=== PATIENT | male | born 1930 | race Caucasian/White ===

== ENCOUNTER 2016-10-29 08:33 | Outpatient (CLI) | payer MEDICARE, OTHER | END 2016-10-29 08:34 | disposition home or self-care (01) | DX: E11.22 Type 2 diabetes mellitus with diabetic chronic kidney disease (principal); N18.9 Chronic kidney disease, unspecified; E78.5 Hyperlipidemia, unspecified; I13.0 Hypertensive heart and chronic kidney disease with heart failure and stage 1 through stage 4 chronic kidney disease, or unspecified chronic kidney disease; I50.9 Heart failure, unspecified ==

== ENCOUNTER 2016-11-10 10:19 | Outpatient (CLI) | payer MEDICARE, OTHER | END 2016-11-10 10:20 | disposition home or self-care (01) | DX: M81.0 Age-related osteoporosis without current pathological fracture (principal); M50.30 Other cervical disc degeneration, unspecified cervical region ==

== ENCOUNTER 2017-01-09 07:58 | Outpatient (CLI) | payer MEDICARE, OTHER | END 2017-01-09 07:59 | disposition critical access hospital (66) | DX: R06.02 Shortness of breath (principal) | CPT/HCPCS: A0425; A0429 ==

== ENCOUNTER 2017-01-09 08:12 | Inpatient (IN) | payer MEDICARE, OTHER ==
[2017-01-09] MEDS ORDERED: NITROGLYCERIN 2% PASTE TOP STA (10:37)
[2017-01-09] MEDS ORDERED: FUROSEMIDE 40 MG/4 ML VIAL IVP STA (10:37)
[2017-01-09] MEDS ORDERED: ASPIRIN CHEW 81 MG TABLET PO STA (10:37)
[2017-01-09] MEDS ORDERED: FUROSEMIDE 40 MG/4 ML VIAL ONE (10:45)
[2017-01-09] MEDS ORDERED: NITROGLYCERIN 2% PASTE TOP ONE (10:45)
[2017-01-09] MEDS ORDERED: ASPIRIN CHEW 81 MG TABLET ONE (10:45)
[2017-01-09] MEDS ORDERED: ALPRAZolam 0.25 MG TABLET PO PRN (11:51)
[2017-01-09] MEDS ORDERED: ACETAMINOPHEN 325 MG TABLET PO PRN (11:54)
[2017-01-09] MEDS ORDERED: SODIUM CHLORIDE FLUSH 0.9% 10 ML SYRINGE IVP PRN (11:54)
[2017-01-09] MEDS: TAMSULOSIN 0.4 MG CAPSULE PO SCH (13:39)
[2017-01-09] MEDS: LOSARTAN 50 MG TABLET PO SCH (13:40)
[2017-01-09] MEDS: CARVEDILOL 3.125 MG TABLET PO SCH ×2 (13:40→21:51)
[2017-01-09] MEDS: POTASSIUM CHLORIDE 20 MEQ TABLET PO SCH (13:40)
[2017-01-09] MEDS: hydrALAZINE 25 MG TABLET PO SCH ×2 (13:40→21:51)
[2017-01-09] MEDS: INSULIN ASPART 300 UNIT/3 ML PEN SUBQ SCH ×3 (13:43→21:51)
[2017-01-09] MEDS: SODIUM CHLORIDE FLUSH 0.9% 10 ML SYRINGE IVP SCH ×2 (14:52→21:53)
[2017-01-09] MEDS: CLOPIDOGREL 75 MG TABLET PO SCH (14:52)
[2017-01-09] MEDS: FUROSEMIDE 40 MG/4 ML VIAL IVP SCH (16:06)
[2017-01-09] MEDS: ATORVASTATIN 10 MG TABLET PO SCH (21:51)
[2017-01-10] MEDS: FUROSEMIDE 40 MG/4 ML VIAL IVP SCH ×2 (06:03→14:08)
[2017-01-10] MEDS: SODIUM CHLORIDE FLUSH 0.9% 10 ML SYRINGE IVP SCH ×3 (06:03→20:52)
[2017-01-10] MEDS: INSULIN ASPART 300 UNIT/3 ML PEN SUBQ SCH ×4 (08:20→20:44)
[2017-01-10] MEDS: hydrALAZINE 25 MG TABLET PO SCH ×2 (08:21→20:46)
[2017-01-10] MEDS: LOSARTAN 50 MG TABLET PO SCH (08:21)
[2017-01-10] MEDS: CARVEDILOL 3.125 MG TABLET PO SCH ×2 (08:21→20:46)
[2017-01-10] MEDS: TAMSULOSIN 0.4 MG CAPSULE PO SCH (08:23)
[2017-01-10] MEDS: ALLOPURINOL 100 MG TABLET PO SCH (08:23)
[2017-01-10] MEDS: POTASSIUM CHLORIDE 20 MEQ TABLET PO SCH (08:24)
[2017-01-10] MEDS: POLYETHYLENE GLYCOL 3350 17 GM PACKET PO SCH (08:24)
[2017-01-10] MEDS: ATORVASTATIN 10 MG TABLET PO SCH (20:47)
[2017-01-11] MEDS: SODIUM CHLORIDE FLUSH 0.9% 10 ML SYRINGE IVP SCH ×3 (05:57→20:07)
[2017-01-11] MEDS: FUROSEMIDE 40 MG/4 ML VIAL IVP SCH ×2 (05:57→13:31)
[2017-01-11] MEDS: LOSARTAN 50 MG TABLET PO SCH (08:01)
[2017-01-11] MEDS: TAMSULOSIN 0.4 MG CAPSULE PO SCH (08:02)
[2017-01-11] MEDS: POTASSIUM CHLORIDE 20 MEQ TABLET PO SCH (08:03)
[2017-01-11] MEDS: hydrALAZINE 25 MG TABLET PO SCH ×2 (08:03→20:06)
[2017-01-11] MEDS: ALLOPURINOL 100 MG TABLET PO SCH (08:03)
[2017-01-11] MEDS: CARVEDILOL 3.125 MG TABLET PO SCH ×2 (08:08→20:05)
[2017-01-11] MEDS: POLYETHYLENE GLYCOL 3350 17 GM PACKET PO SCH (08:09)
[2017-01-11] MEDS: INSULIN ASPART 300 UNIT/3 ML PEN SUBQ SCH ×4 (08:09→21:13)
[2017-01-11] MEDS: ALBUTEROL NEB 2.5 MG/3 ML INH PRN ×4 (09:03→21:06)
[2017-01-11] MEDS: ATORVASTATIN 10 MG TABLET PO SCH (20:05)
[2017-01-12] MEDS: FUROSEMIDE 40 MG/4 ML VIAL IVP SCH (06:09)
[2017-01-12] MEDS: SODIUM CHLORIDE FLUSH 0.9% 10 ML SYRINGE IVP SCH (06:09)
[2017-01-12] MEDS: INSULIN ASPART 300 UNIT/3 ML PEN SUBQ SCH (07:32)
[2017-01-12] MEDS: POLYETHYLENE GLYCOL 3350 17 GM PACKET PO SCH (07:42)
[2017-01-12] MEDS: POTASSIUM CHLORIDE 20 MEQ TABLET PO SCH (08:04)
[2017-01-12] MEDS: LOSARTAN 50 MG TABLET PO SCH (08:05)
[2017-01-12] MEDS: CLOPIDOGREL 75 MG TABLET PO SCH (08:05)
[2017-01-12] MEDS: TAMSULOSIN 0.4 MG CAPSULE PO SCH (08:05)
[2017-01-12] MEDS: CARVEDILOL 3.125 MG TABLET PO SCH (08:06)
[2017-01-12] MEDS: hydrALAZINE 25 MG TABLET PO SCH (08:06)
[2017-01-12] MEDS: ALLOPURINOL 100 MG TABLET PO SCH (08:06)
== END 2017-01-12 11:47 | disposition home or self-care (01) | DRG 291 ==
DX: I13.0 Hypertensive heart and chronic kidney disease with heart failure and stage 1 through stage 4 chronic kidney disease, or unspecified chronic kidney disease (principal); I48.0 Paroxysmal atrial fibrillation; I50.9 Heart failure, unspecified; I10 Essential (primary) hypertension; E11.9 Type 2 diabetes mellitus without complications; I50.33 Acute on chronic diastolic (congestive) heart failure; J44.1 Chronic obstructive pulmonary disease with (acute) exacerbation; C91.10 Chronic lymphocytic leukemia of B-cell type not having achieved remission; N18.3 Chronic kidney disease, stage 3 (moderate); E11.22 Type 2 diabetes mellitus with diabetic chronic kidney disease; I48.2 Chronic atrial fibrillation; D69.6 Thrombocytopenia, unspecified; I27.2 Other secondary pulmonary hypertension; E78.5 Hyperlipidemia, unspecified; K21.9 Gastro-esophageal reflux disease without esophagitis; Z79.4 Long term (current) use of insulin; Z79.899 Other long term (current) drug therapy; Z87.01 Personal history of pneumonia (recurrent); Z87.891 Personal history of nicotine dependence; Z86.73 Personal history of transient ischemic attack (TIA), and cerebral infarction without residual deficits; Z79.02 Long term (current) use of antithrombotics/antiplatelets

== ENCOUNTER 2017-01-26 09:50 | Outpatient (CLI) | payer MEDICARE, OTHER | END 2017-01-26 09:51 | disposition home or self-care (01) | DX: E11.29 Type 2 diabetes mellitus with other diabetic kidney complication (principal); I10 Essential (primary) hypertension; I50.9 Heart failure, unspecified; T14.8 Other injury of unspecified body region; R04.0 Epistaxis ==

== ENCOUNTER 2017-01-31 01:26 | Outpatient (CLI) | payer MEDICARE, OTHER | END 2017-01-31 01:27 | disposition critical access hospital (66) | DX: M25.552 Pain in left hip (principal); W06.XXXA Fall from bed, initial encounter; Y92.003 Bedroom of unspecified non-institutional (private) residence as the place of occurrence of the external cause | CPT/HCPCS: A0425; A0427 ==

== ENCOUNTER 2017-01-31 01:38 | Inpatient (IN) | payer MEDICARE, OTHER ==
[2017-01-31] MEDS ORDERED: HYDROmorphone 1 MG/ML SYRINGE IVP STA (02:16)
[2017-01-31] MEDS ORDERED: HYDROmorphone 1 MG/ML SYRINGE ONE (02:18)
[2017-01-31] MEDS ORDERED: IPRATROPIUM/ALBUTEROL 3 ML NEB INH PRN (05:05)
[2017-01-31] MEDS ORDERED: PROCHLORPERAZINE 10 MG/2 ML VIAL IVP PRN (05:06)
[2017-01-31] MEDS ORDERED: ACETAMINOPHEN 325 MG TABLET PO PRN (05:06)
[2017-01-31] MEDS ORDERED: ONDANSETRON 4 MG/2 ML VIAL IVP PRN (05:06)
[2017-01-31] MEDS ORDERED: SODIUM CHLORIDE FLUSH 0.9% 10 ML SYRINGE IVP PRN (05:06)
[2017-01-31] MEDS ORDERED: ALPRAZolam 0.25 MG TABLET PO PRN (05:11)
[2017-01-31] MEDS: oxyCODONE 5 MG TABLET PO PRN ×3 (06:32→20:30)
[2017-01-31] MEDS: PANTOPRAZOLE 40 MG TABLET PO SCH (06:32)
[2017-01-31] MEDS: ALLOPURINOL 100 MG TABLET PO SCH (08:26)
[2017-01-31] MEDS: SODIUM CHLORIDE FLUSH 0.9% 10 ML SYRINGE IVP SCH ×4 (08:26→23:49)
[2017-01-31] MEDS: CARVEDILOL 3.125 MG TABLET PO SCH ×2 (08:27→20:30)
[2017-01-31] MEDS: FUROSEMIDE 40 MG/4 ML VIAL IVP SCH (08:27)
[2017-01-31] MEDS: hydrALAZINE 25 MG TABLET PO SCH ×2 (08:27→20:30)
[2017-01-31] MEDS: LOSARTAN 50 MG TABLET PO SCH (08:27)
[2017-01-31] MEDS: MORPHINE 2 MG/ML SYRINGE IVP PRN ×3 (08:28→23:47)
[2017-01-31] MEDS: POLYETHYLENE GLYCOL 3350 17 GM PACKET PO SCH (08:28)
[2017-01-31] MEDS: TAMSULOSIN 0.4 MG CAPSULE PO SCH (08:28)
[2017-01-31] MEDS ORDERED: NON FORMULARY MED (Telmisartan [Micardis] 80 MG) PO SCH (09:00)
[2017-01-31] MEDS ORDERED: SODIUM POLYSTYRENE SULFONATE 15 GM/60 ML BOTTLE PO ONE ×2 (13:17→15:00)
[2017-01-31] MEDS: ATORVASTATIN 40 MG TABLET PO SCH (20:30)
[2017-01-31] MEDS ORDERED: ENOXAPARIN 40 MG/0.4 ML SYRINGE SUBQ SCH (21:00)
[2017-01-31] MEDS: ZOLPIDEM 5 MG TABLET PO PRN (23:49)
[2017-02-01] MEDS: PANTOPRAZOLE 40 MG TABLET PO SCH (06:12)
[2017-02-01] MEDS: ALLOPURINOL 100 MG TABLET PO SCH (08:24)
[2017-02-01] MEDS: CARVEDILOL 3.125 MG TABLET PO SCH ×2 (08:24→21:44)
[2017-02-01] MEDS: FUROSEMIDE 40 MG/4 ML VIAL IVP SCH (08:24)
[2017-02-01] MEDS: TAMSULOSIN 0.4 MG CAPSULE PO SCH (08:25)
[2017-02-01] MEDS: POLYETHYLENE GLYCOL 3350 17 GM PACKET PO SCH (08:25)
[2017-02-01] MEDS: LOSARTAN 50 MG TABLET PO SCH (08:25)
[2017-02-01] MEDS: hydrALAZINE 25 MG TABLET PO SCH ×2 (08:25→21:44)
[2017-02-01] MEDS: oxyCODONE 5 MG TABLET PO PRN ×4 (08:39→21:44)
[2017-02-01] MEDS ORDERED: SENNA 8.6 MG TABLET PO SCH (09:00)
[2017-02-01] MEDS ORDERED: DOCUSATE SODIUM 250 MG CAPSULE PO SCH (09:00)
[2017-02-01] MEDS: SODIUM CHLORIDE FLUSH 0.9% 10 ML SYRINGE IVP SCH ×2 (13:36→21:49)
[2017-02-01] MEDS ORDERED: DOCUSATE SODIUM 250 MG CAPSULE PO PRN (15:27)
[2017-02-01] MEDS ORDERED: SENNA 8.6 MG TABLET PO PRN (15:28)
[2017-02-01] MEDS: ATORVASTATIN 40 MG TABLET PO SCH (21:44)
[2017-02-02] MEDS: PANTOPRAZOLE 40 MG TABLET PO SCH (06:13)
[2017-02-02] MEDS: SODIUM CHLORIDE FLUSH 0.9% 10 ML SYRINGE IVP SCH ×3 (06:14→20:52)
[2017-02-02] MEDS ORDERED: ZINC OXIDE 20% OINT 28.35 GM TUBE TOP PRN (08:53)
[2017-02-02] MEDS: TAMSULOSIN 0.4 MG CAPSULE PO SCH (09:13)
[2017-02-02] MEDS: hydrALAZINE 25 MG TABLET PO SCH ×2 (09:13→20:51)
[2017-02-02] MEDS: FUROSEMIDE 40 MG/4 ML VIAL IVP SCH (09:13)
[2017-02-02] MEDS: POLYETHYLENE GLYCOL 3350 17 GM PACKET PO SCH (09:14)
[2017-02-02] MEDS: ALLOPURINOL 100 MG TABLET PO SCH (09:14)
[2017-02-02] MEDS: CARVEDILOL 3.125 MG TABLET PO SCH ×2 (09:14→20:52)
[2017-02-02] MEDS: LOSARTAN 50 MG TABLET PO SCH (10:43)
[2017-02-02] MEDS: oxyCODONE 5 MG TABLET PO PRN (20:51)
[2017-02-02] MEDS: ATORVASTATIN 40 MG TABLET PO SCH (20:51)
[2017-02-02] MEDS: LACTATED RINGERS 1,000 ML IV SCH (23:04)
[2017-02-03] MEDS: SODIUM CHLORIDE FLUSH 0.9% 10 ML SYRINGE IVP SCH ×3 (06:36→21:14)
[2017-02-03] MEDS: PANTOPRAZOLE 40 MG TABLET PO SCH (06:36)
[2017-02-03] MEDS: FUROSEMIDE 40 MG/4 ML VIAL IVP SCH (10:27)
[2017-02-03] MEDS: POLYETHYLENE GLYCOL 3350 17 GM PACKET PO SCH (10:27)
[2017-02-03] MEDS: TAMSULOSIN 0.4 MG CAPSULE PO SCH (10:27)
[2017-02-03] MEDS: CARVEDILOL 3.125 MG TABLET PO SCH ×2 (10:27→20:20)
[2017-02-03] MEDS: hydrALAZINE 25 MG TABLET PO SCH ×2 (10:28→20:21)
[2017-02-03] MEDS: ALLOPURINOL 100 MG TABLET PO SCH (10:28)
[2017-02-03] MEDS: LACTATED RINGERS 1,000 ML IV SCH ×2 (10:29→18:19)
[2017-02-03] MEDS: ATORVASTATIN 40 MG TABLET PO SCH (20:20)
[2017-02-03] MEDS: oxyCODONE 5 MG TABLET PO PRN (21:12)
[2017-02-03] MEDS: ZOLPIDEM 5 MG TABLET PO PRN (23:58)
[2017-02-04] MEDS: SODIUM CHLORIDE FLUSH 0.9% 10 ML SYRINGE IVP SCH ×3 (06:46→20:26)
[2017-02-04] MEDS: PANTOPRAZOLE 40 MG TABLET PO SCH (06:46)
[2017-02-04] MEDS: ALLOPURINOL 100 MG TABLET PO SCH (10:40)
[2017-02-04] MEDS: hydrALAZINE 25 MG TABLET PO SCH ×2 (10:41→19:18)
[2017-02-04] MEDS: TAMSULOSIN 0.4 MG CAPSULE PO SCH (10:41)
[2017-02-04] MEDS: CARVEDILOL 3.125 MG TABLET PO SCH ×2 (10:42→19:18)
[2017-02-04] MEDS: FUROSEMIDE 40 MG TABLET PO SCH (10:42)
[2017-02-04] MEDS: POLYETHYLENE GLYCOL 3350 17 GM PACKET PO SCH (10:45)
[2017-02-04] MEDS ORDERED: ceFAZolin 1 GM VIAL IV ONE (12:30)
[2017-02-04] MEDS ORDERED: MIDAZOLAM 2 MG/2 ML VIAL IVP ONE (12:30)
[2017-02-04] MEDS ORDERED: ePHEDrine 50 MG/ML VIAL IVP ONE (12:30)
[2017-02-04] MEDS ORDERED: fentaNYL 100 MCG/2 ML VIAL IVP ONE (12:30)
[2017-02-04] MEDS ORDERED: TRANEXAMIC ACID 1,000 MG/10 ML VIAL IV ONE (12:30)
[2017-02-04] MEDS ORDERED: ONDANSETRON 4 MG/2 ML VIAL IVP ONE (12:30)
[2017-02-04] MEDS ORDERED: PHENYLEPHRINE 50 MG/5 ML VIAL IV ONE (12:30)
[2017-02-04] MEDS ORDERED: LIDOCAINE-MPF 2% 5 ML VIAL IM ONE (12:30)
[2017-02-04] MEDS ORDERED: PROPOFOL 200 MG/20 ML VIAL IVP ONE (12:30)
[2017-02-04] MEDS ORDERED: DEXAMETHASONE 4 MG/ML VIAL IVP ONE (12:30)
[2017-02-04] MEDS ORDERED: BUPIVACAINE 0.5%-EPI 1:200000 PF 30 ML VIAL SUBQ ONE (12:31)
[2017-02-04] MEDS ORDERED: LACTATED RINGERS 1,000 ML IV ONE ×2 (12:32)
[2017-02-04] MEDS ORDERED: HYDROcod/ACETAM 5/325 MG TABLET PO PRN (13:07)
[2017-02-04] MEDS ORDERED: MORPHINE 2 MG/ML SYRINGE IVP PRN (13:07)
[2017-02-04] MEDS: fentaNYL 100 MCG/2 ML VIAL ONE ×2 (13:50→14:03)
[2017-02-04] MEDS ORDERED: LACTATED RINGERS 1,000 ML IV SCH (14:00)
[2017-02-04] MEDS ORDERED: SODIUM CHLORIDE 0.9% 250 ML IV ONE (17:23)
[2017-02-04] MEDS: LACTATED RINGERS 1,000 ML IV SCH ×2 (17:36→22:17)
[2017-02-04] MEDS ORDERED: SODIUM CHLORIDE 0.9% 250 ML IV SCH (19:09)
[2017-02-04] MEDS: ceFAZolin 2 GM/50 ML 50 ML IV SCH (20:25)
[2017-02-04] MEDS: ATORVASTATIN 40 MG TABLET PO SCH (20:26)
[2017-02-04] MEDS ORDERED: diphenhydrAMINE 25 MG CAPSULE PO PRN (22:21)
[2017-02-05] MEDS: ceFAZolin 2 GM/50 ML 50 ML IV SCH (04:19)
[2017-02-05] MEDS: LACTATED RINGERS 1,000 ML IV SCH ×3 (06:13→16:48)
[2017-02-05] MEDS: PANTOPRAZOLE 40 MG TABLET PO SCH (06:15)
[2017-02-05] MEDS: SODIUM CHLORIDE FLUSH 0.9% 10 ML SYRINGE IVP SCH ×3 (06:21→20:08)
[2017-02-05] MEDS: ALLOPURINOL 100 MG TABLET PO SCH (10:17)
[2017-02-05] MEDS: ACETAMINOPHEN 325 MG TABLET PO PRN ×2 (10:17→20:03)
[2017-02-05] MEDS: FUROSEMIDE 40 MG TABLET PO SCH (10:18)
[2017-02-05] MEDS: hydrALAZINE 25 MG TABLET PO SCH ×2 (10:18→20:06)
[2017-02-05] MEDS: POLYETHYLENE GLYCOL 3350 17 GM PACKET PO SCH (10:19)
[2017-02-05] MEDS: TAMSULOSIN 0.4 MG CAPSULE PO SCH (10:19)
[2017-02-05] MEDS: CARVEDILOL 3.125 MG TABLET PO SCH ×2 (10:20→20:06)
[2017-02-05] MEDS: ATORVASTATIN 40 MG TABLET PO SCH (20:04)
[2017-02-06] MEDS: LACTATED RINGERS 1,000 ML IV SCH (00:29)
[2017-02-06] MEDS: PANTOPRAZOLE 40 MG TABLET PO SCH (05:44)
[2017-02-06] MEDS: SODIUM CHLORIDE FLUSH 0.9% 10 ML SYRINGE IVP SCH ×2 (07:02→09:09)
[2017-02-06] MEDS: TAMSULOSIN 0.4 MG CAPSULE PO SCH (09:07)
[2017-02-06] MEDS: POLYETHYLENE GLYCOL 3350 17 GM PACKET PO SCH ×2 (09:07→09:12)
[2017-02-06] MEDS: ALLOPURINOL 100 MG TABLET PO SCH (09:07)
[2017-02-06] MEDS: hydrALAZINE 25 MG TABLET PO SCH (09:09)
[2017-02-06] MEDS: CARVEDILOL 3.125 MG TABLET PO SCH (09:09)
== END 2017-02-06 15:00 | DRG 481 ==
PROC: 30233R1 Transfusion of Nonautologous Platelets into Peripheral Vein, Percutaneous Approach (ICD-10-PCS; 2017-02-04)
PROC: 0QH734Z Insertion of Internal Fixation Device into Left Upper Femur, Percutaneous Approach (ICD-10-PCS; principal; 2017-02-04 11:30)
DX: S72.012A Unspecified intracapsular fracture of left femur, initial encounter for closed fracture (principal); D69.3 Immune thrombocytopenic purpura; C91.10 Chronic lymphocytic leukemia of B-cell type not having achieved remission; E11.9 Type 2 diabetes mellitus without complications; I95.81 Postprocedural hypotension; I13.10 Hypertensive heart and chronic kidney disease without heart failure, with stage 1 through stage 4 chronic kidney disease, or unspecified chronic kidney disease; W18.09XA Striking against other object with subsequent fall, initial encounter; E11.22 Type 2 diabetes mellitus with diabetic chronic kidney disease; N18.3 Chronic kidney disease, stage 3 (moderate); E87.5 Hyperkalemia; I48.91 Unspecified atrial fibrillation; J44.9 Chronic obstructive pulmonary disease, unspecified; E78.5 Hyperlipidemia, unspecified; I27.2 Other secondary pulmonary hypertension; D64.9 Anemia, unspecified; M10.9 Gout, unspecified; K21.9 Gastro-esophageal reflux disease without esophagitis; N40.0 Benign prostatic hyperplasia without lower urinary tract symptoms; M48.06 Spinal stenosis, lumbar region; G89.29 Other chronic pain; M16.12 Unilateral primary osteoarthritis, left hip; Y92.008 Other place in unspecified non-institutional (private) residence as the place of occurrence of the external cause; Y93.9 Activity, unspecified; Y99.9 Unspecified external cause status; S40.022A Contusion of left upper arm, initial encounter; S40.021A Contusion of right upper arm, initial encounter; S40.012A Contusion of left shoulder, initial encounter; Z79.02 Long term (current) use of antithrombotics/antiplatelets; Z79.51 Long term (current) use of inhaled steroids; Z79.899 Other long term (current) drug therapy; Z86.73 Personal history of transient ischemic attack (TIA), and cerebral infarction without residual deficits; Z99.81 Dependence on supplemental oxygen; Z87.828 Personal history of other (healed) physical injury and trauma; Z87.891 Personal history of nicotine dependence

== ENCOUNTER 2017-02-13 17:00 | Outpatient (CLI) | payer MEDICARE, OTHER ==
[2017-02-13 14:43] LABS: BASOPHILS % (AUTO) 0.2 %; EOSINOPHILS % (AUTO) 0.3 %; HCT - HEMATOCRIT 25.1 % (42.0-52.0); HGB - HEMOGLOBIN 8.2 g/dL (14.0-18.0); LYMPHOCYTES % (AUTO) 83.5 %; MEAN CORPUSCULAR HEMOGLOBIN 33.6 pg (27.0-31.0); MEAN CORPUSCULAR HGB CONC 32.5 g/dL (32.0-36.0); MEAN CORPUSCULAR VOLUME 103.3 fL (80.0-94.0); MEAN PLATELET VOLUME 11.1 fL (7.4-11.4); MONOCYTES % (AUTO) 4.6 %; NEUTROPHILS % (AUTO) 11.4 %; RED BLOOD COUNT 2.43 10^6/uL (4.70-6.10); RED CELL DISTRIBUTION WIDTH 17.8 % (12.0-15.0); UNCORRECTED WHITE BLOOD COUNT 16.7 x10^3/uL; WHITE BLOOD COUNT 16.7 x10^3/uL (4.8-10.8)
[2017-02-13 14:59] LABS: BAND NEUTROPHILS % (MANUAL) 0 %
[2017-02-13 15:01] LABS: LYMPHOCYTES % (MANUAL) 84 %; NEUTROPHILS % (MANUAL) 9 %; NP AUTO DIFFERENTIAL? YES; NP MAN DIFFERENTIAL? NO; TOTAL CELLS COUNTED 100
== END 2017-02-13 17:01 | disposition home or self-care (01) ==
LOC: LAB.R 17:00
DX: D64.9 Anemia, unspecified (principal)
CPT/HCPCS: 85025

== ENCOUNTER 2017-05-29 12:01 | Outpatient (CLI) | payer MEDICARE, OTHER ==
[2017-05-29 12:29] LABS: CREATININE 1.6 mg/dL (0.6-1.2)
--- NOTE | 2017-05-29 16:36 | MRI Report ---
EXAM: MRI BRAIN AND IACS WITHOUT CONTRAST EXAM DATE: 05/29/2017 01:47 PM. CLINICAL HISTORY: 87-year-old man with left-sided hearing loss and tinnitus. COMPARISON: None. TECHNIQUE: Multiplanar, multisequence T1-weighted and fluid-sensitive MR sequences of the brain were performed. Sequences optimized for routine evaluation. Other: High-resolution axial images were acqui red through the internal auditory canals. IV Contrast: None. FINDINGS: Parenchyma: No evidence of acute infarct on diffusion weighted sequence. The parenchyma demonstrates small regions of encephalomalacia in the right frontal operculum and left saranya-trigonal white matter, consistent with remote infarcts. Otherwise, there is mild, nonspecific FLAIR hyperintensity in the p eriventricular and deep cerebral white matter, a common finding in this age group. No evidence of manav or hemorrhage on susceptibility weighted sequence. Pituitary: Unremarkable. Ventricles and Extra-axial Spaces: Ventricles are symmetric but enlarged, most consistent with centra l cerebral volume loss at the upper limits of normal for age. Extra-axial spaces are unremarkable. Internal auditory canals: Patent without mass lesion. Cochleas and vestibular apparatuses demonstrate normal fluid signal intensity. No evidence of semicircular canal dehiscence. Orbits: Unremarkable except for bilateral lens replacement surgery. Sinuses: The paranasal sinuses are clear. There is a small left mastoid effusion. Major Vascular Flow Voids: Intact. IMPRESSION: 1. Normal MRI of the internal auditory canals. No evidence of mass lesion. 2. Small left mastoid effusion. 3. Small regions of encephalomalacia in the right frontal operculum and left peritrigonal white matte r, consistent with remote infarcts. [facility] Referring Provider Line: [phone] SITE ID: [id number]
== END 2017-05-29 12:02 | disposition home or self-care (01) ==
LOC: LAB 12:01
PROVIDERS: ATTEND Otolaryngology
DX: H74.8X3 Other specified disorders of middle ear and mastoid, bilateral (principal); G93.89 Other specified disorders of brain
CPT/HCPCS: 36415; 70540; 82565; 84520

== ENCOUNTER 2017-06-25 11:07 | Outpatient (CLI) | payer MEDICARE, OTHER ==
[2017-06-25 14:05] LABS: HEMOGLOBIN A1C 0.27 g/dL
[2017-06-25 14:37] LABS: ALBUMIN/GLOBULIN RATIO 1.5 (1.0-2.2); BILIRUBIN,TOTAL 1.7 mg/dL (0.2-1.0); BUN - BLOOD UREA NITROGEN 41 mg/dL (6-20); CALCIUM 8.6 mg/dL (8.5-10.3); CARBON DIOXIDE - CO2 23 mmol/L (21-32); CHLORIDE 110 mmol/L (101-111); CREATININE 1.5 mg/dL (0.6-1.2); GFR - MDRD 44 (>89); GLUCOSE 110 mg/dL (70-100); POTASSIUM 4.4 mmol/L (3.5-5.0); SODIUM 140 mmol/L (135-145); TOTAL PROTEIN 6.3 g/dL (6.7-8.2)
== END 2017-06-25 11:08 | disposition home or self-care (01) ==
LOC: LAB.WCP 11:07
PROVIDERS: ATTEND Family Medicine
DX: E11.29 Type 2 diabetes mellitus with other diabetic kidney complication (principal); N19 Unspecified kidney failure; I50.9 Heart failure, unspecified; I10 Essential (primary) hypertension
CPT/HCPCS: 36415; 80053; 83036

== ENCOUNTER 2017-07-09 12:20 | Outpatient (CLI) | payer MEDICARE, OTHER ==
[2017-07-09 19:40] LABS: CALCIUM 8.2 mg/dL (8.5-10.3); POTASSIUM 4.4 mmol/L (3.5-5.0)
== END 2017-07-09 12:21 | disposition home or self-care (01) ==
LOC: LAB.WCP 12:20
PROVIDERS: ATTEND Family Medicine
DX: E11.29 Type 2 diabetes mellitus with other diabetic kidney complication (principal); N19 Unspecified kidney failure; I50.9 Heart failure, unspecified
CPT/HCPCS: 36415; 80048

== ENCOUNTER 2017-07-24 11:29 | Outpatient (CLI) | payer MEDICARE, OTHER ==
[2017-07-24 20:08] LABS: CALCIUM 8.2 mg/dL (8.5-10.3); CREATININE 2.4 mg/dL (0.6-1.2); POTASSIUM 4.7 mmol/L (3.5-5.0)
== END 2017-07-24 11:30 | disposition home or self-care (01) ==
LOC: LAB.WCP 11:29
PROVIDERS: ATTEND Family Medicine
DX: E11.29 Type 2 diabetes mellitus with other diabetic kidney complication (principal); N19 Unspecified kidney failure; I50.9 Heart failure, unspecified
CPT/HCPCS: 36415; 80048

== ENCOUNTER 2017-10-30 10:32 | Outpatient (CLI) | payer MEDICARE, OTHER ==
[2017-10-30 12:38] LABS: BASOPHILS % (AUTO) 0.3 %; EOSINOPHILS % (AUTO) 0.3 %; HGB - HEMOGLOBIN 9.6 g/dL (14.0-18.0); LYMPHOCYTES % (AUTO) 87.8 %; MEAN CORPUSCULAR HEMOGLOBIN 34.2 pg (27.0-31.0); MEAN CORPUSCULAR HGB CONC 33.3 g/dL (32.0-36.0); MEAN CORPUSCULAR VOLUME 102.6 fL (80.0-94.0); MEAN PLATELET VOLUME 10.3 fL (7.4-11.4); MONOCYTES % (AUTO) 3.7 %; NEUTROPHILS % (AUTO) 7.9 %; PLT - PLATELET COUNT 57 10^3/uL (130-450); RED BLOOD COUNT 2.79 10^6/uL (4.70-6.10); RED CELL DISTRIBUTION WIDTH 16.5 % (12.0-15.0); WHITE BLOOD COUNT 15.2 x10^3/uL (4.8-10.8)
[2017-10-30 12:41] LABS: HB2 TOTAL 10.3 g/dL; HEMOGLOBIN A1C 0.35 g/dL; HEMOGLOBIN A1C % 5.3 % (4.6-6.2)
[2017-10-30 12:51] LABS: ABNORMAL LYMPHS % (MANUAL) 0 %; BAND NEUTROPHILS % (MANUAL) 0 %
[2017-10-30 13:04] LABS: EOSINOPHILS # (MANUAL) 0.2 10^3/uL (0-0.7); LYMPHOCYTES # (MANUAL) 13.4 10^3/uL (1.5-3.5); LYMPHOCYTES % (MANUAL) 16 %; MONOCYTES # (MANUAL) 0.8 10^3/uL (0.0-1.0); NEUTROPHILS # (MANUAL) 0.9 10^3/uL (1.5-6.6); NEUTROPHILS % (MANUAL) 6 %
[2017-10-30 13:05] LABS: DIFFERENTIAL COMMENT MANUAL DIFFERENTIAL; RBC MORPHOLOGY (MULTIPLE) 2+ ANISOCYTOSIS (NORMAL)
[2017-10-30 21:10] LABS: ALBUMIN 3.7 g/dL (3.2-5.5); ALBUMIN/GLOBULIN RATIO 1.6 (1.0-2.2); BILIRUBIN,TOTAL 2.5 mg/dL (0.2-1.0); CALCIUM 8.3 mg/dL (8.5-10.3); CREATININE 1.9 mg/dL (0.6-1.2)
== END 2017-10-30 10:33 | disposition home or self-care (01) ==
LOC: LAB.WCP 10:32
PROVIDERS: ATTEND Family Medicine
DX: I10 Essential (primary) hypertension (principal); E11.29 Type 2 diabetes mellitus with other diabetic kidney complication; N19 Unspecified kidney failure; I50.9 Heart failure, unspecified
CPT/HCPCS: 36415; 80053; 83036; 85025

== ENCOUNTER 2017-12-28 09:00 | Outpatient (CLI) | payer MEDICARE, OTHER ==
[2017-12-28 12:22] LABS: CALCIUM 8.3 mg/dL (8.5-10.3); CREATININE 1.9 mg/dL (0.6-1.2)
[2017-12-28 12:32] LABS: BASOPHILS % (AUTO) 0.1 %; EOSINOPHILS % (AUTO) 1.1 %; HGB - HEMOGLOBIN 9.1 g/dL (14.0-18.0); LYMPHOCYTES % (AUTO) 86.3 %; MEAN CORPUSCULAR HEMOGLOBIN 33.9 pg (27.0-31.0); MEAN CORPUSCULAR VOLUME 105.8 fL (80.0-94.0); NEUTROPHILS % (AUTO) 8.5 %; PLT - PLATELET COUNT 78 10^3/uL (130-450); RED BLOOD COUNT 2.68 10^6/uL (4.70-6.10); RED CELL DISTRIBUTION WIDTH 16.7 % (12.0-15.0); WHITE BLOOD COUNT 19.6 x10^3/uL (4.8-10.8)
[2017-12-28 13:26] LABS: ABNORMAL LYMPHS % (MANUAL) 0 %; BAND NEUTROPHILS % (MANUAL) 0 %
[2017-12-28 13:28] LABS: EOSINOPHILS # (MANUAL) 0.2 10^3/uL (0-0.7); LYMPHOCYTES # (MANUAL) 17.2 10^3/uL (1.5-3.5); LYMPHOCYTES % (MANUAL) 80 %; MONOCYTES # (MANUAL) 0.4 10^3/uL (0.0-1.0); NEUTROPHILS # (MANUAL) 1.8 10^3/uL (1.5-6.6); NEUTROPHILS % (MANUAL) 9 %; RBC MORPHOLOGY (MULTIPLE) 3+ ANISOCYTOSIS (NORMAL)
[2017-12-28 13:29] LABS: DIFFERENTIAL COMMENT MANUAL DIFFERENTIAL
== END 2017-12-28 09:01 | disposition home or self-care (01) ==
LOC: LAB.WCP 09:00
PROVIDERS: ATTEND Family Medicine
DX: I10 Essential (primary) hypertension (principal); I50.9 Heart failure, unspecified; N19 Unspecified kidney failure; E11.29 Type 2 diabetes mellitus with other diabetic kidney complication; D63.1 Anemia in chronic kidney disease
CPT/HCPCS: 36415; 80048; 83880; 85025

== ENCOUNTER 2018-02-15 08:00 | Outpatient (CLI) | payer MEDICARE, OTHER ==
[2018-02-15 12:49] LABS: BASOPHILS # (AUTO) 0.1 10^3/uL (0.0-0.1); BASOPHILS % (AUTO) 0.4 %; EOSINOPHILS % (AUTO) 0.2 %; HGB - HEMOGLOBIN 9.2 g/dL (14.0-18.0); MEAN CORPUSCULAR HEMOGLOBIN 32.8 pg (27.0-31.0); MEAN CORPUSCULAR HGB CONC 32.4 g/dL (32.0-36.0); MEAN CORPUSCULAR VOLUME 101.4 fL (80.0-94.0); MONOCYTES # (AUTO) 0.6 10^3/uL (0.0-1.0); MONOCYTES % (AUTO) 4.5 %; NEUTROPHILS # (AUTO) 2.2 10^3/uL (1.5-6.6); NEUTROPHILS % (AUTO) 15.9 %; PLT - PLATELET COUNT 76 10^3/uL (130-450); RED BLOOD COUNT 2.79 10^6/uL (4.70-6.10); RED CELL DISTRIBUTION WIDTH 16.9 % (12.0-15.0); WHITE BLOOD COUNT 13.9 x10^3/uL (4.8-10.8)
[2018-02-15 12:59] LABS: HB2 TOTAL 9.7 g/dL; HEMOGLOBIN A1C 0.35 g/dL; HEMOGLOBIN A1C % 5.5 % (4.6-6.2)
[2018-02-15 13:24] LABS: PLATELET ESTIMATE, MANUAL DECREASED (<130,000) (NORMAL); PLATELET MORPHOLOGY NORMAL APPEARANCE (NORMAL)
[2018-02-15 13:39] LABS: CALCIUM 8.5 mg/dL (8.5-10.3)
== END 2018-02-15 08:01 | disposition home or self-care (01) ==
LOC: LAB.WCP 08:00
PROVIDERS: ATTEND Family Medicine
DX: I10 Essential (primary) hypertension (principal); E11.29 Type 2 diabetes mellitus with other diabetic kidney complication; I50.9 Heart failure, unspecified; N19 Unspecified kidney failure; R60.0 Localized edema
CPT/HCPCS: 36415; 80048; 83036; 83880; 85025

== ENCOUNTER 2018-02-25 14:00 | Outpatient (CLI) | payer MEDICARE, OTHER ==
[2018-02-25 19:03] LABS: CALCIUM 8.5 mg/dL (8.5-10.3); CREATININE 1.9 mg/dL (0.6-1.2)
== END 2018-02-25 14:01 ==
LOC: LAB.WCP 14:00
PROVIDERS: ATTEND Physician Assistant
DX: N19 Unspecified kidney failure (principal); R23.8 Other skin changes
CPT/HCPCS: 36415; 80048; 87070; 87077; 87181; 87205

== ENCOUNTER 2018-03-02 11:21 | Outpatient (CLI) | payer MEDICARE, OTHER ==
[2018-03-02 19:37] LABS: CALCIUM 8.6 mg/dL (8.5-10.3); CREATININE 2.1 mg/dL (0.6-1.2)
== END 2018-03-02 11:22 ==
LOC: LAB.WCP 11:21
PROVIDERS: ATTEND Family Medicine
DX: E87.6 Hypokalemia (principal)
CPT/HCPCS: 36415; 80048

== ENCOUNTER 2018-04-19 08:00 | Outpatient (CLI) | payer MEDICARE, OTHER ==
[2018-04-19 19:06] LABS: CALCIUM 8.6 mg/dL (8.5-10.3); CREATININE 2.1 mg/dL (0.6-1.2)
[2018-04-19 20:00] LABS: HB2 TOTAL 9.7 g/dL; HEMOGLOBIN A1C 0.31 g/dL; HEMOGLOBIN A1C % 5.1 % (4.6-6.2)
== END 2018-04-19 08:01 | disposition home or self-care (01) ==
LOC: LAB.WCP 08:00
PROVIDERS: ATTEND Family Medicine
DX: E11.29 Type 2 diabetes mellitus with other diabetic kidney complication (principal); N19 Unspecified kidney failure; I10 Essential (primary) hypertension; I50.9 Heart failure, unspecified
CPT/HCPCS: 36415; 80048; 83036

== ENCOUNTER 2018-06-11 17:25 | Emergency (ER) | payer MEDICARE, OTHER ==
[2018-06-11 17:37] VITALS: BP 111/47
[2018-06-11] MEDS ORDERED: TRANEXAMIC ACID 1,000 MG/10 ML VIAL NAS STA (18:00)
--- NOTE | 2018-06-11 18:01 | ED Physician Documentation ---
History of Present Illness - Stated complaint Stated Complaint: NOSEBLEED - Chief complaint Chief Complaint: Ext Problem - History obtained from History obtained from: Patient, Family - History of Present Illness Timing: Today Pain level max: 0 Pain level now: 0 Improved by: pressure Worsened by: nothing - Additonal information Additional information: Patient is an 88-year-old male who takes Plavix at home. He has developed a bloody nose on the right side. This is been ongoing throughout the day. Is now a slow drip. Resolved with pressure earlier. Does not feel lightheaded, dizzy or short of breath. Does not recall any trauma. States that he has had a mild runny nose recently Review of Systems Constitutional: denies: Fever, Chills GI: denies: Nausea, Vomiting, Diarrhea Skin: denies: Rash Musculoskeletal: denies: Neck pain, Back pain Neurologic: denies: Headache PD PAST MEDICAL HISTORY - Past Medical History Cardiovascular: Hypertension, High cholesterol, Atrial fibrillation Respiratory: None Endocrine/Autoimmune: Type 2 diabetes GI: None : None HEENT: None Psych: None Musculoskeletal: Gout, Other Derm: None - Past Surgical History Past Surgical History: Yes General: Cholecystectomy, Appendectomy Ortho: Hip replacement HEENT: Cataracts Derm: Skin cancer surgery - Present Medications Home Medications: Ambulatory Orders Medication Instructions Recorded Confirmed Allopurinol 300 mg PO DAILY 10/01/13 01/31/17 Clopidogrel [Plavix] 75 mg PO MOWEFR 10/01/13 01/31/17 Hydralazine HCl 50 mg PO BID 10/01/13 01/31/17 Tamsulosin [Flomax] 0.4 mg PO DAILY #5 capsule 10/01/13 01/31/17 Telmisartan [Micardis] 80 mg PO DAILY 10/01/13 01/31/17 Furosemide [Lasix] 40 - 80 mg PO DAILY PRN 09/21/15 01/31/17 ALPRAZolam [Alprazolam] 0.5 - 1 mg PO QPM PRN 09/24/15 01/31/17 Zolpidem Tartrate [Ambien] 10 mg PO QPM PRN 01/09/17 01/31/17 Albuterol Sulfate [Proair Hfa 2 puffs INH Q4H PRN #1 inhaler 01/12/17 01/31/17 Inhaler] Carvedilol [Coreg] 6.25 mg PO BID #60 tablet 01/12/17 01/31/17 Potassium Chloride [K-Dur] 20 meq PO DAILYWM #30 tablet 01/12/17 01/31/17 - Allergies Allergies/Adverse Reactions: Allergies Allergy/AdvReac Type Severity Reaction Status Date / Time No Known Drug Allergies Allergy Verified 01/09/17 08:31 - Social History Does the pt smoke?: No Smoking Status: Never smoker Does the pt drink ETOH?: No Does the pt have substance abuse?: No - Immunizations Immunizations are current?: Yes - POLST Patient has POLST: No PD ED PE NORMAL - Vitals Vital signs reviewed: Yes - General General: Alert and oriented X 3, No acute distress - HEENT HEENT: Moist mucous membranes, Other (R nare - slight amount of dried blood. no active bleeding. ) - Neuro Neuro: Alert and oriented X 3 - Psych Psych: Normal mood, Normal affect Results - Vitals Vitals: Vital Signs - 24 hr 06/11/18 17:34 Temperature 37.1 C Heart Rate 66 Respiratory 18 Rate Blood Pressure 111/47 L O2 Saturation 95 Oxygen O2 Source [With Activity] Nasal cannula O2 Source Room air PD MEDICAL DECISION MAKING - ED course Complexity details: considered differential, d/w patient, d/w family ED course: Patient is an 88-year-old male with right-sided epistaxis earlier today. Appears to have resolved now. Tranexamic acid was atomized in the nose. Tolerated well. A clamp was applied and there was no further bleeding noted in the emergency department. We will have him follow-up with his doctor for further care. Patient and family counseled regarding signs and symptoms for which I believe and urgent re-evaluation would be necessary. Patient with good understanding of and agreement to plan and is comfortable going home at this time This document was made in part using voice recognition software. While efforts are made to proofread this document, sound alike and grammatical errors may occur. - Sepsis Event Vital Signs: Vital Signs - 24 hr 06/11/18 17:34 Temperature 37.1 C Heart Rate 66 Respiratory 18 Rate Blood Pressure 111/47 L O2 Saturation 95 Oxygen O2 Source [With Activity] Nasal cannula O2 Source Room air Departure - Departure Disposition: 01 Home, Self Care Clinical Impression: Epistaxis Condition: Good Instructions: ED Nosebleed Follow-Up: Andrea Aguirre MD [Primary Care Provider] - As Needed Comments: Return if you worsen. If your nose starts to rebleed, hold pressure for 10 minutes. If it is still bleeding, return for evaluation. Discharge Date/Time: 06/11/18 18:56
== END 2018-06-11 18:56 | disposition home or self-care (01) ==
LOC: ED 17:25
DX: R04.0 Epistaxis (principal); I10 Essential (primary) hypertension; E78.00 Pure hypercholesterolemia, unspecified; E11.9 Type 2 diabetes mellitus without complications; I48.91 Unspecified atrial fibrillation; Z79.01 Long term (current) use of anticoagulants
CPT/HCPCS: 99282

== ENCOUNTER 2018-06-11 21:53 | Emergency (ER) | payer MEDICARE, OTHER ==
[2018-06-11 22:04] VITALS: BP 125/56
[2018-06-11] MEDS ORDERED: OXYMETAZOLINE NASAL SPRAY NAS STA (22:04)
--- NOTE | 2018-06-11 22:30 | ED Physician Documentation ---
History of Present Illness - Stated complaint Stated Complaint: NOSE BLEED - Chief complaint Chief Complaint: General - History obtained from History obtained from: Patient, Family - History of Present Illness Timing: Today Pain level max: 0 Pain level now: 0 Improved by: nothing Worsened by: nothing - Additonal information Additional information: seen here earlier for nosebleed, states noted a continued trickle tonight. No dyspnea, no chest pain. no lightheadedness or dizziness. Review of Systems Constitutional: denies: Fever, Chills GI: denies: Vomiting Skin: denies: Rash Musculoskeletal: denies: Neck pain, Back pain PD PAST MEDICAL HISTORY - Past Medical History Past Medical History: Yes Cardiovascular: Hypertension, High cholesterol, Atrial fibrillation Respiratory: None Endocrine/Autoimmune: Type 2 diabetes GI: None : None HEENT: None Psych: None Musculoskeletal: Gout, Other Derm: None - Past Surgical History Past Surgical History: Yes General: Cholecystectomy, Appendectomy Ortho: Hip replacement HEENT: Cataracts Derm: Skin cancer surgery - Present Medications Home Medications: Ambulatory Orders Medication Instructions Recorded Confirmed Allopurinol 300 mg PO DAILY 10/01/13 01/31/17 Clopidogrel [Plavix] 75 mg PO MOWEFR 10/01/13 01/31/17 Hydralazine HCl 50 mg PO BID 10/01/13 01/31/17 Tamsulosin [Flomax] 0.4 mg PO DAILY #5 capsule 10/01/13 01/31/17 Telmisartan [Micardis] 80 mg PO DAILY 10/01/13 01/31/17 Furosemide [Lasix] 40 - 80 mg PO DAILY PRN 09/21/15 01/31/17 ALPRAZolam [Alprazolam] 0.5 - 1 mg PO QPM PRN 09/24/15 01/31/17 Zolpidem Tartrate [Ambien] 10 mg PO QPM PRN 01/09/17 01/31/17 Albuterol Sulfate [Proair Hfa 2 puffs INH Q4H PRN #1 inhaler 01/12/17 01/31/17 Inhaler] Carvedilol [Coreg] 6.25 mg PO BID #60 tablet 01/12/17 01/31/17 Potassium Chloride [K-Dur] 20 meq PO DAILYWM #30 tablet 01/12/17 01/31/17 - Allergies Allergies/Adverse Reactions: Allergies Allergy/AdvReac Type Severity Reaction Status Date / Time No Known Drug Allergies Allergy Verified 06/11/18 22:04 - Social History Does the pt smoke?: No Smoking Status: Never smoker Does the pt drink ETOH?: No Does the pt have substance abuse?: No - Immunizations Immunizations are current?: Yes - POLST Patient has POLST: No PD ED PE NORMAL - Vitals Vital signs reviewed: Yes - General General: Alert and oriented X 3, No acute distress - HEENT HEENT: Moist mucous membranes, Other (nose - Dried blood in the right nare along with clots. No active bleeding) - Neck Neck: Supple, no meningeal sign - Derm Derm: Warm and dry - Neuro Neuro: Alert and oriented X 3 - Psych Psych: Normal mood, Normal affect Results - Vitals Vitals: Vital Signs - 24 hr 06/11/18 06/11/18 06/11/18 22:02 22:49 23:00 Temperature 36.1 C L Heart Rate 80 77 Respiratory 17 16 17 Rate Blood Pressure 125/56 L O2 Saturation 99 99 Oxygen O2 Source [With Activity] Nasal cannula O2 Source Room air PD MEDICAL DECISION MAKING - ED course Complexity details: considered differential, d/w patient, d/w family ED course: Clots were removed from the nose. Tolerated well. Afrin was then used without recurrence of bleeding in the emergency department. A monitored for approximately 45 minutes and then patient request to go home. Patient and family counseled regarding signs and symptoms for which I believe and urgent re- evaluation would be necessary. Patient with good understanding of and agreement to plan and is comfortable going home at this time This document was made in part using voice recognition software. While efforts are made to proofread this document, sound alike and grammatical errors may occur. - Sepsis Event Vital Signs: Vital Signs - 24 hr 06/11/18 06/11/18 06/11/18 22:02 22:49 23:00 Temperature 36.1 C L Heart Rate 80 77 Respiratory 17 16 17 Rate Blood Pressure 125/56 L O2 Saturation 99 99 Oxygen O2 Source [With Activity] Nasal cannula O2 Source Room air Departure - Departure Disposition: 01 Home, Self Care Clinical Impression: Epistaxis Condition: Good Instructions: ED Nosebleed Follow-Up: Andrea Aguirre MD [Primary Care Provider] - Within 1 week Comments: Use the afrin twice a day for 2 days. Do not rub or blow your nose. Return if you worsen. Discharge Date/Time: 06/11/18 23:05
== END 2018-06-11 23:05 | disposition home or self-care (01) ==
LOC: ED 21:53
DX: R04.0 Epistaxis (principal); I10 Essential (primary) hypertension; E78.00 Pure hypercholesterolemia, unspecified; E11.9 Type 2 diabetes mellitus without complications; I48.91 Unspecified atrial fibrillation; Z79.01 Long term (current) use of anticoagulants; Z96.649 Presence of unspecified artificial hip joint
CPT/HCPCS: 99282; 99283; A9270

== ENCOUNTER 2018-06-12 11:27 | Emergency (ER) | payer MEDICARE, OTHER ==
[2018-06-12] MEDS ORDERED: LIDOCAINE 2%-EPI 1:100000 20 ML MDV TOP STA (12:59)
--- NOTE | 2018-06-12 13:37 | ED Physician Documentation ---
History of Present Illness - Stated complaint Stated Complaint: NOSE BLEED - Chief complaint Chief Complaint: Heent - History obtained from History obtained from: Patient, Family - History of Present Illness Timing: Yesterday Pain level max: 0 Pain level now: 0 - Additonal information Additional information: Patient is an 88-year-old male who presents with epistaxis from the right nare. Seen here yesterday 2. There was no further bleeding last night, however when he woke up this morning there was blood on the sheets in the bed. He is not currently bleeding. It is better with pressure and worse with palpation and dislodging the clot. Review of Systems Constitutional: denies: Fever : denies: Dysuria Skin: denies: Rash PD PAST MEDICAL HISTORY - Past Medical History Cardiovascular: Hypertension, High cholesterol, Atrial fibrillation Respiratory: None Endocrine/Autoimmune: Type 2 diabetes GI: None : None HEENT: None Psych: None Musculoskeletal: Gout, Other Derm: None - Past Surgical History Past Surgical History: Yes General: Cholecystectomy, Appendectomy Ortho: Hip replacement HEENT: Cataracts Derm: Skin cancer surgery - Present Medications Home Medications: Ambulatory Orders Medication Instructions Recorded Confirmed Allopurinol 300 mg PO DAILY 10/01/13 01/31/17 Clopidogrel [Plavix] 75 mg PO MOWEFR 10/01/13 01/31/17 Hydralazine HCl 50 mg PO BID 10/01/13 01/31/17 Tamsulosin [Flomax] 0.4 mg PO DAILY #5 capsule 10/01/13 01/31/17 Telmisartan [Micardis] 80 mg PO DAILY 10/01/13 01/31/17 Furosemide [Lasix] 40 - 80 mg PO DAILY PRN 09/21/15 01/31/17 ALPRAZolam [Alprazolam] 0.5 - 1 mg PO QPM PRN 09/24/15 01/31/17 Zolpidem Tartrate [Ambien] 10 mg PO QPM PRN 01/09/17 01/31/17 Albuterol Sulfate [Proair Hfa 2 puffs INH Q4H PRN #1 inhaler 01/12/17 01/31/17 Inhaler] Carvedilol [Coreg] 6.25 mg PO BID #60 tablet 01/12/17 01/31/17 Potassium Chloride [K-Dur] 20 meq PO DAILYWM #30 tablet 01/12/17 01/31/17 Cephalexin [Keflex] 500 mg PO Q6H #12 capsule 06/12/18 - Allergies Allergies/Adverse Reactions: Allergies Allergy/AdvReac Type Severity Reaction Status Date / Time No Known Drug Allergies Allergy Verified 06/11/18 22:04 - Social History Does the pt smoke?: No Smoking Status: Never smoker Does the pt drink ETOH?: No Does the pt have substance abuse?: No - Immunizations Immunizations are current?: Yes - POLST Patient has POLST: No PD ED PE NORMAL - Vitals Vital signs reviewed: Yes - General General: Alert and oriented X 3, No acute distress - HEENT HEENT: Moist mucous membranes, Other (Dried blood in the right nare. No visible bleeding.) - Neck Neck: Supple, no meningeal sign - Derm Derm: Warm and dry - Neuro Neuro: Alert and oriented X 3 Results - Vitals Vitals: Vital Signs - 24 hr 06/12/18 06/12/18 11:42 13:45 Temperature 36.9 C 36.6 C Heart Rate 71 68 Respiratory 15 18 Rate Blood Pressure 101/54 L 107/55 L O2 Saturation 99 98 Oxygen O2 Source [With Activity] Nasal cannula O2 Source Room air Procedures - Epistaxis Site: Right, Cannot determine Preparation: Clots removed, Lidocaine (With epinephrine) Treatment: Anterior rhinorocket Other: Observed - no bleeding, Pt tolerated well, O2 sat WNL, Antibiotics prescribed PD MEDICAL DECISION MAKING - ED course Complexity details: considered differential, d/w patient, d/w family ED course: Patient is an 88-year-old male with a recurrent epistaxis, likely dislodged the clot last night while he was asleep. No bleeding today, however after discussion of options including observation and continued Afrin at home, he and his have elected to receive intranasal packing. We will leave this in place for 2 days given his status on Plavix and have it removed with his doctor on Thursday. Will place him on Keflex as well. No further bleeding in the emergency department. Patient and family counseled regarding signs and symptoms for which I believe and urgent re-evaluation would be necessary. Patient with good understanding of and agreement to plan and is comfortable going home at this time This document was made in part using voice recognition software. While efforts are made to proofread this document, sound alike and grammatical errors may occur. - Sepsis Event Vital Signs: Vital Signs - 24 hr 06/12/18 06/12/18 11:42 13:45 Temperature 36.9 C 36.6 C Heart Rate 71 68 Respiratory 15 18 Rate Blood Pressure 101/54 L 107/55 L O2 Saturation 99 98 Oxygen O2 Source [With Activity] Nasal cannula O2 Source Room air Departure - Departure Disposition: 01 Home, Self Care Clinical Impression: Epistaxis Condition: Good Instructions: ED Nosebleed Follow-Up: Andrea Aguirre MD [Primary Care Provider] - 06/14/18 Prescriptions: Cephalexin [Keflex] 500 mg PO Q6H #12 capsule Comments: the packing should be removed on Thursday here or with your doctor. Take the antibiotics until the packing is removed. Return if you worsen. Discharge Date/Time: 06/12/18 13:45
[2018-06-12 13:45] VITALS: BP 107/55
== END 2018-06-12 13:45 | disposition home or self-care (01) ==
LOC: ED 11:27
DX: R04.0 Epistaxis (principal); I10 Essential (primary) hypertension; E78.00 Pure hypercholesterolemia, unspecified; E11.9 Type 2 diabetes mellitus without complications; Z96.649 Presence of unspecified artificial hip joint
CPT/HCPCS: 30901; 99283

== ENCOUNTER 2018-06-14 13:40 | Outpatient (CLI) | payer MEDICARE, OTHER ==
[2018-06-14 19:13] LABS: BASOPHILS % (AUTO) 0.2 %; EOSINOPHILS % (AUTO) 0.1 %; HGB - HEMOGLOBIN 9.8 g/dL (14.0-18.0); LYMPHOCYTES % (AUTO) 70.3 %; MEAN CORPUSCULAR HEMOGLOBIN 32.7 pg (27.0-31.0); MEAN CORPUSCULAR HGB CONC 32.5 g/dL (32.0-36.0); MEAN CORPUSCULAR VOLUME 100.7 fL (80.0-94.0); MEAN PLATELET VOLUME 10.1 fL (7.4-11.4); MONOCYTES % (AUTO) 6.3 %; NEUTROPHILS % (AUTO) 23.1 %; PLT - PLATELET COUNT 77 10^3/uL (130-450); RED CELL DISTRIBUTION WIDTH 16.8 % (12.0-15.0); WHITE BLOOD COUNT 12.4 x10^3/uL (4.8-10.8)
[2018-06-14 19:14] LABS: ABNORMAL LYMPHS % (MANUAL) 0 %; BAND NEUTROPHILS % (MANUAL) 0 %
[2018-06-14 20:06] LABS: EOSINOPHILS # (MANUAL) 0.1 10^3/uL (0-0.7); LYMPHOCYTES # (MANUAL) 9.1 10^3/uL (1.5-3.5); LYMPHOCYTES % (MANUAL) 73 %; MONOCYTES # (MANUAL) 0.4 10^3/uL (0.0-1.0); NEUTROPHILS # (MANUAL) 2.9 10^3/uL (1.5-6.6); NEUTROPHILS % (MANUAL) 23 %
[2018-06-14 20:08] LABS: PLATELET ESTIMATE, MANUAL DECREASED (<130,000) (NORMAL); PLATELET MORPHOLOGY NORMAL APPEARANCE (NORMAL)
== END 2018-06-14 13:41 | disposition home or self-care (01) ==
LOC: LAB.WCP 13:40
PROVIDERS: ATTEND Family Medicine
DX: R04.0 Epistaxis (principal); C91.10 Chronic lymphocytic leukemia of B-cell type not having achieved remission
CPT/HCPCS: 36415; 85025

== ENCOUNTER 2018-06-22 07:29 | Outpatient (CLI) | payer MEDICARE, OTHER | END 2018-06-22 07:30 | disposition critical access hospital (66) | LOC: EMS 07:29 | PROVIDERS: ATTEND Surgery | DX: R04.0 Epistaxis (principal) | CPT/HCPCS: A0425; A0429 ==

== ENCOUNTER 2018-06-22 07:46 | Emergency (ER) | payer MEDICARE, OTHER ==
[2018-06-22] MEDS ORDERED: OXYMETAZOLINE NASAL SPRAY NAS STA (07:48)
--- NOTE | 2018-06-22 08:07 | ED Physician Documentation ---
History of Present Illness - Stated complaint Stated Complaint: EPISTAXIS - Chief complaint Chief Complaint: Heent - Additonal information Additional information: hx from pt 88 m R epistaxis no trauma hx a fib but no blood thinners - stopped plavix a week ago due to recurrent nosebleeds has paced a cotton ball in nares bleeding now stooped seen several times for same Review of Systems Nose: reports: Epistaxis PD PAST MEDICAL HISTORY - Past Medical History Cardiovascular: Hypertension, High cholesterol, Atrial fibrillation Respiratory: None Endocrine/Autoimmune: Type 2 diabetes GI: None : None HEENT: None Psych: None Musculoskeletal: Gout, Other Derm: None - Past Surgical History Past Surgical History: Yes General: Cholecystectomy, Appendectomy Ortho: Hip replacement HEENT: Cataracts Derm: Skin cancer surgery - Present Medications Home Medications: Ambulatory Orders Medication Instructions Recorded Confirmed Allopurinol 300 mg PO DAILY 10/01/13 01/31/17 Clopidogrel [Plavix] 75 mg PO MOWEFR 10/01/13 01/31/17 Hydralazine HCl 50 mg PO BID 10/01/13 01/31/17 Tamsulosin [Flomax] 0.4 mg PO DAILY #5 capsule 10/01/13 01/31/17 Furosemide [Lasix] 40 - 80 mg PO DAILY PRN 09/21/15 01/31/17 Albuterol Sulfate [Proair Hfa 2 puffs INH Q4H PRN #1 inhaler 01/12/17 01/31/17 Inhaler] Carvedilol [Coreg] 6.25 mg PO BID #60 tablet 01/12/17 01/31/17 Potassium Chloride [K-Dur] 20 meq PO DAILYWM #30 tablet 01/12/17 01/31/17 Simvastatin 1 tab PO DAILY 06/22/18 06/22/18 - Allergies Allergies/Adverse Reactions: Allergies Allergy/AdvReac Type Severity Reaction Status Date / Time No Known Drug Allergies Allergy Verified 06/22/18 08:03 - Social History Does the pt smoke?: No Smoking Status: Never smoker Does the pt drink ETOH?: No Does the pt have substance abuse?: No - Immunizations Immunizations are current?: Yes - POLST Patient has POLST: No PD ED PE NORMAL - Vitals Vital signs reviewed: Yes - HEENT HEENT: Other (fresh blood to R nares, no active bleeding, possible small white FB near turbinate) - Cardiac Cardiac: RRR - Respiratory Respiratory: No respiratory distress, Clear bilaterally Results - Vitals Vitals: Vital Signs - 24 hr 06/22/18 06/22/18 07:51 08:26 Temperature 36.4 C L Heart Rate 66 66 Respiratory 22 22 Rate Blood Pressure 121/81 H 119/60 O2 Saturation 92 95 Oxygen O2 Source [With Activity] Nasal cannula O2 Source Room air PD MEDICAL DECISION MAKING - ED course ED course: afrin administered CTA probe = no FB - seems to be mucous and perhaps tissue previously cauterized silver nitrate to site of blood no further bleeding observed - Sepsis Event Vital Signs: Vital Signs - 24 hr 06/22/18 06/22/18 07:51 08:26 Temperature 36.4 C L Heart Rate 66 66 Respiratory 22 22 Rate Blood Pressure 121/81 H 119/60 O2 Saturation 92 95 Oxygen O2 Source [With Activity] Nasal cannula O2 Source Room air Departure - Departure Disposition: 01 Home, Self Care Clinical Impression: Epistaxis Condition: Good Instructions: ED Nosebleed Follow-Up: [facility] [Provider Group] Comments: If the bleeding re-occurs do the following 1) gently blow your nose to remove any clots 2) give yourself 2 squirts of the afrn in the bleeding nostril sniffing deeply yo get the medication deep into the nostril 3) apply the clamp we gave you and leave it on for 30 full minutes - if you keep taking it of to check on the bleeding it won't work if that does not stop the bleeding come back to the [facility] I also referred you to the ENT specialist again since you have had so many episodes of bloody noses- call to schedule
[2018-06-22 09:23] VITALS: BP 109/54
== END 2018-06-22 09:23 | disposition home or self-care (01) ==
LOC: EDUNIT# → ED 07:46
DX: R04.0 Epistaxis (principal); I10 Essential (primary) hypertension; E11.9 Type 2 diabetes mellitus without complications; E78.00 Pure hypercholesterolemia, unspecified; Z96.649 Presence of unspecified artificial hip joint
CPT/HCPCS: 99283; A9270

== ENCOUNTER 2018-07-15 11:10 | Outpatient (CLI) | payer MEDICARE, OTHER | END 2018-07-15 11:11 | disposition critical access hospital (66) | LOC: EMS 11:10 | PROVIDERS: ATTEND Surgery | DX: R53.1 Weakness (principal) | CPT/HCPCS: A0425; A0429 ==

== ENCOUNTER 2018-07-15 11:26 | Inpatient (IN) | payer MEDICARE, OTHER ==
--- NOTE | 2018-07-15 12:44 | ED Physician Documentation ---
PD HPI ALTERED MENTAL STATUS - Stated complaint Stated Complaint: WEAKNESS - Chief complaint Chief Complaint: General - History obtained from History obtained from: Patient, Family () - History of Present Illness Timing - onset: How many days ago (few) Timing - duration: Days (few days of weakness. He fell to ground yesterday and had pain right hip. Helped up by neighbor and has had pain with walking right hip and some of right chest. Having general weakness and feeling of dyspnea.) Timing - details: Gradual onset Quality / character: Confused, Other (general weakness He usually uses a walker and is able to get around by himself. Yesterday he fell out of bed and needed assistance getting up. He was sore in his right hip after that. Today he was unable to get out of bed due to general weakness. He had had a cough about a week or 2 ago that had continued to some. He does feel dyspnea with exertion but has had that chronically. He states he had felt chilled the last day or 2. He did not notice fever per se. He has chronically's edematous legs which are slightly increased from baseline.) Associated symptoms: Fever, Dyspnea, Cough. No: NVD, Urinary sx Contributing factors: No: Anticoagulated, Recent med change (He had been taken off the Plavix 3 weeks ago due to nosebleed.) Basline status: Alert and oriented X 3, Walker Similar symptoms before: Has not had sx before Recently seen: Not recently seen Review of Systems Constitutional: reports: Chills, Myalgias, Fatigue. denies: Fever Nose: reports: Congestion. denies: Rhinorrhea / runny nose Throat: denies: Sore throat Cardiac: reports: Pedal edema (chronic). denies: Chest pain / pressure, Palpitations, Calf pain Respiratory: reports: Dyspnea, Cough. denies: Wheezing GI: reports: Nausea. denies: Abdominal Pain, Vomiting, Constipation, Diarrhea, Bloody / black stool : denies: Dysuria, Frequency Neurologic: reports: Generalized weakness. denies: Focal weakness, Numbness, Near syncope PD PAST MEDICAL HISTORY - Past Medical History Cardiovascular: Hypertension, High cholesterol, Atrial fibrillation Respiratory: None Endocrine/Autoimmune: Type 2 diabetes GI: None : None HEENT: None Psych: None Musculoskeletal: Gout, Other Derm: None - Past Surgical History Past Surgical History: Yes General: Cholecystectomy, Appendectomy Ortho: Hip replacement HEENT: Cataracts Derm: Skin cancer surgery - Present Medications Home Medications: Ambulatory Orders Medication Instructions Recorded Confirmed Hydralazine HCl 50 mg PO BID 10/01/13 07/15/18 Furosemide [Lasix] 40 mg PO DAILY 09/21/15 07/15/18 Albuterol Sulfate [Proair Hfa 2 puffs INH Q4H PRN #1 inhaler 01/12/17 07/15/18 Inhaler] Simvastatin 20 mg PO QPM 06/22/18 07/15/18 ALPRAZolam [Alprazolam] 0.5 - 1 mg PO QPM PRN 07/15/18 07/15/18 Allopurinol 100 mg PO DAILY 07/15/18 07/15/18 Carvedilol 6.25 mg PO BID 07/15/18 07/15/18 Tamsulosin [Flomax] 0.4 mg PO QPM 07/15/18 07/15/18 - Allergies Allergies/Adverse Reactions: Allergies Allergy/AdvReac Type Severity Reaction Status Date / Time No Known Drug Allergies Allergy Verified 07/15/18 11:33 - Social History Does the pt smoke?: No Smoking Status: Never smoker Does the pt drink ETOH?: No Does the pt have substance abuse?: No - Immunizations Immunizations are current?: Yes - POLST Patient has POLST: No PD ED PE NORMAL - Vitals Vital signs reviewed: Yes - General General: No acute distress, Well developed/nourished. No: Alert and oriented X 3 (slight confusion about time and sluggist in answers. ) - HEENT HEENT: Atraumatic, PERRL, Ears normal, Pharynx benign. No: Moist mucous membranes - Neck Neck: Supple, no meningeal sign, No adenopathy - Cardiac Cardiac: RRR, No murmur - Respiratory Respiratory: No: Clear bilaterally (congested sounds left base mostly. No wheezing. ) - Abdomen Abdomen: Soft, Non tender - Male Male : Deferred - Rectal Rectal: Deferred - Back Back: No CVA TTP, No spinal TTP - Derm Derm: Normal color, Warm and dry - Extremities Extremities: No calf tenderness / cord, Other (1+ edema in both legs. ) - Neuro Neuro: spring coverer 2-12 intact, No motor deficit, Normal speech. No: Alert and oriented X 3 (sluggish answers, slightly somnolent. ) Eye Opening: Spontaneous Motor: Obeys Commands Verbal: Oriented GCS Score: 15 Results - Vitals Vitals: Vital Signs - 24 hr 07/15/18 07/15/18 11:28 11:43 Temperature 39.2 C H Heart Rate 65 Respiratory 12 Rate Blood Pressure 111/66 O2 Saturation 95 Oxygen O2 Source [With Activity] Nasal cannula O2 Source Room air - Rads (name of study) chest xray Radiology: Prelim report reviewed (Small bilateral effusions. There is bibasilar infiltrate.) right hippelvis Radiology: Prelim report reviewed (prior pinning; no acute fractures. ) PD MEDICAL DECISION MAKING - ED course Complexity details: reviewed results (His chest x-ray is consistent with some congestive failure. However there is some bibasilar infiltrate which in conjunction with his general weakness, slight confusion, fever would be consistent with acute pneumonia.), considered differential (Presents with general weakness and some cough. He did have a fall related to weakness and inability to keep himself up walking. There are no fractures noted on his hip area. He is noted to be febrile upon arrival in the ER. His chest x-ray does show some infiltrate in the lower base.), d/w patient Departure - Departure Disposition: ED Place in Observation Clinical Impression: General weakness Contusion of right hip Qualifiers: Encounter type: initial encounter Qualified Code(s): S70.01XA - Contusion of right hip, initial encounter Pneumonia Qualifiers: Pneumonia type: due to unspecified organism Laterality: bilateral Lung location: lower lobe of lung Qualified Code(s): J18.1 - Lobar pneumonia, unspecified organism CHF (congestive heart failure) Qualifiers: Heart failure type: unspecified Heart failure chronicity: acute on chronic Qualified Code(s): I50.9 - Heart failure, unspecified Condition: Stable Record reviewed to determine appropriate education?: Yes Discharge Date/Time: 07/15/18 17:41
[2018-07-15] MEDS ORDERED: SODIUM CHLORIDE 0.9% 500 ML IV ONE (13:05)
[2018-07-15 13:17] LABS: BASOPHILS % (AUTO) 0.4 %; EOSINOPHILS % (AUTO) 0.3 %; HGB - HEMOGLOBIN 9.9 g/dL (14.0-18.0); LYMPHOCYTES % (AUTO) 77.4 %; MEAN CORPUSCULAR HGB CONC 32.9 g/dL (32.0-36.0); MEAN CORPUSCULAR VOLUME 100.2 fL (80.0-94.0); MEAN PLATELET VOLUME 9.7 fL (7.4-11.4); MONOCYTES % (AUTO) 4.9 %; PLT - PLATELET COUNT 75 10^3/uL (130-450); RED BLOOD COUNT 3.01 10^6/uL (4.70-6.10); RED CELL DISTRIBUTION WIDTH 17.5 % (12.0-15.0); WHITE BLOOD COUNT 9.6 x10^3/uL (4.8-10.8)
[2018-07-15 13:23] LABS: ALBUMIN 3.4 g/dL (3.2-5.5); ALBUMIN/GLOBULIN RATIO 1.2 (1.0-2.2); BILIRUBIN,TOTAL 2.3 mg/dL (0.2-1.0); CALCIUM 8.4 mg/dL (8.5-10.3); CREATININE 1.7 mg/dL (0.6-1.2); MAGNESIUM 2.5 mg/dL (1.7-2.8); TOTAL PROTEIN 6.3 g/dL (6.7-8.2)
[2018-07-15 13:33] LABS: ABNORMAL LYMPHS % (MANUAL) 0 %
--- NOTE | 2018-07-15 13:36 | XRAY Report ---
Reason: chest pain left sided Procedure Date: 07/15/2018 Accession Number: [id number] / [id number] Procedure: XR - Chest 2 View X-Ray CPT Code: 55210 FULL RESULT: EXAM: CHEST RADIOGRAPHY EXAM DATE: 07/15/2018 01:25 PM. CLINICAL HISTORY: Chest pain left sided. COMPARISON: 04/02/2008. TECHNIQUE: 2 views. FINDINGS: Lungs/Pleura: Small to moderate bilateral pleural effusions, right more than left, increased since previous study, with underlying atelectasis versus infiltrate in the lung bases. No consolidation or pneumothorax. Mediastinum: Mild cardiomegaly, probably unchanged. Mild fullness of upper lobe vessels. Other: Degenerative changes. IMPRESSION: Cardiovascular fullness with increased bilateral pleural effusions and underlying atelectasis versus infiltrate. RADIA
[2018-07-15 13:41] LABS: BAND NEUTROPHILS % (MANUAL) 1 %; DIFFERENTIAL COMMENT MANUAL DIFFERENTIAL; LYMPHOCYTES % (MANUAL) 57 %; MONOCYTES # (MANUAL) 0.6 10^3/uL (0.0-1.0); NEUTROPHILS # (MANUAL) 1.1 10^3/uL (1.5-6.6); NEUTROPHILS % (MANUAL) 10 %; RBC MORPHOLOGY (MULTIPLE) 3+ ANISOCYTOSIS (NORMAL)
--- NOTE | 2018-07-15 13:57 | XRAY Report ---
Reason: fell yesterday; hip pain with standing Procedure Date: 07/15/2018 Accession Number: [id number] / [id number] Procedure: XR - Hip w/Pelvis 2-3V RT CPT Code: FULL RESULT: EXAM: RIGHT HIP AND PELVIS RADIOGRAPHY EXAM DATE: 07/15/2018 01:44 PM. HISTORY: Fell yesterday; hip pain with standing. COMPARISONS: HIP 2 VIEW RT 04/20/2018 10:41 AM. TECHNIQUE: 1 view of the pelvis and 1 view of the hip. FINDINGS: Bones: Again seen are 3 surgical screws traversing across the right and left femoral neck. The surgical hardware appears unchanged in location. The femoral necks appear unchanged with short bilateral femoral neck versus old impacted fracture. No acute fracture. Joints: Joint spaces preserved. Soft Tissues: No dilated bowel. IMPRESSION: No interval change. Previous bilateral femoral neck pinning. RADIA
[2018-07-15 14:21] LABS: BILIRUBIN,URINE NEGATIVE (NEGATIVE); GLUCOSE, URINE (UA) NEGATIVE (NEGATIVE); KETONES,URINE (UA) NEGATIVE (NEGATIVE); LEUKOCYTE ESTERASE, URINE NEGATIVE (NEGATIVE); NITRITE,URINE NEGATIVE (NEGATIVE); OCCULT BLOOD,URINE NEGATIVE (NEGATIVE); PROTEIN,URINE TRACE mg/dL (NEGATIVE); UROBILINOGEN,URINE 1 (NORMAL) E.U./dL (NORMAL)
[2018-07-15 14:23] LABS: CLARITY,URINE CLEAR (CLEAR)
[2018-07-15] MEDS ORDERED: AZITHROMYCIN 250 MG TABLET PO STA (15:04)
[2018-07-15] MEDS ORDERED: cefTRIAXone 1 GM in SODIUM CHLORIDE 0.9% MINIBAG 100 ML IV STA (15:04)
[2018-07-15] MEDS ORDERED: SODIUM CHLORIDE FLUSH 0.9% 10 ML SYRINGE IVP PRN ×2 (16:40→17:52)
[2018-07-15] MEDS ORDERED: MORPHINE 2 MG/ML CARPUJECT IVP PRN ×2 (16:40→17:52)
[2018-07-15] MEDS ORDERED: NON FORMULARY MED (Alprazolam [Alprazolam] 0.5 MG) PO PRN (16:44)
[2018-07-15] MEDS ORDERED: NON FORMULARY MED (Albuterol Sulfate [Proair Hfa Inhaler] 2 PUFFS) INH PRN (16:44)
[2018-07-15] MEDS ORDERED: SODIUM CHLORIDE FLUSH 0.9% 10 ML SYRINGE IVP SCH (17:00)
[2018-07-15] MEDS ORDERED: ZINC OXIDE 20% OINT 28.35 GM TUBE TOP PRN (18:20)
--- NOTE | 2018-07-15 19:40 | HISTORY & PHYSICAL EXAMINATION ---
DATE OF SERVICE: 07/15/2018 Physician: Teri Pedro MD HISTORY OF PRESENT ILLNESS: This is an 80-year-old, white male with a history chronic atrial fibrillation, CKD, thrombocytopenia, gout, cor pulmonale with pulmonary hypertension by echo done in 2017, history of hypertension, type-2 diabetes, skin cancer surgery of his left ear, hip replacement after a fall several years ago, cholecystectomy, appendectomy, and cataract surgery. The patient presents with a 2-week history of cough with no sputum production, then a fever and malaise for several days and severe weakness. Yesterday, just sitting up, as he was getting out of bed, he rolled out of bed onto the floor on his hip. He was very weak but had no syncope, and rested the entire day. He has had hip pain where he fell. He was more confused today, according to his , and even more weak, and therefore he presented to the emergency room. He was found to have a fever of 39.2 C in the ER and abnormal chest x-ray and is being admitted for probable community-acquired pneumonia and weakness. PAST MEDICAL HISTORY: Hypertension, hyperlipidemia, chronic atrial fibrillation, thrombocytopenia, diabetes, gout, skin cancer with surgery of the left ear, and cor pulmonale with pulmonary hypertension. The chart also states he has or had CLL, but he does not report this. SOCIAL HISTORY: The patient is a nonsmoker, who quit smoking in the 1980s. He drinks 1 martini every night. He does not use illicit drugs. The patient lives with his . 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 ALLERGIES: NONE. MEDICATIONS 1. Allopurinol 100 mg daily. 2. Hydralazine 50 mg b.i.d. 3. Flomax 0.4 mg daily. 4. Lasix 40 or 80 mg b.i.d. 5. ProAir HFA inhaler p.r.n. 6. Coreg 6.25 b.i.d. 7. Potassium chloride 20 mEq daily. 8. Simvastatin unknown dose daily. 9. Alprazolam p.r.n. sleep. FAMILY HISTORY: No inherited diseases. REVIEW OF SYSTEMS: A comprehensive review of systems was performed, and the pertinent positives are in the HPI. PHYSICAL EXAMINATION GENERAL: Elderly, white male. He appears fatigued. He has sujatha cheeks, consistent with his fever. VITAL SIGNS: Blood pressure 101/56. Pulse of 60, in atrial fibrillation. Temperature is 39.2. Room air saturation 95%. Respiratory rate 12. HEENT: Reveals dry oral mucosa. He has marked scaling and dryness of his skin of his face. His left upper ear has been removed (from the skin cancer operation). He is anicteric. NECK: Without JVD in a vertical position. CHEST: Diminished breath sounds at both bases. No rales or wheezes are heard. HEART: Sounds are distant and irregular. ABDOMEN: Soft with positive bowel sounds. Nontender. EXTREMITIES: Show 3+ edema to the knees. No clubbing or cyanosis. NEUROLOGIC: Intact. LABORATORIES: Normal electrolytes. BUN is 69. Creatinine 1.7. This is approximately his baseline creatinine. Glucose 104. Lactic acid level 1.4. Magnesium 2.5. Normal liver tests. Normal alkaline phosphatase. Bilirubin 2.3. BNP 1644. Troponin not detectable. Lipase level normal. White blood count 9.6 with a normal differential. Hemoglobin 9.9 with an MCV of 100. Platelet count 75. Serologies showed negative Influenza A and B. Urinalysis unremarkable. STUDIES: Chest x-ray: Bilateral atelectasis versus infiltrates and bilateral small effusions. DIAGNOSES 1. Community-acquired pneumonia, given fever and cough with infiltrates and pleural effusions. 2. Congestive heart failure (CHF), with pleural effusions. 3. Cor pulmonale with chronic leg edema. 4. Pulmonary hypertension, by history. 5. Chronic atrial fibrillation. He was previously on Plavix 3 times a week; this was just recently stopped because of nosebleeds. 6. Chronic kidney disease (CKD), stage III. 7. Thrombocytopenia. 8. Recent fall, but no syncope. 9. History of gout. PLAN 1. Place the patient in Observation status, on telemetry. 2. Obtain sputum and blood cultures. 3. Start empiric antibiotics for community-acquired pneumonia: IV Zithromax and IV ceftriaxone. 4. Continue with his inhaler as needed. 5. Begin IV diuresis. 6. Follow his I's and O's and daily weights. 7. Obtain an Echo to re-evaluate LV and RV function and PA pressure. 8. Follow his BMP daily. 9. Recheck his chest x-ray. 10. Continue all of his other medications for blood pressure, gout, and inhalers 11. Check B12 and folate levels, given the macrocytic anemia. 12. Watch for alcohol withdrawal, start a CIWA protocol and alprazolam if needed. 13. If there is improvement in his weakness, as well as respiratory status and stable edema and creatinine, he could potentially be discharged tomorrow with transition to oral antibiotics and back to his oral diuretics. If he worsens clinically, then transfer to inpatient status. DVT PROPHYLAXIS: SCDs. CODE STATUS: FULL CODE. ATTESTATION: The patient is expected to be discharged and transferred to another facility within 96 hours: Yes. cc: Andrea Aguirre MD TD: 07/15/2018 19:00 MTDD
[2018-07-15] MEDS: hydrALAZINE 25 MG TABLET PO SCH (20:05)
[2018-07-15] MEDS: CARVEDILOL 3.125 MG TABLET PO SCH (20:05)
[2018-07-15] MEDS: FAMOTIDINE 20 MG TABLET PO SCH (20:05)
[2018-07-15] MEDS: SODIUM CHLORIDE FLUSH 0.9% 10 ML SYRINGE IVP SCH (20:05)
[2018-07-15] MEDS: FUROSEMIDE 40 MG/4 ML VIAL IVP SCH (20:05)
[2018-07-15] MEDS: TAMSULOSIN 0.4 MG CAPSULE PO SCH (20:05)
[2018-07-15] MEDS ORDERED: FAMOTIDINE 20 MG TABLET PO SCH (21:00)
[2018-07-15] MEDS ORDERED: CARVEDILOL 3.125 MG TABLET PO SCH (21:00)
[2018-07-15] MEDS ORDERED: hydrALAZINE 25 MG TABLET PO SCH (21:00)
[2018-07-15] MEDS ORDERED: TAMSULOSIN 0.4 MG CAPSULE PO SCH (21:00)
[2018-07-15] MEDS: INSULIN ASPART 300 UNIT/3 ML PEN SUBQ SCH (21:42)
[2018-07-15] MEDS: ALBUTEROL NEB 2.5 MG/3 ML INH PRN (21:44)
[2018-07-16] MEDS: SODIUM CHLORIDE FLUSH 0.9% 10 ML SYRINGE IVP SCH ×3 (01:27→16:48)
[2018-07-16 05:35] LABS: BASOPHILS % (AUTO) 0.3 %; CALCIUM 8.3 mg/dL (8.5-10.3); CREATININE 1.8 mg/dL (0.6-1.2); EOSINOPHILS % (AUTO) 0.3 %; HGB - HEMOGLOBIN 9.3 g/dL (14.0-18.0); LYMPHOCYTES % (AUTO) 65.7 %; MEAN CORPUSCULAR HEMOGLOBIN 32.6 pg (27.0-31.0); MEAN CORPUSCULAR HGB CONC 32.4 g/dL (32.0-36.0); MEAN CORPUSCULAR VOLUME 100.5 fL (80.0-94.0); MEAN PLATELET VOLUME 8.9 fL (7.4-11.4); MONOCYTES % (AUTO) 5.7 %; PLT - PLATELET COUNT 72 10^3/uL (130-450); RED BLOOD COUNT 2.84 10^6/uL (4.70-6.10); RED CELL DISTRIBUTION WIDTH 17.4 % (12.0-15.0); WHITE BLOOD COUNT 10.6 x10^3/uL (4.8-10.8)
[2018-07-16 05:40] LABS: ABNORMAL LYMPHS % (MANUAL) 0 %; BAND NEUTROPHILS % (MANUAL) 0 %
[2018-07-16 06:16] LABS: EOSINOPHILS # (MANUAL) 0.1 10^3/uL (0-0.7); LYMPHOCYTES # (MANUAL) 6.7 10^3/uL (1.5-3.5); LYMPHOCYTES % (MANUAL) 58 %; MONOCYTES # (MANUAL) 0.3 10^3/uL (0.0-1.0); NEUTROPHILS # (MANUAL) 3.5 10^3/uL (1.5-6.6); NEUTROPHILS % (MANUAL) 33 %; PLATELET ESTIMATE, MANUAL DECREASED (<130,000) (NORMAL); RBC MORPHOLOGY (MULTIPLE) NORMAL APPEARANCE (NORMAL)
[2018-07-16 06:17] LABS: DIFFERENTIAL COMMENT MANUAL DIFFERENTIAL
[2018-07-16 06:52] LABS: HB2 TOTAL 9.5 g/dL; HEMOGLOBIN A1C 0.34 g/dL; HEMOGLOBIN A1C % 5.4 % (4.6-6.2)
[2018-07-16] MEDS: FUROSEMIDE 40 MG/4 ML VIAL IVP SCH ×2 (06:55→14:15)
[2018-07-16] MEDS ORDERED: INSULIN ASPART 300 UNIT/3 ML PEN SUBQ SCH (08:00)
[2018-07-16] MEDS: INSULIN ASPART 300 UNIT/3 ML PEN SUBQ SCH ×4 (08:45→20:48)
[2018-07-16] MEDS: hydrALAZINE 25 MG TABLET PO SCH (08:58)
[2018-07-16] MEDS: FAMOTIDINE 20 MG TABLET PO SCH ×2 (08:58→20:47)
[2018-07-16] MEDS: ALLOPURINOL 100 MG TABLET PO SCH (08:58)
[2018-07-16] MEDS: CARVEDILOL 3.125 MG TABLET PO SCH ×2 (08:58→20:47)
[2018-07-16] MEDS: cefTRIAXone 1 GM in SODIUM CHLORIDE 0.9% MINIBAG 100 ML IV SCH (08:59)
[2018-07-16] MEDS ORDERED: ALLOPURINOL 100 MG TABLET PO SCH (09:00)
[2018-07-16] MEDS ORDERED: POLYETHYLENE GLYCOL 3350 17 GM PACKET PO SCH (09:00)
[2018-07-16] MEDS: POLYETHYLENE GLYCOL 3350 17 GM PACKET PO SCH (09:01)
[2018-07-16 09:07] LABS: ALBUMIN 3.1 g/dL (3.2-5.5); BILIRUBIN,DIRECT 0.5 mg/dL (0.1-0.5); BILIRUBIN,TOTAL 1.4 mg/dL (0.2-1.0); TOTAL PROTEIN 5.8 g/dL (6.7-8.2)
--- NOTE | 2018-07-16 09:26 | XRAY Report ---
Reason: FU Pneumonia and pleural effusion Procedure Date: 07/16/2018 Accession Number: [id number] / [id number] Procedure: XR - Chest 1 View X-Ray CPT Code: 76043 FULL RESULT: EXAM: CHEST RADIOGRAPHY EXAM DATE: 07/16/2018 08:50 AM. CLINICAL HISTORY: Follow up pneumonia and pleural effusion. COMPARISON: CHEST 2 VIEW 07/15/2018 1:09 PM. TECHNIQUE: 1 view. FINDINGS: Lungs/Pleura: There are small to moderate bilateral pleural effusions, similar to prior. There is increased density of bilateral basilar pulmonary opacities. The proximal pulmonary vasculature is prominent and indistinct, increased compared to prior. No pneumothorax. Mediastinum: There is stable mild enlargement of the cardiac silhouette. Other: No acute osseous abnormality. IMPRESSION: 1. Small to moderate bilateral pleural effusions, similar to prior. 2. Increasing density of bilateral basilar atelectasis or infiltrate. 3. Mild pulmonary vascular congestion appears increased compared to prior. 4. Stable mild cardiomegaly. RADIA
[2018-07-16 09:30] LABS: FOLATE 12.41 ng/mL (5.90 - >24.8)
[2018-07-16] MEDS ORDERED: AZITHROMYCIN INJ 500 MG in SODIUM CHLORIDE 0.9% 250 ML IV SCH (10:00)
--- NOTE | 2018-07-16 15:04 | PROVIDER PROGRESS NOTE ---
Assessment/Plan - Problem List (1) Hypotension Assessment/Plan: Pt had a setback with a drop in BP several hours after iv Lasix dose this am. He appears very tired and tells me he is very weak still. He was able to walk with PT, using a quad walker, but felt weak in legs. Will stop iv diuretic and change back to po diuretic. Will stop Hydralazine dose till BP improved. Will add MARIELLA stockings to increase venous return. Will obtain blood cultures, since it appears they were not obtained in ER. Will check a lactic acid level for possible septic shock. No DCh today, since he is at risk of falls with this low BP. I will make him an inpatient, therefore. (2) CAP (community acquired pneumonia) Assessment/Plan: Zithromax caused an allergic reaction. Will stop Zithromax. Continue Ceftriaxone, add iv Doxycycline No sputum was produced for a culture. (3) Pleural effusion Assessment/Plan: Echo showed a preserved LVEF and troponins were stable, no ischemia. Will continue diuresis and antibiotics. (4) Elevated bilirubin Assessment/Plan: This is likely from his R sided heart failure, along with leg edema. Echo done today confirmed Cor pulmonale and pulmonary HTN. (5) CKD (chronic kidney disease) stage 3, GFR 30-59 ml/min Assessment/Plan: Small increase in creat, after diuresed. Will stop iv diuresis, change back to po diuretic. Monitor BMP daily. (6) Macrocytic anemia Assessment/Plan: No evidence of B12 or Folate deficiency. Monitor CBC daily. (7) Thrombocytopenia Assessment/Plan: Abnormal but stable plts. 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 Pt remains off anticoagulant, Lovenox, Heparin and ASA, due to low plt count <100. Follow CBC daily. - Current Meds Current Meds: Current Medications Generic Name Dose Route Start Last Admin Trade Name Freq PRN Reason Stop Dose Admin Albuterol 2.5 mg 07/15/18 17:57 07/15/18 21:44 INH 2.5 mg RTQ4H PRN Administration Wheezing/Shortness of air Allopurinol 100 mg 07/16/18 09:00 07/16/18 08:58 Zyloprim PO 100 mg DAILY DOMINIC Administration Carvedilol 6.25 mg 07/15/18 21:00 07/16/18 08:58 Coreg PO 6.25 mg BID DOMINIC Administration Famotidine 20 mg 07/15/18 21:00 07/16/18 08:58 Pepcid PO 20 mg BID DOMINIC Administration Ceftriaxone Sodium 1 gm/ 100 mls @ 200 mls/hr 07/16/18 09:00 07/16/18 09:37 Sodium Chloride IV Infused DAILY DOMINIC Infusion Insulin Aspart 1 - 5 unit 07/15/18 21:36 07/16/18 13:00 Novolog SUBQ 1 unit 0800,1200,1700,2100 DOMINIC Administration Protocol Multi-Ingredient Ointment 1 applic 07/15/18 18:20 07/15/18 21:59 Zinc Oxide TOP 1 applic PRN PRN Administration Skin Care Polyethylene Glycol 17 gm 07/16/18 09:00 07/16/18 09:01 Miralax PO Not Given DAILY DOMINIC Sodium Chloride 10 ml 07/15/18 17:52 07/16/18 06:55 Normal Saline Flush 0.9% IVP 10 ml PRN PRN Administration NEEDED PER PROVIDER ORDERS Sodium Chloride 10 ml 07/15/18 18:00 07/16/18 09:01 Normal Saline Flush 0.9% IVP 10 ml 0100,0900,1700 DOMINIC Administration Tamsulosin HCl 0.4 mg 07/15/18 21:00 07/15/18 20:05 Flomax PO 0.4 mg QPM DOMINIC Administration - Lab Result Fish Bone Diagrams: 07/16/18 05:09 07/16/18 05:09 - Additional Planning My Orders: My Active Orders 07/15/18 16:40 Activity Orders [RC] Q8H IO [RC] IOSHIFT Initiate Bowel Care Protocol [RC] .protocol Initiate Line Care Protocol [RC] .protocol Initiate Personal Care Protoco [RC] .protocol Oxygen Therapy [RC] Routine Telemetry (24 Hour) [RC] Q4HR Vital Signs [RC] Q4HR Code Status [OTHERS] Routine Condition of Patient [OTHERS] Routine DVT Prophylaxis [OTHERS] Routine 07/15/18 16:42 Daily Weight [RC] 0600 07/15/18 17:52 Sodium Chloride Flush 0.9% [Normal Saline Flush 0.9%] 10 ml IVP PRN PRN 07/15/18 17:57 Albuterol 2.5 mg INH RTQ4H PRN 07/15/18 18:00 Sodium Chloride Flush 0.9% [Normal Saline Flush 0.9%] 10 ml IVP 0100,0900,1700 07/15/18 18:20 Zinc Oxide 20% Oint [Zinc Oxide] 1 applic TOP PRN PRN 07/15/18 18:26 Nutrition Consult [CONS] Routine 07/15/18 18:30 Echo Transthoracic Complete [ECHO] Routine 07/15/18 18:50 SCDs [RC] QSHIFT 07/15/18 21:00 ALPRAZolam [Xanax] 0.5 mg PO QPM PRN Carvedilol [Coreg] 6.25 mg PO BID Famotidine [Pepcid] 20 mg PO BID Tamsulosin [Flomax] 0.4 mg PO QPM 07/15/18 21:45 Nebulizer [Nebulizer/MDI Tx.] [RC] .q4prn 07/15/18 Dinner DIET [Low Sodium Diet] [DIET] 07/16/18 Evaluate and Treat OT [OT] Routine Evaluate and Treat PT [PT] Routine 07/16/18 09:00 Postural [Vital Signs - Orthostatic] [RC] DAILY Allopurinol [Zyloprim] 100 mg PO DAILY Polyethylene Glycol 3350 [Miralax] 17 gm PO DAILY cefTRIAXone [Rocephin] 1 gm Sodium Chloride 0.9% Minibag [Normal Saline 0.9% Minibag] 100 ml IV DAILY 07/16/18 14:50 Transfer [Admit \ Transfer \ Status] [RC] .ONCE 07/17/18 05:00 BMP - BASIC METABOLIC PANEL [CHEM] DAILYLAB BNP - B-NATRIURETIC PEPTIDE [IAI] DAILYLAB CBC - COMP BLD CT W/AUTO DIFF [HEME] DAILYLAB 07/17/18 09:00 Chest 1 View X-Ray [XR] DAILY 07/18/18 05:00 BMP - BASIC METABOLIC PANEL [CHEM] DAILYLAB BNP - B-NATRIURETIC PEPTIDE [IAI] DAILYLAB CBC - COMP BLD CT W/AUTO DIFF [HEME] DAILYLAB Subjective - Subjective Patient Reports: Fatigue (Very tired. thinks he is still weaker than normal.), Itching (Severe itch after iv Zithromax dose given today) Objective Vital Signs: Vital Signs - 24 hr 07/15/18 07/15/18 07/15/18 16:42 17:40 18:00 Temperature 26.3 C L Heart Rate 60 63 Heart Rate [ 59 L Brachial] Heart Rate [ Sitting (After 1 Minute)] Heart Rate [ Sitting] Heart Rate [ Standing (After 1 Minute)] Heart Rate [ Standing] Heart Rate [ Supine] Respiratory 16 20 Rate Respiratory Rate [With Activity] Blood Pressure 106/58 L 109/60 Blood Pressure 101/56 L [Left Brachial artery] Blood Pressure [Sitting (After 1 Minute)] Blood Pressure [Sitting] Blood Pressure [Standing ( After 1 Minute) ] Blood Pressure [Standing] Blood Pressure [Supine] O2 Saturation 95 96 95 O2 Saturation [ With Activity] 07/15/18 07/15/18 07/15/18 20:03 20:05 21:46 Temperature 36.3 C L Heart Rate 73 Heart Rate [ 68 Brachial] Heart Rate [ Sitting (After 1 Minute)] Heart Rate [ Sitting] Heart Rate [ Standing (After 1 Minute)] Heart Rate [ Standing] Heart Rate [ Supine] Respiratory 24 32 H Rate Respiratory Rate [With Activity] Blood Pressure Blood Pressure 100/45 L [Left Brachial artery] Blood Pressure [Sitting (After 1 Minute)] Blood Pressure [Sitting] Blood Pressure [Standing ( After 1 Minute) ] Blood Pressure [Standing] Blood Pressure [Supine] O2 Saturation 96 O2 Saturation [ With Activity] 07/15/18 07/16/18 07/16/18 23:34 04:24 09:00 Temperature 36.6 C 36.6 C 36.8 C Heart Rate Heart Rate [ 71 75 74 Brachial] Heart Rate [ Sitting (After 1 Minute)] Heart Rate [ Sitting] Heart Rate [ Standing (After 1 Minute)] Heart Rate [ Standing] Heart Rate [ Supine] Respiratory 24 24 20 Rate Respiratory Rate [With Activity] Blood Pressure Blood Pressure 109/53 L 123/53 L 102/51 L [Left Brachial artery] Blood Pressure [Sitting (After 1 Minute)] Blood Pressure [Sitting] Blood Pressure [Standing ( After 1 Minute) ] Blood Pressure [Standing] Blood Pressure [Supine] O2 Saturation 98 97 98 O2 Saturation [ With Activity] 07/16/18 07/16/18 07/16/18 10:07 10:15 13:00 Temperature 37.0 C Heart Rate Heart Rate [ 72 Brachial] Heart Rate [ 74 Sitting (After 1 Minute)] Heart Rate [ 74 Sitting] Heart Rate [ 81 Standing (After 1 Minute)] Heart Rate [ 81 Standing] Heart Rate [ 82 82 Supine] Respiratory 20 Rate Respiratory 16 Rate [With Activity] Blood Pressure Blood Pressure 97/47 L [Left Brachial artery] Blood Pressure 98/69 [Sitting (After 1 Minute)] Blood Pressure 98/69 [Sitting] Blood Pressure 97/70 [Standing ( After 1 Minute) ] Blood Pressure 97/70 [Standing] Blood Pressure 91/42 L 91/42 L [Supine] O2 Saturation 99 O2 Saturation [ 89 L With Activity] Oxygen O2 Source [With Activity] Room air O2 Source Nasal cannula I&O (Last 24 Hrs): Intake and Output Totals x24h 07/14/18 07/15/18 07/16/18 23:59 23:59 23:59 Intake Total 1036 1325 Output Total 125 1405 Balance 911 -80 General: Other (Flushed cheeks) HEENT: Mucous membr. moist/pink Neck: Supple, No JVD Neuro: Non Focal Cardiovascular: No murmurs Respiratory: Other (Diminished at bases) Genitourinary: Normal Prostate Extremities: Other (3+ edema to knees) - Results Results: Laboratory Results WBC 10.6 x10^3/uL (4.8-10.8) 07/16/18 05:09 RBC 2.84 10^6/uL (4.70-6.10) L 07/16/18 05:09 Hgb 9.3 g/dL (14.0-18.0) L 07/16/18 05:09 Hct 28.6 % (42.0-52.0) L 07/16/18 05:09 MCV 100.5 fL (80.0-94.0) H 07/16/18 05:09 MCH 32.6 pg (27.0-31.0) H 07/16/18 05:09 MCHC 32.4 g/dL (32.0-36.0) 07/16/18 05:09 RDW 17.4 % (12.0-15.0) H 07/16/18 05:09 Plt Count 72 10^3/uL (130-450) L 07/16/18 05:09 MPV 8.9 fL (7.4-11.4) 07/16/18 05:09 Neut # (Auto) Not Reportable 07/16/18 05:09 Lymph # (Auto) Not Reportable 07/16/18 05:09 [place] # (Auto) Not Reportable 07/16/18 05:09 Eos # (Auto) Not Reportable 07/16/18 05:09 Baso # (Auto) Not Reportable 07/16/18 05:09 Absolute Nucleated RBC Not Reportable 07/16/18 05:09 Total Counted 100 07/16/18 05:09 Band Neuts % (Manual) 0 % (0-10) 07/16/18 05:09 Reactive Lymphs % (Man) 5 % 07/16/18 05:09 Abnorm Lymph % (Manual) 0 % 07/16/18 05:09 Nucleated RBC % Not Reportable 07/16/18 05:09 Neutrophils # (Manual) 3.5 10^3/uL (1.5-6.6) 07/16/18 05:09 Lymphocytes # (Manual) 6.7 10^3/uL (1.5-3.5) H 07/16/18 05:09 Monocytes # (Manual) 0.3 10^3/uL (0.0-1.0) 07/16/18 05:09 Eosinophils # (Manual) 0.1 10^3/uL (0-0.7) 07/16/18 05:09 Basophils # (Manual) 0.0 10^3/uL (0-0.1) 07/16/18 05:09 Differential Comment MANUAL DIFFERENTIAL 07/16/18 05:09 Manual Slide Review Indicated 07/15/18 11:50 Platelet Estimate DECREASED (<130,000) (NORMAL) 07/16/18 05:09 RBC Morph Micro Appear NORMAL APPEARANCE (NORMAL) 07/16/18 05:09 Sodium 142 mmol/L (135-145) 07/16/18 05:09 Potassium 3.9 mmol/L (3.5-5.0) 07/16/18 05:09 Chloride 107 mmol/L (101-111) 07/16/18 05:09 Carbon Dioxide 24 mmol/L (21-32) 07/16/18 05:09 Anion Gap 11.0 (6-13) 07/16/18 05:09 BUN 68 mg/dL (6-20) H 07/16/18 05:09 Creatinine 1.8 mg/dL (0.6-1.2) H 07/16/18 05:09 Estimated GFR (MDRD) 36 (>89) L 07/16/18 05:09 Glucose 116 mg/dL (70-100) H 07/16/18 05:09 POC Whole Bld Glucose 156 mg/dL (70 - 100) H 07/16/18 11:40 Glycated Hemoglobin 5.4 % (4.6-6.2) 07/16/18 05:09 Estim Average Glucose 108 (70-100) H 07/16/18 05:09 Lactic Acid 1.4 mmol/L (0.5-2.2) 07/15/18 11:50 Calcium 8.3 mg/dL (8.5-10.3) L 07/16/18 05:09 Magnesium 2.5 mg/dL (1.7-2.8) 07/15/18 11:50 Total Bilirubin 1.4 mg/dL (0.2-1.0) H 07/16/18 05:09 Direct Bilirubin 0.5 mg/dL (0.1-0.5) 07/16/18 05:09 AST 14 IU/L (10-42) 07/16/18 05:09 ALT 10 IU/L (10-60) 07/16/18 05:09 Alkaline Phosphatase 72 IU/L (42-121) 07/16/18 05:09 Total Creatine Kinase 40 IU/L (22-269) 07/15/18 11:50 Troponin I < 0.04 ng/mL (<0.49) 07/15/18 11:50 B-Natriuretic Peptide 2020 pg/mL (5-100) H 07/16/18 05:09 Total Protein 5.8 g/dL (6.7-8.2) L 07/16/18 05:09 Albumin 3.1 g/dL (3.2-5.5) L 07/16/18 05:09 Globulin 2.7 g/dL (2.1-4.2) 07/16/18 05:09 Albumin/Globulin Ratio 1.2 (1.0-2.2) 07/15/18 11:50 Lipase 41 U/L (22-51) 07/15/18 11:50 Vitamin B12 322 pg/mL (180-914) 07/16/18 05:09 Folate 12.41 ng/mL (5.90 - >24.8) 07/16/18 05:09 Urine Color DARK YELLOW 07/15/18 13:50 Urine Clarity CLEAR (CLEAR) 07/15/18 13:50 Urine pH 6.0 PH (5.0-7.5) 07/15/18 13:50 Ur Specific [place] 1.015 (1.002-1.030) 07/15/18 13:50 Urine Protein TRACE mg/dL (NEGATIVE) 07/15/18 13:50 Urine Glucose (UA) NEGATIVE mg/dL (NEGATIVE) 07/15/18 13:50 Urine Ketones NEGATIVE mg/dL (NEGATIVE) 07/15/18 13:50 Urine Occult Blood NEGATIVE (NEGATIVE) 07/15/18 13:50 Urine Nitrite NEGATIVE (NEGATIVE) 07/15/18 13:50 Urine Bilirubin NEGATIVE (NEGATIVE) 07/15/18 13:50 Urine Urobilinogen 1 (NORMAL) E.U./dL (NORMAL) 07/15/18 13:50 Ur Leukocyte Esterase NEGATIVE (NEGATIVE) 07/15/18 13:50 Ur Microscopic Review NOT INDICATED 07/15/18 13:50 Urine Culture Comments NOT INDICATED 07/15/18 13:50 Influenza A (Rapid) Negative (Negative) 07/15/18 17:25 Influenza B (Rapid) Negative (Negative) 07/15/18 17:25 - Procedures Procedures: Procedures INSERTION OF INT FIX INTO L UP FEMUR, PERC APPROACH (01/31/17) INSERTION OF INT FIX INTO R UP FEMUR, PERC APPROACH (09/22/15) TRANSFUSE NONAUT PLATELETS IN PERIPH VEIN, PERC (01/31/17)
[2018-07-16] MEDS ORDERED: DOXYCYCLINE INJ 100 MG in SODIUM CHLORIDE 0.9% MINIBAG 100 ML IV SCH (15:42)
[2018-07-16] MEDS: TAMSULOSIN 0.4 MG CAPSULE PO SCH (20:48)
[2018-07-16] MEDS: NYSTATIN POWDER 15 GM TOP SCH (20:48)
[2018-07-17] MEDS ORDERED: ACETAMINOPHEN 325 MG TABLET PO PRN (00:04)
[2018-07-17] MEDS: ALPRAZolam 0.25 MG TABLET PO PRN (00:31)
[2018-07-17] MEDS: SODIUM CHLORIDE FLUSH 0.9% 10 ML SYRINGE IVP SCH ×3 (05:52→17:33)
[2018-07-17] MEDS: DOXYCYCLINE INJ 100 MG in SODIUM CHLORIDE 0.9% MINIBAG 100 ML IV SCH ×2 (05:55→17:32)
[2018-07-17] MEDS: IBUPROFEN 600 MG TABLET PO SCH ×3 (05:57→17:48)
[2018-07-17 06:00] LABS: BASOPHILS % (AUTO) 0.2 %; EOSINOPHILS % (AUTO) 0.4 %; HGB - HEMOGLOBIN 8.4 g/dL (14.0-18.0); LYMPHOCYTES % (AUTO) 81.3 %; MEAN CORPUSCULAR HEMOGLOBIN 32.2 pg (27.0-31.0); MEAN CORPUSCULAR VOLUME 100.7 fL (80.0-94.0); MEAN PLATELET VOLUME 9.3 fL (7.4-11.4); MONOCYTES % (AUTO) 4.9 %; NEUTROPHILS % (AUTO) 13.2 %; PLT - PLATELET COUNT 66 10^3/uL (130-450); RED CELL DISTRIBUTION WIDTH 17.6 % (12.0-15.0); WHITE BLOOD COUNT 10.4 x10^3/uL (4.8-10.8)
[2018-07-17 06:03] LABS: ABNORMAL LYMPHS % (MANUAL) 0 %
[2018-07-17 06:06] LABS: CALCIUM 8.2 mg/dL (8.5-10.3); CREATININE 1.9 mg/dL (0.6-1.2)
[2018-07-17 07:08] LABS: BAND NEUTROPHILS % (MANUAL) 1 %; BASOPHILS # (MANUAL) 0.1 10^3/uL (0-0.1); BASOPHILS % (MANUAL) 1 %; EOSINOPHILS # (MANUAL) 0.2 10^3/uL (0-0.7); LYMPHOCYTES # (MANUAL) 8.6 10^3/uL (1.5-3.5); LYMPHOCYTES % (MANUAL) 77 %; MONOCYTES # (MANUAL) 0.5 10^3/uL (0.0-1.0); NEUTROPHILS # (MANUAL) 0.9 10^3/uL (1.5-6.6); NEUTROPHILS % (MANUAL) 8 %
[2018-07-17 07:09] LABS: DIFFERENTIAL COMMENT MANUAL DIFFERENTIAL; PLATELET ESTIMATE, MANUAL DECREASED (<130,000) (NORMAL); RBC MORPHOLOGY (MULTIPLE) NORMAL APPEARANCE (NORMAL)
[2018-07-17] MEDS: INSULIN ASPART 300 UNIT/3 ML PEN SUBQ SCH ×4 (08:00→21:38)
[2018-07-17] MEDS: cefTRIAXone 1 GM in SODIUM CHLORIDE 0.9% MINIBAG 100 ML IV SCH (10:21)
[2018-07-17] MEDS: ALLOPURINOL 100 MG TABLET PO SCH (10:21)
[2018-07-17] MEDS: FAMOTIDINE 20 MG TABLET PO SCH ×2 (10:21→21:54)
[2018-07-17] MEDS: NYSTATIN POWDER 15 GM TOP SCH ×2 (10:22→21:54)
[2018-07-17] MEDS: CARVEDILOL 3.125 MG TABLET PO SCH (10:22)
[2018-07-17] MEDS: FUROSEMIDE 40 MG TABLET PO SCH (10:22)
[2018-07-17] MEDS: POLYETHYLENE GLYCOL 3350 17 GM PACKET PO SCH (10:22)
--- NOTE | 2018-07-17 10:38 | PROVIDER PROGRESS NOTE ---
Assessment/Plan - Problem List (1) Hypotension Assessment/Plan: Pt still running borderline and low BP in the 90's occasionally, despite stopping Hydralazine and iv diuresis. Since LVEF is normal, will also stop Carvedilol. Continue gentle diuresis with po diuretic. Compression hose would also help the low BP. Pt not safe for DCh yet. (2) CAP (community acquired pneumonia) Assessment/Plan: Unchanged by CXR. Continue empiric iv Ceftriaxone and iv Doxycycline. Will order chest PT to mobilize secretions using a flutter valve/Acapella and Incentive Spirometer with RT. Will change to po antibiotic after today. (3) Pleural effusion Assessment/Plan: No change is size of effusion and amount of pulm vascular congestion and c ardiomegaly by daily CXR. BNP climbing daily. His I's and O's show a slight pos fluid balance and small weight gain on daily weight. Will order stricter restricted intake. Continue gentle diuresis with po diuretic, not iv diuretic due to worsening renal failure on iv doses. Will drop the hold parameters for dosing diuretic. (4) Diastolic CHF, acute on chronic Assessment/Plan: Weight is up, BNP is up each day, fluid balance is slightly pos. Will stop the Coreg since the EF is normal. Hydralazine has been stopped, to allow diuretic dose. Unfortunately, his iv antibiotics contain a significant salt load. Will change to po antibiotics after today. (5) Elevated bilirubin Assessment/Plan: Remains down to 1.4, second day in a row. It was likely from R sided heart failure. (6) CKD (chronic kidney disease) stage 3, GFR 30-59 ml/min Assessment/Plan: There has been minimal creat elevation since admission, likely due to diuresis. Will try to improve intravascular volume by improving venous return by using compression stockings. MARIELLA hose were ordered yesterday. Monitor BMP daily. (7) Macrocytic anemia Assessment/Plan: B12 and folate levels were normal. H/H are slowly dropping, but fluid balance is overall positive (from iv sources of meds/iv antibiotics). Will order stricter fluid restriction. Will check guaic of stool. (8) Thrombocytopenia Assessment/Plan: Plts have dropped to 66 but he is in slight pos fluid balance. Monitor for bleeding. Remain off anti-plt agents and anticoagulants Monitor CBC daily. - Current Meds Current Meds: Current Medications Generic Name Dose Route Start Last Admin Trade Name Freq PRN Reason Stop Dose Admin Acetaminophen 650 mg 07/17/18 00:04 07/17/18 00:30 Tylenol PO 650 mg Q4HR PRN Administration Pain or Fever > 38C (100.4F) Albuterol 2.5 mg 07/15/18 17:57 07/15/18 21:44 INH 2.5 mg RTQ4H PRN Administration Wheezing/Shortness of air Allopurinol 100 mg 07/16/18 09:00 07/17/18 10:21 Zyloprim PO 100 mg DAILY DOMINIC Administration Alprazolam 0.5 mg 07/15/18 21:00 07/17/18 00:31 Xanax PO 0.5 mg QPM PRN Administration SLEEP Famotidine 20 mg 07/15/18 21:00 07/17/18 10:21 Pepcid PO 20 mg BID DOMINIC Administration Furosemide 40 mg 07/17/18 09:00 07/17/18 10:22 Lasix PO 40 mg DAILY DOMINIC Administration Ceftriaxone Sodium 1 gm/ 100 mls @ 200 mls/hr 07/16/18 09:00 07/17/18 10:21 Sodium Chloride IV 200 mls/hr DAILY DOMINIC Administration Doxycycline Hyclate 100 mg/ 100 mls @ 100 mls/hr 07/17/18 05:00 07/17/18 10:05 Sodium Chloride IV Infused Q12H [facility] Infusion Ibuprofen 600 mg 07/17/18 06:00 07/17/18 05:57 Motrin PO Not Given Q6HR [facility] Insulin Aspart 1 - 5 unit 07/15/18 21:36 07/17/18 08:00 Novolog SUBQ Not Given 0800,1200,1700,2100 [facility] Protocol Multi-Ingredient Ointment 1 applic 07/15/18 18:20 07/15/18 21:59 Zinc Oxide TOP 1 applic PRN PRN Administration Skin Care Nystatin 1 applic 07/16/18 21:00 07/17/18 10:22 Nystop TOP 1 applic BID DOMINIC Administration Polyethylene Glycol 17 gm 07/16/18 09:00 07/17/18 10:22 Miralax PO Not Given DAILY DOMINIC Sodium Chloride 10 ml 07/15/18 17:52 07/16/18 06:55 Normal Saline Flush 0.9% IVP 10 ml PRN PRN Administration NEEDED PER PROVIDER ORDERS Sodium Chloride 10 ml 07/15/18 18:00 07/17/18 10:22 Normal Saline Flush 0.9% IVP 10 ml 0100,0900,1700 DOMINIC Administration Tamsulosin HCl 0.4 mg 07/15/18 21:00 07/16/18 20:48 Flomax PO 0.4 mg QPM DOMINIC Administration - Lab Result Fish Bone Diagrams: 07/17/18 05:35 07/17/18 05:35 - Additional Planning My Orders: My Active Orders 07/16/18 15:42 MARIELLA Hose and SCDs [RC] QSHIFT 07/16/18 16:00 CULTURE, BLOOD #1 [RM] Stat 07/16/18 16:08 CULTURE, BLOOD #2 [RM] Stat 07/16/18 21:00 Nystatin [Nystop] 1 applic TOP BID 07/17/18 05:00 Doxycycline Inj [Vibramycin Inj] 100 mg Sodium Chloride 0.9% Minibag [Normal Saline 0.9% Minibag] 100 ml IV Q12H 07/17/18 09:00 Chest 1 View X-Ray [XR] DAILY Furosemide [Lasix] 40 mg PO DAILY 07/18/18 05:00 BMP - BASIC METABOLIC PANEL [CHEM] DAILYLAB BNP - B-NATRIURETIC PEPTIDE [IAI] DAILYLAB CBC - COMP BLD CT W/AUTO DIFF [HEME] DAILYLAB Subjective - Subjective Patient Reports: Feeling Better, Dizzines, Fatigue Nursing Reports: Other (Was able to walk with PT today.) Objective Vital Signs: Vital Signs - 24 hr 07/16/18 07/16/18 07/16/18 13:00 14:40 15:41 Temperature 37.0 C 36.4 C L Heart Rate Heart Rate [ 72 69 Brachial] Heart Rate [ Sitting (After 1 Minute)] Heart Rate [ Standing (After 1 Minute)] Heart Rate [ 81 Standing] Heart Rate [ Supine] Respiratory 20 20 Rate Respiratory 16 Rate [With Activity] Blood Pressure 98/50 L [Activity] Blood Pressure 97/47 L 107/47 L [Left Brachial artery] Blood Pressure [Sitting (After 1 Minute)] Blood Pressure [Standing ( After 1 Minute) ] Blood Pressure 97/70 [Standing] Blood Pressure 107/51 L [Supine] O2 Saturation 99 100 O2 Saturation [ 89 L With Activity] 07/16/18 07/16/18 07/17/18 21:36 23:45 06:05 Temperature 36.6 C 36.7 C Heart Rate 64 Heart Rate [ 62 64 Brachial] Heart Rate [ Sitting (After 1 Minute)] Heart Rate [ Standing (After 1 Minute)] Heart Rate [ Standing] Heart Rate [ Supine] Respiratory 18 18 16 Rate Respiratory Rate [With Activity] Blood Pressure [Activity] Blood Pressure 101/56 L 112/54 L [Left Brachial artery] Blood Pressure [Sitting (After 1 Minute)] Blood Pressure [Standing ( After 1 Minute) ] Blood Pressure [Standing] Blood Pressure [Supine] O2 Saturation 97 99 O2 Saturation [ With Activity] 07/17/18 07/17/18 07:28 07:34 Temperature 36.5 C Heart Rate Heart Rate [ 62 Brachial] Heart Rate [ 63 Sitting (After 1 Minute)] Heart Rate [ 65 Standing (After 1 Minute)] Heart Rate [ Standing] Heart Rate [ 62 Supine] Respiratory 20 Rate Respiratory Rate [With Activity] Blood Pressure [Activity] Blood Pressure 110/50 L [Left Brachial artery] Blood Pressure 92/48 L [Sitting (After 1 Minute)] Blood Pressure 101/40 L [Standing ( After 1 Minute) ] Blood Pressure [Standing] Blood Pressure 110/50 L [Supine] O2 Saturation 92 O2 Saturation [ With Activity] Oxygen O2 Source [With Activity] Room air O2 Source Room air I&O (Last 24 Hrs): Intake and Output Totals x24h 07/15/18 07/16/18 07/17/18 23:59 23:59 23:59 Intake Total 1036 1425 560.000 Output Total 125 1605 375 Balance 911 -180 185.000 General: Other (Sleeping in bed with HOB up 90 degrees.) HEENT: Mucous membr. moist/pink, Other (Skin dry and scaly.) Neck: Supple, No JVD Neuro: Non Focal Cardiovascular: No murmurs Respiratory: Other (Diminished at both posterior bases) Abdomen: Soft Extremities: Other (1+ edema) - Results Results: Laboratory Results WBC 10.4 x10^3/uL (4.8-10.8) 07/17/18 05:35 RBC 2.60 10^6/uL (4.70-6.10) L 07/17/18 05:35 Hgb 8.4 g/dL (14.0-18.0) L 07/17/18 05:35 Hct 26.2 % (42.0-52.0) L 07/17/18 05:35 MCV 100.7 fL (80.0-94.0) H 07/17/18 05:35 MCH 32.2 pg (27.0-31.0) H 07/17/18 05:35 MCHC 32.0 g/dL (32.0-36.0) 07/17/18 05:35 RDW 17.6 % (12.0-15.0) H 07/17/18 05:35 Plt Count 66 10^3/uL (130-450) L 07/17/18 05:35 MPV 9.3 fL (7.4-11.4) 07/17/18 05:35 Neut # (Auto) Not Reportable 07/17/18 05:35 Lymph # (Auto) Not Reportable 07/17/18 05:35 [place] # (Auto) Not Reportable 07/17/18 05:35 Eos # (Auto) Not Reportable 07/17/18 05:35 Baso # (Auto) Not Reportable 07/17/18 05:35 Absolute Nucleated RBC Not Reportable 07/17/18 05:35 Total Counted 100 07/17/18 05:35 Band Neuts % (Manual) 1 % (0-10) 07/17/18 05:35 Reactive Lymphs % (Man) 6 % 07/17/18 05:35 Abnorm Lymph % (Manual) 0 % 07/17/18 05:35 Nucleated RBC % Not Reportable 07/17/18 05:35 Neutrophils # (Manual) 0.9 10^3/uL (1.5-6.6) L 07/17/18 05:35 Lymphocytes # (Manual) 8.6 10^3/uL (1.5-3.5) H 07/17/18 05:35 Monocytes # (Manual) 0.5 10^3/uL (0.0-1.0) 07/17/18 05:35 Eosinophils # (Manual) 0.2 10^3/uL (0-0.7) 07/17/18 05:35 Basophils # (Manual) 0.1 10^3/uL (0-0.1) 07/17/18 05:35 Differential Comment MANUAL DIFFERENTIAL 07/17/18 05:35 Manual Slide Review Indicated 07/15/18 11:50 Platelet Estimate DECREASED (<130,000) (NORMAL) 07/17/18 05:35 RBC Morph Micro Appear NORMAL APPEARANCE (NORMAL) 07/17/18 05:35 Sodium 141 mmol/L (135-145) 07/17/18 05:35 Potassium 3.8 mmol/L (3.5-5.0) 07/17/18 05:35 Chloride 106 mmol/L (101-111) 07/17/18 05:35 Carbon Dioxide 25 mmol/L (21-32) 07/17/18 05:35 Anion Gap 10.0 (6-13) 07/17/18 05:35 BUN 65 mg/dL (6-20) H 07/17/18 05:35 Creatinine 1.9 mg/dL (0.6-1.2) H 07/17/18 05:35 Estimated GFR (MDRD) 34 (>89) L 07/17/18 05:35 Glucose 103 mg/dL (70-100) H 07/17/18 05:35 POC Whole Bld Glucose 105 mg/dL (70 - 100) H 07/17/18 07:26 Glycated Hemoglobin 5.4 % (4.6-6.2) 07/16/18 05:09 Estim Average Glucose 108 (70-100) H 07/16/18 05:09 Lactic Acid 1.1 mmol/L (0.5-2.2) 07/16/18 16:00 Calcium 8.2 mg/dL (8.5-10.3) L 07/17/18 05:35 Magnesium 2.5 mg/dL (1.7-2.8) 07/15/18 11:50 Total Bilirubin 1.4 mg/dL (0.2-1.0) H 07/16/18 05:09 Direct Bilirubin 0.5 mg/dL (0.1-0.5) 07/16/18 05:09 AST 14 IU/L (10-42) 07/16/18 05:09 ALT 10 IU/L (10-60) 07/16/18 05:09 Alkaline Phosphatase 72 IU/L (42-121) 07/16/18 05:09 Total Creatine Kinase 40 IU/L (22-269) 07/15/18 11:50 Troponin I < 0.04 ng/mL (<0.49) 07/15/18 11:50 B-Natriuretic Peptide 2042 pg/mL (5-100) H 07/17/18 05:35 Total Protein 5.8 g/dL (6.7-8.2) L 07/16/18 05:09 Albumin 3.1 g/dL (3.2-5.5) L 07/16/18 05:09 Globulin 2.7 g/dL (2.1-4.2) 07/16/18 05:09 Albumin/Globulin Ratio 1.2 (1.0-2.2) 07/15/18 11:50 Lipase 41 U/L (22-51) 07/15/18 11:50 Vitamin B12 322 pg/mL (180-914) 07/16/18 05:09 Folate 12.41 ng/mL (5.90 - >24.8) 07/16/18 05:09 Urine Color DARK YELLOW 07/15/18 13:50 Urine Clarity CLEAR (CLEAR) 07/15/18 13:50 Urine pH 6.0 PH (5.0-7.5) 07/15/18 13:50 Ur Specific [place] 1.015 (1.002-1.030) 07/15/18 13:50 Urine Protein TRACE mg/dL (NEGATIVE) 07/15/18 13:50 Urine Glucose (UA) NEGATIVE mg/dL (NEGATIVE) 07/15/18 13:50 Urine Ketones NEGATIVE mg/dL (NEGATIVE) 07/15/18 13:50 Urine Occult Blood NEGATIVE (NEGATIVE) 07/15/18 13:50 Urine Nitrite NEGATIVE (NEGATIVE) 07/15/18 13:50 Urine Bilirubin NEGATIVE (NEGATIVE) 07/15/18 13:50 Urine Urobilinogen 1 (NORMAL) E.U./dL (NORMAL) 07/15/18 13:50 Ur Leukocyte Esterase NEGATIVE (NEGATIVE) 07/15/18 13:50 Ur Microscopic Review NOT INDICATED 07/15/18 13:50 Urine Culture Comments NOT INDICATED 07/15/18 13:50 Influenza A (Rapid) Negative (Negative) 07/15/18 17:25 Influenza B (Rapid) Negative (Negative) 07/15/18 17:25 - Procedures Procedures: Procedures INSERTION OF INT FIX INTO L UP FEMUR, PERC APPROACH (01/31/17) INSERTION OF INT FIX INTO R UP FEMUR, PERC APPROACH (09/22/15) TRANSFUSE NONAUT PLATELETS IN PERIPH VEIN, PERC (01/31/17)
--- NOTE | 2018-07-17 10:41 | XRAY Report ---
Reason: FU Pneumonia and pleural effusion Procedure Date: 07/17/2018 Accession Number: [id number] / [id number] Procedure: XR - Chest 1 View X-Ray CPT Code: 47669 FULL RESULT: EXAM: CHEST RADIOGRAPHY EXAM DATE: 07/17/2018 09:15 AM. CLINICAL HISTORY: FU Pneumonia and pleural effusion. COMPARISON: Chest radiograph dated 07/16/2018. TECHNIQUE: 1 view. FINDINGS: Lungs/Pleura: Irregular opacities in the left lung base, similar to the prior examination. No new focal consolidation. Small bilateral pleural effusions. Mediastinum: The heart is enlarged with pulmonary vascular congestion. Other: None. IMPRESSION: Cardiomegaly with pulmonary vascular congestion and small bilateral pleural effusions are similar to the prior examination can be seen in the setting of CHF exacerbation. Superimposed infectious process in the left lung base cannot be excluded. RADIA
[2018-07-17 11:10] LABS: ALKALINE PHOSPHATASE 66 IU/L (42-121); ALT ALANINE AMINOTRANSFERASE < 10 IU/L (10-60); AST ASPARTATE AMINOTRANSFERASE 13 IU/L (10-42); BILIRUBIN,DIRECT 0.4 mg/dL (0.1-0.5); BILIRUBIN,TOTAL 1.4 mg/dL (0.2-1.0); TOTAL PROTEIN 5.2 g/dL (6.7-8.2)
[2018-07-17] MEDS: ALBUTEROL NEB 2.5 MG/3 ML INH PRN (11:15)
[2018-07-17] MEDS: SACCHAROMYCES BOULARDII 250 MG CAPSULE PO SCH (17:32)
[2018-07-17] MEDS: TAMSULOSIN 0.4 MG CAPSULE PO SCH (21:54)
[2018-07-18] MEDS: IBUPROFEN 600 MG TABLET PO SCH ×3 (00:20→11:19)
[2018-07-18] MEDS: SODIUM CHLORIDE FLUSH 0.9% 10 ML SYRINGE IVP SCH ×2 (00:25→09:26)
[2018-07-18] MEDS: ALPRAZolam 0.25 MG TABLET PO PRN (00:25)
[2018-07-18 06:08] LABS: BASOPHILS % (AUTO) 0.2 %; EOSINOPHILS % (AUTO) 0.7 %; HGB - HEMOGLOBIN 9.2 g/dL (14.0-18.0); LYMPHOCYTES % (AUTO) 81.5 %; MEAN CORPUSCULAR HEMOGLOBIN 32.8 pg (27.0-31.0); MEAN CORPUSCULAR HGB CONC 32.7 g/dL (32.0-36.0); MEAN CORPUSCULAR VOLUME 100.2 fL (80.0-94.0); MEAN PLATELET VOLUME 9.3 fL (7.4-11.4); MONOCYTES % (AUTO) 5.2 %; NEUTROPHILS % (AUTO) 12.4 %; PLT - PLATELET COUNT 68 10^3/uL (130-450); RED CELL DISTRIBUTION WIDTH 17.7 % (12.0-15.0); WHITE BLOOD COUNT 10.9 x10^3/uL (4.8-10.8)
[2018-07-18 06:13] LABS: CALCIUM 8.3 mg/dL (8.5-10.3); CREATININE 1.8 mg/dL (0.6-1.2)
[2018-07-18 06:20] LABS: ABNORMAL LYMPHS % (MANUAL) 0 %; BAND NEUTROPHILS % (MANUAL) 0 %
[2018-07-18 06:47] LABS: BASOPHILS # (MANUAL) 0.1 10^3/uL (0-0.1); BASOPHILS % (MANUAL) 1 %; DIFFERENTIAL COMMENT MANUAL DIFFERENTIAL; EOSINOPHILS # (MANUAL) 0.2 10^3/uL (0-0.7); LYMPHOCYTES # (MANUAL) 8.6 10^3/uL (1.5-3.5); LYMPHOCYTES % (MANUAL) 78 %; MONOCYTES # (MANUAL) 0.2 10^3/uL (0.0-1.0); NEUTROPHILS # (MANUAL) 1.7 10^3/uL (1.5-6.6); NEUTROPHILS % (MANUAL) 16 %; PLATELET ESTIMATE, MANUAL DECREASED (<130,000) (NORMAL); RBC MORPHOLOGY (MULTIPLE) NORMAL APPEARANCE (NORMAL)
[2018-07-18] MEDS: INSULIN ASPART 300 UNIT/3 ML PEN SUBQ SCH ×2 (08:21→11:19)
[2018-07-18] MEDS ORDERED: DOXYCYCLINE 100 MG TABLET PO SCH (09:00)
[2018-07-18] MEDS: FAMOTIDINE 20 MG TABLET PO SCH (09:26)
[2018-07-18] MEDS: FUROSEMIDE 40 MG TABLET PO SCH (09:26)
[2018-07-18] MEDS: NYSTATIN POWDER 15 GM TOP SCH (09:26)
[2018-07-18] MEDS: POLYETHYLENE GLYCOL 3350 17 GM PACKET PO SCH (09:26)
[2018-07-18] MEDS: ALLOPURINOL 100 MG TABLET PO SCH (09:26)
[2018-07-18] MEDS: SACCHAROMYCES BOULARDII 250 MG CAPSULE PO SCH (09:26)
[2018-07-18] MEDS: ALBUTEROL NEB 2.5 MG/3 ML INH PRN (09:53)
--- NOTE | 2018-07-18 11:28 | Discharge Plan ---
Discharge Plan Disposition: 01 Home, Self Care Condition: Stable Prescriptions: Doxycycline Hyclate [Vibramycin] 100 mg PO BID #8 capsule Nystatin [Nystop] 1 applic TOP BID #1 bottle Saccharomyces Boulardii [Florastor] 250 mg PO BID #8 capsule Diet: Low Sodium Activity Restrictions: Activity as Tolerated Shower Restrictions: No Assistance Devices: Walker Instruction Topics: ED CHF Right Side Additional Instructions or Follow Up instructions: You were admitted for a pneumonia and fluid retention (CHF). Some medications were adjusted, please follow the new medication list. A prescription for Doxycycline antibiotics was ordered. Please take these pills til they are done. The Florastor prescription is to restore healthy bowel jesus, and was also prescribed to take while you are on Doxycycline. There is a new prescription for Nystatin powder to apply for any fungal skin problems. Resume all your other pre-hospital medications, except... STOP the Hydralazine and Carvedilol medications, as they were dropping your blood pressure too low, and may have contributed to your slumping out of bed. See your PCP in follow-up in the next 5-7 days. If you have new or worsening symptoms, come to the ER. No Smoking: If you smoke, Please STOP! Call for help. Follow-up with: Andrea Aguirre MD [Primary Care Provider] -
[2018-07-18 12:16] VITALS: BP 115/59
--- NOTE | 2018-07-19 18:43 | DISCHARGE SUMMARY ---
Physician: Teri Pedro MD DATE OF ADMISSION: 07/15/2018 DATE OF DISCHARGE: 07/18/2018 HISTORY OF PRESENT ILLNESS: This is an 80-year-old white male with a history of chronic atrial fibrillation, thrombocytopenia, gout, stage III CKD, cor pulmonale with chronic leg edema, significant pulmonary hypertension, history of diabetes; on diet control only, skin cancer with left ear surgery, hip replacement after a fall, admitted with 2-day history of cough, fever for a day and malaise. He also had slumped to the floor out of his chair and was too weak to get up. There was no syncope. He was more confused, and could not rise off the floor and was brought in by ambulance. The patient was admitted for community-acquired pneumonia, congestive heart failure and weakness with fall. HOSPITAL COURSE AND DISCHARGE DIAGNOSES 1. Hypotension. After IV diuretics were begun, his blood pressure was in the 90 range and he was symptomatic. His hydralazine was stopped, followed by his Coreg. With this, he had improvement of blood pressure to about 105-110 systolic and felt less weak. He was discharged and advised to stop his home Hydralazine and Coreg doses because of the low blood pressure, in order to continue p.o. diuretics. His LVEF was normal (see below), therefore, the decision of stopping Hydralazine and Coreg was made. Compression hose were also advised to be used to help the low blood pressure 2. Community-acquired pneumonia. The patient had blood and sputum cultures done, which had no growth. He was put on empiric iv Zithromax and iv Ceftriaxone. He developed an allergy to the Zithromax with severe itching. The Zithromax was changed to iv Doxycycline. At the time of discharge, he was transitioned over to take several more days of oral Doxycycline. He had a cough, which was treated with Mucinex and Robitussin. Also, incentive spirometry, Acapella, and chest PT were started later in the course. 3. Pleural effusion. The patient was put on IV diuretics, then transitioned to p.o. diuretics for continued management of bilateral pleural effusions. His doses needed close attention because of his renal failure (see below). 4. Diastolic heart failure, acute on chronic. The patient had a prior echo showing a preserved LVEF and it was repeated during this admission and showed mild LVH, LVEF of 55-60%, severe right heart enlargement with moderately reduced RV function. There was a pulmonary hypertension of 96 mmHg. Because of the significant right-sided failure, he was very fluid sensitive. Using his hydralazine and carvedilol along with the new diuretic, caused significant hypotension and weakness. For this reason, his Coreg and Hydralazine were discontinued in order to continue his oral diuretic 5. Cor Pulmonale. (As per Echo result, see above). There was an initial bilirubin of 2.3, which decreased to the 1.4 and 1.5 range. It was felt to be due to passive congestion of his liver from cor pulmonale, since he had no findings for cholecystitis on clinical exam. 6. Chronic kidney disease, stage III. There was minimal fluctuation of his creatinine by careful dosing of his diuretic because of his chronic kidney disease. MARIELLA hose was ordered to be used in order to improve venous return to allow better blood pressure and therefore renal perfusion. 7. Macrocytic anemia. The hemoglobin was 9.9, dropped to 8.4 and 9.2. His MCV was 100, therefore his B12 and folate were measured, but these were within normal limits. He did have a slightly positive fluid balance despite being on IV diuretics. Therefore, this drop in hemoglobin was considered to be from hemodilution. 8. Thrombocytopenia. The patient's chart indicates that he has a history of CLL, but he did not report this to me. The platelet count was monitored daily. He had been taken off of his Plavix prior to this admission because of the low platelets and recent nosebleeds. He apparently had been on Plavix for stroke prophylaxis for his atrial fibrillation. The patient was not on any antiplatelet agents while here. CONDITION AT DISCHARGE: Stable. DISCHARGE MEDICATIONS 1. Allopurinol 100 mg daily. 2. Alprazolam 0.5 mg q.p.m. p.r.n. 3. Lasix 40 mg daily. 4. Simvastatin 20 mg q.p.m. 5. Flomax 0.4 mg q.p.m. 6. Albuterol inhaler p.r.n. 7. Nystatin topical powder to his inguinal areas p.r.n. 8. Florastor 250 mg p.o. b.i.d. while he is on antibiotic. 9. Doxycycline 100 mg p.o. b.i.d. for an additional 4 days. ALLERGIES: AZITHROMYCIN, WHICH WAS DOCUMENTED DURING THIS ADMISSION. LABS AND IMAGING: Reviewed and summarized above. PHYSICAL EXAMINATION: VITAL SIGNS: Blood pressure 101/51, pulse of 70, in atrial fibrillation, afebrile, and the patient underwent an oxygen exercise test to determine if he needed home oxygen. His resting saturation was 95% on room air, this dropped to 90% on room air with walking of 100 feet, therefore he was deemed not eligible for home oxygen. HEENT: Moist oral mucosa. NECK: Positive JVD. CHEST: Bibasilar crackles minimally. CARDIOVASCULAR: Heart sounds are distant, irregular. ABDOMEN: Soft with positive bowel sounds. Nontender. EXTREMITIES: 1+ edema to the mid shins. This was decreased from 4+ edema to the knees on admission. NEUROLOGIC: Grossly intact. FOLLOWUP: With his PCP in the next 1-2 days as planned. CODE STATUS: FULL CODE. Time required to complete the entire discharge, chart review, prescription orders, patient education: 60 minutes. cc: Andrea Aguirre MD TD: 07/19/2018 18:12 MTDD
== END 2018-07-18 12:20 | disposition home or self-care (01) | DRG 291 ==
LOC: ED 11:26 → MS2 16:25 → ED 17:41 → OBSVTOIN 07-16 14:50
PROVIDERS: ADMIT Internal Medicine; ATTEND Internal Medicine
DX: J18.1 Lobar pneumonia, unspecified organism (principal); I13.0 Hypertensive heart and chronic kidney disease with heart failure and stage 1 through stage 4 chronic kidney disease, or unspecified chronic kidney disease; I50.33 Acute on chronic diastolic (congestive) heart failure; J18.9 Pneumonia, unspecified organism; I50.9 Heart failure, unspecified; I95.2 Hypotension due to drugs; E11.22 Type 2 diabetes mellitus with diabetic chronic kidney disease; N18.3 Chronic kidney disease, stage 3 (moderate); I48.2 Chronic atrial fibrillation; E78.5 Hyperlipidemia, unspecified; D69.6 Thrombocytopenia, unspecified; M10.9 Gout, unspecified; I27.29 Other secondary pulmonary hypertension; D53.9 Nutritional anemia, unspecified; L29.9 Pruritus, unspecified; T46.5X5A Adverse effect of other antihypertensive drugs, initial encounter; T44.7X5A Adverse effect of beta-adrenoreceptor antagonists, initial encounter; T36.3X5A Adverse effect of macrolides, initial encounter; M25.551 Pain in right hip; W07.XXXA Fall from chair, initial encounter; Y92.013 Bedroom of single-family (private) house as the place of occurrence of the external cause; Z79.51 Long term (current) use of inhaled steroids; Z87.891 Personal history of nicotine dependence; Z85.828 Personal history of other malignant neoplasm of skin; Z96.649 Presence of unspecified artificial hip joint; Z91.81 History of falling
CPT/HCPCS: 36415; 71045; 71046; 80048; 80053; 80076; 81001; 81003; 82272; 82550; 82607; 82746; 83036; 83605; 83690; 83735; 83880; 84484; 85025; 87040; 87086; 87275; 87276; 93005; 93306; 94640; 94761; 96361; 96365; 96366; 96367; 96375; 96376; 99283; 99284

== ENCOUNTER 2018-07-18 16:00 | Outpatient (CLI) | payer MEDICARE, OTHER | END 2018-07-18 16:01 | disposition critical access hospital (66) | LOC: EMS 16:00 | PROVIDERS: ATTEND Surgery | DX: M25.511 Pain in right shoulder (principal); W10.8XXA Fall (on) (from) other stairs and steps, initial encounter; Y93.01 Activity, walking, marching and hiking; Y92.008 Other place in unspecified non-institutional (private) residence as the place of occurrence of the external cause | CPT/HCPCS: A0425; A0429 ==

== ENCOUNTER 2018-07-18 16:20 | Inpatient (IN) | payer MEDICARE, OTHER ==
--- NOTE | 2018-07-18 16:31 | ED Physician Documentation ---
PD HPI Fall - Stated complaint Stated Complaint: GLF - History obtained from History obtained from: Patient - History of Present Illness Mechanism of injury: Tripped (He had just gotten out of the hospital after 2 days of being treated for possible pneumonia and difficulty breathing and general weakness. He uses a walker typically to get around at home. He was getting up from the chair and had gotten up and was just balancing with his wa lker and went to take a step. There is 1 step they have to go up from that location and his says that he tripped and fell to the right trying to navigate that step. He usually does not have problems with it. He was unable to get up on his own and his was unable to help him. He denies hitting his head. He has been having pain in his right shoulder. EMS was called and brought him here.) Fall distance: Standing position Where injury occurred: Home Timing - onset: Today Injury(ies) location: Right Upper Extremity (shoulder), Proximal, Right. No: Head, Face Quality of pain: Pain Associated symptoms: No: LOC, AMS, Weakness, Paresthesias Worsens with: Movement, Palpation Similar symptoms before: Has not had sx before Recently seen: Emergency Dept, Admitted (for weakness, dyspnea, and pneumonia. Discharged this morning.) Review of Systems Constitutional: denies: Fever Nose: denies: Rhinorrhea / runny nose, Congestion Throat: denies: Sore throat Cardiac: denies: Chest pain / pressure Respiratory: reports: Dyspnea, Cough GI: denies: Abdominal Pain, Vomiting Skin: reports: Laceration (s) (posterior right elbow). denies: Abrasion (s) Neurologic: reports: Generalized weakness. denies: Focal weakness, Numbness, Near syncope, Confused, Headache, Head injury PD PAST MEDICAL HISTORY - Past Medical History Cardiovascular: Hypertension, High cholesterol, Atrial fibrillation Respiratory: None Endocrine/Autoimmune: Type 2 diabetes GI: None : None HEENT: None Psych: None Musculoskeletal: Gout, Other Derm: None - Past Surgical History Past Surgical History: Yes General: Cholecystectomy, Appendectomy Ortho: Hip replacement HEENT: Cataracts Derm: Skin cancer surgery - Present Medications Home Medications: Ambulatory Orders Medication Instructions Recorded Confirmed Furosemide [Lasix] 40 mg PO DAILY 09/21/15 07/15/18 Albuterol Sulfate [Proair Hfa 2 puffs INH Q4H PRN #1 inhaler 01/12/17 07/15/18 Inhaler] Simvastatin 20 mg PO QPM 06/22/18 07/15/18 ALPRAZolam [Alprazolam] 0.5 - 1 mg PO QPM PRN 07/15/18 07/15/18 Allopurinol 100 mg PO DAILY 07/15/18 07/15/18 Tamsulosin [Flomax] 0.4 mg PO QPM 07/15/18 07/15/18 Nystatin [Nystop] 1 applic TOP BID #1 bottle 07/18/18 Saccharomyces Boulardii [Florastor] 250 mg PO BID #8 capsule 07/18/18 - Allergies Allergies/Adverse Reactions: Allergies Allergy/AdvReac Type Severity Reaction Status Date / Time azithromycin Allergy Intermediate Itching Verified 07/18/18 16:32 - Living Situation Living Situation: reports: With spouse/s.o. Living Arrangement: reports: At home - Social History Does the pt smoke?: No Smoking Status: Never smoker Does the pt drink ETOH?: No Does the pt have substance abuse?: No - Immunizations Immunizations are current?: Yes - POLST Patient has POLST: No PD ED PE NORMAL - Vitals Vital signs reviewed: Yes - General General: Alert and oriented X 3, No acute distress (he is okay rested, and sitting in bed. Pain with any attempted ROM of the right shoulder. Tender right elbow. ), Well developed/nourished - HEENT HEENT: Atraumatic, Moist mucous membranes - Neck Neck: Supple, no meningeal sign, No bony TTP, No adenopathy - Cardiac Cardiac: RRR, No murmur - Respiratory Respiratory: Other (mild tenderness without deformity lateral mid right chestwall. ). No: Clear bilaterally (mild congestion at bases. ) - Abdomen Abdomen: Soft, Non tender - Back Back: No spinal TTP - Derm Derm: Normal color, Warm and dry - Extremities Extremities: Other (right elbow posteriorly with thin peel of skin. No joint effusion. Right shoulder with pain at proximal humerus. No obvious deformity. Clavicle not tender. ) - Neuro Neuro: Alert and oriented X 3, No motor deficit, No sensory deficit, Normal speech Results - Vitals Vitals: Oxygen O2 Source [With Activity] walking 88-91% O2 Source Room air - Rads (name of study) right shoulder Radiology: Prelim report reviewed (humeral neck fracture. Mildly displaced. ), EMP read contemporaneously right ribs with chest Radiology: Prelim report reviewed (no fractures. ) PD MEDICAL DECISION MAKING - ED course Complexity details: re-evaluated patient (He is feeling more comfortable with the sling on and having received some pain medication. I discussed with him that he would not be able to use his right arm to support himself. He states he does require the walker in order to have balance and get around. His also said he is quite dependent on the walker for mobile ability. He therefore will be unable to really get around on his own with the current humerus fracture. Will need social work to help find options of placement and care during the healing and recovery time.), considered differential, d/w patient Departure - Departure Clinical Impression: General weakness Fall from slip, trip, or stumble Qualifiers: Encounter type: initial encounter Qualified Code(s): W01.0XXA - Fall on same level from slipping, tripping and stumbling without subsequent striking against object, initial encounter Fracture of neck of humerus Qualifiers: Encounter type: initial encounter Fracture type: closed Laterality: right Qualified Code(s): S42.211A - Unspecified displaced fracture of surgical neck of right humerus, initial encounter for closed fracture Condition: Stable Record reviewed to determine appropriate education?: Yes
[2018-07-18] MEDS ORDERED: MORPHINE 10 MG/ML VIAL IM STA ×2 (17:11→18:39)
[2018-07-18 17:15] LABS: MEAN CORPUSCULAR VOLUME 100.6 fL (80.0-94.0); WHITE BLOOD COUNT 11.4 x10^3/uL (4.8-10.8)
[2018-07-18 17:24] LABS: BASOPHILS % (AUTO) 0.3 %; EOSINOPHILS % (AUTO) 0.9 %; HGB - HEMOGLOBIN 9.6 g/dL (14.0-18.0); LYMPHOCYTES % (AUTO) 72.1 %; MEAN CORPUSCULAR HGB CONC 31.8 g/dL (32.0-36.0); MEAN PLATELET VOLUME 9.7 fL (7.4-11.4); MONOCYTES % (AUTO) 5.6 %; NEUTROPHILS % (AUTO) 21.1 %; PLT - PLATELET COUNT 81 10^3/uL (130-450); RED BLOOD COUNT 3.01 10^6/uL (4.70-6.10); RED CELL DISTRIBUTION WIDTH 17.2 % (12.0-15.0)
[2018-07-18 17:29] LABS: ALBUMIN 3.4 g/dL (3.2-5.5); ALBUMIN/GLOBULIN RATIO 1.1 (1.0-2.2); BILIRUBIN,TOTAL 1.2 mg/dL (0.2-1.0); CALCIUM 8.4 mg/dL (8.5-10.3); CREATININE 1.8 mg/dL (0.6-1.2); MAGNESIUM 2.4 mg/dL (1.7-2.8); TOTAL PROTEIN 6.4 g/dL (6.7-8.2)
[2018-07-18 17:38] LABS: ABNORMAL LYMPHS % (MANUAL) 0 %; BAND NEUTROPHILS % (MANUAL) 0 %
[2018-07-18 18:04] LABS: LYMPHOCYTES # (MANUAL) 7.6 10^3/uL (1.5-3.5); LYMPHOCYTES % (MANUAL) 66 %; METAMYELOCYTES % (MANUAL) 1 %; MONOCYTES # (MANUAL) 0.3 10^3/uL (0.0-1.0); NEUTROPHILS # (MANUAL) 3.3 10^3/uL (1.5-6.6); NEUTROPHILS % (MANUAL) 29 %
[2018-07-18 18:07] LABS: DIFFERENTIAL COMMENT MANUAL DIFFERENTIAL; PLATELET ESTIMATE, MANUAL DECREASED (<130,000) (NORMAL); PLATELET MORPHOLOGY NORMAL APPEARANCE (NORMAL)
--- NOTE | 2018-07-18 19:08 | XRAY Report ---
Reason: fell to right today Procedure Date: 07/18/2018 Accession Number: [id number] / [id number] Procedure: XR - Shoulder 2 View RT CPT Code: FULL RESULT: EXAM: RIGHT SHOULDER RADIOGRAPHY EXAM DATE: 07/18/2018 06:24 PM. CLINICAL HISTORY: Fell to right today, pain. COMPARISON: None. TECHNIQUE: 2 views. FINDINGS: Bones: There is mild osteopenia with a transverse fracture of the surgical neck of the right proximal humerus with extension to the greater tuberosity. Lateral displacement of the humeral shaft of 2 mm. Joints: No dislocation. Small acromioclavicular osteophytes. Soft tissues: The visualized hemithorax is unremarkable. No soft tissue swelling. IMPRESSION: 1. Transverse fracture surgical neck right proximal humerus with extension to the greater tuberosity. Minimal displacement. RADIA
--- NOTE | 2018-07-18 19:10 | XRAY Report ---
Reason: fell today Procedure Date: 07/18/2018 Accession Number: [id number] / [id number] Procedure: XR - Ribs w/PA Chest RT CPT Code: FULL RESULT: EXAM: RIGHT RIB RADIOGRAPHY EXAM DATE: 07/18/2018 06:24 PM. CLINICAL HISTORY: Right-sided pain after fall today COMPARISON: Chest x-ray 07/17/2018. TECHNIQUE: 1 view of the chest and 2 views of the ribs. FINDINGS: Bones: The patient's known right humeral surgical neck fracture redemonstrated. Lungs: Trace right pleural effusion with pulmonary cephalization and bilateral interstitial opacities. Mediastinum: Cardiomegaly. Other: None. IMPRESSION: 1. No definite evidence of rib fracture. 2. Cardiomegaly with pulmonary edema pattern and trace right pleural effusion. RADIA
[2018-07-19] MEDS ORDERED: HYDROcod/ACETAM 5/325 MG TABLET PO STA (00:41)
[2018-07-19] MEDS ORDERED: ALPRAZolam 0.25 MG TABLET PO STA (00:41)
[2018-07-19] MEDS ORDERED: FUROSEMIDE 40 MG/4 ML VIAL IVP STA (06:57)
[2018-07-19 07:19] LABS: BASOPHILS % (AUTO) 0.1 %; EOSINOPHILS % (AUTO) 0.2 %; HGB - HEMOGLOBIN 8.6 g/dL (14.0-18.0); LYMPHOCYTES % (AUTO) 74.7 %; MEAN CORPUSCULAR HEMOGLOBIN 32.6 pg (27.0-31.0); MEAN CORPUSCULAR HGB CONC 32.7 g/dL (32.0-36.0); MEAN CORPUSCULAR VOLUME 99.8 fL (80.0-94.0); MEAN PLATELET VOLUME 9.2 fL (7.4-11.4); MONOCYTES % (AUTO) 5.5 %; NEUTROPHILS % (AUTO) 19.5 %; PLT - PLATELET COUNT 65 10^3/uL (130-450); RED BLOOD COUNT 2.62 10^6/uL (4.70-6.10); RED CELL DISTRIBUTION WIDTH 17.6 % (12.0-15.0); WHITE BLOOD COUNT 10.5 x10^3/uL (4.8-10.8)
[2018-07-19 07:26] LABS: ABNORMAL LYMPHS % (MANUAL) 0 %
--- NOTE | 2018-07-19 07:28 | ED Physician Documentation ---
History of Present Illness - Stated complaint Stated Complaint: GLF - Chief complaint Chief Complaint: General - Additonal information Additional information: see Dr. Boyd note for full H&P. PD PAST MEDICAL HISTORY - Past Medical History Past Medical History: Yes Cardiovascular: Hypertension, High cholesterol, Atrial fibrillation Respiratory: None Endocrine/Autoimmune: Type 2 diabetes GI: None : None HEENT: None Psych: None Musculoskeletal: Gout, Other Derm: None - Past Surgical History Past Surgical History: Yes General: Cholecystectomy, Appendectomy Ortho: Hip replacement HEENT: Cataracts Derm: Skin cancer surgery - Present Medications Home Medications: Ambulatory Orders Medication Instructions Recorded Confirmed Furosemide [Lasix] 40 mg PO DAILY 09/21/15 07/15/18 Albuterol Sulfate [Proair Hfa 2 puffs INH Q4H PRN #1 inhaler 01/12/17 07/15/18 Inhaler] Simvastatin 20 mg PO QPM 06/22/18 07/15/18 ALPRAZolam [Alprazolam] 0.5 - 1 mg PO QPM PRN 07/15/18 07/15/18 Allopurinol 100 mg PO DAILY 07/15/18 07/15/18 Tamsulosin [Flomax] 0.4 mg PO QPM 07/15/18 07/15/18 Nystatin [Nystop] 1 applic TOP BID #1 bottle 07/18/18 Saccharomyces Boulardii [Florastor] 250 mg PO BID #8 capsule 07/18/18 - Allergies Allergies/Adverse Reactions: Allergies Allergy/AdvReac Type Severity Reaction Status Date / Time azithromycin Allergy Intermediate Itching Verified 07/18/18 16:32 - Social History Does the pt smoke?: No Smoking Status: Never smoker Does the pt drink ETOH?: No ETOH Use: Liquor Does the pt have substance abuse?: No - Immunizations Immunizations are current?: Yes Immunizations: TDAP >10years/unknown - POLST Patient has POLST: No PD ED PE NORMAL - Vitals Vital signs reviewed: Yes - General General: Alert and oriented X 3, No acute distress - HEENT HEENT: Moist mucous membranes - Neck Neck: Supple, no meningeal sign - Cardiac Cardiac: Other (irregular) - Respiratory Respiratory: No respiratory distress, Other (crackles B) - Abdomen Abdomen: Soft, Non tender, Non distended - Derm Derm: Warm and dry - Extremities Extremities: Other (2+ B LE edema, R arm in sling) - Neuro Neuro: Alert and oriented X 3 Results - Vitals Vitals: Vital Signs - 24 hr 07/18/18 07/18/18 07/18/18 16:28 17:02 19:11 Temperature 36.2 C L Heart Rate 62 64 65 Respiratory 30 H 20 Rate Blood Pressure 127/62 108/56 L O2 Saturation 92 93 92 07/18/18 07/18/18 07/18/18 19:20 19:21 20:00 Temperature Heart Rate 64 Respiratory 16 Rate Blood Pressure 127/69 O2 Saturation 88 L 92 97 07/18/18 07/19/18 07/19/18 22:09 00:02 02:00 Temperature Heart Rate 66 77 70 Respiratory 16 20 20 Rate Blood Pressure 140/76 H 120/55 L O2 Saturation 96 96 96 07/19/18 05:32 Temperature Heart Rate 80 Respiratory 18 Rate Blood Pressure 117/62 O2 Saturation 97 Oxygen O2 Source [] walking 88-91% O2 Source Room air Oxygen Flow Rate 1 - Labs Labs: Laboratory Tests 07/18/18 07/18/18 07/19/18 17:10 17:10 07:09 WBC 11.4 H 10.5 RBC 3.01 L 2.62 L Hgb 9.6 L 8.6 L Hct 30.3 L 26.2 L MCV 100.6 H 99.8 H MCH 32.0 H 32.6 H MCHC 31.8 L 32.7 RDW 17.2 H 17.6 H Plt Count 81 L 65 L MPV 9.7 9.2 Neut # (Auto) Not Reportable Lymph # (Auto) Not Reportable Gibson # (Auto) Not Reportable Eos # (Auto) Not Reportable Baso # (Auto) Not Reportable Absolute Nucleated RBC Not Reportable Total Counted 100 Band Neuts % (Manual) 0 Reactive Lymphs % (Man) 1 Abnorm Lymph % (Manual) 0 Metamyelocytes % 1 H Nucleated RBC % Not Reportable Neutrophils # (Manual) 3.3 Lymphocytes # (Manual) 7.6 H Monocytes # (Manual) 0.3 Eosinophils # (Manual) 0.0 Basophils # (Manual) 0.0 Differential Comment MANUAL DIFFERENTIAL Manual Slide Review Indicated Indicated Platelet Estimate DECREASED (<130,000) Platelet Morphology NORMAL APPEARANCE RBC Morph Micro Appear 1+ HYPOCHROMASIA Sodium 141 Potassium 3.8 Chloride 104 Carbon Dioxide 24 Anion Gap 13.0 BUN 63 H Creatinine 1.8 H Estimated GFR (MDRD) 36 L Glucose 143 H Calcium 8.4 L Magnesium 2.4 Total Bilirubin 1.2 H AST 18 ALT 12 Alkaline Phosphatase 79 Total Protein 6.4 L Albumin 3.4 Globulin 3.0 Albumin/Globulin Ratio 1.1 Lipase 44 - Rads (name of study) ribs w/ cxr Radiology: Prelim report reviewed, EMP read contemporaneously, See rad report (No definite evidence of rib fracture. Cardiomegaly with pulmonary edema pattern and trace right pleural effusion. ) R shoulder Radiology: Prelim report reviewed, EMP read contemporaneously, See rad report (Transverse fracture surgical neck right proximal humerus with extension to the greater tuberosity. Minimal displacement. ) PD MEDICAL DECISION MAKING - ED course Complexity details: reviewed old records, reviewed results, re-evaluated patient, considered differential, d/w patient, d/w clinical science consultant ED course: Briefly this is an 88-year-old male who presents to the emergency department after being hospitalized for a CHF exacerbation recently. His BNP was increasing throughout his hospitalization. He was weak at home and fell fracturing the right humerus. He was placed in a sling and swath in the emergency department. He was hypoxic initially upon presentation to the emergency department. When I evaluated the patient this morning he had a pulse oxygenation of approximately 92% while lying in bed. The nurses and I stood him up and his heart rate increased to approximately 130 and his pulse oxygenation dropped to 86. He was placed back on supplemental O2. He was given IV Lasix. Given his worsening status, will dmit at this time and continue diuresis as an inpatient. Discussed with Dr. Pedro, hospitalist who accepts This document was made in part using voice recognition software. While efforts are made to proofread this document, sound alike and grammatical errors may occur. BNP also continues to increase and now is at >2400. Departure - Departure Disposition: 66 [facility] DC/Xfer Clinical Impression: General weakness, Hypoxia Fall from slip, trip, or stumble Qualifiers: Encounter type: initial encounter Qualified Code(s): W01.0XXA - Fall on same level from slipping, tripping and stumbling without subsequent striking against object, initial encounter Fracture of neck of humerus Qualifiers: Encounter type: initial encounter Fracture type: closed Laterality: right Qualified Code(s): S42.211A - Unspecified displaced fracture of surgical neck of right humerus, initial encounter for closed fracture Pulmonary edema Qualifiers: Chronicity: acute Qualified Code(s): J81.0 - Acute pulmonary edema Acute exacerbation of CHF (congestive heart failure) Qualifiers: Heart failure type: unspecified Qualified Code(s): I50.9 - Heart failure, unspecified Condition: Stable
[2018-07-19 07:29] LABS: ALBUMIN/GLOBULIN RATIO 1.3 (1.0-2.2); BILIRUBIN,TOTAL 1.5 mg/dL (0.2-1.0); CALCIUM 8.3 mg/dL (8.5-10.3); CREATININE 1.7 mg/dL (0.6-1.2); TOTAL PROTEIN 5.4 g/dL (6.7-8.2)
[2018-07-19 07:52] LABS: BAND NEUTROPHILS % (MANUAL) 1 %; DIFFERENTIAL COMMENT MANUAL DIFFERENTIAL; LYMPHOCYTES # (MANUAL) 8.1 10^3/uL (1.5-3.5); LYMPHOCYTES % (MANUAL) 77 %; METAMYELOCYTES % (MANUAL) 1 %; MONOCYTES # (MANUAL) 0.6 10^3/uL (0.0-1.0); NEUTROPHILS # (MANUAL) 1.7 10^3/uL (1.5-6.6); NEUTROPHILS % (MANUAL) 15 %; PLATELET ESTIMATE, MANUAL DECREASED (<130,000) (NORMAL); PLATELET MORPHOLOGY NORMAL APPEARANCE (NORMAL)
[2018-07-19] MEDS ORDERED: ACETAMINOPHEN 325 MG TABLET PO PRN (09:08)
[2018-07-19] MEDS ORDERED: HYDROcod/ACETAM 10 MG/325 MG TABLET PO PRN (09:08)
[2018-07-19] MEDS: NYSTATIN POWDER 15 GM TOP SCH ×2 (11:26→21:49)
[2018-07-19] MEDS: ALLOPURINOL 100 MG TABLET PO SCH (11:27)
[2018-07-19] MEDS: SACCHAROMYCES BOULARDII 250 MG CAPSULE PO SCH ×2 (11:27→21:48)
[2018-07-19] MEDS: HYDROcod/ACETAM 5/325 MG TABLET PO PRN (18:47)
--- NOTE | 2018-07-19 18:58 | HISTORY & PHYSICAL EXAMINATION ---
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 The patient was just discharged yesterday, was home for only about 3 hours. He was here for community-acquired pneumonia and pulmonary edema. He was diuresed. He was discharged on antibiotics. Several medications were discontinued because of low blood pressure. He was seen by respiratory therapy to check for desaturations and need for oxygen, which was negative. He also had physical therapy while here and was able to walk 100 and 150 feet, using a walker, and was deemed safe for discharge from the PT standpoint. He did state, noted on PT records, that there were no stairs at his house. He was home for only about 3 hours. The patient was apparently getting up from a chair, using his walker, and there was one step that he did have to climb up. While taking the step, he tripped and fell to his right side. He was unable to get up. The could not help him, and ambulance was called. He was having pain in the right shoulder. In the emergency room, he was found to have a fracture of the right humerus, and it was put into a sling. The plan was to find placement, when social workers arrived in the morning, to continue with physical therapy, now with a new fracture requiring a sling. The patient was able to get out of the [facility] for planned discharge from the ER, but with this, his heart climbed to 130, and he desaturated to 86% on room air. A BNP was done that showed an increase from the previous day of his recent discharge, and he is being admitted for heart failure exacerbation and fall with fracture. PAST MEDICAL HISTORY 1. Diabetes, on diet control only. 2. Cor pulmonale. 3. Chronic atrial fibrillation. 4. Recent community-acquired pneumonia and pulmonary edema admission. 5. Low blood pressure, requiring discontinuation of several medications at that admission. ALLERGIES: ZITHROMAX. MEDICATIONS 1. Doxycycline 100 mg p.o. b.i.d. for 4 days, along with Florastor for those days. 2. Alprazolam 0.5 mg nightly. 3. Lasix 40 mg daily. 4. Simvastatin 20 mg nightly. 5. Flomax 0.4 mg nightly. 6. Albuterol inhaler p.r.n. 7. Nystatin powder to his groin p.r.n. 8. Allopurinol 100 mg b.i.d. 9. There was discontinuation of his Coreg. 10. Hydralazine. 11. Potassium. FAMILY HISTORY: No inherited diseases. SOCIAL HISTORY: The patient lives with his . He has become weak and has minimal activity over the past 1 year. He no longer drives a car. The patient is a nonsmoker, drinks no alcohol, or does not use illicit drugs. REVIEW OF SYSTEMS: A comprehensive review of systems was performed from chart review, since the patient is somnolent, having received narcotic pain med, and from knowing the patient from the previous admission. PHYSICAL EXAMINATION: GENERAL: The patient is somnolent. He had received narcotics for his right arm fracture. He is upright in bed and appears comfortable. VITAL SIGNS: Blood pressure 108/58. Heart rate 70, in atrial fibrillation. Afebrile. 100% saturation on 2 liters nasal cannula oxygen. HEENT: Reveals moist oral mucosa. He is poorly kempt. NECK: Positive JVD in a vertical position. CHEST: Diminished breath sounds at both bases, but clear anteriorly. No wheezes or rales. HEART: Sounds are distant and irregular. No murmurs or gallop. ABDOMEN: Soft with positive bowel sounds. EXTREMITIES: 1+ pretibial edema. NEUROLOGIC: He is currently somnolent. LABORATORIES: Normal electrolytes. BUN is 61. Creatinine 1.7. (Discharge BUN 63 and creatinine 1.8. Glucose 128. Magnesium not done. Bilirubin 1.5. (Baseline is 1.2-1.5.) Normal liver tests. BNP 2476, which was 1600 yesterday. Albumin is 3.0. White blood count 10.5. Hemoglobin 8.6 with an MCV of 99. RDW 17. Platelet count 65. No INR was done. IMAGING: Shoulder and rib x-rays were done that showed the fracture. No chest x-ray was done. No EKG was done. IMPRESSION/DIAGNOSES 1. Right humerus fracture. 2. Fall. 3. Xvqpi-mz-dstzdky diastolic heart failure with desaturation. 4. Atrial fibrillation with rapid ventricular response. 5. Cor pulmonale. 6. Chronic kidney disease, stage III. 7. (Recent) community-acquired pneumonia, still on treatment. 8. Diabetes mellitus, type 2, only diet control is needed. PLAN: 1. Admit the patient to a telemetry bed. 2. Continue with his antibiotic treatment for the pneumonia, including Doxycycline with Florastor. 3. Treat his fracture with pain medications, but continue with PT. Obtain an orthopedic consult to document management required. 4. Continue his medications for his CHF, will transition from Lasix 40 mg daily p.o. to daily IV. 5. Watch his I's and O's, daily weight, electrolytes, and magnesium daily. Watch his BUN and creatinine. I suspect this patient has a very narrow window of adequate fluid balance for his kidneys and being adequately diuresed for his pulmonary edema from diastolic LV dysfunction and leg edema from cor pulmonale. 6. Heart rate control is important to manage his CHF due to diastolic dysfunction. A b-eugene may need to be resumed. It was stopped on the last admission due to symptomatic low BP of 90 systolic. 7. Continue with support stockings, which will help with the edema and help with venous return. 8. Continue a diabetic and low-salt diet, measure fingerstick glucoses, cover with sliding scale insulin as needed. CODE STATUS: FULL CODE. DVT PROPHYLAXIS: SCDs. ATTESTATION: The patient is expected to be discharged or transferred to another facility within 96 hours: Yes. TD: 07/19/2018 18:30 VIANNEY
[2018-07-19] MEDS: DOXYCYCLINE 100 MG TABLET PO SCH (21:48)
[2018-07-19] MEDS: FAMOTIDINE 20 MG TABLET PO SCH (21:48)
[2018-07-19] MEDS: TAMSULOSIN 0.4 MG CAPSULE PO SCH (21:48)
[2018-07-19] MEDS: SODIUM CHLORIDE FLUSH 0.9% 10 ML SYRINGE IVP SCH (21:48)
[2018-07-19] MEDS: INSULIN ASPART 300 UNIT/3 ML PEN SUBQ SCH (21:48)
[2018-07-20] MEDS: SODIUM CHLORIDE FLUSH 0.9% 10 ML SYRINGE IVP SCH ×3 (01:04→17:47)
[2018-07-20 05:44] LABS: BASOPHILS % (AUTO) 0.2 %; EOSINOPHILS # (AUTO) 0.1 10^3/uL (0.0-0.7); EOSINOPHILS % (AUTO) 0.9 %; HGB - HEMOGLOBIN 7.8 g/dL (14.0-18.0); LYMPHOCYTES # (AUTO) 6.6 10^3/uL (1.5-3.5); LYMPHOCYTES % (AUTO) 77.6 %; MEAN CORPUSCULAR HEMOGLOBIN 32.5 pg (27.0-31.0); MEAN CORPUSCULAR HGB CONC 32.5 g/dL (32.0-36.0); MEAN CORPUSCULAR VOLUME 99.8 fL (80.0-94.0); MEAN PLATELET VOLUME 9.6 fL (7.4-11.4); MONOCYTES # (AUTO) 0.5 10^3/uL (0.0-1.0); MONOCYTES % (AUTO) 5.7 %; NEUTROPHILS # (AUTO) 1.3 10^3/uL (1.5-6.6); NEUTROPHILS % (AUTO) 15.6 %; PLT - PLATELET COUNT 62 10^3/uL (130-450); RED BLOOD COUNT 2.41 10^6/uL (4.70-6.10); RED CELL DISTRIBUTION WIDTH 17.3 % (12.0-15.0); WHITE BLOOD COUNT 8.5 x10^3/uL (4.8-10.8)
[2018-07-20 05:59] LABS: CALCIUM 8.3 mg/dL (8.5-10.3); CREATININE 1.6 mg/dL (0.6-1.2)
[2018-07-20] MEDS: ALBUTEROL NEB 2.5 MG/3 ML INH PRN (08:09)
[2018-07-20] MEDS: INSULIN ASPART 300 UNIT/3 ML PEN SUBQ SCH ×4 (08:19→21:02)
[2018-07-20] MEDS: ALLOPURINOL 100 MG TABLET PO SCH (08:19)
[2018-07-20] MEDS: SACCHAROMYCES BOULARDII 250 MG CAPSULE PO SCH ×2 (08:19→21:09)
[2018-07-20] MEDS: FUROSEMIDE 40 MG/4 ML VIAL IVP SCH (08:20)
[2018-07-20] MEDS: POLYETHYLENE GLYCOL 3350 17 GM PACKET PO SCH (08:20)
[2018-07-20] MEDS: FAMOTIDINE 20 MG TABLET PO SCH ×2 (08:20→21:09)
[2018-07-20] MEDS: NYSTATIN POWDER 15 GM TOP SCH ×2 (08:26→21:10)
[2018-07-20] MEDS: DOXYCYCLINE 100 MG TABLET PO SCH ×2 (08:26→21:09)
--- NOTE | 2018-07-20 08:56 | XRAY Report ---
Reason: F/U PNA and CHF Procedure Date: 07/20/2018 Accession Number: [id number] / [id number] Procedure: XR - Chest 1 View X-Ray CPT Code: 65025 FULL RESULT: EXAM: CHEST RADIOGRAPHY EXAM DATE: 07/20/2018 08:35 AM. CLINICAL HISTORY: Follow-up pneumonia and congestive heart failure. COMPARISON: Chest radiograph from 07/18/2018, 07/17/2018. TECHNIQUE: 1 view. FINDINGS: Lungs/Pleura: There is increased patchy opacity in the right lung base with small right pleural effusion. Mild streaky left basilar opacity present. No definite right pleural effusion. No pneumothorax. Mediastinum: Cardiac silhouette is mildly enlarged. Mediastinal contour is within normal limits. Pulmonary vasculature is mildly engorged and indistinct. Other: None. IMPRESSION: 1. Right basilar opacity is increased from the most recent prior examination but is similar to the 07/17/2018 examination. Findings may represent changing atelectasis. However, aspiration/pneumonia is not excluded. 2. No significant change in mild streaky left basilar opacity, presumably atelectasis. 3. No significant change in small right pleural effusion. 4. Mild enlargement of the cardiac silhouette with pulmonary vascular congestion. RADIA
[2018-07-20] MEDS: HYDROcod/ACETAM 5/325 MG TABLET PO PRN ×2 (13:29→19:04)
--- NOTE | 2018-07-20 18:49 | PROVIDER PROGRESS NOTE ---
Subjective - Prog Note Date Prog Note Date: 07/20/18 Prog Note Time: 18:47 - Subjective Pt reports feeling: Improved Subjective: He is less short of breath, but still more than his usual baseline. Getting up out of bed and walking to the bathroom leaves him winded. But he is able to do so. Vital signs have been stable. There is been no fever, blood pressure stable.He was hypotensive on admission at 108/58, and this morning he is 108/55. He is described as 5 foot 9 inches tall and 80 kg. He was -150 cc in July 18, neg ative for 85 cc yesterday. Current Medications - Current Medications Current Medications: Active Medications Acetaminophen (Tylenol) 650 mg PO Q4HR PRN PRN Reason: Pain or Fever > 38C (100.4F) Hydrocodone Bitart/Acetaminophen ([place] 5/325) 1 tab PO Q6HR PRN PRN Reason: PAIN Last Admin: 07/20/18 13:29 Dose: 1 tab Albuterol () 2.5 mg INH RTQ4H PRN PRN Reason: Wheezing Last Admin: 07/20/18 08:09 Dose: 2.5 mg Allopurinol (Zyloprim) 100 mg PO DAILY [facility] Last Admin: 07/20/18 08:19 Dose: 100 mg Doxycycline Hyclate (Vibramycin) 100 mg PO BID [facility] Last Admin: 07/20/18 08:26 Dose: 100 mg Famotidine (Pepcid) 20 mg PO BID [facility] Last Admin: 07/20/18 08:20 Dose: 20 mg Furosemide (Lasix Inj 40 Mg Vial) 40 mg IVP DAILY [facility] Last Admin: 07/20/18 08:20 Dose: 40 mg Insulin Aspart (Novolog) 1 - 5 unit SUBQ 0800,1200,1700,2100 [facility]; Protocol Last Admin: 07/20/18 17:47 Dose: 1 unit Nystatin (Nystop) 1 applic TOP BID [facility] Last Admin: 07/20/18 08:26 Dose: 1 applic Polyethylene Glycol (Miralax) 17 gm PO DAILY [facility] Last Admin: 07/20/18 08:20 Dose: 17 gm Saccharomyces Boulardii (Florastor) 250 mg PO BID [facility] Last Admin: 07/20/18 08:19 Dose: 250 mg Sodium Chloride (Normal Saline Flush 0.9%) 10 ml IVP PRN PRN PRN Reason: NEEDED PER PROVIDER ORDERS Sodium Chloride (Normal Saline Flush 0.9%) 10 ml IVP 0100,0900,1700 [facility] Last Admin: 07/20/18 17:47 Dose: 10 ml Tamsulosin HCl (Flomax) 0.4 mg PO QPM [facility] Last Admin: 07/19/18 21:48 Dose: 0.4 mg Furosemide [Lasix] 40 mg PO DAILY 09/21/15 Simvastatin 20 mg PO QPM 06/22/18 ALPRAZolam [Alprazolam] 0.5 - 1 mg PO QPM PRN 07/15/18 Allopurinol 100 mg PO DAILY 07/15/18 Tamsulosin [Flomax] 0.4 mg PO QPM 07/15/18 Objective - Vital Signs/Intake & Output Reviewed Vital Signs: Yes Vital Signs: Vital Signs x48h Temp Pulse Resp BP Pulse Ox 07/20/18 16:19 37.0 C 73 23 108/55 L 94 07/20/18 13:00 36.4 C L 72 22 111/49 L 94 Intake & Output: Intake & Output 07/17/18 07/18/18 07/19/18 07/20/18 23:59 23:59 23:59 23:59 Intake Total 50 490 650 Output Total 200 975 150 Balance -150 -485 500 - Objective General Appearance: positive: Alert Eyes Bilateral: positive: PERRL, EOMI ENT: positive: Pharynx nml Neck: positive: Other (JVD three quarters the way up his neck when he sitting upwards). negative: Stiff neck, Carotid bruit Respiratory: positive: Chest non-tender, No respiratory distress. negative: Wheezes, Rales, Rhonchi Cardiovascular: positive: Irregularly irregular, Systolic murmur. negative: Ga llop/S4, Friction rub Abdomen: positive: Non-tender, No distention, Hepatomegaly, Other (Urgency, frequency, and retention is present). negative: Guarding, Rebound, Splenomegaly Skin: positive: Warm, Dry Extremities: positive: Full ROM, Pedal edema, Other (Perper of the forearms dorsum of hands.) Neurologic/Psychiatric: positive: Oriented x3, CN's nml (2-12), Motor nml, Weakness (And fatigue.) - Lab Results Fish Bones: 07/20/18 04:50 07/20/18 04:50 Other Labs: Lab Results x24hrs 07/20/18 07/20/18 07/20/18 Range/Units 07:36 04:50 04:50 WBC 8.5 (4.8-10.8) x10^3/uL RBC 2.41 L (4.70-6.10) 10^6/uL Hgb 7.8 L (14.0-18.0) g/dL Hct 24.0 L (42.0-52.0) % MCV 99.8 H (80.0-94.0) fL MCH 32.5 H (27.0-31.0) pg MCHC 32.5 (32.0-36.0) g/dL RDW 17.3 H (12.0-15.0) % Plt Count 62 L (130-450) 10^3/uL MPV 9.6 (7.4-11.4) fL Neut # (Auto) 1.3 L (1.5-6.6) 10^3/uL Lymph # (Auto) 6.6 H (1.5-3.5) 10^3/uL [place] # (Auto) 0.5 (0.0-1.0) 10^3/uL Eos # (Auto) 0.1 (0.0-0.7) 10^3/uL Baso # (Auto) 0.0 (0.0-0.1) 10^3/uL Absolute Nucleated RBC 0.01 x10^3/uL Nucleated RBC % 0.1 /100WBC Sodium (135-145) mmol/L Potassium (3.5-5.0) mmol/L Chloride (101-111) mmol/L Carbon Dioxide (21-32) mmol/L Anion Gap (6-13) BUN (6-20) mg/dL Creatinine (0.6-1.2) mg/dL Estimated GFR (MDRD) (>89) Glucose (70-100) mg/dL POC Whole Bld Glucose 98 (70 - 100) mg/dL Calcium (8.5-10.3) mg/dL B-Natriuretic Peptide 1996 H (5-100) pg/mL 07/20/18 07/19/18 Range/Units 04:50 21:01 WBC (4.8-10.8) x10^3/uL RBC (4.70-6.10) 10^6/uL Hgb (14.0-18.0) g/dL Hct (42.0-52.0) % MCV (80.0-94.0) fL MCH (27.0-31.0) pg MCHC (32.0-36.0) g/dL RDW (12.0-15.0) % Plt Count (130-450) 10^3/uL MPV (7.4-11.4) fL Neut # (Auto) (1.5-6.6) 10^3/uL Lymph # (Auto) (1.5-3.5) 10^3/uL [place] # (Auto) (0.0-1.0) 10^3/uL Eos # (Auto) (0.0-0.7) 10^3/uL Baso # (Auto) (0.0-0.1) 10^3/uL Absolute Nucleated RBC x10^3/uL Nucleated RBC % /100WBC Sodium 145 (135-145) mmol/L Potassium 3.8 (3.5-5.0) mmol/L Chloride 109 (101-111) mmol/L Carbon Dioxide 26 (21-32) mmol/L Anion Gap 10.0 (6-13) BUN 60 H (6-20) mg/dL Creatinine 1.6 H (0.6-1.2) mg/dL Estimated GFR (MDRD) 41 L (>89) Glucose 103 H (70-100) mg/dL POC Whole Bld Glucose 152 H (70 - 100) mg/dL Calcium 8.3 L (8.5-10.3) mg/dL B-Natriuretic Peptide (5-100) pg/mL ABX Reporting Has patient been on IV antibiotics over the past 48 hours?: Yes Assessment/Plan - Problem List (1) Combined systolic and diastolic congestive heart failure, NYHA class 3 Impression: Mainly right-sided heart failure. His echocardiograms from 2014 on 11/24/2016 showed the new development of severe right-sided heart failure. From 2017 to the most recent echocardiogram with his last admission he continues to have elevated right-sided heart pressures, right ventricular systolic and diastolic dysfunction. Severely enlarged atria. Treatment will consist of mainly d iuresis. Plan: Daily weights have not been ordered and will do so today Intake and output has been minimal even with IV Lasix, will increase dosing Qualifiers: Congestive heart failure chronicity: acute on chronic Qualified Code(s): I50.43 - Acute on chronic combined systolic (congestive) and diastolic (congestive) heart failure (2) Acute anemia Impression: His hemoglobin started at 9.6 and then drifted to 8.6 yesterday. This morning he is 7.8. There are no symptoms of blood loss. No change in bowel habits. No nausea or emesis. Plan: Check stool for fecal occult blood Anemia panel (3) Fracture of neck of humerus Impression: There was an order placed in the chart for consult with Dr. Mehta. But he was not patient relations coordinator. I have called Dr. Serna to see if he needs to see this patient. Dr. Serna will see him in the morning. Qualifiers: Encounter type: initial encounter Fracture type: closed Laterality: right Qualified Code(s): S42.211A - Unspecified displaced fracture of surgical neck of right humerus, initial encounter for closed fracture (4) Chronic atrial fibrillation with rapid ventricular response Impression: He presented at 62 beats a minute in the emergency room. Yesterday he got as high as 131. Today he has been in the 70s. He is not on rate control medications at this time. In the ambulatory setting he does not use a beta- eugene or digoxin or calcium channel eugene. He is not Anticoagulated. Which is appropriate considering he just fell and this is a humeral neck fracture. But I will try and verify via review of his medical records and centricity if he has been considered for anticoagulation and declined. (5) CKD (chronic kidney disease) stage 3, GFR 30-59 ml/min Impression: stable today with creat 1.6. (6) Type 2 diabetes mellitus with hyperglycemia, without long-term current use of insulin Impression: He is on sliding scale short acting insulin, low-dose. Glucose is 123 yesterday and 103 today. No change in medication at this time. (7) General weakness Impression: Between his recent hospitalization for pneumonia, this congestive heart failure, and the humeral fracture, this gentleman is tired, weak. Needs a lot of help to do simple activities of daily living. Made worse by the humeral fracture on the right. We will have physical therapy see and evaluate him for rehab needs. (8) Pneumonia Impression: Recently hospitalized. He is on antibiotics, p.o., to complete his course of therapy. He only needed 3 or 4 more days. Today's day #2 and will plan for 2 more days. Qualifiers: Pneumonia type: due to unspecified organism Laterality: bilateral Lung location: lower lobe of lung Qualified Code(s): J18.1 - Lobar pneumonia, unspecified organism
[2018-07-20] MEDS: TAMSULOSIN 0.4 MG CAPSULE PO SCH (21:09)
--- NOTE | 2018-07-20 21:24 | XRAY Report ---
Reason: right proximal humerus fracture Procedure Date: 07/20/2018 Accession Number: [id number] / [id number] Procedure: XR - Shoulder 3 View RT CPT Code: FULL RESULT: EXAM: RIGHT SHOULDER RADIOGRAPHY EXAM DATE: 07/20/2018 08:41 PM. CLINICAL HISTORY: Right proximal humerus fracture. COMPARISON: Shoulder 2 view right 07/18/2018 5:52 PM. TECHNIQUE: 4 views. FINDINGS: Bones: Acute comminuted impacted and rotated fracture right humeral head and neck without evidence of healing. Indeterminant as to whether the fracture fragments are unchanged in alignment given the difference in patient positioning. No additional fracture seen. Joints: New anterior dislocation of the humeral head and neck fracture mass relative to the glenoid fossa. Soft tissues: The visualized hemithorax is unremarkable. No soft tissue swelling. IMPRESSION: New anterior dislocation of the right humeral neck and head fracture mass out of the glenoid fossa. RADIA
[2018-07-21 05:22] LABS: MEAN RETIC VALUE 127.1; RED BLOOD COUNT 2.51 10^6/uL (4.70-6.10)
[2018-07-21 05:33] LABS: CALCIUM 8.3 mg/dL (8.5-10.3); CREATININE 1.5 mg/dL (0.6-1.2)
[2018-07-21 05:50] LABS: FERRITIN 42.4 ng/mL (23.9-336.2)
[2018-07-21] MEDS: SODIUM CHLORIDE FLUSH 0.9% 10 ML SYRINGE IVP SCH ×3 (06:42→16:05)
[2018-07-21] MEDS: DOXYCYCLINE 100 MG TABLET PO SCH ×2 (09:03→20:20)
[2018-07-21] MEDS: HYDROcod/ACETAM 5/325 MG TABLET PO PRN ×2 (09:03→16:05)
[2018-07-21] MEDS: ALLOPURINOL 100 MG TABLET PO SCH (09:03)
[2018-07-21] MEDS: SODIUM CHLORIDE FLUSH 0.9% 10 ML SYRINGE IVP PRN (09:03)
[2018-07-21] MEDS: FAMOTIDINE 20 MG TABLET PO SCH ×2 (09:03→20:20)
[2018-07-21] MEDS: POLYETHYLENE GLYCOL 3350 17 GM PACKET PO SCH (09:04)
[2018-07-21] MEDS: NYSTATIN POWDER 15 GM TOP SCH ×2 (09:04→20:25)
[2018-07-21] MEDS: INSULIN ASPART 300 UNIT/3 ML PEN SUBQ SCH ×4 (09:04→21:26)
[2018-07-21] MEDS: FUROSEMIDE 40 MG/4 ML VIAL IVP SCH ×2 (09:04→16:05)
[2018-07-21] MEDS: SACCHAROMYCES BOULARDII 250 MG CAPSULE PO SCH ×2 (09:04→20:20)
--- NOTE | 2018-07-21 09:12 | CONSULTATION NOTE ---
Referring Provider Name of Referring Provider:: Melody Parikh MD Consult Date: 07/21/18 Chief Complaint - Chief Complaint Chief Complaint: Asked to evaluate patient for right proximal humerus fracture History of Present Illness - History of Present Illness HPI Comment/Other: Mr. Verdugo is an 88-year-old [id number] gentleman in his usual state of health until proximal me 2 days ago when he said he sustained a fall. He denies cardiovascular or neurovascular symptoms preceding or after this but was ultimately admitted with reported congestive heart failure and also found to h ave a right proximal humerus fracture. Orthopedics consultation was requested. Patient says he has some right shoulder pain but that he is comfortable in his sling denies other traumatic right upper extremity complaints at this time. At a baseline he says he is less active than he used to be. He does do some walking for exercise. Other than that, he notes being relatively sedentary. He lives with his . History - Past Medical History Cardiovascular: reports: Hypertension, High cholesterol, Atrial fibrillation Respiratory: reports: None Endocrine/Autoimmune: reports: Type 2 diabetes GI: reports: None : reports: None HEENT: reports: None Psych: reports: None Musculoskeletal: reports: Gout, Other Derm: reports: None MRSA Hx?: No - Past Surgical History General: reports: Cholecystectomy, Appendectomy Ortho: reports: Hip replacement HEENT: reports: Cataracts Derm: reports: Skin cancer surgery - Family & Social History Living arrangement: At home Living Situation: With spouse/s.o. - POLST Patient has POLST: No Meds/Allgy - Home Medications Home Medications: Ambulatory Orders Medication Instructions Recorded Confirmed Furosemide [Lasix] 40 mg PO DAILY 09/21/15 07/19/18 Albuterol Sulfate [Proair Hfa 2 puffs INH Q4H PRN #1 inhaler 01/12/17 07/19/18 Inhaler] Simvastatin 20 mg PO QPM 06/22/18 07/19/18 ALPRAZolam [Alprazolam] 0.5 - 1 mg PO QPM PRN 07/15/18 07/19/18 Allopurinol 100 mg PO DAILY 07/15/18 07/19/18 Tamsulosin [Flomax] 0.4 mg PO QPM 07/15/18 07/19/18 Nystatin [Nystop] 1 applic TOP BID #1 bottle 07/18/18 07/19/18 Saccharomyces Boulardii [Florastor] 250 mg PO BID #8 capsule 07/18/18 07/19/18 - Allergies Allergies/Adverse Reactions: Allergies Allergy/AdvReac Type Severity Reaction Status Date / Time azithromycin Allergy Intermediate Itching Verified 07/18/18 16:32 Review of Systems - Constitutional Constitutional: reports: Other (pt reports some cough and right shoulder pain which is improving. see hpi for additionl ROS) Exam - Vital Signs Vital Signs: Vital Signs x48h Temp Pulse Resp BP Pulse Ox 07/21/18 07:37 36.7 C 71 20 111/49 L 94 07/21/18 05:00 36.7 C 68 18 109/50 L 95 - Physical Exam General Appearance: positive: No acute distress, Alert Extremities: positive: Other (Right upper extremity is in a sling which is loosened. He does have ecchymosis of the right arm and elbow region. He has no tenderness about his elbow forearm wrist or hand. He demonstrates radial median ulnar axillary musculocutaneous motor and sensory function though he is not asked to actively range his shoulder there is some firing of the deltoid. He has no pain with digital wrist or elbow active or active assisted range of motion. He has mild discomfort with gentle internal/external rotation and the proximal distal aspects of the humerus are palpated to move as a unit. Skin overlying the shoulder intact. He has proximal humeral tenderness but no other focal shoulder girdle tenderness noted. Arm and forearm compartments soft.) Conclusion/Plan - Diagnosis Diagnosis: Right impacted varus proximal humerus surgical neck fracture - Plan Plan: Oseas is an 88-year-old [id number] gentleman with multiple medical history and a varus impacted right proximal humerus surgical neck fracture. I discussed with the injury with Oseas and options from the least invasive options to more invasive options and the risks benefits and alternatives of each. We touched on the natural history and literature highlights. I do not think he is an ideal operative candidate and I do think given his activity level and age that he is likely to do reasonably well with nonoperative treatment. We did discuss the potential functional limitations that would be expected and the potential symptoms that could be expected in the future. We also discussed the potential need for treatment alteration and even surgery should he fail the above. In the meantime I do recommend sling use. He should avoid active shoulder motion. He should avoid weightbearing right upper extremity. He is encouraged to loosen the sling and work on elbow wrist and hand motion on a regular basis. We would plan on seeing him as an outpatient and likely start formal physical therapy for the shoulder at around the 2-week sergio from his injury. His questions were answered. The rationale for the above approach was reviewed/ He verbalized agreement and satisfaction with the plan as outlined. I indicated that I would be happy to speak with his for other family members should he and they desire. - Lab Results Fish Bones: 07/20/18 04:50 07/21/18 04:55 - Diagnostic Imaging Results Diagnostic Imaging Results: positive: See rad report, Other (Impacted right proximal humerus fracture of the surgical neck. It is in varus position. Though no true orthogonal views are obtained it does appear located on the views obtained. See [facility] for final report.)
--- NOTE | 2018-07-21 14:39 | PROVIDER PROGRESS NOTE ---
Subjective - Prog Note Date Prog Note Date: 07/21/18 Prog Note Time: 14:39 - Subjective Pt reports feeling: Improved Subjective: For the most part pain is controlled. But he says that every once in although will be a severe spasm through that right upper arm. He and Dr. Serna. spoke about what to do for it. Surgical versus nonsurgical options. He is to do a nonsurgical option. He shortness of breath is much improved from admission. His main problem is pain in that arm and trying to be mobile since he cannot use his right arm. Current Medications - Current Medications Current Medications: Active Medications Acetaminophen (Tylenol) 650 mg PO Q4HR PRN PRN Reason: Pain or Fever > 38C (100.4F) Hydrocodone Bitart/Acetaminophen ([place] 5/325) 1 tab PO Q6HR PRN PRN Reason: PAIN Last Admin: 07/21/18 09:03 Dose: 1 tab Albuterol () 2.5 mg INH RTQ4H PRN PRN Reason: Wheezing Last Admin: 07/20/18 08:09 Dose: 2.5 mg Allopurinol (Zyloprim) 100 mg PO DAILY [facility] Last Admin: 07/21/18 09:03 Dose: 100 mg Doxycycline Hyclate (Vibramycin) 100 mg PO BID [facility] Last Admin: 07/21/18 09:03 Dose: 100 mg Famotidine (Pepcid) 20 mg PO BID [facility] Last Admin: 07/21/18 09:03 Dose: 20 mg Furosemide (Lasix Inj 40 Mg Vial) 40 mg IVP DAILY [facility] Last Admin: 07/21/18 09:04 Dose: 40 mg Insulin Aspart (Novolog) 1 - 5 unit SUBQ 0800,1200,1700,2100 [facility]; Protocol Last Admin: 07/21/18 13:41 Dose: Not Given Nystatin (Nystop) 1 applic TOP BID [facility] Last Admin: 07/21/18 09:04 Dose: 1 applic Polyethylene Glycol (Miralax) 17 gm PO DAILY [facility] Last Admin: 07/21/18 09:04 Dose: Not Given Saccharomyces Boulardii (Florastor) 250 mg PO BID [facility] Last Admin: 07/21/18 09:04 Dose: 250 mg Sodium Chloride (Normal Saline Flush 0.9%) 10 ml IVP PRN PRN PRN Reason: NEEDED PER PROVIDER ORDERS Last Admin: 10/17/18 09:03 Dose: 10 ml Sodium Chloride (Normal Saline Flush 0.9%) 10 ml IVP 0100,0900,1700 [facility] Last Admin: 07/21/18 09:03 Dose: 10 ml Tamsulosin HCl (Flomax) 0.4 mg PO QPM [facility] Last Admin: 07/20/18 21:09 Dose: 0.4 mg Furosemide [Lasix] 40 mg PO DAILY 09/21/15 Simvastatin 20 mg PO QPM 06/22/18 ALPRAZolam [Alprazolam] 0.5 - 1 mg PO QPM PRN 07/15/18 Allopurinol 100 mg PO DAILY 07/15/18 Tamsulosin [Flomax] 0.4 mg PO QPM 07/15/18 Objective - Vital Signs/Intake & Output Reviewed Vital Signs: Yes Vital Signs: Vital Signs x48h Temp Pulse Pulse Resp BP BP Pulse Ox 07/21/18 11:44 69 112/54 L 07/21/18 07:37 36.7 C 71 20 111/49 L 94 Intake & Output: Intake & Output 07/18/18 07/19/18 07/20/18 07/21/18 23:59 23:59 23:59 23:59 Intake Total 50 490 650 600 Output Total 200 975 450 100 Balance -150 -485 200 500 - Objective General Appearance: positive: No acute distress, Alert, Other (Elderly white male, [place] red hair on the top of his head with male pattern blunt dullness. Sitting upright in the chair with legs not elevated.) Eyes Bilateral: positive: PERRL, EOMI ENT: positive: Other (His lips are still dry. 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 Voice is almost whispery and hoarse. He says is been like that for a long time.) Neck: positive: No JVD. negative: Stiff neck, Carotid bruit Respiratory: positive: Chest non-tender, No respiratory distress, Rales. negative: Wheezes, Rhonchi Cardiovascular: positive: Irregularly irregular, Systolic murmur. negative: Gallop/S4, Friction rub Abdomen: positive: Non-tender, No organomegaly, Nml bowel sounds, No distention Skin: positive: Warm, Dry, Other (Ecchymosis on the dorsum is of his hand) Extremities: positive: Full ROM (Except his right arm which is in a sling), Pedal edema, Other (He has edema above and below where his MARIELLA hose were. They have been momentarily removed. See you have 3+ edema of the knees all the way up into the upper thighs. The knee have 2+ edema around the feet. And only 1+ edema from the knee down to the ankle. The skin of the calf and tib-fib area is also hyperkeratotic, discolored from chronic venous stasis changes. No open wounds. He has one linear abrasion in the upper part of his tib-fib skin area that is healed and dry.) Neurologic/Psychiatric: positive: Oriented x3, CN's nml (2-12), Motor nml (But with generalized weakness, Sometimes he staggers when he is gets up to use the walker) - Lab Results Fish Bones: 07/20/18 04:50 07/21/18 04:55 Other Labs: Lab Results x24hrs 07/21/18 07/21/18 07/21/18 Range/Units 11:50 07:30 04:55 RBC (4.70-6.10) 10^6/uL Reticulocyte % (Auto) (0.5-2.3) % Absolute Retic (0.020-0.110) 10^6/uL Sodium (135-145) mmol/L Potassium (3.5-5.0) mmol/L Chloride (101-111) mmol/L Carbon Dioxide (21-32) mmol/L Anion Gap (6-13) BUN (6-20) mg/dL Creatinine (0.6-1.2) mg/dL Estimated GFR (MDRD) (>89) Glucose (70-100) mg/dL POC Whole Bld Glucose 132 H 119 H (70 - 100) mg/dL Calcium (8.5-10.3) mg/dL Iron (45-182) ug/dL TIBC (250-450) ug/dL % Saturation (20-50) % Transferrin (180-329) mg/dL Ferritin (23.9-336.2) ng/mL Lactate Dehydrogenase (91-225) IU/L B-Natriuretic Peptide 2005 H (5-100) pg/mL Vitamin B12 (180-914) pg/mL 07/21/18 07/21/18 07/21/18 Range/Units 04:55 04:55 04:55 RBC (4.70-6.10) 10^6/uL Reticulocyte % (Auto) (0.5-2.3) % Absolute Retic (0.020-0.110) 10^6/uL Sodium 142 (135-145) mmol/L Potassium 3.8 (3.5-5.0) mmol/L Chloride 107 (101-111) mmol/L Carbon Dioxide 25 (21-32) mmol/L Anion Gap 10.0 (6-13) BUN 56 H (6-20) mg/dL Creatinine 1.5 H (0.6-1.2) mg/dL Estimated GFR (MDRD) 44 L (>89) Glucose 125 H (70-100) mg/dL POC Whole Bld Glucose (70 - 100) mg/dL Calcium 8.3 L (8.5-10.3) mg/dL Iron 19 L (45-182) ug/dL TIBC 293 (250-450) ug/dL % Saturation 6 L (20-50) % Transferrin 209 (180-329) mg/dL Ferritin 42.4 (23.9-336.2) ng/mL Lactate Dehydrogenase 112 (91-225) IU/L B-Natriuretic Peptide (5-100) pg/mL Vitamin B12 258 (180-914) pg/mL 07/21/18 07/20/18 07/20/18 Range/Units 04:55 20:37 16:37 RBC 2.51 L (4.70-6.10) 10^6/uL Reticulocyte % (Auto) 1.41 (0.5-2.3) % Absolute Retic 0.035 (0.020-0.110) 10^6/uL Sodium (135-145) mmol/L Potassium (3.5-5.0) mmol/L Chloride (101-111) mmol/L Carbon Dioxide (21-32) mmol/L Anion Gap (6-13) BUN (6-20) mg/dL Creatinine (0.6-1.2) mg/dL Estimated GFR (MDRD) (>89) Glucose (70-100) mg/dL POC Whole Bld Glucose 145 H 152 H (70 - 100) mg/dL Calcium (8.5-10.3) mg/dL Iron (45-182) ug/dL TIBC (250-450) ug/dL % Saturation (20-50) % Transferrin (180-329) mg/dL Ferritin (23.9-336.2) ng/mL Lactate Dehydrogenase (91-225) IU/L B-Natriuretic Peptide (5-100) pg/mL Vitamin B12 (180-914) pg/mL 07/20/18 Range/Units 11:46 RBC (4.70-6.10) 10^6/uL Reticulocyte % (Auto) (0.5-2.3) % Absolute Retic (0.020-0.110) 10^6/uL Sodium (135-145) mmol/L Potassium (3.5-5.0) mmol/L Chloride (101-111) mmol/L Carbon Dioxide (21-32) mmol/L Anion Gap (6-13) BUN (6-20) mg/dL Creatinine (0.6-1.2) mg/dL Estimated GFR (MDRD) (>89) Glucose (70-100) mg/dL POC Whole Bld Glucose 149 H (70 - 100) mg/dL Calcium (8.5-10.3) mg/dL Iron (45-182) ug/dL TIBC (250-450) ug/dL % Saturation (20-50) % Transferrin (180-329) mg/dL Ferritin (23.9-336.2) ng/mL Lactate Dehydrogenase (91-225) IU/L B-Natriuretic Peptide (5-100) pg/mL Vitamin B12 (180-914) pg/mL ABX Reporting Has patient been on IV antibiotics over the past 48 hours?: Yes Assessment/Plan - Problem List (1) Combined systolic and diastolic congestive heart failure, NYHA class 3 Impression: Mainly right-sided heart failure. His echocardiograms from 2014 on 11/24/2016 showed the new development of severe right-sided heart failure. From 2016 to t he most recent echocardiogram with his last admission he continues to have elevated right-sided heart pressures, right ventricular systolic and diastolic dysfunction. Severely enlarged atria. Treatment will consist of mainly diuresis. Plan: Daily weights have not been ordered and was done 07/20 but no weights recorded. Will ask cut off operator scorer and output has been minimaly negative on 07/18 and 07/19. Was ~250 cc (+) on 07/20 even with IV Lasix, will increase dosing Qualifiers: Congestive heart failure chronicity: acute on chronic Qualified Code(s): I50.43 - Acute on chronic combined systolic (congestive) and diastolic (congestive) heart failure (2) Acute anemia Impression: His hemoglobin started at 9.6 and then drifted to 8.6 and then 7.8. There are no symptoms of blood loss. No change in bowel habits. No nausea or emesis. Laboratory Tests 07/21/18 07/21/18 07/21/18 04:55 04:55 04:55 Iron 19 L TIBC 293 % Saturation 6 L Transferrin 209 Ferritin 42.4 Lactate Dehydrogenase 112 Vitamin B12 258 Plan: Check stool for fecal occult blood Check Hgb/Hct in am. (3) Fracture of neck of humerus Impression: There was an order placed in the chart for consult with Dr. Mehta. But he was not primary care nurse practitioner. I called Dr. Serna to see if he needs to see this patient. Dr. Serna saw him this morning. Consult appreciated. Qualifiers: Encounter type: initial encounter Fracture type: closed Laterality: right Qualified Code(s): S42.211A - Unspecified displaced fracture of surgical neck of right humerus, initial encounter for closed fracture (4) Chronic atrial fibrillation with rapid ventricular response Impression: He presented at 62 beats a minute in the emergency room. On 07/19 he got as high as 131. Since 07/20, he has been in the 70s. He is not on rate control medications at this time. In the ambulatory setting he does not use a beta- eugene or digoxin or calcium channel eugene. He is not Anticoagulated. Which is appropriate considering he just fell and this is a humeral neck fracture. But I will try and verify via review of his medical records and centricity if he has been considered for anticoagulation and declined. He was on Plavix but because he was having nosebleeds in June 2018, Plavix was stopped. He has not resumed it. The admission H&P states he is not anticogulated bc of thrombocytopenia. The diagnosis of afib is not in his outpatient Centricity chart. (5) CKD (chronic kidney disease) stage 3, GFR 30-59 ml/min Impression: stable today with creat 1.6. (6) Type 2 diabetes mellitus with hyperglycemia, without long-term current use of insulin Impression: He is on sliding scale short acting insulin, low-dose. Glucose is 123 yesterday and 103 today. No change in medication at this time. (7) General weakness Impression: Between his recent hospitalization for pneumonia, this congestive heart failure, and the humeral fracture, this gentleman is tired, weak. Needs a lot of help to do simple activities of daily living. Made worse by the humeral fracture on the right. Seen by PT and evaluated him for rehab needs: Pt. is a pleasant, well motivated 88 y.o., s/p R humeral fx in sling, non- surgical candidate; he has decreased strength, balance, for functional transfers, standing and walking; he is learning to use hemiwalker for support w/L hand but may be able to try cane in next few visits; at this time he needs HW for balance support and requires multiple repeated cues for balance and sequence w/stepping; recommend continued PT working on functional activity/strengtheing, and gait progresson; he is at high risk for falling and will need transfer to SNF at hospital d/c to continue w/PT working toward mobility goals. Continue w/PT, 1-2x/day. (8) Pneumonia Impression: Recently hospitalized. He is on antibiotics, p.o., to complete his course of therapy. He only needed 3 or 4 more days. Today's day #3 and will plan for 1 more days. Qualifiers: Pneumonia type: due to unspecified organism Laterality: bilateral Lung location: lower lobe of lung Qualified Code(s): J18.1 - Lobar pneumonia, unspecified organism (9) Acute on chronic kidney disease stage III Improving day by day. Laboratory Tests 07/18/18 07/21/18 17:10 04:55 BUN 63 H 56 H Creatinine 1.8 H 1.5 H (3) Fracture of neck of humerus Qualifiers: Qualified Code(s): S42.211A - Unspecified displaced fracture of surgical neck of right humerus, initial encounter for closed fracture
[2018-07-21 16:15] LABS: BASOPHILS % (AUTO) 0.3 %; HGB - HEMOGLOBIN 8.5 g/dL (14.0-18.0); LYMPHOCYTES % (AUTO) 78.1 %; MEAN CORPUSCULAR HEMOGLOBIN 31.9 pg (27.0-31.0); MEAN CORPUSCULAR HGB CONC 31.6 g/dL (32.0-36.0); MEAN CORPUSCULAR VOLUME 100.8 fL (80.0-94.0); MEAN PLATELET VOLUME 9.5 fL (7.4-11.4); MONOCYTES % (AUTO) 6.4 %; NEUTROPHILS % (AUTO) 14.2 %; PLT - PLATELET COUNT 81 10^3/uL (130-450); RED BLOOD COUNT 2.66 10^6/uL (4.70-6.10); RED CELL DISTRIBUTION WIDTH 17.7 % (12.0-15.0)
[2018-07-21 16:20] LABS: ABNORMAL LYMPHS % (MANUAL) 0 %; BAND NEUTROPHILS % (MANUAL) 0 %
[2018-07-21 16:47] LABS: LYMPHOCYTES # (MANUAL) 10.8 10^3/uL (1.5-3.5); LYMPHOCYTES % (MANUAL) 83 %; MONOCYTES # (MANUAL) 0.5 10^3/uL (0.0-1.0); NEUTROPHILS # (MANUAL) 1.7 10^3/uL (1.5-6.6); NEUTROPHILS % (MANUAL) 13 %; PLATELET ESTIMATE, MANUAL DECREASED (<130,000) (NORMAL); PLATELET MORPHOLOGY NORMAL APPEARANCE (NORMAL)
[2018-07-21 16:48] LABS: DIFFERENTIAL COMMENT MANUAL DIFFERENTIAL
[2018-07-21] MEDS: TAMSULOSIN 0.4 MG CAPSULE PO SCH (20:20)
[2018-07-21] MEDS: HYDROcod/ACETAM 10 MG/325 MG TABLET PO PRN (20:20)
[2018-07-22] MEDS: SODIUM CHLORIDE FLUSH 0.9% 10 ML SYRINGE IVP SCH ×2 (00:36→09:35)
[2018-07-22] MEDS: HYDROcod/ACETAM 10 MG/325 MG TABLET PO PRN ×3 (00:48→14:09)
[2018-07-22 05:19] LABS: BASOPHILS % (AUTO) 0.2 %; HGB - HEMOGLOBIN 7.7 g/dL (14.0-18.0); LYMPHOCYTES % (AUTO) 82.7 %; MEAN CORPUSCULAR HEMOGLOBIN 31.9 pg (27.0-31.0); MEAN CORPUSCULAR HGB CONC 31.8 g/dL (32.0-36.0); MEAN CORPUSCULAR VOLUME 100.5 fL (80.0-94.0); MEAN PLATELET VOLUME 9.6 fL (7.4-11.4); MONOCYTES % (AUTO) 5.5 %; NEUTROPHILS % (AUTO) 10.6 %; PLT - PLATELET COUNT 66 10^3/uL (130-450); RED CELL DISTRIBUTION WIDTH 17.4 % (12.0-15.0); WHITE BLOOD COUNT 11.1 x10^3/uL (4.8-10.8)
[2018-07-22 05:24] LABS: CALCIUM 8.1 mg/dL (8.5-10.3); CREATININE 1.4 mg/dL (0.6-1.2)
[2018-07-22 05:35] LABS: ABNORMAL LYMPHS % (MANUAL) 0 %; BAND NEUTROPHILS % (MANUAL) 0 %
[2018-07-22] MEDS: FUROSEMIDE 40 MG/4 ML VIAL IVP SCH ×2 (06:20→13:44)
[2018-07-22] MEDS: SODIUM CHLORIDE FLUSH 0.9% 10 ML SYRINGE IVP PRN (06:22)
[2018-07-22 06:27] LABS: DIFFERENTIAL COMMENT MANUAL DIFFERENTIAL; LYMPHOCYTES # (MANUAL) 8.9 10^3/uL (1.5-3.5); LYMPHOCYTES % (MANUAL) 78 %; MONOCYTES # (MANUAL) 0.1 10^3/uL (0.0-1.0); NEUTROPHILS # (MANUAL) 2.1 10^3/uL (1.5-6.6); NEUTROPHILS % (MANUAL) 19 %; PLATELET ESTIMATE, MANUAL DECREASED (<130,000) (NORMAL); RBC MORPHOLOGY (MULTIPLE) NORMAL APPEARANCE (NORMAL)
[2018-07-22] MEDS: INSULIN ASPART 300 UNIT/3 ML PEN SUBQ SCH ×2 (07:33→12:35)
[2018-07-22] MEDS: POLYETHYLENE GLYCOL 3350 17 GM PACKET PO SCH (07:33)
[2018-07-22] MEDS ORDERED: ALPRAZolam 0.25 MG TABLET PO PRN (09:27)
[2018-07-22] MEDS: DOXYCYCLINE 100 MG TABLET PO SCH (09:34)
[2018-07-22] MEDS: ALLOPURINOL 100 MG TABLET PO SCH (09:34)
[2018-07-22] MEDS: FAMOTIDINE 20 MG TABLET PO SCH (09:34)
[2018-07-22] MEDS: SACCHAROMYCES BOULARDII 250 MG CAPSULE PO SCH (09:34)
[2018-07-22] MEDS: NYSTATIN POWDER 15 GM TOP SCH (09:36)
[2018-07-22] MEDS: ALBUTEROL NEB 2.5 MG/3 ML INH PRN (10:08)
--- NOTE | 2018-07-22 11:29 | Discharge Plan ---
"Discharge Plan for SNF / [facility] - Discharge Plan And Transition Orders Disposition: 03 SNF DC/Xfer Condition: Good Allergies and Adverse Reactions: Allergies Allergy/AdvReac Type Severity Reaction Status Date / Time azithromycin Allergy Intermediate Itching Verified 07/18/18 16:32 - SNF [facility] Transition Orders Admit to (Facility): [facility] Under the care of (Name): Dr. Aguirre Discharge Diagnosis: 1. Acute on chronic combined systolic and diastolic heart failure 2. Anemia, iron deficiency and anemia of chronic disease. Admit hemoglobin 9.9. Down to 7.7 g of hemoglobin. Does not meet criteria for transfusion at this time. 3. Fracture of humerus, right arm after fall at home 4. Chronic atrial fibrillation not anticoagulated because of thrombocytopenia and falls 5. Chronic kidney disease stage III, with acute kidney failure superimposed. Creatinine kelsey to 1.9. At discharge creatinine is 1.4. 4. Type 2 diabetes mellitus, with hyperglycemia, not on long-term use of insulin. Glycosylated hemoglobin 5.4% on July 16. While in hospital received 0-2 units of novolog in 24 hours. 7. Generalized weakness 8. Pneumonia, admission July 15 with discharge July 18. Completed abx today. Medicare Certification Statement: I certify that Post Hospital [facility] care is medically necessary on a continuing basis for any of the conditions for which she/he is receiving care during hospitalization. Notify PCP of admission and forward orders to primary provider for signature. Weight on admission and: Weekly Call PCP immediately if weight increases by: 2 kg Other Notification Orders: Call PCP immediately if patient develops dyspnea, chest pain/tightness or edema. House Bowel Program: Yes Additional Bowel Program Orders: If no BM after 2 days, nurse may give M.O.M. 30ml PO PRN and/or ducolax Supp 1 OR and/or HARMAN 250mg P.O., and/or senna 1-2 tabs PO. On day 3 nurse may give repeat above order until residents constipation is resolved. Annual Influenza Vaccine (between Jun 05 and January 02): Yes Two-step PPD per [facility] [id number] or approved exception documents: Yes Oxygen Orders: NC O2 prn. To keep O2 sats >91% Lab Tests or X-ray Orders: BMP and BNP on 07/26 and 08/02. Orthopedic Orders: see below Medication Orders: PLEASE REFER TO THE DISCHARGE MEDICATION LIST. Insulin Orders?: No - Medications New Prescriptions: HYDROcodone/ACET 10/325 [[place] 10 mg/325 mg] 1 tab PO Q4HR PRN #30 tablet PRN Reason: Pain ALPRAZolam [Alprazolam] 0.5 mg PO QPM PRN #30 tablet PRN Reason: SLEEP - Diet Type: No added sugar Texture: Regular Liquids: Thin May have monthly special meal: Yes - Therapies | Activity Therapy: Evaluation | Treat if indicated: PT, OT Rehabilitation Potential: Return to independent living Activity: Additional Comments (Recommend right arm sling use. He should avoid active shoulder motion. He should avoid weightbearing right upper extremity. He is encouraged to loosen the sling and work on elbow wrist and hand motion on a regular basis. Dr. Serna plans on seeing him as an outpatient and likely start formal physical therapy for the shoulder at around the 2-week sergio from his injury. 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 Just admitted for pneumonia and sent home. 3 hours after going home he tripped and fell and broke his right humerus. Return to the hospital on July 19. Also found to have acute on chronic systolic and diastolic congestive heart failure and needed diuresis during his stay. He did drop his hemoglobin during his stay and that is attributed to the arm fracture. It is iron deficiency anemia and he should be started on iron and B12 supplements. He has weakness, needs help because of that right arm. Has completed pneumonia treatment on the day of discharge. Plan is to return back to home. Follow Up: Dr. Serna, Orthopedics around 08/02 to then formalize PT for right arm. Silvio Heaton when out of [facility]."
[2018-07-22] MEDS ORDERED: FERROUS GLUCONATE 324 MG TABLET PO SCH (12:00)
[2018-07-22] MEDS ORDERED: CYANOCOBALAMIN 500 MCG TABLET PO SCH (12:00)
[2018-07-22 13:44] VITALS: BP 98/61
--- NOTE | 2018-07-22 20:21 | DISCHARGE SUMMARY ---
Physician: Melody Parikh MD DATE OF ADMISSION: 07/19/2018 DATE OF DISCHARGE: 07/22/2018 DISCHARGE DIAGNOSES 1. Combined systolic and diastolic congestive heart failure, right side, class III. 2. Acute anemia. 3. Fracture of neck of right humerus. 4. Chronic atrial fibrillation, with rapid ventricular response (RVR). 5. Chronic kidney disease, stage III. 6. Type 2 diabetes mellitus, with hyperglycemia, without long-term use of insulin. 7. Generalized weakness. 8. History of pneumonia. DISCHARGE MEDICATIONS 1. Acetaminophen 650 mg p.o. every 6 hours p.r.n. fever, pain, headache. 2. [place] 10 mg/325 1 tablet every 4 hours as needed, #30. 3. ProAir HFA inhaler 2 puffs every 4 hours as needed. 4. Allopurinol 100 mg p.o. daily. 5. Alprazolam 0.5 mg p.o. q. p.m., may repeat x1 in 1 hour. 6. Lasix 40 mg p.o. b.i.d. 7. Nystatin to apply to groin topically twice a day as needed. 8. Simvastatin 20 mg p.o. q. p.m. 9. Flomax 0.4 mg p.o. q. p.m. PRINCIPAL PROCEDURES: 1. Ribs with chest x-ray showed no rib fracture, cardiomegaly with pulmonary edema seen and a right pleural effusion. 2. Shoulder x-ray: Transverse fracture, surgical neck, right proximal humerus, with extension to th e greater tuberosity, minimal displacement. 3. Chest x-ray: Right basilar opacity, increased in most recent prior examination, but similar to 1 exam. Probable change in atelectasis. Mild enlargement of the cardiac silhouette. 4. Repeat shoulder x-ray with new anterior dislocation of the right humeral neck [TIME: 02:22] out of the glenoid fossa. HOSPITAL COURSE: The patient is an 88-year-old man who was just in the hospital for pneumonia. He h ad just been home for 3 hours, when he tripped and fell, getting out of a chair and had immediate branden n in his right arm and was brought to the emergency room. He has a humeral fracture. He is also fou nd to be in congestive heart failure. 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 In the emergency room, orthopedics was consulted. At this time, he is not a surgical candidate, and they opted to see the patient in consultation, while he was in the hospital. He was eventually seen by Dr. Madden____ [TIME: 03:28]. Again not a surgical candidate. Two weeks from the time he has fallen a nd broken his arm, Dr. Madden____ [TIME: 03:33] would like to start to see him do range of motion of the s houlder. Because his right arm is disabling him significantly, the patient needed physical therapy. He is quite weak from a combination of the pneumonia that he had, the new fracture, and congestive h eart failure. As such, he is being transferred to a half-way facility for rehab. With regard to his atrial fibrillation, it remained well controlled. He is not to be anticoagulated. He did drop his hemoglobin with the fracture. Hemoglobin on admission was 9.6 and dropped to 7.8 a nd then back up to 8.5 and was 7.7 on discharge. He is not meeting criteria for transfusion at this time. CBC should be checked regularly, as well as BMP and BNP. He finished his antibiotic therapy for the previous episode of pneumonia, while he was in the [facility]. He is not being discharged on any more antibiotics. Core pulmonale was treated with increasing diuretics. He is not felt to be a candidate for SCARLETT inhib itor or beta eugene since this is right-sided heart failure. Anemia panel was done, and he had a low iron and a low-side normal B12. He should be started on iron tablets and B12 sublingual. Benign prostatic hypertrophy remains present with lower urinary tract symptoms of urgency, frequency, and retention. It was not severe. He was continued on his Flomax. Chronic kidney disease remained stable with a creatinine of 1.6 Diabetes remained stable. Glucose was in the 120s, low 100s. Previous glycosylated hemoglobin was s table. At discharge, the patient's BNP is 1759. It is felt to be a combination of still continued fluid ret ention, as well as chronic kidney disease, but his lungs are clear. No increased respiratory effort. PHYSICAL EXAMINATION: VITAL SIGNS: Blood pressure is 98/61 and goes up to 113/58. Respirations are 18 and unlabored, and he is 92% on room air. He is a jean paul, elderly gentleman with wispy red hair, male pattern baldness. Normal conversation. NECK: Supple. No JVD. LUNGS: Have diminished breath sounds at the bases. No crackles. CARDIOVASCULAR: He has an irregular rate and rhythm with a systolic ejection murmur. ABDOMEN: Soft. Nontender. EXTREMITIES: Legs still have some edema. You can see where he has chronic venous stasis changes of the skin of the tib-fib area and calf area that is hyperkeratotic and hyperpigmented. When he wears his MARIELLA hose, his calves and shins will be quite tiny, but his feet and thighs will be swollen. Righ t now, he does have 2+ edema around the feet, almost no edema around the calves. He can scoot to the edge of the bed, check his own sling and make sure it is in position, but he had decreased strength and balance for functional transfers. Difficult to stand and walk. He is learnin g how to use a bonilla-walker for support, only with his left hand. Physical therapy is recommended he go to SNF for rehab. Greater than 30 minutes was spent in coordinating discharge. TD: 07/22/2018 19:15
== END 2018-07-22 14:40 | DRG 562 ==
LOC: EDUNIT# → ED 16:20 → MS3 07-19 09:08 → ICU 07-19 10:02 → MS3 07-19 14:29 → ICU 07-19 14:37 → MS3 07-19 14:49
PROVIDERS: ADMIT Internal Medicine; ATTEND Specialist
DX: S42.211A Unspecified displaced fracture of surgical neck of right humerus, initial encounter for closed fracture (principal); S50.901A Unspecified superficial injury of right elbow, initial encounter; I50.43 Acute on chronic combined systolic (congestive) and diastolic (congestive) heart failure; J18.1 Lobar pneumonia, unspecified organism; I11.0 Hypertensive heart disease with heart failure; I50.1 Left ventricular failure, unspecified; R09.02 Hypoxemia; R53.1 Weakness; E11.9 Type 2 diabetes mellitus without complications; N17.9 Acute kidney failure, unspecified; I13.0 Hypertensive heart and chronic kidney disease with heart failure and stage 1 through stage 4 chronic kidney disease, or unspecified chronic kidney disease; I48.2 Chronic atrial fibrillation; D50.9 Iron deficiency anemia, unspecified; D69.6 Thrombocytopenia, unspecified; D63.8 Anemia in other chronic diseases classified elsewhere; E11.22 Type 2 diabetes mellitus with diabetic chronic kidney disease; N18.3 Chronic kidney disease, stage 3 (moderate); E11.65 Type 2 diabetes mellitus with hyperglycemia; I27.81 Cor pulmonale (chronic); W10.8XXA Fall (on) (from) other stairs and steps, initial encounter; Y92.009 Unspecified place in unspecified non-institutional (private) residence as the place of occurrence of the external cause; I95.9 Hypotension, unspecified; N40.1 Benign prostatic hyperplasia with lower urinary tract symptoms; R35.0 Frequency of micturition; R33.8 Other retention of urine; R39.15 Urgency of urination; E78.00 Pure hypercholesterolemia, unspecified; M10.9 Gout, unspecified; Z79.899 Other long term (current) drug therapy; Z85.828 Personal history of other malignant neoplasm of skin
CPT/HCPCS: 36415; 71045; 80048; 80053; 82607; 82728; 83540; 83615; 83690; 83735; 83880; 84466; 85025; 85044; 87150; 94640; 96372; 96374; 99284; 99285

== ENCOUNTER → 2018-07-27 | Outpatient (CLI) | payer MEDICARE, OTHER ==
[2018-07-27 15:03] LABS: BASOPHILS % (AUTO) 0.2 %; EOSINOPHILS % (AUTO) 0.5 %; HGB - HEMOGLOBIN 8.6 g/dL (14.0-18.0); LYMPHOCYTES % (AUTO) 77.3 %; MEAN CORPUSCULAR HEMOGLOBIN 32.2 pg (27.0-31.0); MEAN CORPUSCULAR HGB CONC 32.1 g/dL (32.0-36.0); MEAN CORPUSCULAR VOLUME 100.5 fL (80.0-94.0); MEAN PLATELET VOLUME 10.5 fL (7.4-11.4); PLT - PLATELET COUNT 72 10^3/uL (130-450); RED BLOOD COUNT 2.66 10^6/uL (4.70-6.10); RED CELL DISTRIBUTION WIDTH 17.9 % (12.0-15.0)
[2018-07-27 15:04] LABS: ALBUMIN 3.1 g/dL (3.2-5.5); ALBUMIN/GLOBULIN RATIO 1.1 (1.0-2.2); BILIRUBIN,TOTAL 2.2 mg/dL (0.2-1.0); CALCIUM 8.2 mg/dL (8.5-10.3); CREATININE 1.3 mg/dL (0.6-1.2); TOTAL PROTEIN 5.8 g/dL (6.7-8.2)
[2018-07-27 15:08] LABS: ABNORMAL LYMPHS % (MANUAL) 0 %; BAND NEUTROPHILS % (MANUAL) 0 %
[2018-07-27 15:39] LABS: BASOPHILS # (MANUAL) 0.1 10^3/uL (0-0.1); BASOPHILS % (MANUAL) 1 %; LYMPHOCYTES # (MANUAL) 9.4 10^3/uL (1.5-3.5); LYMPHOCYTES % (MANUAL) 77 %; MONOCYTES # (MANUAL) 0.1 10^3/uL (0.0-1.0); NEUTROPHILS # (MANUAL) 2.4 10^3/uL (1.5-6.6); NEUTROPHILS % (MANUAL) 20 %
[2018-07-27 15:40] LABS: PLATELET ESTIMATE, MANUAL DECREASED (<130,000) (NORMAL); PLATELET MORPHOLOGY 1+ LARGE PLATELETS (NORMAL)
[2018-07-27 15:41] LABS: DIFFERENTIAL COMMENT MANUAL DIFFERENTIAL
== END ==
LOC: LAB.R 13:45
DX: I50.9 Heart failure, unspecified (principal); D64.9 Anemia, unspecified
CPT/HCPCS: 80053; 83880; 85025

== ENCOUNTER → 2018-08-02 | Outpatient (CLI) | payer MEDICARE, OTHER ==
[2018-08-02 16:37] LABS: BASOPHILS % (AUTO) 0.2 %; EOSINOPHILS % (AUTO) 0.7 %; HGB - HEMOGLOBIN 9.1 g/dL (14.0-18.0); LYMPHOCYTES % (AUTO) 75.3 %; MEAN CORPUSCULAR HEMOGLOBIN 32.1 pg (27.0-31.0); MEAN CORPUSCULAR HGB CONC 31.7 g/dL (32.0-36.0); MEAN CORPUSCULAR VOLUME 101.1 fL (80.0-94.0); MEAN PLATELET VOLUME 10.1 fL (7.4-11.4); MONOCYTES % (AUTO) 4.7 %; NEUTROPHILS % (AUTO) 19.1 %; PLT - PLATELET COUNT 86 10^3/uL (130-450); RED BLOOD COUNT 2.84 10^6/uL (4.70-6.10); RED CELL DISTRIBUTION WIDTH 18.5 % (12.0-15.0); WHITE BLOOD COUNT 10.3 x10^3/uL (4.8-10.8)
[2018-08-02 16:43] LABS: CALCIUM 8.1 mg/dL (8.5-10.3); CREATININE 1.6 mg/dL (0.6-1.2)
[2018-08-02 16:45] LABS: ABNORMAL LYMPHS % (MANUAL) 0 %; BAND NEUTROPHILS % (MANUAL) 0 %
[2018-08-02 16:54] LABS: LYMPHOCYTES # (MANUAL) 8.5 10^3/uL (1.5-3.5); LYMPHOCYTES % (MANUAL) 83 %; MONOCYTES # (MANUAL) 0.6 10^3/uL (0.0-1.0); NEUTROPHILS # (MANUAL) 1.1 10^3/uL (1.5-6.6); NEUTROPHILS % (MANUAL) 11 %
[2018-08-02 16:55] LABS: DIFFERENTIAL COMMENT MANUAL DIFFERENTIAL; PLATELET ESTIMATE, MANUAL DECREASED (<130,000) (NORMAL); PLATELET MORPHOLOGY NORMAL APPEARANCE (NORMAL)
== END ==
LOC: LAB.R 14:00
DX: D64.9 Anemia, unspecified (principal); N18.3 Chronic kidney disease, stage 3 (moderate); I50.9 Heart failure, unspecified
CPT/HCPCS: 80048; 85025

== ENCOUNTER 2018-08-11 10:45 | Outpatient (CLI) | payer MEDICARE, OTHER ==
[2018-08-11 14:06] LABS: CALCIUM 8.5 mg/dL (8.5-10.3); CREATININE 1.4 mg/dL (0.6-1.2)
[2018-08-11 14:07] LABS: BASOPHILS % (AUTO) 0.3 %; EOSINOPHILS % (AUTO) 0.4 %; HGB - HEMOGLOBIN 9.7 g/dL (14.0-18.0); MEAN CORPUSCULAR HEMOGLOBIN 32.1 pg (27.0-31.0); MEAN CORPUSCULAR HGB CONC 32.4 g/dL (32.0-36.0); MEAN CORPUSCULAR VOLUME 99.1 fL (80.0-94.0); MEAN PLATELET VOLUME 10.3 fL (7.4-11.4); MONOCYTES % (AUTO) 4.4 %; NEUTROPHILS % (AUTO) 32.9 %; PLT - PLATELET COUNT 89 10^3/uL (130-450); RED BLOOD COUNT 3.02 10^6/uL (4.70-6.10); RED CELL DISTRIBUTION WIDTH 17.3 % (12.0-15.0); WHITE BLOOD COUNT 14.9 x10^3/uL (4.8-10.8)
[2018-08-11 14:22] LABS: ABNORMAL LYMPHS % (MANUAL) 0 %; BAND NEUTROPHILS % (MANUAL) 0 %
[2018-08-11 14:26] LABS: LYMPHOCYTES # (MANUAL) 10.1 10^3/uL (1.5-3.5); LYMPHOCYTES % (MANUAL) 48 %; MONOCYTES # (MANUAL) 0.4 10^3/uL (0.0-1.0); NEUTROPHILS # (MANUAL) 4.3 10^3/uL (1.5-6.6); NEUTROPHILS % (MANUAL) 29 %
[2018-08-11 14:27] LABS: DIFFERENTIAL COMMENT MANUAL DIFFERENTIAL; RBC MORPHOLOGY (MULTIPLE) 3+ ANISOCYTOSIS (NORMAL)
== END 2018-08-11 10:46 ==
LOC: LAB.R 10:45
DX: I50.9 Heart failure, unspecified (principal); D64.9 Anemia, unspecified; D69.6 Thrombocytopenia, unspecified
CPT/HCPCS: 80048; 85025

== ENCOUNTER 2018-08-17 15:25 | Outpatient (CLI) | payer MEDICARE, OTHER ==
[2018-08-17 18:17] LABS: CALCIUM 8.2 mg/dL (8.5-10.3); CREATININE 1.4 mg/dL (0.6-1.2)
== END 2018-08-17 15:26 | disposition home or self-care (01) ==
LOC: LAB.R 15:25
DX: I50.9 Heart failure, unspecified (principal); R33.9 Retention of urine, unspecified
CPT/HCPCS: 80048; 84153

== ENCOUNTER 2018-09-21 10:52 | Outpatient (CLI) | payer MEDICARE, OTHER | END 2018-09-21 10:53 | disposition critical access hospital (66) | LOC: EMS 10:52 | PROVIDERS: ATTEND Surgery | DX: M25.551 Pain in right hip (principal); W01.0XXA Fall on same level from slipping, tripping and stumbling without subsequent striking against object, initial encounter; Y93.01 Activity, walking, marching and hiking; Y92.129 Unspecified place in nursing home as the place of occurrence of the external cause ==

== ENCOUNTER 2018-09-21 10:56 | Emergency (ER) | payer MEDICARE, OTHER ==
--- NOTE | 2018-09-21 11:54 | XRAY Report ---
Reason: GLF with right hip pain Procedure Date: 09/21/2018 Accession Number: [id number] / [id number] Procedure: XR - Hip w/Pelvis 2-3V RT CPT Code: FULL RESULT: EXAM: RIGHT HIP AND PELVIS RADIOGRAPHY 2 VIEWS EXAM DATE: 09/21/2018. HISTORY: Ground-level fall with right hip pain. COMPARISONS: 07/15/2018. TECHNIQUE: AP view of the pelvis and frog-leg view of the right hip. FINDINGS: Bones: Disruption of the right iliopectineal line at the medial right acetabulum, and slight buckling of the medial right inferior pubic ramus, not present on the prior examination. Fixation screws in the bilateral femoral neck and head appear unchanged. Joints: No dislocation. Hip joints, sacroiliac joints, and pubic symphysis appear normal. Soft Tissues: Vas deferens calcifications in the pelvis. IMPRESSION: Findings suspect for fracture of the medial right acetabulum and medial right inferior pubic ramus. Recommend further evaluation with CT. Other findings are unchanged from 07/15/2018. RADIA
--- NOTE | 2018-09-21 12:14 | ED Physician Documentation ---
PD HPI Fall - Stated complaint Stated Complaint: GLF - Chief complaint Chief Complaint: Ext Problem - History obtained from History obtained from: Patient, EMS, Caregiver - History of Present Illness Mechanism of injury: Tripped (he says he was taking a step backward and tripped. He landed to right hip, with pain there and unable to stand due to the pain.) Fall distance: Standing position Where injury occurred: Other ([facility]) Timing - onset: Today Injury(ies) location: Right Lower Extremity (hip) Associated symptoms: No: LOC, AMS, Weakness, Paresthesias Symptoms improve with: Rest Worsens with: Movement, Palpation Contributing factors: No: Anticoagulated, Intoxicated Similar symptoms before: Diagnosis (remote history of hip fractures, pinned years ago and doing okay with those. Had fall recently with right humeral neck fracture, healing and was doing rehab for that.) Review of Systems Constitutional: denies: Fever Nose: denies: Rhinorrhea / runny nose, Congestion Throat: denies: Sore throat Respiratory: denies: Cough GI: denies: Abdominal Pain, Nausea, Vomiting, Diarrhea, Bloody / black stool : denies: Dysuria, Frequency Musculoskeletal: denies: Neck pain, Back pain Neurologic: denies: Altered mental status, Headache, Head injury PD PAST MEDICAL HISTORY - Past Medical History Cardiovascular: Congestive heart failure, Hypertension, High cholesterol, Atrial fibrillation Respiratory: None Neuro: TIA Endocrine/Autoimmune: Type 2 diabetes GI: None : Benign prostate hypertrophy HEENT: None Psych: None Musculoskeletal: Gout, Other Derm: None - Past Surgical History Past Surgical History: Yes General: Cholecystectomy, Appendectomy Ortho: Hip replacement HEENT: Cataracts Derm: Skin cancer surgery - Present Medications Home Medications: Ambulatory Orders Medication Instructions Recorded Confirmed Albuterol Sulfate [Proair Hfa 2 puffs INH Q4H PRN #1 inhaler 01/12/17 09/08/18 Inhaler] ALPRAZolam [Alprazolam] 0.5 mg PO QPM PRN #30 tablet 07/22/18 09/08/18 Acetaminophen [Tylenol] 650 mg PO Q4HR PRN tablet 07/22/18 09/08/18 Allopurinol 100 mg PO DAILY #0 07/22/18 09/08/18 HYDROcodone/ACET 10/325 [Whick 10 1 tab PO Q4HR PRN #30 tablet 07/22/18 09/08/18 mg/325 mg] Tamsulosin [Flomax] 0.4 mg PO QPM #0 07/22/18 09/08/18 ALPRAZolam [Alprazolam] 0.5 mg PO QPM 08/25/18 09/08/18 Ferrous Gluconate 240 mg PO DAILY 08/25/18 09/08/18 Furosemide [Lasix] 40 mg PO DAILY 08/25/18 09/08/18 Magnesium Hydroxide [Milk of 400 mg PO DAILY PRN 08/25/18 09/08/18 Magnesia] Potassium Chloride 10 meq PO DAILY 08/25/18 09/08/18 Simvastatin 20 mg PO DAILY 09/08/18 09/08/18 Cephalexin [Keflex] 500 mg PO TID #21 capsule 09/21/18 - Allergies Allergies/Adverse Reactions: Allergies Allergy/AdvReac Type Severity Reaction Status Date / Time azithromycin Allergy Intermediate Itching Verified 07/18/18 16:32 - Social History Does the pt smoke?: No Smoking Status: Former smoker Does the pt drink ETOH?: No Does the pt have substance abuse?: No - Immunizations Immunizations are current?: Yes Immunizations: TDAP >10years/unknown - POLST Patient has POLST: No PD ED PE NORMAL - Vitals Vital signs reviewed: Yes - General General: Alert and oriented X 3, Well developed/nourished, Other (in pain with any ROM of the right hip. ) - HEENT HEENT: Atraumatic - Neck Neck: Supple, no meningeal sign, No bony TTP, No adenopathy - Cardiac Cardiac: RRR, No murmur - Respiratory Respiratory: Clear bilaterally - Abdomen Abdomen: Normal bowel sounds, Soft, Non tender, Non distended - Derm Derm: Normal color, Warm and dry - Extremities Extremities: Other (right hip painful for impaction and rotational movement. ) - Neuro Neuro: Alert and oriented X 3, No motor deficit, Normal speech Results - Vitals Vitals: Vital Signs - 24 hr 09/21/18 09/21/18 09/21/18 10:58 13:12 13:40 Temperature 37 C Heart Rate 95 90 93 Respiratory 18 18 18 Rate Blood Pressure 140/67 H 137/64 H 136/59 H O2 Saturation 99 97 95 09/21/18 09/21/18 09/21/18 15:46 16:30 17:12 Temperature Heart Rate 88 84 86 Respiratory 18 18 18 Rate Blood Pressure 120/91 H 124/80 125/69 O2 Saturation 98 100 99 Oxygen O2 Source [With Activity] walking 88-91% O2 Source Room air - Labs Labs: Laboratory Tests 09/21/18 09/21/18 09/21/18 11:53 11:53 18:22 WBC 15.3 H RBC 2.99 L Hgb 9.6 L Hct 29.0 L MCV 97.1 H MCH 32.0 H MCHC 33.0 RDW 17.6 H Plt Count 89 L MPV 9.0 Neut # (Auto) 6.5 Lymph # (Auto) 8.0 H [place] # (Auto) 0.8 Eos # (Auto) 0.0 Baso # (Auto) 0.0 Absolute Nucleated RBC 0.01 Nucleated RBC % 0.0 Manual Slide Review Indicated RBC Morph Micro Appear 2+ ANISOCYTOSIS Sodium 137 Potassium 4.0 Chloride 105 Carbon Dioxide 24 Anion Gap 8.0 BUN 38 H Creatinine 1.2 Estimated GFR (MDRD) 57 L Glucose 238 H Calcium 8.3 L Magnesium 1.9 Total Bilirubin 1.5 H AST 34 ALT 26 Alkaline Phosphatase 123 H Total Protein 6.2 L Albumin 3.5 Globulin 2.7 Albumin/Globulin Ratio 1.3 Lipase 37 Urine Color YELLOW Urine Clarity CLEAR Urine pH 5.5 Ur Specific [place] 1.010 Urine Protein NEGATIVE Urine Glucose (UA) NEGATIVE Urine Ketones NEGATIVE Urine Occult Blood TRACE-INTA Urine Nitrite NEGATIVE Urine Bilirubin NEGATIVE Urine Urobilinogen 0.2 (NORMAL) Ur Leukocyte Esterase SMALL H Urine RBC 0-5 Urine WBC >25 H Urine WBC Clumps PRESENT Ur Squamous Epith Cells NONE SEEN Urine Bacteria Many H Ur Microscopic Review INDICATED Urine Culture Comments INDICATED - Rads (name of study) right hip xray Radiology: Prelim report reviewed (hip is okay, but apparent rami/acetabular fracture) pelvic CT Radiology: Prelim report reviewed (pelvic fracture as discussed in report. ), See rad report PD MEDICAL DECISION MAKING - ED course Complexity details: reviewed results, re-evaluated patient, considered differential (Had pelvic fracture on x-ray and confirmed on CT scan. I consulted with the Dr. Serna who said there was a nonsurgical treatment. The patient already was at [facility] and can get full nursing care there. He was given pain medication here and transferred by EMS back to [facility] for ongoing care now of his pelvic fracture. He had been rehabbing from a shoulder fracture.), d/w patient Departure - Departure Disposition: 01 Home, Self Care Clinical Impression: Fall from slip, trip, or stumble Qualifiers: Encounter type: initial encounter Qualified Code(s): W01.0XXA - Fall on same level from slipping, tripping and stumbling without subsequent striking against object, initial encounter Pelvic fracture Qualifiers: Encounter type: initial encounter Pelvic bone location: unspecified part of pelvis Fracture type: closed Fracture alignment: nondisplaced Qualified Code(s): S32.9XXA - Fracture of unspecified parts of lumbosacral spine and pelvis, initial encounter for closed fracture UTI (urinary tract infection) Qualifiers: Urinary tract infection type: acute cystitis Hematuria presence: without hematuria Qualified Code(s): N30.00 - Acute cystitis without hematuria Condition: Stable Record reviewed to determine appropriate education?: Yes Follow-Up: Dieudonne Gonsales DO [Primary Care Provider] - [facility] [Provider Group] Prescriptions: Cephalexin [Keflex] 500 mg PO TID #21 capsule Comments: Decreased movement of the leg based on comfort. He can progress with range of motion of the leg passively with therapy and then actively as tolerated by discomfort. You can start doing partial weightbearing and light weightbearing with a walker when the pain is improved enough. Follow-up with orthopedics in about a week, call for an appointment. Continue usual medications, including the hydrocodone as needed for pains. Discharge Date/Time: 09/21/18 18:24
[2018-09-21] MEDS ORDERED: HYDROmorphone 1 MG/ML CARPUJECT IVP STA ×3 (12:21→16:46)
[2018-09-21] MEDS ORDERED: SODIUM CHLORIDE 0.9% 1,000 ML IV ONE (12:21)
[2018-09-21 12:36] LABS: BASOPHILS % (AUTO) 0.1 %; EOSINOPHILS % (AUTO) 0.2 %; HGB - HEMOGLOBIN 9.6 g/dL (14.0-18.0); LYMPHOCYTES % (AUTO) 52.1 %; MEAN CORPUSCULAR VOLUME 97.1 fL (80.0-94.0); MONOCYTES # (AUTO) 0.8 10^3/uL (0.0-1.0); MONOCYTES % (AUTO) 5.2 %; NEUTROPHILS # (AUTO) 6.5 10^3/uL (1.5-6.6); NEUTROPHILS % (AUTO) 42.4 %; PLT - PLATELET COUNT 89 10^3/uL (130-450); RED BLOOD COUNT 2.99 10^6/uL (4.70-6.10); RED CELL DISTRIBUTION WIDTH 17.6 % (12.0-15.0); WHITE BLOOD COUNT 15.3 x10^3/uL (4.8-10.8)
[2018-09-21 12:40] LABS: ALBUMIN 3.5 g/dL (3.2-5.5); ALBUMIN/GLOBULIN RATIO 1.3 (1.0-2.2); BILIRUBIN,TOTAL 1.5 mg/dL (0.2-1.0); CALCIUM 8.3 mg/dL (8.5-10.3); CREATININE 1.2 mg/dL (0.6-1.2); MAGNESIUM 1.9 mg/dL (1.7-2.8); TOTAL PROTEIN 6.2 g/dL (6.7-8.2)
[2018-09-21 12:56] LABS: RBC MORPHOLOGY (MULTIPLE) 2+ ANISOCYTOSIS (NORMAL)
[2018-09-21] MEDS ORDERED: ACETAMINOPHEN 1,000 MG/100 ML 100 ML IV STA (13:11)
[2018-09-21] MEDS ORDERED: IOVERSOL 320 100 ML VIAL IVP ONE (14:11)
--- NOTE | 2018-09-21 14:30 | CT Report ---
Reason: pelvic fracture right Procedure Date: 09/21/2018 Accession Number: [id number] / [id number] Procedure: CT - Pelvis W/ CPT Code: FULL RESULT: EXAM: CT BONY PELVIS WITH CONTRAST EXAM DATE: 09/21/2018 01:39 PM. CLINICAL HISTORY: Pelvic fracture right. COMPARISON: None. TECHNIQUE: Thin-section axial images were acquired of the pelvis after the uneventful intravenous administration of 90 mL Optiray 320 contrast. Post-processing: Coronal and sagittal reformats. Other: None. In accordance with CT protocol optimization, one or more of the following dose reduction techniques were utilized for this exam: automated exposure control, adjustment of mA and/or KV based on patient size, or use of iterative reconstructive technique. FINDINGS: Bones: Comminuted fracture of the right acetabulum involving the anterior and posterior valentin with extension through the anterior column. The medial acetabulum is displaced approximately 0.5 cm. This fracture extends through the obturator ring, with a minimally displaced comminuted fracture of the right inferior pubic ramus and involvement of the right pubic root. No additional acute fractures. There are healed, percutaneously pinned fractures of the femoral necks bilaterally. Sacroiliac Joints: No widening, erosions, or sclerosis. Symphysis Pubis: Unremarkable. Right Hip: Moderate right hip degenerative changes. 7 mm curvilinear intra-articular body adjacent to the medial wall of the acetabulum. Left Hip: Moderate left hip osteoarthrosis. No intra-articular bodies. Musculature: Intramuscular hematoma within the right iliac this muscle. No significant pelvic sidewall hematoma. Pelvic Cavity: Right renal atrophy. Splenomegaly with a 3.5 cm hypodense inferior splenic lesion. Extensive atherosclerotic calcification. Sigmoid diverticulosis without diverticulitis. Other: No lymphadenopathy. No free air or free fluid. The other visualized soft tissues are unremarkable. IMPRESSION: 1. Comminuted, displaced both column right acetabular fracture, as described. 2. Right inferior pubic ramus fracture. 3. Percutaneously pinned, healed fractures of the bilateral femoral necks. 4. 3.5 cm hypodense right splenic lesion with splenomegaly. RADIA
[2018-09-21] MEDS ORDERED: KETOROLAC 60 MG/2 ML VIAL IVP STA (16:46)
[2018-09-21 17:12] VITALS: BP 125/69
[2018-09-21 18:32] LABS: BILIRUBIN,URINE NEGATIVE (NEGATIVE); CLARITY,URINE CLEAR (CLEAR); GLUCOSE, URINE (UA) NEGATIVE (NEGATIVE); KETONES,URINE (UA) NEGATIVE (NEGATIVE); LEUKOCYTE ESTERASE, URINE SMALL (NEGATIVE); NITRITE,URINE NEGATIVE (NEGATIVE); OCCULT BLOOD,URINE TRACE-INTA (NEGATIVE); PH,URINE 5.5 PH (5.0-7.5); PROTEIN,URINE NEGATIVE (NEGATIVE); UROBILINOGEN,URINE 0.2 (NORMAL) E.U./dL (NORMAL)
[2018-09-21 18:44] LABS: BACTERIA,URINE Many /HPF (None Seen); RBC,URINE 0-5 /HPF (0-5); SQUAMOUS EPITHELIAL CELL,UR NONE SEEN (<= Few); WBC CLUMPS,URINE PRESENT
== END 2018-09-21 18:24 | disposition home or self-care (01) ==
LOC: EDUNIT# → ED 10:56
DX: S32.9XXA Fracture of unspecified parts of lumbosacral spine and pelvis, initial encounter for closed fracture (principal); W18.09XA Striking against other object with subsequent fall, initial encounter; N30.00 Acute cystitis without hematuria; I11.0 Hypertensive heart disease with heart failure; I50.9 Heart failure, unspecified; E11.9 Type 2 diabetes mellitus without complications; E78.00 Pure hypercholesterolemia, unspecified; Z96.649 Presence of unspecified artificial hip joint
CPT/HCPCS: 36415; 72193; 73502; 80053; 81001; 83690; 83735; 85025; 87086; 96374; 96375; 96376; 99283; 99284; J0131; J1170; 81003; 87077; 87181

== ENCOUNTER 2018-09-21 18:28 | Outpatient (CLI) | payer MEDICARE, OTHER | END 2018-09-21 18:29 | disposition home or self-care (01) | LOC: EMS 18:28 | PROVIDERS: ATTEND Surgery | DX: S32.9XXA Fracture of unspecified parts of lumbosacral spine and pelvis, initial encounter for closed fracture (principal); W01.0XXA Fall on same level from slipping, tripping and stumbling without subsequent striking against object, initial encounter; Y93.01 Activity, walking, marching and hiking; Y92.129 Unspecified place in nursing home as the place of occurrence of the external cause | CPT/HCPCS: A0425; A0428; A0429 ==

== ENCOUNTER 2018-10-21 09:25 | Outpatient (CLI) | payer MEDICARE, OTHER ==
[2018-10-22 00:47] LABS: CALCIUM 8.1 mg/dL (8.5-10.3); CREATININE 1.4 mg/dL (0.6-1.2)
[2018-10-22 00:48] LABS: BASOPHILS % (AUTO) 0.3 %; EOSINOPHILS % (AUTO) 0.7 %; HGB - HEMOGLOBIN 9.8 g/dL (14.0-18.0); LYMPHOCYTES % (AUTO) 72.9 %; MEAN CORPUSCULAR HEMOGLOBIN 30.2 pg (27.0-31.0); MEAN CORPUSCULAR HGB CONC 32.6 g/dL (32.0-36.0); MEAN CORPUSCULAR VOLUME 92.7 fL (80.0-94.0); MEAN PLATELET VOLUME 9.3 fL (7.4-11.4); MONOCYTES % (AUTO) 5.8 %; NEUTROPHILS % (AUTO) 20.3 %; PLT - PLATELET COUNT 121 10^3/uL (130-450); RED BLOOD COUNT 3.25 10^6/uL (4.70-6.10); RED CELL DISTRIBUTION WIDTH 17.1 % (12.0-15.0); WHITE BLOOD COUNT 17.6 x10^3/uL (4.8-10.8)
[2018-10-22 00:52] LABS: BAND NEUTROPHILS % (MANUAL) 0 %
[2018-10-22 01:18] LABS: ABNORMAL LYMPHS % (MANUAL) 12 %; EOSINOPHILS # (MANUAL) 0.2 10^3/uL (0-0.7); LYMPHOCYTES # (MANUAL) 14.3 10^3/uL (1.5-3.5); LYMPHOCYTES % (MANUAL) 69 %; MONOCYTES # (MANUAL) 0.9 10^3/uL (0.0-1.0); NEUTROPHILS # (MANUAL) 2.3 10^3/uL (1.5-6.6); NEUTROPHILS % (MANUAL) 13 %; RBC MORPHOLOGY (MULTIPLE) 1+ ANISOCYTOSIS (NORMAL)
[2018-10-22 01:19] LABS: PLATELET ESTIMATE, MANUAL DECREASED (<130,000) (NORMAL)
== END 2018-10-21 23:59 ==
LOC: LAB.R 09:25
DX: D64.9 Anemia, unspecified (principal); I50.40 Unspecified combined systolic (congestive) and diastolic (congestive) heart failure
CPT/HCPCS: 80048; 85025

== ENCOUNTER 2018-11-25 08:00 | Outpatient (CLI) | payer MEDICARE, OTHER ==
[2018-11-25 06:36] LABS: CALCIUM 8.9 mg/dL (8.5-10.3); CREATININE 1.5 mg/dL (0.6-1.2)
== END 2018-11-25 23:59 | disposition home or self-care (01) ==
LOC: LAB.R 08:00
DX: I50.9 Heart failure, unspecified (principal)
CPT/HCPCS: 80048

== ENCOUNTER 2018-12-07 10:15 | Outpatient (CLI) | payer MEDICARE, OTHER ==
--- NOTE | 2018-12-07 17:49 | CONSULTATION NOTE ---
Palliative Care Consultation - Referral Referring Provider: Dr. Dieudonne Gonsales Time of Visit: [id number] Referral setting: Senior Living Facility Referral Reason: Failure to Thrive/weight loss/CHF - Information Sources Records reviewed: Previous records reviewed History/Review of Systems obtained from: Patient Exam limitations: No limitations - History of Present Illness Brief History of Present Illness: This is a jean paul 88-year-old gentleman who has had a series of unfortunate events. He was admitted 07/22/2018 to a residential, [facility], As a result of needing rehab for a right anterior dislocation humeral fracture. He had been having some functional decline, with frequent falls prior to this. He had made some improvement, and just prior to discharge, had a fall at the facility, and sustained a commuted displaced right acetabular fracture and right inferior ramus fracture. He was also diagnosed with a ESBL-kleb pneumonue UTI at that time, and has had a slow recovery. He previously lived at home with his , they have been 64 years. There was concern about her being able to take care of him, and had initiated looking for assisted living. Unfortunately during this time, in October patient's was diagnosed with a brain tumor, and this is weighed heavily on him. Of concern has was patient's anorexia, he has since admission in July, had a 30% weight loss. He attributes some of this to the food, decreased intake overall, and taste changes. He reports last couple days his appetite has been improving. He denies nausea, abdominal pain, difficulty swallowing, his most acute weight did happen at that point his was diagnosed. This is added to his weakness, muscle wasting, and slowed his recovery. Patient is awake and alert, does not present with any cognitive deficits other than some short-term memory. He reports he has only residual pain in his right leg, with occasional acetaminophen needed. He perceives himself as having fairly good health up to these last few months. Patient has significant comorbidities of anemia, diabetes type 2 controlled by diet, thrombocytopenia, CLL, cor pulmonale, chronic atrial fib not on anti-coag due to thrombocytopenia, history of rapid ventricular response, BPH, heart failure with preserved ejection fraction, chronic kidney disease stage III, history of community-acquired pneumonia. Medical/Surgical History - Past Medical History Cardiovascular: reports: Congestive heart failure, Hypertension, High cholesterol, Atrial fibrillation Respiratory: reports: COPD, Pneumonia Neuro: TIA Endocrine/Autoimmune: reports: Type 2 diabetes GI: reports: None : reports: Benign prostate hypertrophy, Renal insuffiency HEENT: reports: Chronic vision loss Psych: reports: None Musculoskeletal: reports: Gout, Other (fx humerus/pelvis) Derm: reports: None MRSA Hx?: No - Past Surgical History General: reports: Cholecystectomy, Appendectomy Ortho: reports: Hip replacement HEENT: reports: Cataracts Derm: reports: Skin cancer surgery - Substance History Use: Uses substance without health or social issues: Tobacco (heavy smoker stopped 1984), Alcohol (was a nightly martini drinker/beer) Social History - Living Situation Living arrangement: Assisted living (Patient and being discharged and relocated to [facility] living, this will be a new setting for him. He is actually quite looking forward to transition from residential to assisted living. They are waiting on the movers, this will be happening the week of 12/20.) Support System: Patient has been 64 years, his has recently been diagnosed with a brain tumor, opting most likely did not have treatment. He has a very involved daughter Saranya who is the D POA now for both of them, who oversees her medical care and is supplemented by support by his other daughter Amber who lives over by [place], [place]. Patient is a 64 years, he speaks very fondly of his . 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 Family History - Family History Family History: Mother: (patient was adopted), Father: Medications/Allergies - Medications Home Medications: Ambulatory Orders Medication Instructions Recorded Confirmed Albuterol Sulfate [Proair Hfa 2 puffs INH Q4H PRN #1 inhaler 01/12/17 12/08/18 Inhaler] Ferrous Gluconate 240 mg PO DAILY 08/25/18 12/08/18 Furosemide [Lasix] 40 mg PO BID 08/25/18 12/08/18 Potassium Chloride 20 meq PO DAILY 08/25/18 12/08/18 Simvastatin 20 mg PO DAILY 09/08/18 12/08/18 Acetaminophen [Tylenol] 1,000 mg PO ACHS 12/07/18 12/08/18 Tamsulosin [Flomax] 0.8 mg PO QPM 12/07/18 12/08/18 guaiFENesin/DEXTROMETHORPHAN 5 ml PO Q4HR PRN 12/07/18 12/08/18 [Robitussin Dm] - Allergies Allergies/Adverse Reactions: Allergies Allergy/AdvReac Type Severity Reaction Status Date / Time azithromycin Allergy Intermediate Itching Verified 07/18/18 16:32 trazodone AdvReac Unknown Verified 12/07/18 18:01 Review of Systems - Constitutional Constitutional: reports: Fatigue, Poor appetite (though does feel it is improving), Weight loss (121.4 3/2; 11/26 118.6; 07/22 169.4). denies: Fever, Chills - Eyes Eyes: reports: Vision loss - Ears, Nose & Throat Ears, Nose & Throat: reports: Hearing loss, Nasal congestion, Dry mouth - Cardiovascular Cardiovascular: reports: Edema, Exertional dyspnea, Decr. exercise tolerance - Respiratory Respiratory: reports: Cough (reports for 4-5 weeks; with clear sputum), Sputum production, SOB with exertion. denies: SOB at rest, Pleuritic pain - Gastrointestinal Gastrointestinal: reports: Early satiety. denies: Constipation, Nausea, Reflux/heartburn - Musculoskeletal Musculoskeletal: reports: Muscle aches, Stiffness, Limited range of motion, Muscle weakness, Joint pain (right hip/leg), Assistive devices (uses walker for ambulation; can independently toilet) - Integumentary Integumentary: reports: Dryness, Other (left ear surgery for basal) - Neurological Neurological: reports: General weakness - Psychiatric Psychiatric: reports: Depression, Anxiety - Endocrine Endocrine: reports: Diabetes type 2 - All Other Systems All Other Systems: reports: Reviewed and negative Physical Exam - Vital Signs Temperature: 96.7 C Pulse Rate: 88 Respiratory Rate: 18 O2 Saturation: 98 (rra @ rest) Blood Pressure: 118/62 - Physical Exam General Appearance: positive: No acute distress Eyes Bilateral: positive: Normal inspection ENT: positive: Dry mucous membranes Neck: positive: No JVD, Trachea midline Cardiovascular: positive: Regular rate & rhythm Respiratory: positive: Diminished in bases. negative: Wheezes, Rales, Rhonchi Abdomen: positive: Non-tender, Soft Skin: positive: Dryness, Bruising Extremities: positive: Pedal edema (slight right pedal edema; reports has improved from baseline) Neurologic/Psychiatric: positive: Oriented x3, Mood/affect nml, Weakness Palliative Care - POLST Patient has POLST: Yes POLST Status: DNR, Selective Treatment (signed with Dr. Nogueira 02/16/2017) Pain: Pain improved, Location (right leg/hip occasional APAP only) Tiredness/Fatigue: Moderate (4-6) Drowsiness/Sedation: Mild (1-3) Nausea: None Depression: Mild (1-3) (Patient does not perceive himself as depressed, does have depressive feelings related to 's diagnosis and series of unfortunate events. He has really locating to assisted living from his previous home. Is looking forward to being with his though.) Anxiety: Mild (1-3) Anorexia: Moderate (4-6), Weight loss Sleep: Sleeps poorly (Patient describes long-term insomnia, has used alprazolam in the past intermittently at bedtime with good results. Reports to try trazodone with significant side effects. Patient still perceives this is problematic, though does admit he is sleeping much during the day, and gets his nights and days sleeping patterns mixed up) Constipation: No Feelings of wellbeing/Perceived Quality of Life: Fair Performance Status: Patient reports he is able to ambulate fairly dependently in the room, at this point in time he only needs assistance with lower extremity dressing. He is able to self feed. He has been participating in physical therapy as well as occupational. We did discuss continuing to transition and new setting, has been using his Medicare be benefits, but would have some leftover benefit to be able to use and transition. Patient has remained fairly isolated and staying mostly in room. This is more attributed to the setting. - Palliative Care Discussion: The patient has multiple comorbidities, and does present with functional decline and weight loss, does not perceive himself is acutely ill. He does feel like he is starting to improve, he has really found it difficult to be here in the residential particularly with his cognition as sharp as it is. His goals are to be with his , transition to the new setting, and continue to get stronger. In the context of future decisions, he would not want to be back in a residential, if you are unable to make decisions are was more dependent this would not be considered quality of life. His biggest goal currently is to spend as much time with his as possible recognizing her end of life is pending. Unfortunately given the scheduled movers, this will not be happening until the week of December 20, he continues to try and improve his strength and nutritional status in preparation for transition Impression and Recommendations - Palliative Care Impression: This is a jean paul 88-year-old gentleman who presents with frailty and advanced age, has had decline in functional status, weight loss, and has multiple comorbidities adding to his frailty. Patient has been at the residential for almost 6 months, is looking forward to transition to new setting. Palliative care to provide support in the context of transitioning, symptom management, and goals of care Recommendations/Counseling Done: 1.Insomnia. Encourage patient to be up and out of bed during the day, did discuss recommendation of adding mirtazapine 7.5 mg to help with appetite stimulant and sleep. Patient is hesitant to initiate further medications as is anxious to have a smooth transition. Patient has done well in the past on alprazolam on at bedtime for multiple years, will see how patient does in new setting and reevaluate. 2. CHF. Patient currently presents as improved, lower extremity edema resolved, patient previous to hospitalization was on furosemide 40 mg daily, will follow up with provider if may benefit from decreased dosing from twice daily given his chronic kidney disease and improvement of symptoms. He also presents with significant weight loss, and his blood pressures have been stable. 3. Cough. Patient reports ongoing cough now for several weeks. No fever or chills, is productive of phlegm and bothersome. Patient at high risk for pneumonia given his underlying diagnoses, if persists or worsens consider chest x-ray. 4. Advanced care planning. Patient presents with frailty, advanced age, multiple falls with fractures, weight loss, anorexia and declining functional status. Patient does have a ZOEY ST in place, is anxious to transition to his new setting, remains at high risk for further complications. Counseling provided regarding goals of care, anticipatory guidance, support regarding his and her terminal status. Patient's prognosis on the POR O CK index that looks that residential residents and outcome of 6-month mortality. Patient scores a 43 which puts him at a 58% chance of 6-month mortality. Risk calculators cannot predict the future for any one individual to give an estimate of how many people with similar risk factors will live and but cannot identify who will live and who will . Will follow up with primary care provider to get an outpatient referral on him, and follow him at [facility]. The goal would be to support him in the transition, address ongoing symptoms that are are contributing to frailty, and provide anticipatory guidance.Would recommend referral to select rehab on discharge to facility. The patient has limited benefits left, would assist with safety and transition. Patient is in agreement Time Spent: 75 minutes with greater than 50% of this done in counseling regarding goals of care, symptom management, addressing grief and loss related to his , as well as anticipatory guidance with his pending transition.
== END 2018-12-07 10:16 | disposition home or self-care (01) ==
LOC: PC 10:15
PROVIDERS: ATTEND Nurse Practitioner Adult Health
DX: Z51.5 Encounter for palliative care (principal); R62.7 Adult failure to thrive; R63.4 Abnormal weight loss; I50.9 Heart failure, unspecified; R05 Cough; H54.7 Unspecified visual loss; Z87.891 Personal history of nicotine dependence; G47.00 Insomnia, unspecified; Z66 Do not resuscitate; S42.301D Unspecified fracture of shaft of humerus, right arm, subsequent encounter for fracture with routine healing; R63.0 Anorexia; D64.9 Anemia, unspecified; E11.9 Type 2 diabetes mellitus without complications; D69.6 Thrombocytopenia, unspecified; C91.10 Chronic lymphocytic leukemia of B-cell type not having achieved remission; I27.81 Cor pulmonale (chronic); I48.2 Chronic atrial fibrillation; N40.0 Benign prostatic hyperplasia without lower urinary tract symptoms; E11.22 Type 2 diabetes mellitus with diabetic chronic kidney disease; N18.3 Chronic kidney disease, stage 3 (moderate); Z87.01 Personal history of pneumonia (recurrent); I13.0 Hypertensive heart and chronic kidney disease with heart failure and stage 1 through stage 4 chronic kidney disease, or unspecified chronic kidney disease; J44.9 Chronic obstructive pulmonary disease, unspecified; M10.9 Gout, unspecified; Z79.51 Long term (current) use of inhaled steroids; Z91.81 History of falling
CPT/HCPCS: 99306

== ENCOUNTER 2018-12-22 10:40 | Outpatient (CLI) | payer MEDICARE, OTHER ==
--- NOTE | 2018-12-22 12:59 | CONSULTATION NOTE ---
Palliative Care Follow Up - Referral Referring Provider: Dr. Naz Castorena Time of Visit: [id number] Referral setting: Assisted living Referral Reason: Failure to Thrive/CHF - Information Sources Records reviewed: Previous records reviewed History/Review of Systems obtained from: Patient, Family ( present for visit; met briefly with daughters) Exam limitations: Clinical condition ([place], some STM issues) - History of Present Illness Update Brief HPI Update: This is a jean paul 88-year-old gentleman who has multiple comorbidities, including combined systolic diastolic heart failure [place] heart association class III, predominantly right-sided, CLL, fracture of the neck of the humerus right upper extremity, chronic atrial fib with rapid ventricular response, chronic kidney disease stage III, diabetes type 2, hospitalization in the fall for pneumonia, and with humeral fracture and extended stay at the alf facility. During this time after rehab, just prior to discharge, patient then did fall and had a pelvic fracture which also delayed his ability to transition. He has received rehab, is not back to his baseline, but is ambulatory with a front wheeled walker, has been followed by oncology for CLL, as well as iron deficiency and received 2 doses of Injectafer with improvement. He continues with concern for weight loss, most recent weight on 315 was 126.6. This was exacerbated by anorexia, grief and loss secondary to his 's diagnosis of a brain tumor, as well as dislike of the food at [facility]. Patient and his have both transition to [facility], to be able to get there progressive care needs met. They have been all this time, including going through decline and now transition to hospice. I am meeting with both of them in her apartment, they are both obviously delighted to be in each other's company. Patient does still appear quite frail, with cachexia, some lower extremity edema and continued breathlessness. His most persistent symptom is nasal congestion, identifies at baseline for 2 months, adding to cough, and moderate dyspnea. Patient's O2 sats are within normal limits at 94%, but does have coarse breath sounds. No wheezing or moist crackles in the bases. But does present with respiratory effort those does not perceive as such. Social History - Living Situation Living arrangement: Assisted living Living Situation: Alone Support System: Patient and live in separate apartments, but will be sharing meals together. They have been 64 years, both daughter Marck are present to be able to help them in this transition, he just yesterday. 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 Medications/Allergies - Medications Home Medications: Ambulatory Orders Medication Instructions Recorded Confirmed Albuterol Sulfate [Proair Hfa 2 puffs INH Q4H PRN #1 inhaler 01/12/17 12/22/18 Inhaler] Ferrous Gluconate 240 mg PO DAILY 08/25/18 12/22/18 Furosemide [Lasix] 40 mg PO DAILY 08/25/18 12/22/18 Potassium Chloride 10 meq PO DAILY 08/25/18 12/22/18 Simvastatin 20 mg PO DAILY 09/08/18 12/22/18 Acetaminophen [Tylenol] 1,000 mg PO DAILY 12/07/18 12/22/18 Tamsulosin [Flomax] 0.8 mg PO QPM 12/07/18 12/22/18 guaiFENesin/DEXTROMETHORPHAN 5 ml PO Q4HR PRN 12/07/18 12/22/18 [Robitussin Dm] ALPRAZolam [Alprazolam] 0.25 mg PO ACHS PRN 12/22/18 12/22/18 Fluticasone [Flonase] 1 spray YEYO DAILY MDD 2 weeks 12/22/18 12/22/18 Loperamide [Imodium] 2 mg PO Q4HR PRN MDD nte 16 tabs 12/22/18 12/22/18 - Allergies Allergies/Adverse Reactions: Allergies Allergy/AdvReac Type Severity Reaction Status Date / Time azithromycin Allergy Intermediate Itching Verified 07/18/18 16:32 trazodone AdvReac Unknown Verified 12/07/18 18:01 Review of Systems - Constitutional Constitutional: reports: Fatigue, Weakness, Weight loss (12/17). denies: Fever, Chills - Ears, Nose & Throat Ears, Nose & Throat: reports: Hearing loss, Nasal congestion, Postnasal drainage, Dry mouth - Cardiovascular Cardiovascular: reports: Irregular heart rate, Chest pain, Exertional dyspnea, Decr. exercise tolerance - Respiratory Respiratory: reports: SOB with exertion. denies: Cough, SOB at rest - Gastrointestinal Gastrointestinal: reports: Good appetite (improved; appreciative of food here at [facility]). denies: Constipation - Genitourinary Genitourinary: reports: Frequency - Musculoskeletal Musculoskeletal: reports: Muscle aches, Stiffness, Limited range of motion, Muscle weakness, Assistive devices (using walker; reports pain with first getting "moving" improved with activity) - Integumentary Integumentary: reports: Dryness, Other (multiple actinic keratosis) - Neurological Neurological: reports: General weakness. denies: Dizziness - Psychiatric Psychiatric: reports: Anxiety (regarding ). denies: Depression - Endocrine Endocrine: reports: Diabetes type 2 - Hematologic/Lymphatic Hematologic/Lymphatic: reports: Anemia (hgb 9.9), Other (CLL) - All Other Systems All Other Systems: reports: Reviewed and negative Physical Exam - Vital Signs Temperature: 97.1 C Pulse Rate: 80 Respiratory Rate: 20 O2 Saturation: 94 (ra @ rest) Blood Pressure: 102/52 - Physical Exam General Appearance: positive: No acute distress, Alert Eyes Bilateral: positive: Normal inspection ENT: positive: Other (concern for oral candidiasis; rinsed mouth-appears clear; will notify me if dry mouth/discomort worsens) Neck: positive: No JVD, Trachea midline Cardiovascular: positive: Irregular Respiratory: positive: No respiratory distress, Other (coarse breath sounds) Abdomen: positive: Non-tender, Soft Skin: positive: Dryness, Bruising Extremities: positive: Pedal edema (1-2 + right greater than left up to mid calf), Other (feet/hands cool to touch) Neurologic/Psychiatric: positive: Oriented x3, Mood/affect nml, Weakness, Other (tearful when discussing ) Palliative Care - POLST Patient has POLST: Yes POLST Status: DNR, Selective Treatment (Patient completed form with Dr. Nogueira 02/2017; copy to facility) Pain: Pain improved, Location (Patient has acetaminophen 1000 mg scheduled daily, Reports pain mostly with initiation of standing, after is walked several minutes does resolve, describes it as stiff and a dull ache, and mild to moderate in severity.) Tiredness/Fatigue: Moderate (4-6) Drowsiness/Sedation: None Nausea: None Depression: Mild (1-3) Anxiety: None Dyspnea: Mild (1-3) Anorexia: Mild (1-3) (improved) Sleep: Sleeps poorly (Patient reports has long-term insomnia, has used alprazolam on at bedtime for greater than a decade, reports this is been effective. They had discontinued it at residential as patient was having sedation in combination with pain medication. He is no longer on hydrocodone. Patient would really like to restart, is not interested in other trials for sleeping aid) Constipation: No Feelings of wellbeing/Perceived Quality of Life: Fair, Improved Performance Status: Patient has just transitioned into new setting. He is hoping to be more engaged in his own ADLs. He does have a shower that is set up, does not feel he is in need assistance with bathing. He can ambulate with his front wheeled walker. He still remains somewhat frail, is in agreement for continued physical therapy though is reluctant. - Palliative Care Discussion: Family meeting with Saranya and Amber, present though difficulty with verbalization, and has been in apartment. All in agreement that it is with a great site of relief, that he has moved into [facility]. Discussed goals with daughters present, regarding increased weight, stabilization of functional status with goal for improvement, and hoping for quality of time with his given her ongoing decline and transition to hospice. Time spent with patient and , reminiscing about their relationship, patient appropriately tearful through conversation. Both of their goals include spending as much time as possible in this waiting time. Impression and Recommendations - Palliative Care Impression: This is a 88-year-old gentleman who is quite frail, with advanced age, multiple comorbidities. These include combined systolic and diastolic CHF, CLL, atrial fib, CKD stage III, DM 2, and generalized weakness. Patient presents with moderate symptom burden of fatigue, dyspnea, weight loss, functional decline, and insomnia. Palliative care to provide support and focus on quality of life issues his patient transitions to new assisted living setting. Recommendations/Counseling Done: 1. Nonallergic rhinitis. Patient with chronic nasal congestion and nasal drainage, clear without any pain. Has been treated with oxymetolazone nasal spray for three days with recurrence. Agreed to trial of Flonase 1 spray each nostril times 2 weeks, will reevaluate at next visit. Counseling provided regarding proper administration, orders written for facility. 2. Weight loss. Patient reports better appetite already, is enjoying the food. Will defer appetite stimulant, and monitor weights weekly. Patient encouraged, goal weight would be 140. 3. Insomnia. Counseling provided regarding benefits and burdens of different pharmacologic interventions, patient requesting to resume alprazolam, given effectiveness for him in the past. Patient would like to use only as needed, counseling provided regarding concerns for fall risk and use, verbalized understanding. Alprazolam 0.25 mg ordered at bedtime as needed. 4. 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 Patient recently titrated down on furosemide secondary to kidney function, polyuria, and hypotension. Will continue to monitor, Patient at baseline does have lower extremity edema, is aware to elevate lower extremities, this is multifactorial though as patient also has poor underlying nutritional status. 5. Generalized weakness. Patient has increased ambulation secondary to setting, will be initiating physical therapy for strengthening. Is using 4 wheeled walker appropriately, goal is to continue to decrease fall risk. 6. Depression. Patient does present with sadness and tearfulness appropriately related to his situation with his , their goal is to spend as much time as possible together, he will have access for counseling from hospice team as well. 7. Advanced care planning. Patient presents with frailty, advanced age, mu ltiple falls with fracture, weight loss, and declining functional status. Patient does have a ZOEY ST in place, will continue to revisit goals of care. Patient is hoping for stabilization, to be able to be supportive to his , and transition into new setting. Time Spent: 60 minutes with greater than 50% of this done in counseling with family regarding goals of care, follow-up on med reconciliation and transition to new setting, and anticipatory guidance
== END 2018-12-22 10:41 | disposition home or self-care (01) ==
LOC: PC 10:40
PROVIDERS: ATTEND Nurse Practitioner Adult Health
DX: Z51.5 Encounter for palliative care (principal); I50.42 Chronic combined systolic (congestive) and diastolic (congestive) heart failure; R62.7 Adult failure to thrive; E11.22 Type 2 diabetes mellitus with diabetic chronic kidney disease; N18.3 Chronic kidney disease, stage 3 (moderate); C91.10 Chronic lymphocytic leukemia of B-cell type not having achieved remission; H91.90 Unspecified hearing loss, unspecified ear; R53.1 Weakness; R63.4 Abnormal weight loss; G47.00 Insomnia, unspecified; R53.83 Other fatigue; J31.0 Chronic rhinitis; Z79.899 Other long term (current) drug therapy; F32.9 Major depressive disorder, single episode, unspecified; Z66 Do not resuscitate; I48.2 Chronic atrial fibrillation; R63.0 Anorexia; Z63.79 Other stressful life events affecting family and household; Z87.81 Personal history of (healed) traumatic fracture

== ENCOUNTER 2019-01-06 16:45 | Outpatient (CLI) | payer MEDICARE, OTHER ==
--- NOTE | 2019-01-06 18:28 | CONSULTATION NOTE ---
Palliative Care Follow Up - Referral Referring Provider: Dr. Naz Castorena Time of Visit: [id number] Referral setting: Assisted living Referral Reason: CHF/CLL - Information Sources Records reviewed: Previous records reviewed History/Review of Systems obtained from: Patient Exam limitations: Clinical condition (patient with some STM issues) - History of Present Illness Update Brief HPI Update: This is a jean paul 88-year-old gentleman who has multiple core morbidities including combined systolic and diastolic heart failure [place] [employer] class III, CLL, recent fracture of the neck of the humerus, pelvic fracture, chronic atrial fib with rapid ventricular response, chronic kidney disease stage III, diabetes type 2, concern for failure to thrive. Patient has improved from baseline, though has had lower extremity edema, lungs are clear, pain is improved, and patient has been gaining weight and eating much better. His last weight was 139.2. Patient is recently transition to [facility], has patient's care needs have increased with his functional decline and acute issues. Patient's Shraddha, continues to deteriorate as a result of a brain tumor and she is on hospice. Patient remains quite frail, though is improving in strength, working with physical therapy, and feeling like he is settling in. He reports his cough has improved, he does report he is "drifty", denies confusion, does admit to short- term memory issues. Patient did contact me last week with concerns for increased lower extremity swelling, did resume his twice daily furosemide dosing, with only mild improvement. The patient denies increased shortness of breath, dizziness, difficult to tell regarding weight gain as patient is eating significantly better. Social History - Living Situation Living arrangement: Assisted living Living Situation: Alone Support System: Patient is set up in an apartment on the [place] from his , but they have been sharing meals together. They have been 64 years. His daughter Saranya is coming every Thursday to help with transition and support for parents, Amber who is from [facility] is due to come next week. They previously lived at home independently, he has many friends and support in the community. 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 Medications/Allergies - Medications Home Medications: Ambulatory Orders Medication Instructions Recorded Confirmed Albuterol Sulfate [Proair Hfa 2 puffs INH Q4H PRN #1 inhaler 01/12/17 01/07/19 Inhaler] Furosemide [Lasix] 40 mg PO BID 08/25/18 01/07/19 Potassium Chloride 10 meq PO BID 08/25/18 01/07/19 Simvastatin 20 mg PO DAILY 09/08/18 01/07/19 Acetaminophen [Tylenol] 1,000 mg PO DAILY 12/07/18 01/07/19 Tamsulosin [Flomax] 0.8 mg PO QPM 12/07/18 01/07/19 guaiFENesin/DEXTROMETHORPHAN 5 ml PO Q4HR PRN 12/07/18 12/22/18 [Robitussin Dm] ALPRAZolam [Alprazolam] 0.25 mg PO ACHS PRN 12/22/18 01/07/19 Loperamide [Imodium] 2 mg PO Q4HR PRN MDD nte 16 tabs 12/22/18 01/07/19 - Allergies Allergies/Adverse Reactions: Allergies Allergy/AdvReac Type Severity Reaction Status Date / Time azithromycin Allergy Intermediate Itching Verified 07/18/18 16:32 trazodone AdvReac Unknown Verified 12/07/18 18:01 Review of Systems - Constitutional Constitutional: reports: Fatigue, Weight gain (139.2). denies: Fever, Chills - Eyes Eyes: reports: Vision loss - Ears, Nose & Throat Ears, Nose & Throat: reports: Hearing loss, Nasal congestion (improved) - Cardiovascular Cardiovascular: reports: Irregular heart rate, Edema, Exertional dyspnea, Decr. exercise tolerance. denies: Chest pain - Respiratory Respiratory: reports: Cough (improved), SOB with exertion. denies: Wheezing, Orthopnea, SOB at rest - Gastrointestinal Gastrointestinal: reports: Good appetite. denies: Constipation, Nausea - Genitourinary Genitourinary: reports: Frequency - Musculoskeletal Musculoskeletal: reports: Stiffness (right leg/hip), Limited range of motion, Muscle weakness, Assistive devices (using walker for longer distances), Other (working with PT) - Integumentary Integumentary: reports: Dryness - Neurological Neurological: reports: General weakness, Memory problems (describes himself as "drifty"; mostly STM issues/no confusion) - Psychiatric Psychiatric: reports: Other (sadness with 's decline) - Endocrine Endocrine: reports: Diabetes type 2 - Hematologic/Lymphatic Hematologic/Lymphatic: reports: Anemia (30.3 Hct has CLL) - All Other Systems All Other Systems: reports: Reviewed and negative Physical Exam - Vital Signs Temperature: 97.3 C Pulse Rate: 63 Respiratory Rate: 18 O2 Saturation: 94 (ra @ rest) Blood Pressure: 104/58 - Physical Exam General Appearance: positive: No acute distress Eyes Bilateral: positive: Normal inspection ENT: positive: No signs of dehydration Neck: positive: No JVD, Trachea midline Cardiovascular: positive: Irregularly irregular Respiratory: positive: No respiratory distress. negative: Wheezes, Rales, Rhonchi Abdomen: positive: Non-tender, Soft Skin: positive: Dryness, Bruising Extremities: positive: Pedal edema (LE edema up to knees/right greater than left MARIELLA hose on) Neurologic/Psychiatric: positive: Oriented x3, Mood/affect nml, Weakness, Flat affect Palliative Care - POLST Patient has POLST: Yes POLST Status: DNR, Selective Treatment Pain: Pain improved, Location (right hip/pelvic area;) Tiredness/Fatigue: Moderate (4-6) Drowsiness/Sedation: Mild (1-3) Nausea: None Depression: Mild (1-3) Anxiety: None Dyspnea: Mild (1-3) Anorexia: None Sleep: Sleeps poorly (had forgotten had ordered alprazalom for sleep; will have staff offer) Constipation: No Feelings of wellbeing/Perceived Quality of Life: Fair, Improved Performance Status: Patient is able to manage all ADLs except for putting on MARIELLA hose. He is toileting independently, bathing independently as well as ambulating down to room to eat with his . Patient feels his strength is improved, continues to work with PT, with goal for improved endurance and balance. Uses walker - Palliative Care Discussion: Patient feels he is settling in, does perceive and has sadness about his 's ongoing decline. It is difficult that she cannot communicate, and he is quite hard of hearing. He does understand she gets frustrated. He feels he is getting used to the idea, as far as anticipatory grief. He was overwhelmed at the initial diagnosis. He uses his daughters for coping, talks to them frequently. Has not had the opportunity to engage much in [facility] or activities as he is quite attentive to Shraddha. Patient perceives himself is improving, his quality of life is improved, but does continue to see himself as frail but is hopeful for ongoing improvements.Patient does have a ZOEY ST as DNA R and selective treatments, his D POA is Saranya Verdugo [phone] Impression and Recommendations - Palliative Care Impression: This is a 88-year-old gentleman who remains quite frail, with advanced age and multiple core morbidities. He has had an increase in his lower extremity edema, has known combined systolic and diastolic CHF, CLL, atrial fib, CKD stage III and generalized weakness. We will continue his twice daily furosemide dosing, and monitor closely. Palliative care to continue to provide support with focus on quality of life issue as he transitions to new assisted living setting. Recommendations/Counseling Done: 1. Nonallergic rhinitis. Patient reports improved nasal congestion, has been on Flonase for 2 weeks, does feel this is helped and would like to discontinue it. Patient's cough is improved as result as well. 2. Weight loss. Patient has been eating better, enjoying the food. Monitoring the weights daily secondary to increased Lasix, patient has almost met goal weight of 140. May be able to increase this. 3. Insomnia. Patient does have alprazolam 0.25 mg at bedtime as needed, patient forgot we had gone to the process of obtaining and ordering this for him. Patient continues to suffer with insomnia, particularly in the context of his increased anxiety about his decline. Counseling provided, did follow- up with facility staff to offer. 4. 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 Patient had been titrated down on furosemide secondary kidney function, polyuria and hypotension. Patient with increased weight gain, did increase for 1 week furosemide 40 mg twice daily with only mild improvement. Patient does have lower extremity edema at baseline, though this has increased. Agreed to continue twice daily dosing, will check kidney function next week. Patient is getting weekly vital signs as well. 5. Generalized weakness. Patient is using 4 wheeled walker, is at high fall risk, but is working with physical therapy. Does feel like he is making improvement. We will continue until his plateau. 6. Depression. Patient presents with sadness and tearfulness appropriate to the situation with his , does feel like he is adjusting. Counseling provided regarding anticipatory grief and support given. 7. Advanced care planning. Patient presents with frailty and advanced age and multiple falls with fractures, has improved as far as weight loss and fatigue. Patient does have a ZOEY ST in place, will continue to revisit goals of care in the context of improvement or decline. Patient's goal is for stabilization and hopefully improvement, and to be able to support his and this transition to new setting and in her decline. Time Spent: 60 minutes was given 50% of this done in counseling regarding goals of care, management of multiple comorbidities, writing anticipatory guidance and support normalizing grief and loss process. Contact with daughter, she has not been able to take in for lab draw, and other arrangements will be made.
== END 2019-01-06 16:46 | disposition home or self-care (01) ==
LOC: PC 16:45
PROVIDERS: ATTEND Nurse Practitioner Adult Health
DX: Z51.5 Encounter for palliative care (principal); C91.10 Chronic lymphocytic leukemia of B-cell type not having achieved remission; I50.40 Unspecified combined systolic (congestive) and diastolic (congestive) heart failure; E11.22 Type 2 diabetes mellitus with diabetic chronic kidney disease; N18.9 Chronic kidney disease, unspecified; I48.2 Chronic atrial fibrillation; R35.0 Frequency of micturition; H91.90 Unspecified hearing loss, unspecified ear; R63.4 Abnormal weight loss; G47.00 Insomnia, unspecified; R53.1 Weakness; Z91.81 History of falling; F32.9 Major depressive disorder, single episode, unspecified; Z87.81 Personal history of (healed) traumatic fracture; Z66 Do not resuscitate; Z79.51 Long term (current) use of inhaled steroids

== ENCOUNTER 2019-01-13 08:00 | Outpatient (CLI) | payer MEDICARE, OTHER ==
[2019-01-13 19:21] LABS: BASOPHILS % (AUTO) 0.5 %; EOSINOPHILS % (AUTO) 0.2 %; HGB - HEMOGLOBIN 10.2 g/dL (14.0-18.0); MEAN CORPUSCULAR HEMOGLOBIN 32.5 pg (27.0-31.0); MEAN CORPUSCULAR HGB CONC 32.1 g/dL (32.0-36.0); MEAN CORPUSCULAR VOLUME 101.2 fL (80.0-94.0); MEAN PLATELET VOLUME 9.3 fL (7.4-11.4); MONOCYTES % (AUTO) 4.5 %; NEUTROPHILS % (AUTO) 21.8 %; PLT - PLATELET COUNT 104 10^3/uL (130-450); RED BLOOD COUNT 3.15 10^6/uL (4.70-6.10); RED CELL DISTRIBUTION WIDTH 17.1 % (12.0-15.0); WHITE BLOOD COUNT 12.2 x10^3/uL (4.8-10.8)
[2019-01-13 19:25] LABS: ABNORMAL LYMPHS % (MANUAL) 0 %; BAND NEUTROPHILS % (MANUAL) 0 %
[2019-01-13 20:22] LABS: EOSINOPHILS # (MANUAL) 0.1 10^3/uL (0-0.7); LYMPHOCYTES # (MANUAL) 9.4 10^3/uL (1.5-3.5); LYMPHOCYTES % (MANUAL) 76 %; MONOCYTES # (MANUAL) 0.1 10^3/uL (0.0-1.0); NEUTROPHILS # (MANUAL) 2.6 10^3/uL (1.5-6.6); NEUTROPHILS % (MANUAL) 21 %
[2019-01-13 20:29] LABS: DIFFERENTIAL COMMENT MANUAL DIFFERENTIAL; PLATELET ESTIMATE, MANUAL DECREASED (<130,000) (NORMAL); PLATELET MORPHOLOGY NORMAL APPEARANCE (NORMAL); RBC MORPHOLOGY (MULTIPLE) 1+ BURR CELLS (NORMAL)
[2019-01-13 20:56] LABS: ALBUMIN 3.6 g/dL (3.2-5.5); ALBUMIN/GLOBULIN RATIO 1.2 (1.0-2.2); BILIRUBIN,TOTAL 1.8 mg/dL (0.2-1.0); CALCIUM 8.5 mg/dL (8.5-10.3); CREATININE 1.2 mg/dL (0.6-1.2); TOTAL PROTEIN 6.7 g/dL (6.7-8.2)
== END 2019-01-13 23:59 | disposition home or self-care (01) ==
LOC: LAB.N 08:00
PROVIDERS: ATTEND Nurse Practitioner Adult Health
DX: I50.9 Heart failure, unspecified (principal); D64.9 Anemia, unspecified
CPT/HCPCS: 36415; 80053; 85025

== ENCOUNTER 2019-02-18 14:21 | Outpatient (CLI) | payer MEDICARE, OTHER ==
--- NOTE | 2019-02-18 18:23 | CONSULTATION NOTE ---
Palliative Care Follow Up - Referral Referring Provider: Dr. 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 Patient continues to improve from baseline, though remains quite frail, he has residual and consistent lower extremity edema, his does have crackles in his left lower lobe, he continues to have persistent pain in the right hip pelvic area, but is gaining weight and working hard to maintain his independence. He has established with Dr. Costa, his current diuretics were 40 mg of furosemide daily. It does appear to be managing at this point. He does have one plus edema up to mid calf, right greater than left. But his injury and fall was on the right side of his pelvis. He is wearing support stockings, does sit most times with his legs down though. Patient actually is fairly attuned to his signs and symptoms of heart failure, feels he is currently well managed. He is expecting follow-up in March with Dr. Costa. I suspect his weight gain given has goal is to improve his muscle mass, regained weight between 150 and 160, and has been eating well is more related to his intake. He reports he does like sweets. He is working with physical therapy 2-3 times a week for regaining strength after his pelvic fracture. He still has residual dull achy pain in his right hip pelvic area. This increases with weightbearing. He does feel like the acetaminophen 1000 mg does help, he has been taking in the a.m. and at bedtime when offered. We discussed his scheduling this twice daily to make this easier for him. Patient's did pass this last couple weeks, she was in the facility and he was able to participate at her bedside. He is quite tearful, though reports he is a person who likes to process things on his own. Did encourage him to consider follow-up with a bereavement counselor, but reports "he does not like that". Social History - Living Situation Living arrangement: Assisted living Support System: recently , at facility with hospice support. Daughter Saranya coming every Thursday to see patient and assist with appointments etc. Medications/Allergies - Medications Home Medications: Ambulatory Orders Medication Instructions Recorded Confirmed Albuterol Sulfate [Proair Hfa 2 puffs INH Q4H PRN #1 inhaler 01/12/17 02/18/19 Inhaler] Furosemide [Lasix] 40 mg PO DAILY 08/25/18 02/18/19 Potassium Chloride 10 meq PO DAILY 08/25/18 02/18/19 Simvastatin 20 mg PO DAILY 09/08/18 02/18/19 Acetaminophen [Tylenol] 1,000 mg PO BID MDD 3000 mg 12/07/18 02/18/19 Tamsulosin [Flomax] 0.8 mg PO QPM 12/07/18 02/18/19 guaiFENesin/DEXTROMETHORPHAN 5 ml PO Q4HR PRN 12/07/18 02/18/19 [Robitussin Dm] ALPRAZolam [Alprazolam] 0.25 mg PO ACHS PRN 12/22/18 02/18/19 Loperamide [Imodium] 2 mg PO Q4HR PRN MDD nte 16 tabs 12/22/18 02/18/19 - Allergies Allergies/Adverse Reactions: Allergies Allergy/AdvReac Type Severity Reaction Status Date / Time azithromycin Allergy Intermediate Itching Verified 07/18/18 16:32 trazodone AdvReac Unknown Verified 12/07/18 18:01 Review of Systems - Constitutional Constitutional: reports: Fatigue, Weight gain (few pounds; trying to gain as had lost significant amount last few months). denies: Fever, Chills - Eyes Eyes: reports: Vision loss - Ears, Nose & Throat Ears, Nose & Throat: reports: Hearing loss, Dry mouth - Cardiovascular Cardiovascular: reports: Edema (staying stable), Decr. exercise tolerance. denies: Chest pain, Lightheadedness - Respiratory Respiratory: reports: SOB with exertion. denies: Cough, Wheezing, SOB at rest - Gastrointestinal Gastrointestinal: reports: Good appetite. denies: Constipation, Diarrhea, Nausea, Reflux/heartburn - Genitourinary Genitourinary: reports: Frequency, Urgency - Musculoskeletal Musculoskeletal: reports: Stiffness, Muscle weakness, Assistive devices (uses walker; fearful of falling), Other (right thigh/hip pain) - Integumentary Integumentary: reports: Lesions (nose and face), Dryness - Neurological Neurological: reports: General weakness (but improving; PT 2-3 x a week), Memory problems (mild) - Psychiatric Psychiatric: reports: Depression (appropriate depressive symptoms/grief) - Endocrine Endocrine: reports: Diabetes type 2 - Hematologic/Lymphatic Hematologic/Lymphatic: reports: Anemia (hgb 10.2), Bruising. denies: Recurrent infections - All Other Systems All Other Systems: reports: Reviewed and negative Physical Exam - Vital Signs Temperature: 96.7 C Pulse Rate: 68 Respiratory Rate: 18 O2 Saturation: 97 (ra @ rest) Blood Pressure: 122/62 - Physical Exam General Appearance: positive: No acute distress, Alert Eyes Bilateral: positive: Normal inspection ENT: positive: No signs of dehydration Neck: positive: No JVD, Trachea midline Cardiovascular: positive: Regular rate & rhythm Respiratory: positive: Diminished in bases, Rales (crackles LLL) Abdomen: positive: Non-tender, Soft Skin: positive: Pallor, Dryness, Bruising, Other (facial lesions) Extremities: positive: Pedal edema (right greater than left 1-2+; has support hose on) Neurologic/Psychiatric: positive: Oriented x3, Weakness, Depressed mood/affect Palliative Care - POLST Patient has POLST: Yes POLST Status: DNR, Selective Treatment Pain: Pain unchanged, Location (see HPI) Tiredness/Fatigue: Moderate (4-6) Drowsiness/Sedation: Mild (1-3) Nausea: None Depression: Moderate (4-6) Anxiety: Mild (1-3) Dyspnea: Mild (1-3) Anorexia: None Sleep: Sleeps well (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 Otherwise patient is fairly independent in his care, his daughter does come weekly to assist with Karolyn's and appointments and any household needs. Patient is able to independently bathe, does have to pace himself. He is "paranoid" of falling, so is intentionally slow. - Palliative Care Discussion: Patient does perceive himself is improving, he is looking for "his new normal". We did discuss in the context of his current grief, this is very difficult. His goal is to remain as independent as possible, he does understand he has multiple medical problems, but feels like overall he is doing "sufficient". He has just walked through the hospice process with his , he is hoping for increased quality with increased endurance, weight, and getting stronger. Given patient's next establish meant an improvement with Dr. Costa, will put palliative care on as-needed basis. Call to Saranya his daughter, she does want palliative care to be continued to be involved. We discussed can call us in at any time things are worsening. Agreed will check in with patient come April unless other issues arise, she is in agreement with that plan. Patient does have a ZOEY ST as DNA R/selective treatments his D POA is Saranya Verdugo [phone] his daughter who lives in [place] Impression and Recommendations - Palliative Care Impression: This is an 88-year-old gentleman though who remains quite frail, with advanced age and multiple comorbidities is improving. Patient does present with appropriate grieving, with loss of his in the last two weeks. He continues to work with physical therapy to gain strength and muscle mass, as well as working on his goal of weight gain. Palliative care to remain available, but will decrease visits at this point in time as patient has improved. Recommendations/Counseling Done: 1.Weight loss. Patient is up to 142, continues to eat on a regular basis, good appetite, likes weeks. He still wants to regain muscle mass and weight his new goal is 150. We discussed adding snacks, and Ensure in the evening. He feels like this would be easy to accomplish. 2. Insomnia. Patient doing well on alprazolam 0.25 mg at bedtime, has had no further trouble with sleeping. This is a longtime medication for him, though did doubt dose reduced from 0.5 to 0.25 mg. 3. 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 Patient has lower extremity edema at baseline, feels like this is remained stable. Currently on furosemide at 40 mg daily. Patient is getting weekly vital signs and actually is able to monitor the this fairly well himself, as it does recognize signs and symptoms. Will defer to Dr. Costa for further management. 4. Generalized weakness. Patient continues with physical therapy, does feel like he is making slow gain and that there is "room for improvement". Is now going down to meals, this is increased his baseline activity, counseling provided to continue to try and increase his activity to improve his underlying endurance. 5. Grief reaction. Patient able to express feelings appropriately, is not wanting further counseling from hospice team, though we did review his journey with his . He does present was set this and tearfulness appropriate. Counseling provided regarding normalizing grief and loss process as well as what to expect moving forward. He will receive packets from the hospice team for support. Daughter does not think he would accept further counseling. 6. Right pelvic pain. Patient is feeling that is managed well on acetaminophen 1000 mg twice daily, orders in facility cleaned up, left PRN dosing for 500 mg every 4 hours with instructions not to exceed greater than 3000 mg in 24 hours. 7. Advanced care planning. Patient presents with frailty and advanced age, has had improvement with weight and fatigue. Patient does have a POLST in place. Patient's goal is to remain for improvement and strength and weight, as well as trying to adjust to his "new normal" with the loss of his . Family was concerned patient would deteriorate with the loss of his , given his frail status. Patient does appear to doing quite well, will be available for any other issues, but on hold. Time Spent: 45 minutes was given 50% of this done in counseling regarding normalizing grief reaction, pain and symptom management, goals for weight gain and counseling and anticipatory guidance. Coordination of care with clinical staff as well as daughter.
== END 2019-02-18 14:22 | disposition home or self-care (01) ==
LOC: PC 14:21
PROVIDERS: ATTEND Nurse Practitioner Adult Health
DX: Z51.5 Encounter for palliative care (principal); I13.0 Hypertensive heart and chronic kidney disease with heart failure and stage 1 through stage 4 chronic kidney disease, or unspecified chronic kidney disease; E11.22 Type 2 diabetes mellitus with diabetic chronic kidney disease; N18.3 Chronic kidney disease, stage 3 (moderate); I50.40 Unspecified combined systolic (congestive) and diastolic (congestive) heart failure; I48.2 Chronic atrial fibrillation; R63.4 Abnormal weight loss; G47.00 Insomnia, unspecified; R53.1 Weakness; F43.20 Adjustment disorder, unspecified; S32.9XXD Fracture of unspecified parts of lumbosacral spine and pelvis, subsequent encounter for fracture with routine healing; S42.209D Unspecified fracture of upper end of unspecified humerus, subsequent encounter for fracture with routine healing; H54.7 Unspecified visual loss; H91.90 Unspecified hearing loss, unspecified ear; R35.0 Frequency of micturition; R39.15 Urgency of urination; D64.9 Anemia, unspecified; Z66 Do not resuscitate; Z79.51 Long term (current) use of inhaled steroids

== ENCOUNTER 2019-02-24 11:41 | Observation (INO) | payer MEDICARE, OTHER ==
[2019-02-24 12:20] LABS: BILIRUBIN,URINE NEGATIVE (NEGATIVE); GLUCOSE, URINE (UA) NEGATIVE (NEGATIVE); KETONES,URINE (UA) NEGATIVE (NEGATIVE); LEUKOCYTE ESTERASE, URINE LARGE (NEGATIVE); NITRITE,URINE POSITIVE (NEGATIVE); OCCULT BLOOD,URINE SMALL (NEGATIVE); PROTEIN,URINE TRACE mg/dL (NEGATIVE); UROBILINOGEN,URINE 0.2 (NORMAL) E.U./dL (NORMAL)
[2019-02-24 12:22] LABS: CLARITY,URINE SL. CLOUDY (CLEAR)
[2019-02-24 12:31] LABS: BACTERIA,URINE Moderate /HPF (None Seen); RBC,URINE None Seen /HPF (0-5); SQUAMOUS EPITHELIAL CELL,UR NONE SEEN (<= Few)
[2019-02-24] MEDS ORDERED: CIPROFLOXACIN 250 MG TABLET PO STA (12:32)
--- NOTE | 2019-02-24 12:34 | ED Physician Documentation ---
PD HPI LOWER EXT INJURY - Stated complaint Stated Complaint: HIP PX - Chief complaint Chief Complaint: Ext Problem - History obtained from History obtained from: Patient - History of Present Illness PD HPI LOW EXT INJURY LOCATION: Right (He had a remote hip fracture that was fixed, more recently in September he had a pelvic fracture after a fall. He is in assisted living. Yesterday without specific injury or increased activity he has severe right hip pain that is nonradiating. He declines pain medication on initial evaluation. He also notes urinary frequency. No fevers.) Review of Systems Constitutional: denies: Fever, Chills Cardiac: reports: Reviewed and negative Respiratory: reports: Reviewed and negative PD PAST MEDICAL HISTORY - Past Medical History Cardiovascular: Congestive heart failure, Hypertension, High cholesterol, Atrial fibrillation Respiratory: COPD, Pneumonia Neuro: TIA Endocrine/Autoimmune: Type 2 diabetes GI: None : Benign prostate hypertrophy, Renal insuffiency HEENT: Chronic vision loss Psych: None Musculoskeletal: Gout, Other (fx humerus/pelvis) Derm: None - Past Surgical History Past Surgical History: Yes General: Cholecystectomy, Appendectomy Ortho: Hip replacement HEENT: Cataracts Derm: Skin cancer surgery - Present Medications Home Medications: Ambulatory Orders Medication Instructions Recorded Confirmed Albuterol Sulfate [Proair Hfa 2 puffs INH Q4H PRN #1 inhaler 01/12/17 02/18/19 Inhaler] Furosemide [Lasix] 40 mg PO DAILY 08/25/18 02/18/19 Potassium Chloride 10 meq PO DAILY 08/25/18 02/18/19 Simvastatin 20 mg PO DAILY 09/08/18 02/18/19 Acetaminophen [Tylenol] 1,000 mg PO BID MDD 3000 mg 12/07/18 02/18/19 Tamsulosin [Flomax] 0.8 mg PO QPM 12/07/18 02/18/19 guaiFENesin/DEXTROMETHORPHAN 5 ml PO Q4HR PRN 12/07/18 02/18/19 [Robitussin Dm] ALPRAZolam [Alprazolam] 0.25 mg PO ACHS PRN 12/22/18 02/18/19 Loperamide [Imodium] 2 mg PO Q4HR PRN MDD nte 16 tabs 12/22/18 02/18/19 - Allergies Allergies/Adverse Reactions: Allergies Allergy/AdvReac Type Severity Reaction Status Date / Time azithromycin Allergy Intermediate Itching Verified 02/24/19 11:51 trazodone AdvReac Unknown Verified 02/24/19 11:51 - Social History Does the pt smoke?: No Smoking Status: Former smoker Does the pt drink ETOH?: No Does the pt have substance abuse?: No - Immunizations Immunizations are current?: Yes Immunizations: TDAP >10years/unknown - POLST Patient has POLST: Yes PD ED PE NORMAL - Vitals Vital signs reviewed: Yes - General General: Alert and oriented X 3, No acute distress - Abdomen Abdomen: Other (Some tenderness over the bladder but without diffuse abdominal tenderness) - Back Back: No spinal TTP - Derm Derm: Normal color, Warm and dry - Extremities Extremities: Other (Moderate tenderness over the right hip laterally and anteriorly and severe pain with internal or external rotation. There is no deformity.) - Neuro Neuro: Alert and oriented X 3, Normal speech Results - Vitals Vitals: Vital Signs - 24 hr 02/24/19 02/24/19 02/24/19 11:45 11:50 14:11 Temperature 36.7 C 36.7 C Heart Rate 72 72 68 Respiratory 14 14 20 Rate Blood Pressure 127/49 L 127/49 L 123/57 L O2 Saturation 100 100 98 Oxygen O2 Source [With Activity] walking 88-91% O2 Source Room air - Labs Labs: Laboratory Tests 02/24/19 02/24/19 02/24/19 12:00 13:30 13:30 WBC 12.9 H RBC 3.04 L Hgb 10.1 L Hct 30.4 L MCV 100.1 H MCH 33.3 H MCHC 33.3 RDW 15.5 H Plt Count 82 L MPV 8.5 Neut # (Auto) 2.9 Lymph # (Auto) 9.3 H Fulton # (Auto) 0.6 Eos # (Auto) 0.1 Baso # (Auto) 0.1 Absolute Nucleated RBC 0.00 Nucleated RBC % 0.0 Manual Slide Review Indicated WBC Morphology 3+ REACTIVE LYMPHS PT 15.4 H INR 1.4 H Sodium Potassium Chloride Carbon Dioxide Anion Gap BUN Creatinine Estimated GFR (MDRD) Glucose Calcium Total Bilirubin AST ALT Alkaline Phosphatase Total Protein Albumin Globulin Albumin/Globulin Ratio Lipase Urine Color YELLOW Urine Clarity SL. CLOUDY Urine pH 6.0 Ur Specific Morning Sun 1.010 Urine Protein TRACE Urine Glucose (UA) NEGATIVE Urine Ketones NEGATIVE Urine Occult Blood SMALL H Urine Nitrite POSITIVE H Urine Bilirubin NEGATIVE Urine Urobilinogen 0.2 (NORMAL) Ur Leukocyte Esterase LARGE H Urine RBC None Seen Urine WBC >25 H Ur Squamous Epith Cells NONE SEEN Urine Bacteria Moderate H Ur Microscopic Review INDICATED Urine Culture Comments INDICATED Blood Type Antibody Screen 02/24/19 02/24/19 02/24/19 13:30 13:30 15:15 WBC RBC Hgb 8.9 L Hct 27.7 L MCV MCH MCHC RDW Plt Count MPV Neut # (Auto) Lymph # (Auto) Fulton # (Auto) Eos # (Auto) Baso # (Auto) Absolute Nucleated RBC Nucleated RBC % Manual Slide Review WBC Morphology PT INR Sodium 142 Potassium 4.8 Chloride 108 Carbon Dioxide 24 Anion Gap 10.0 BUN 53 H Creatinine 1.5 H Estimated GFR (MDRD) 44 L Glucose 93 Calcium 8.9 Total Bilirubin 1.3 H AST 16 ALT 10 Alkaline Phosphatase 88 Total Protein 7.0 Albumin 4.0 Globulin 3.0 Albumin/Globulin Ratio 1.3 Lipase 47 Urine Color Urine Clarity Urine pH Ur Specific Morning Sun Urine Protein Urine Glucose (UA) Urine Ketones Urine Occult Blood Urine Nitrite Urine Bilirubin Urine Urobilinogen Ur Leukocyte Esterase Urine RBC Urine WBC Ur Squamous Epith Cells Urine Bacteria Ur Microscopic Review Urine Culture Comments Blood Type AB NEGATIVE Antibody Screen NEGATIVE - Rads (name of study) R hip Radiology: EMP read contemporaneously (no clear acute dz) PD MEDICAL DECISION MAKING - ED course ED course: 88-year-old gentleman presents with acute hip pain with remote fracture there. While waiting for x-rays he had a large bowel movement here that was maroon, quite bloody and very guaiac positive. Given that it was an ancillary complaint we watched him and he remained hemodynamically stable. A repeat H&H was done dropping from 10.1-8.9 with no IV fluids given. In the interim he had gotten Cipro for his UTI and Protonix IV. Blood was readied and I spoke with the on-call surgeon, Dr. Nick at 3:38 PM and the hospitalist, Dr. Pedro at 3:40 PM. Departure - Departure Disposition: [facility] DC/Xfer Clinical Impression: Right hip pain GI bleed Qualifiers: GI bleed type/associated pathology: melena Qualified Code(s): K92.1 - Melena Condition: Serious
[2019-02-24] MEDS ORDERED: PANTOPRAZOLE 40 MG VIAL IVP STA (13:25)
[2019-02-24 13:49] LABS: INR 1.4 (0.8-1.2); PT - PROTHROMBIN TIME 15.4 secs (9.9-12.6)
[2019-02-24 13:50] LABS: BASOPHILS # (AUTO) 0.1 10^3/uL (0.0-0.1); BASOPHILS % (AUTO) 0.8 %; EOSINOPHILS # (AUTO) 0.1 10^3/uL (0.0-0.7); EOSINOPHILS % (AUTO) 0.5 %; HGB - HEMOGLOBIN 10.1 g/dL (14.0-18.0); LYMPHOCYTES # (AUTO) 9.3 10^3/uL (1.5-3.5); LYMPHOCYTES % (AUTO) 72.3 %; MEAN CORPUSCULAR HEMOGLOBIN 33.3 pg (27.0-31.0); MEAN CORPUSCULAR HGB CONC 33.3 g/dL (32.0-36.0); MEAN CORPUSCULAR VOLUME 100.1 fL (80.0-94.0); MEAN PLATELET VOLUME 8.5 fL (7.4-11.4); MONOCYTES # (AUTO) 0.6 10^3/uL (0.0-1.0); MONOCYTES % (AUTO) 4.3 %; NEUTROPHILS # (AUTO) 2.9 10^3/uL (1.5-6.6); NEUTROPHILS % (AUTO) 22.1 %; PLT - PLATELET COUNT 82 10^3/uL (130-450); RED BLOOD COUNT 3.04 10^6/uL (4.70-6.10); RED CELL DISTRIBUTION WIDTH 15.5 % (12.0-15.0); WHITE BLOOD COUNT 12.9 x10^3/uL (4.8-10.8)
[2019-02-24 13:59] LABS: ALBUMIN/GLOBULIN RATIO 1.3 (1.0-2.2); BILIRUBIN,TOTAL 1.3 mg/dL (0.2-1.0); CREATININE 1.5 mg/dL (0.6-1.2)
[2019-02-24 14:27] LABS: CALCIUM 8.9 mg/dL (8.5-10.3)
--- NOTE | 2019-02-24 14:30 | XRAY Report ---
Reason: hip pain Procedure Date: 02/24/2019 Accession Number: [id number] / [id number] Procedure: XR - Hip w/Pelvis 2-3V RT CPT Code: FULL RESULT: EXAM: RIGHT HIP RADIOGRAPHY EXAM DATE: 02/24/2019 02:08 PM. CLINICAL HISTORY: Hip pain. COMPARISON: HIP W/PELVIS 2-3V RT 09/21/2018 11:13 AM. TECHNIQUE: 2 views. FINDINGS: Evaluation of the iliac wings and pubic rami is limited by suboptimal positioning of the AP pelvis view. Bones: The appearance of an irregular sclerotic line superior to the left acetabulum is possibly projectional given atypical positioning of the left hip. The patient is status post bilateral femoral neck fracture fixation with 3 partially threaded cannulated screws on each side. There is no evidence of hardware fracture. Posttraumatic changes along the right inferior pubic ramus are not well seen on today's exam. The bones are qualitatively osteopenic; this limits evaluation for underlying fractures or masses. Joints: Normal. No dislocation. The hip joint space is preserved. Soft Tissues: Normal. No soft tissue swelling. IMPRESSION: Limited examination with marked osteopenia and atypical positioning. If the patient is [id number], recommend CT of the pelvis without intravenous contrast given atypical appearance of the iliac wing superior to the left acetabulum. RADIA
[2019-02-24 15:19] LABS: HGB - HEMOGLOBIN 8.9 g/dL (14.0-18.0)
[2019-02-24] MEDS ORDERED: cefTRIAXone 1 GM VIAL IVP SCH (15:46)
[2019-02-24] MEDS ORDERED: ONDANSETRON 4 MG/2 ML VIAL IVP PRN (15:48)
[2019-02-24] MEDS ORDERED: ZOLPIDEM 5 MG TABLET PO PRN (15:48)
[2019-02-24] MEDS ORDERED: ALPRAZolam 0.25 MG TABLET PO PRN (15:53)
--- NOTE | 2019-02-24 15:55 | HISTORY & PHYSICAL EXAMINATION ---
Chief Complaint - Chief Complaint Chief Complaint: black stool, GI bleed History of Present Illness - History of Present Illness HPI Comment/Other: is a 88-year-old gentleman with a extensive PMH significant for afib, hx of TIA, hx of DM, currently on diet controlled, HLD, Gout, BPH, GERD, chronic back pain with lumbar stenosis, recent diagnosis of severe pulmonary HTN, COPD, CLL with chronic leukocytosis, who present ER complain of acute right hip pain with remote fracture. Pt is a quite poor historian. Per palliative care provider, Lisbeth Nguyen's note, she followup pt, patient reported pain actually started last night, no fall or trauma, no twisting but he has been persistent and painful. While pt wasa waiting for x-rays he had a large bowel movement here that was maroon, quite bloody and it was guaiac positive. A repeat H&H was done, pt's HGB is dropping from 10.1-8.9 with no IV fluids given. pt remained hemodynamically stable. on-call surgeon, Dr. Nick was called the case. Xray reveals limited examination with marked osteopenia and atypical positioning. Pt also report urinary frequency but without dysuria or hematuria. UA reveals positive for UTI. Pt denies fever, chill, chest pain, shortness of breath, headache, fall, abdominal pain. pt is admitted for above medical conditions. History - Past Medical History Cardiovascular: reports: Congestive heart failure, Hypertension, High cholesterol, Atrial fibrillation Respiratory: reports: COPD, Pneumonia Neuro: reports: TIA Endocrine/Autoimmune: reports: Type 2 diabetes GI: reports: None : reports: Benign prostate hypertrophy, Renal insuffiency HEENT: reports: Chronic vision loss Psych: reports: None Musculoskeletal: reports: Gout, Other (fx humerus/pelvis) Derm: reports: None MRSA Hx?: No - Past Surgical History General: reports: Cholecystectomy, Appendectomy Ortho: reports: Hip replacement HEENT: reports: Cataracts Derm: reports: Skin cancer surgery - Family & Social History Family History: Mother: (patient was adopted), Father: Family History Comment/Other: pt report he is living at [facility]. he had two daughter, one is at [place], one is at [facility] [place]. Social History Notes: pt report he quit cigarette smoking at 1984, he denies alcohol and drug abuse. - Substance History Use: Uses substance without health or social issues: Tobacco (heavy smoker stopped 1984), Alcohol (was a nightly martini drinker/beer) - POLST Patient has POLST: Yes POLST Status: DNR Meds/Allgy - Home Medications Home Medications: Ambulatory Orders Medication Instructions Recorded Confirmed Albuterol Sulfate [Proair Hfa 2 puffs INH Q4H PRN #1 inhaler 01/12/17 02/24/19 Inhaler] Furosemide [Lasix] 40 mg PO DAILY 08/25/18 02/24/19 Simvastatin 20 mg PO QPM 09/08/18 02/24/19 Tamsulosin [Flomax] 0.4 mg PO QPM 12/07/18 02/24/19 guaiFENesin/DEXTROMETHORPHAN 5 ml PO Q4HR PRN 12/07/18 02/24/19 [Robitussin Dm] ALPRAZolam [Alprazolam] 0.25 mg PO QPM PRN 12/22/18 02/24/19 Loperamide [Imodium] 2 mg PO Q4HR PRN MDD nte 16 tabs 12/22/18 02/24/19 Acetaminophen [Tylenol Extra 1,000 mg PO BID 02/24/19 02/24/19 Strength] Acetaminophen [Tylenol Extra 1,000 mg PO DAILY PRN 02/24/19 02/24/19 Strength] Allopurinol 100 mg PO DAILY 02/24/19 02/24/19 Ferrous Gluconate [Iron] 240 mg PO DAILYWM 02/24/19 02/24/19 Potassium Chloride [K-Dur] 20 meq PO 0800 02/24/19 02/24/19 - Allergies Allergies/Adverse Reactions: Allergies Allergy/AdvReac Type Severity Reaction Status Date / Time azithromycin Allergy Intermediate Itching Verified 02/24/19 11:51 trazodone AdvReac Unknown Verified 02/24/19 11:51 Review of Systems - Constitutional Constitutional: denies: Fatigue, Fever, Chills, Malaise, Weakness, Poor appetit e, Diaphoresis, Night sweats, Weight gain, Weight loss - Eyes Eyes: denies: Pain, Irritation, Amaurosis, Blurred vision, Spots in vision, Field loss, Vision loss, Dipolpia - Ears, Nose & Throat Ears, Nose & Throat: denies: Ear pain, Hearing loss, Hearing aids, Vertigo, Nasal pain, Nasal discharge, Nosebleeds, Nasal obstruction, Nasal congestion, Postnasal drainage, Dentures, Sore throat, Hoarseness, Mouth lesions, Bleeding gums - Cardiovascular Cariovascular: denies: Irregular heart rate, Palpitations, Chest pain, Edema, Lightheadedness, Syncope, Exertional dyspnea, Decr. exercise tolerance - Respiratory Respiratory: denies: Cough, Sputum production, Wheezing, Snoring, Hemoptysis, Orthopnea, SOB at rest, SOB with exertion, Apnea, Stridor - Gastrointestinal Gastrointestinal: reports: Black stools, Bloody stools. denies: Abdominal pain, Abdominal distention, Constipation, Diarrhea, Change in bowel habits, Rectal bleeding, Nausea, Vomiting, Bile emesis, Ravi blood emesis, Coffee grounds emes is, Reflux/heartburn, Bloating, Poor appetite - Genitourinary Genitourinary: reports: Frequency. denies: Dysuria, Urgency, Hematuria, Incontinence, Flank pain, Nocturia, Urethral discharge - Musculoskeletal Musculoskeletal: reports: Joint pain. denies: Muscle pain, Back pain, Muscle aches, Stiffness, Limited range of motion, Muscle weakness, Gout, Joint swelling - Integumentary Integumentary: denies: Rash, Pruritis, Lesions, Dryness, Lumps, Acne, Pigment changes, Nail changes - Neurological Neurological: denies: General weakness, Focal weakness, Headache, Dizziness, Numbness, Memory problems, Pre-existing deficit, Abnormal gait, Seizures, Incoordination, Slurred speech - Psychiatric Psychiatric: denies: Depression, Anxiety, Suicidal, Delusions, Hallucinations, Homicidal - Endocrine Endocrine: denies: Polyuria, Polydypsia, Polyphagia, Intolerance to cold - Hematologic/Lymphatic Hematologic/Lymphatic: denies: Anemia, Bruising, Petechiae, Blood clots, Lymphadenopathy, Bleeding tendencies Exam - Vital Signs Reviewed Vital Signs: Yes Vital Signs: Vital Signs x48h Temp Pulse Resp BP Pulse Ox 02/24/19 14:11 68 20 123/57 L 98 02/24/19 11:50 36.7 C 72 14 127/49 L 100 02/24/19 11:45 36.7 C 72 14 127/49 L 100 - Physical Exam General Appearance: positive: No acute distress, Alert. negative: Lethargic Eyes Bilateral: positive: Normal inspection, PERRL, No lid inflammation, Conjunctivae nml ENT: positive: ENT inspection nml, Pharynx nml, No signs of dehydration. negative: Purulent nasal drainage, Pharyngeal erythema, Oral lesions Neck: positive: Nml inspection, Thyroid nml, No JVD, Trachea midline. negative: Thyromegaly, Lymphadenopathy (R), Lymphadenopathy (L), Stiff neck, Swelling/bruising, Tracheal deviation Respiratory: positive: Chest non-tender, No respiratory distress, Breath sounds nml. negative: Wheezes, Rales, Rhonchi Cardiovascular: positive: Regular rate & rhythm, No murmur, No gallop. negative: Irregularly irregular, Extrasystoles, Tachycardia, Bradycardia, JVD present, Systolic murmur, Diastolic murmur Peripheral Pulses: positive: 2+ Abdomen: positive: Non-tender, No organomegaly, Nml bowel sounds, No distention. negative: Tenderness, Guarding, Rebound Back: positive: Nml inspection. negative: CVA tenderness (R), CVA tenderness (L) Skin: positive: Color nml, No rash, Warm, Dry. negative: Cyanosis, Diaphoresis, Pallor Extremities: negative: Calf tenderness, Joint swelling, Zulay's sign/cords Neurologic/Psychiatric: positive: Oriented x3, Sensation nml, Mood/affect nml. negative: Weakness, Sensory loss, Facial droop, Slurred/abnml speech, Depressed mood/affect Sepsis Event Note (H) - Evaluation Current Stage of Sepsis: Ruled out Conclusion/Plan - Problem List (1) GI bleed Conclusion/Plan: pt had large maroon and black with bloody stool and HGB is drooping in ER. pt does not take any blood thinner at his home meds. pt has hx of CLL consult with GI surgeon NPO PPI IV screen and match if transfusion needed Qualifiers: GI bleed type/associated pathology: melena Qualified Code(s): K92.1 - Melena (2) Right hip pain Conclusion/Plan: Xray does not clear indicate fracture in pt's right hip. pt has no fall or trauma, but with hx of osteopenia calcium carbonate with vit D3 CT of hip, will followup pain control PT/OT (3) Acute anemia Conclusion/Plan: pt has chronic anemia,with hx of CLL. pt has acute GI bleed H&H monitor pt pt has GI consult for scopy type screen for possible needed for blood transfusion (4) Atrial fibrillation Conclusion/Plan: HR is 66 stable, pt has no blood thinner, consideration of high risk of bleed on tele and vital monitor (5) CKD (chronic kidney disease) stage 3, GFR 30-59 ml/min Conclusion/Plan: stable, continue hydration gently, at the same time pt has severe diastolic heart failure, hydration precaution (6) Chronic lymphocytic leukemia Conclusion/Plan: pt hx of CLL and followup Dr. Maria. (7) UTI (urinary tract infection) Conclusion/Plan: pt has urinary frequency and UA reveals UTI treat with Rocephin followup UA culture (8) Do not intubate, cardiopulmonary resuscitation (CPR)-only code status Conclusion/Plan: pt request DNR - Lab Results Fish Bones: 02/24/19 15:15 02/24/19 13:30 Core Measures - Anticipated LOS I expect patient to be DC'd or transferred within 96 hours.: Yes - DVT/VTE - Prophylaxis VTE/DVT Device ordered at admit?: Yes VTE/DVT Prophylaxis med ordered at admit?: Yes
[2019-02-24] MEDS: cefTRIAXone 1 GM in SODIUM CHLORIDE 0.9% MINIBAG 100 ML IV SCH (17:15)
[2019-02-24] MEDS: SODIUM CHLORIDE FLUSH 0.9% 10 ML SYRINGE IVP SCH (17:15)
[2019-02-24] MEDS ORDERED: ALBUTEROL NEB 2.5 MG/3 ML INH ONE (17:22)
[2019-02-24] MEDS: ACETAMINOPHEN 325 MG TABLET PO PRN (17:22)
[2019-02-24] MEDS ORDERED: ALBUTEROL NEB 2.5 MG/3 ML INH PRN ×2 (17:25)
[2019-02-24] MEDS ORDERED: SODIUM CHLORIDE 0.9% 1,000 ML IV SCH (17:30)
[2019-02-24] MEDS: SODIUM CHLORIDE FLUSH 0.9% 10 ML SYRINGE IVP PRN ×2 (17:40→20:22)
[2019-02-24] MEDS: oxyCODONE 5 MG TABLET PO PRN (18:14)
[2019-02-24] MEDS ORDERED: MIN OIL/DIMETHICON/COCONUT OIL 92 GM TUBE TOP PRN (18:41)
--- NOTE | 2019-02-24 18:50 | CT Report ---
Reason: right hip pain Procedure Date: 02/24/2019 Accession Number: [id number] / [id number] Procedure: CT - PELVIS WO CPT Code: FULL RESULT: EXAM: CT BONY PELVIS WITHOUT CONTRAST EXAM DATE: 02/24/2019 05:55 PM. CLINICAL HISTORY: Right hip pain. COMPARISON: PELVIS W09/21/2018 1:18 PM. TECHNIQUE: Thin-section axial images were acquired of the pelvis without contrast. Post-processing: Coronal and sagittal reformats. Other: None. In accordance with CT protocol optimization, one or more of the following dose reduction techniques were utilized for this exam: automated exposure control, adjustment of mA and/or KV based on patient size, or use of iterative reconstructive technique. FINDINGS: Bones: There is a comminuted, two-column, partially healed fracture of the right acetabulum. Cannulated screws are seen in both femoral necks. The femoral neck fractures have healed. There are healed fractures of the right superior and inferior pubic rami. There are no visible acute fractures. There is moderate generalized osteopenia. Minimally displaced fracture of the greater trochanter has not altered in position since the prior study. Sacroiliac Joints: There is mild bilateral sacroiliac joint osteoarthritis. There is moderate to severe osteoarthritis of the lower lumbar spine. Right Hip: There is joint space narrowing with osteophyte formation consistent with moderate osteoarthritis. Left Hip: There is moderate osteoarthritis on the left as well. Musculature: Normal. No fatty atrophy. Pelvic Cavity: The inferior pole of the spleen is visible on the scan, suggesting splenomegaly. The retroperitoneal lymph nodes appear enlarged, measuring up to 4.3 x 4.0 cm. The findings are suggestive of lymphoma. The prostate gland is also enlarged, and the bladder is distended. The findings suggest bladder neck obstruction. The prostate gland measures approximately 4.4 x 6.6 cm. Other: There is a left-sided inguinal hernia containing bladder. IMPRESSION: 1. Partially healed fracture of the right acetabulum. Right greater trochanter fracture is also unchanged. 2. Moderate low lumbar spine osteoarthritis. Mild to moderate bilateral hip and sacroiliac joint osteoarthritis. 3. No acute fracture. 4. Prostatic enlargement with bladder distention. 5. Inguinal hernia containing bladder. 6. Splenomegaly and lymphadenopathy, suggestive of lymphoma. Clinical correlation is recommended. RADIA
[2019-02-24] MEDS: MORPHINE 2 MG/ML CARPUJECT IVP PRN ×2 (18:59→20:53)
[2019-02-24] MEDS ORDERED: LIDOCAINE 2% URO-JET 5 ML SYRINGE UR ONE (19:56)
[2019-02-24] MEDS: PANTOPRAZOLE 40 MG VIAL IV SCH (20:22)
[2019-02-24] MEDS: NYSTATIN POWDER 15 GM TOP SCH (20:22)
[2019-02-24] MEDS ORDERED: SODIUM CHLORIDE FLUSH 0.9% 10 ML SYRINGE ONE (20:23)
[2019-02-24] MEDS ORDERED: TAMSULOSIN 0.4 MG CAPSULE PO SCH (21:00)
[2019-02-24 21:06] LABS: HGB - HEMOGLOBIN 9.1 g/dL (14.0-18.0)
[2019-02-24] MEDS ORDERED: HYDROmorphone 0.5 MG/0.5 ML SYRINGE IVP STA (22:39)
[2019-02-25] MEDS: SODIUM CHLORIDE FLUSH 0.9% 10 ML SYRINGE IVP PRN ×2 (00:15→08:48)
[2019-02-25] MEDS: SODIUM CHLORIDE FLUSH 0.9% 10 ML SYRINGE IVP SCH ×2 (00:45→08:48)
[2019-02-25] MEDS: oxyCODONE 5 MG TABLET PO PRN ×2 (02:02→10:09)
[2019-02-25] MEDS: ACETAMINOPHEN 325 MG TABLET PO PRN ×2 (02:02→10:08)
[2019-02-25 05:30] LABS: BASOPHILS % (AUTO) 0.3 %; EOSINOPHILS # (AUTO) 0.1 10^3/uL (0.0-0.7); EOSINOPHILS % (AUTO) 0.6 %; HGB - HEMOGLOBIN 8.8 g/dL (14.0-18.0); LYMPHOCYTES # (AUTO) 10.6 10^3/uL (1.5-3.5); LYMPHOCYTES % (AUTO) 80.8 %; MEAN CORPUSCULAR HEMOGLOBIN 32.8 pg (27.0-31.0); MEAN CORPUSCULAR HGB CONC 32.4 g/dL (32.0-36.0); MEAN CORPUSCULAR VOLUME 101.1 fL (80.0-94.0); MONOCYTES # (AUTO) 0.4 10^3/uL (0.0-1.0); MONOCYTES % (AUTO) 3.4 %; NEUTROPHILS % (AUTO) 14.9 %; PLT - PLATELET COUNT 74 10^3/uL (130-450); RED BLOOD COUNT 2.69 10^6/uL (4.70-6.10); RED CELL DISTRIBUTION WIDTH 15.3 % (12.0-15.0); WHITE BLOOD COUNT 13.1 x10^3/uL (4.8-10.8)
[2019-02-25 05:42] LABS: ALBUMIN 3.2 g/dL (3.2-5.5); ALBUMIN/GLOBULIN RATIO 1.2 (1.0-2.2); ALKALINE PHOSPHATASE 80 IU/L (42-121); ALT ALANINE AMINOTRANSFERASE < 10 IU/L (10-60); AST ASPARTATE AMINOTRANSFERASE 14 IU/L (10-42); BILIRUBIN,TOTAL 1.1 mg/dL (0.2-1.0); BUN - BLOOD UREA NITROGEN 53 mg/dL (6-20); CALCIUM 8.5 mg/dL (8.5-10.3); CARBON DIOXIDE - CO2 24 mmol/L (21-32); CHLORIDE 110 mmol/L (101-111); CREATININE 1.5 mg/dL (0.6-1.2); GFR - MDRD 44 (>89); GLUCOSE 94 mg/dL (70-100); MAGNESIUM 2.2 mg/dL (1.7-2.8); SODIUM 143 mmol/L (135-145); TOTAL PROTEIN 5.8 g/dL (6.7-8.2)
[2019-02-25 05:53] LABS: DIFFERENTIAL COMMENT MANUAL=AUTO DIFF; PLATELET ESTIMATE, MANUAL DECREASED (<130,000) (NORMAL); RBC MORPHOLOGY (MULTIPLE) NORMAL APPEARANCE (NORMAL)
[2019-02-25] MEDS: cefTRIAXone 1 GM in SODIUM CHLORIDE 0.9% MINIBAG 100 ML IV SCH (08:48)
[2019-02-25] MEDS: PANTOPRAZOLE 40 MG VIAL IV SCH (08:48)
[2019-02-25] MEDS: NYSTATIN POWDER 15 GM TOP SCH (08:57)
[2019-02-25] MEDS ORDERED: POLYETHYLENE GLYCOL 3350 17 GM PACKET PO SCH (09:00)
[2019-02-25] MEDS ORDERED: SODIUM CHLORIDE 0.9% 1,000 ML IV SCH ×3 (09:00→12:00)
--- NOTE | 2019-02-25 10:35 | CONSULTATION NOTE ---
Referring Provider Consult Date: 02/25/19 Chief Complaint - Chief Complaint Chief Complaint: bloody stool History of Present Illness - History of Present Illness HPI Comment/Other: 88 yo man presented for hip pain, had a bloody BM in the ER. States he has had a few over the past few weeks. Last colonoscopy 2-3 years ago and normal. Last BM last night and normal. CBCs have been stable since admission. Brui ses/bleeds easily in general. History - Past Medical History Cardiovascular: reports: Congestive heart failure, Hypertension, High cho lesterol, Atrial fibrillation Respiratory: reports: COPD, Pneumonia Neuro: reports: TIA Endocrine/Autoimmune: reports: Type 2 diabetes GI: reports: None : reports: Benign prostate hypertrophy, Renal insuffiency HEENT: reports: Chronic vision loss Psych: reports: None Musculoskeletal: reports: Gout, Other (fx humerus/pelvis) Derm: reports: None MRSA Hx?: No - Past Surgical History General: reports: Cholecystectomy, Appendectomy Ortho: reports: Hip replacement HEENT: reports: Cataracts Derm: reports: Skin cancer surgery - Family & Social History Family History: Mother: (patient was adopted), Father: Family History Comment/Other: pt report he is living at [facility]. he had two daughter, one is at [place], one is at [facility] [place]. Social History Notes: pt report he quit cigarette smoking at 1984, he denies alcohol and drug abuse. - Substance History Use: Uses substance without health or social issues: Tobacco (heavy smoker stopped 1984), Alcohol (was a nightly martini drinker/beer) - POLST Patient has POLST: Yes POLST Status: DNR Meds/Allgy - Home Medications Home Medications: Ambulatory Orders Medication Instructions Recorded Confirmed Albuterol Sulfate [Proair Hfa 2 puffs INH Q4H PRN #1 inhaler 01/12/17 02/24/19 Inhaler] Furosemide [Lasix] 40 mg PO DAILY 08/25/18 02/24/19 Simvastatin 20 mg PO QPM 09/08/18 02/24/19 Tamsulosin [Flomax] 0.4 mg PO QPM 12/07/18 02/24/19 guaiFENesin/DEXTROMETHORPHAN 5 ml PO Q4HR PRN 12/07/18 02/24/19 [Robitussin Dm] ALPRAZolam [Alprazolam] 0.25 mg PO QPM PRN 12/22/18 02/24/19 Loperamide [Imodium] 2 mg PO Q4HR PRN MDD nte 16 tabs 12/22/18 02/24/19 Acetaminophen [Tylenol Extra 1,000 mg PO BID 02/24/19 02/24/19 Strength] Acetaminophen [Tylenol Extra 1,000 mg PO DAILY PRN 02/24/19 02/24/19 Strength] Allopurinol 100 mg PO DAILY 02/24/19 02/24/19 Ferrous Gluconate [Iron] 240 mg PO DAILYWM 02/24/19 02/24/19 Potassium Chloride [K-Dur] 20 meq PO 0800 02/24/19 02/24/19 - Allergies Allergies/Adverse Reactions: Allergies Allergy/AdvReac Type Severity Reaction Status Date / Time azithromycin Allergy Intermediate Itching Verified 02/24/19 11:51 trazodone AdvReac Unknown Verified 02/24/19 11:51 Review of Systems - Gastrointestinal Gastrointestinal: reports: Bloody stools Exam - Vital Signs Vital Signs: Vital Signs x48h Temp Pulse Resp BP BP Pulse Ox 02/25/19 08:32 36.6 C 64 18 100/51 L 97 02/25/19 04:21 36.4 C L 63 16 106/52 L 92 - Physical Exam General Appearance: positive: No acute distress Eyes Bilateral: positive: Normal inspection ENT: positive: ENT inspection nml Abdomen: positive: Non-tender Extremities: positive: Non-tender Neurologic/Psychiatric: positive: Oriented x3 Conclusion/Plan - Diagnosis Diagnosis: GI bleed - Plan Plan: Since he had a normal colonoscopy just 2-3 years ago, a new one would only be to intervene. However, he has stopped spontaneously. Therefore, no scope recommended at this time. If these episodes recur, recommend outpatient scope. Pt understands and agrees with the plan. - Lab Results Fish Bones: 02/25/19 05:05 02/25/19 05:05
[2019-02-25 11:12] LABS: HGB - HEMOGLOBIN 9.5 g/dL (14.0-18.0)
[2019-02-25 13:26] VITALS: BP 113/54
--- NOTE | 2019-02-25 13:40 | Discharge Plan ---
Discharge Plan Disposition: 01 Home, Self Care Condition: Poor Prescriptions: oxyCODONE [Roxicodone] 5 mg PO Q4HR PRN #20 tablet PRN Reason: Pain Cephalexin [Keflex] 500 mg PO BID #14 capsule Pantoprazole [Protonix] 40 mg PO DAILY #15 tablet Saccharomyces Boulardii [Florastor] 250 mg PO BID #14 capsule No Smoking: If you smoke, Please STOP! Call for help.
--- NOTE | 2019-02-25 13:44 | Discharge Plan ---
"Discharge Plan for SNF / [facility] - Discharge Plan And Transition Orders Disposition: 03 SNF DC/Xfer Condition: Poor Allergies and Adverse Reactions: Allergies Allergy/AdvReac Type Severity Reaction Status Date / Time azithromycin Allergy Intermediate Itching Verified 02/24/19 11:51 trazodone AdvReac Unknown Verified 02/24/19 11:51 - SNF / [facility]IOR [facility]IV[facility] Transition Orders Admit to (Facility): [facility] Under the care of (Name): health provider of [facility] Discharge Diagnosis: GI bleed, UTI, right hip pain, anemia, afib, CKD, CLL, BPH, pulmonary hypertension, COPD, Medicare Certification Statement: I do not certify that Post Hospital usp care is medically necessary on a continuing basis for any of the conditions for which she/he is receiving care during hospitalization. Notify PCP of admission and forward orders to primary provider for signature. Weight on admission and: Daily Call PCP immediately if weight increases by: 2 kg Other Notification Orders: Call PCP immediately if patient develops dyspnea, chest pain/tightness or edema. House Bowel Program: Yes Additional Bowel Program Orders: If no BM after 2 days, nurse may give M.O.M. 30ml PO PRN and/or ducolax Supp 1 KS and/or HARMAN 250mg P.O., and/or senna 1-2 tabs PO. On day 3 nurse may give repeat above order until residents constipation is resolved. Annual Influenza Vaccine (between Jun 05 and January 02): Yes Two-step PPD per [facility] [phone] or approved exception documents: Yes Treatments & Other Orders: Pt may see health provider when pt is arrival to [facility], followup pt's oncologist as out-pt in 1-2 weeks. please closely monitor if pt has GI bleed again, should Pt's symptoms return or worsen, please present ER, call 911 or call pt's PCP for help. Lab Tests or X-ray Orders: CBC in one week Medication Orders: PLEASE REFER TO THE DISCHARGE MEDICATION LIST. - Medications New Prescriptions: oxyCODONE [Roxicodone] 5 mg PO Q4HR PRN #20 tablet PRN Reason: Pain Cephalexin [Keflex] 500 mg PO BID #14 capsule Pantoprazole [Protonix] 40 mg PO DAILY #15 tablet Saccharomyces Boulardii [Florastor] 250 mg PO BID #14 capsule - Diet Type: Geriatric Texture: Regular Liquids: Thin May have monthly special meal: Yes - Therapies | Activity Therapy: Evaluation | Treat if indicated: PT, OT Rehabilitation Potential: Maximize functional status Activity: Activity as Tolerated Additional Instructions: Pt may see health provider when pt is arrival to [facility], followup pt's oncologist as out-pt in 1-2 weeks. please closely monitor if pt has GI bleed again, should Pt's symptoms return or worsen, please present ER, call 911 or call pt's PCP for help."
--- NOTE | 2019-02-25 14:10 | DISCHARGE SUMMARY ---
Discharge Summary Discharge Date: 02/25/19 Discharging Provider: ODONNELL Condition at Discharge: Poor Discharge Disposition: 03 SNF DC/Xfer Discharge Facility Name: [facility] - DIAGNOSES Admission Diagnoses: (1) GI bleed (2) Right hip pain (3) Acute anemia (4) Atrial fibrillation (5) CKD (chronic kidney disease) stage 3, GFR 30-59 ml/min (6) Chronic lymphocytic leukemia (7) UTI (urinary tract infection) Discharge Diagnoses with Status of Each Condition: (1) GI bleed (2) Right hip pain (3) Acute anemia (4) Atrial fibrillation (5) CKD (chronic kidney disease) stage 3, GFR 30-59 ml/min (6) Chronic lymphocytic leukemia (7) UTI (urinary tract infection) - HPI History of Present Illness: is a 88-year-old gentleman with a extensive PMH significant for afib, hx of TIA, hx of DM, currently on diet controlled, HLD, Gout, BPH, GERD, chronic back pain with lumbar stenosis, recent diagnosis of severe pulmonary HTN, COPD, CLL with chronic leukocytosis, who present ER complain of acute right hip pain with remote fracture. Pt is a quite poor historian. Per palliative care provider, Lisbeth Nguyen's note, she followup pt, patient reported pain actually started last night, no fall or trauma, no twisting but he has been persistent and painful. While pt wasa waiting for x-rays he had a large bowel movement here that was maroon, quite bloody and it was guaiac positive. A repeat H&H was done, pt's HGB is dropping from 10.1-8.9 with no IV fluids given. pt remained hemodynamically stable. on-call surgeon, Dr. Nick was called the case. Xray reveals limited examination with marked osteopenia and atypical positioning. Pt also report urinary frequency but without dysuria or hematuria. UA reveals positive for UTI. Pt denies fever, chill, chest pain, shortness of breath, headache, fall, abdominal pain. pt is admitted for above medical conditions. - HOSPITAL COURSE Hospital Course: (1) GI bleed normal bowel on last night. HGB is stable and go up to 9.5. GI surgeon was consulted, no scopy to pt at this time and followup out-pt. pt is prescribed PPI (2) Right hip pain stable, prescribed pain meds. previous fracture in pelvis. PT/OT evaluated and treated with pt, recommend to [facility], continue followup [facility]'s PT/OT (3) Acute anemia HGB went up to 9.5, stable. (4) Atrial fibrillation stable HR. pt has CLL, no blood thinner at pt's home meds, followup PCP (5) CKD (chronic kidney disease) stage 3, GFR 30-59 ml/min stable (6) Chronic lymphocytic leukemia followup pt's oncologist anneliese, pt is found to have splenomegaly and lymphoma at CT of abdomen. (7) UTI (urinary tract infection) continue treat with antibiotics. I called pt's DPOA Saranya, reported pt's medical conditions:1, normal bowel movement and stable HGB, no more GI bleed, closely monitor pt if GI bleed again, then present ER or call 911; 2, lymphoma at abdomen CT, follow up his oncologist anneliese; 3, no new fracture, previous fracture at pelvis, prescribed pain meds;4, UTI, prescribed antibiotics. pt's DPOA verbally state she understand and agree the D/C plan, and happy to be d/c to [facility]. - ALLERGIES Allergies/Adverse Reactions: Allergies Allergy/AdvReac Type Severity Reaction Status Date / Time azithromycin Allergy Intermediate Itching Verified 02/24/19 11:51 trazodone AdvReac Unknown Verified 02/24/19 11:51 - MEDICATIONS Home Medications: Ambulatory Orders Medication Instructions Recorded Confirmed Albuterol Sulfate [Proair Hfa 2 puffs INH Q4H PRN #1 inhaler 01/12/17 02/24/19 Inhaler] Furosemide [Lasix] 40 mg PO DAILY 08/25/18 02/24/19 Simvastatin 20 mg PO QPM 09/08/18 02/24/19 Tamsulosin [Flomax] 0.4 mg PO QPM 12/07/18 02/24/19 guaiFENesin/DEXTROMETHORPHAN 5 ml PO Q4HR PRN 12/07/18 02/24/19 [Robitussin Dm] ALPRAZolam [Alprazolam] 0.25 mg PO QPM PRN 12/22/18 02/24/19 Loperamide [Imodium] 2 mg PO Q4HR PRN MDD nte 16 tabs 12/22/18 02/24/19 Acetaminophen [Tylenol Extra 1,000 mg PO BID 02/24/19 02/24/19 Strength] Acetaminophen [Tylenol Extra 1,000 mg PO DAILY PRN 02/24/19 02/24/19 Strength] Allopurinol 100 mg PO DAILY 02/24/19 02/24/19 Ferrous Gluconate [Iron] 240 mg PO DAILYWM 02/24/19 02/24/19 Potassium Chloride [K-Dur] 20 meq PO 0800 02/24/19 02/24/19 Cephalexin [Keflex] 500 mg PO BID #14 capsule 02/25/19 Pantoprazole [Protonix] 40 mg PO DAILY #15 tablet 02/25/19 Saccharomyces Boulardii [Florastor] 250 mg PO BID #14 capsule 02/25/19 oxyCODONE [Roxicodone] 5 mg PO Q4HR PRN #20 tablet 02/25/19 - PHYSICAL EXAM AT DISCHARGE General Appearance: positive: No acute distress, Alert. negative: Lethargic Eyes Bilateral: positive: Normal inspection, PERRL, No lid inflammation, Conjunctivae nml ENT: positive: ENT inspection nml, Pharynx nml, No signs of dehydration. negative: Purulent nasal drainage, Pharyngeal erythema, Oral lesions Neck: positive: Nml inspection, Thyroid nml, No JVD, Trachea midline. negative: Thyromegaly, Lymphadenopathy (R), Lymphadenopathy (L), Stiff neck, Swelling/bruising, Tracheal deviation Respiratory: positive: Chest non-tender, No respiratory distress, Breath sounds nml. negative: Wheezes, Rales, Rhonchi Cardiovascular: positive: Regular rate & rhythm, No murmur, No gallop. negative: Irregularly irregular, Extrasystoles, Tachycardia, Bradycardia, JVD present, Systolic murmur, Diastolic murmur Peripheral Pulses: positive: 2+ Abdomen: positive: Non-tender, No organomegaly, Nml bowel sounds, No distention. negative: Tenderness, Guarding, Rebound Back: positive: Nml inspection. negative: CVA tenderness (R), CVA tenderness (L) Skin: positive: Color nml, No rash, Warm, Dry. negative: Cyanosis, Diaphoresis, Pallor Extremities: positive: Non-tender, Full ROM, Nml appearance. negative: Calf tenderness, Joint swelling, Zulay's sign/cords Neurologic/Psychiatric: positive: Oriented x3, Sensation nml, Mood/affect nml. negative: Weakness, Sensory loss, Facial droop, Slurred/abnml speech, Depressed mood/affect - LABS Result Diagrams: 02/25/19 11:02 02/25/19 05:05 - SEPSIS Current Stage of Sepsis: Ruled out - FOLLOW UP Follow Up: Pt may see health provider when pt is arrival to [facility], followup pt's oncologist as out-pt in 1-2 weeks. please closely monitor if pt has GI bleed again, should Pt's symptoms return or worsen, please present ER, call 911 or call pt's PCP for help. - TIME SPENT Time Spent in Discharge (Minutes): 55
[2019-02-25] MEDS ORDERED: MULTIVITAMIN W/MINERALS TABLET PO SCH (17:00)
== END 2019-02-25 15:15 | disposition home or self-care (01) ==
LOC: ED 11:41 → MS2 15:48
PROVIDERS: ADMIT Nurse Practitioner Gerontology; ATTEND Nurse Practitioner Gerontology
DX: S32.401D Unspecified fracture of right acetabulum, subsequent encounter for fracture with routine healing (principal); S72.111D Displaced fracture of greater trochanter of right femur, subsequent encounter for closed fracture with routine healing; K92.1 Melena; N39.0 Urinary tract infection, site not specified; D62 Acute posthemorrhagic anemia; I48.91 Unspecified atrial fibrillation; E11.22 Type 2 diabetes mellitus with diabetic chronic kidney disease; I13.0 Hypertensive heart and chronic kidney disease with heart failure and stage 1 through stage 4 chronic kidney disease, or unspecified chronic kidney disease; N18.3 Chronic kidney disease, stage 3 (moderate); I50.32 Chronic diastolic (congestive) heart failure; C91.10 Chronic lymphocytic leukemia of B-cell type not having achieved remission; E78.5 Hyperlipidemia, unspecified; M10.9 Gout, unspecified; I27.20 Pulmonary hypertension, unspecified; J44.9 Chronic obstructive pulmonary disease, unspecified; M48.061 Spinal stenosis, lumbar region without neurogenic claudication; G89.29 Other chronic pain; M16.0 Bilateral primary osteoarthritis of hip; M47.816 Spondylosis without myelopathy or radiculopathy, lumbar region; M85.88 Other specified disorders of bone density and structure, other site; N40.0 Benign prostatic hyperplasia without lower urinary tract symptoms; Z85.828 Personal history of other malignant neoplasm of skin; Z87.891 Personal history of nicotine dependence; Z86.73 Personal history of transient ischemic attack (TIA), and cerebral infarction without residual deficits; Z66 Do not resuscitate; Z79.899 Other long term (current) drug therapy
CPT/HCPCS: 36415; 51701; 72192; 73502; 80053; 81001; 83690; 83735; 85014; 85018; 85025; 85610; 86850; 86900; 86901; 86920; 87077; 87086; 87181; 96361; 96365; 96366; 96375; 96376; 97161; 97165; 99284; A6250; A9270; G0378; J1170; 81003

== ENCOUNTER 2019-03-01 10:30 | Outpatient (CLI) | payer MEDICARE, OTHER ==
--- NOTE | 2019-03-01 21:17 | CONSULTATION NOTE ---
Palliative Care Follow Up - Referral Referring Provider: Dr. Rangel Time of Visit: 5064-8924 Referral setting: Assisted living Referral Reason: Acute Right hip pain/constipation/f/up GI bleed - Information Sources Records reviewed: Previous records reviewed History/Review of Systems obtained from: Patient, Family (daughter Saranya present for visit) Exam limitations: No limitations (some STM issues) - History of Present Illness Update Brief HPI Update: This is a 88-year-old gentleman who recently was hospitalized as a result of GI bleed. I had sent him in secondary to acute change in his pain status of his right hip, he had had no trauma, no precipitating event, but had spontaneously had increased pain in that right upper femur and hip area. This is persisted through the night despite use of Tylenol, and is acutely uncomfortable this morning. I did speak to the ENGRAVER LETTERING who was in the room with him, was unable to tolerate abduction abduction and difficulty with weightbearing. Reviewed most likely needed x-rays and follow-up, given his frailty and multiple comorbidities the decision was made to send him in on the [employer] bus, and to the ED. Patient's x-ray did not reveal an acute fracture in the right hip, so a CT scan was done in follow-up.This was done though after patient was a admitted to the floor, patient had a maroon stool and his hematocrit had dropped in the ED prior to his discharge. Patient was followed with serial hematocrits, and stabilized out, no further abnormal stools, but he did have a CT scan with findings including noting it was a limited exam with marked osteopenia and atypical positioning. It did show a culminated to call and partially healed fracture of the right acetabulum. Moderate low lumbar spine osteoarthritis. Prostatic enlargement with a bladder distention with an inguinal hernia containing bladder. Of much more interest was a new splenomegaly, with retroperitoneal lymph nodes measuring up to 4.3 x 4.0 cm. This was suggestive of lymphoma patient does have underlying CLL with chronic leukocytosis. On exam today, patient continues with persistent right hip pain, worse with weightbearing and ambulation. Has been using the oxycodone with some relief, 5 mg. He is still scheduled on acetaminophen 1000 mg twice daily. Patient has seen orthopod in the past, agreement with daughter who is present today for visit for follow-up regarding further direction. We will have him look at the scans first, and recommend whether he needs to be seen or not given transportation and travel is complicated for him. Patient does report some intermittent constipation, though he did have a bowel movement today without any signs or symptoms of bleeding. He would like to have something he can take regularly to keep himself soft. He does have fatigue, his abdomen is soft and nontender to palpation. Palliative care also to address advanced care planning, daughter wants to revisit MATTHEW as current one in his room is for "full code" and this is not patient's wishes. Social History - Living Situation Living arrangement: Assisted living (Has lived at [facility] since late December, and his moved there when she was diagnosed with a terminal illness. He transition from SNF after prolonged hospitalization and fall. several weeks ago, his daughter Saranya comes from [place] weekly to assist him with appointments and managing his affairs. He does have some assistance including medication management from [facility] staff) Living Situation: Alone Medications/Allergies - Medications Home Medications: Ambulatory Orders Medication Instructions Recorded Confirmed Albuterol Sulfate [Proair Hfa 2 puffs INH Q4H PRN #1 inhaler 01/12/17 03/01/19 Inhaler] Furosemide [Lasix] 40 mg PO DAILY 08/25/18 03/01/19 Simvastatin 20 mg PO QPM 09/08/18 02/24/19 Tamsulosin [Flomax] 0.4 mg PO QPM 12/07/18 03/01/19 guaiFENesin/DEXTROMETHORPHAN 5 ml PO Q4HR PRN 12/07/18 03/01/19 [Robitussin Dm] ALPRAZolam [Alprazolam] 0.25 mg PO QPM PRN 12/22/18 03/01/19 Loperamide [Imodium] 2 mg PO Q4HR PRN MDD nte 16 tabs 12/22/18 03/01/19 Acetaminophen [Tylenol Extra 1,000 mg PO BID 02/24/19 02/24/19 Strength] Allopurinol 100 mg PO DAILY 02/24/19 03/01/19 Ferrous Gluconate [Iron] 240 mg PO DAILYWM 02/24/19 03/01/19 Potassium Chloride [K-Dur] 20 meq PO 0800 02/24/19 03/01/19 Cephalexin [Keflex] 500 mg PO BID #14 capsule 02/25/19 03/01/19 Pantoprazole [Protonix] 40 mg PO DAILY #15 tablet 02/25/19 03/01/19 Saccharomyces Boulardii [Florastor] 250 mg PO BID #14 capsule MDD 14 02/25/19 03/01/19 days oxyCODONE [Roxicodone] 5 mg PO Q4HR PRN #20 tablet 02/25/19 03/01/19 Polyethylene Glycol 3350 [Miralax] 8.5 mg PO DAILY MDD hold for loose 03/01/19 03/01/19 stools - Allergies Allergies/Adverse Reactions: Allergies Allergy/AdvReac Type Severity Reaction Status Date / Time azithromycin Allergy Intermediate Itching Verified 02/24/19 11:51 trazodone AdvReac Unknown Verified 02/24/19 11:51 Review of Systems - Constitutional Constitutional: reports: Fatigue, Weight gain (144). denies: Fever, Chills - Eyes Eyes: reports: Vision loss - Ears, Nose & Throat Ears, Nose & Throat: reports: Hearing loss, Hearing aids, Dry mouth. denies: Postnasal drainage - Cardiovascular Cardiovascular: reports: Edema, Decr. exercise tolerance - Respiratory Respiratory: reports: SOB with exertion. denies: Cough, Sputum production, Wheezing, SOB at rest - Gastrointestinal Gastrointestinal: reports: Constipation (moved bowels this am but "effort"), Early satiety, Good appetite. denies: Nausea - Genitourinary Genitourinary: reports: Frequency - Musculoskeletal Musculoskeletal: reports: Muscle aches, Stiffness, Muscle weakness, Joint pain (right hip/leg pain) - Integumentary Integumentary: reports: Dryness - Neurological Neurological: reports: General weakness, Memory problems (mild) - Psychiatric Psychiatric: reports: Depression, Anxiety - Hematologic/Lymphatic Hematologic/Lymphatic: reports: Anemia, Recurrent infections - All Other Systems All Other Systems: reports: Reviewed and negative Physical Exam - Vital Signs Temperature: 97.5 C Pulse Rate: 74 Respiratory Rate: 20 O2 Saturation: 95 (ra @ rest) Blood Pressure: 112/62 - Physical Exam General Appearance: positive: Mild distress Eyes Bilateral: positive: Normal inspection ENT: positive: No signs of dehydration Neck: positive: No JVD, Trachea midline Cardiovascular: positive: Regular rate & rhythm Respiratory: positive: No respiratory distress, Diminished in bases, Rales (crackles LLL) Abdomen: positive: Non-tender, Soft, Nml bowel sounds Skin: positive: Pallor, Dryness Extremities: positive: Pedal edema (right greater than left; 2+; pooling over arch of foot; stockings on shoes not fitting.) Neurologic/Psychiatric: positive: Oriented x3, Mood/affect nml, Weakness, Flat affect Palliative Care - POLST Patient has POLST: Yes POLST Status: DNR, Selective Treatment Pain: Pain worsening Tiredness/Fatigue: Moderate (4-6) Drowsiness/Sedation: Mild (1-3) Nausea: None Depression: Moderate (4-6) (Remains quite sad and grieving regarding his , he is quite introverted about this. Does not want to follow-up with further bereavement services, he is talking to his daughter intermittently.) Anxiety: Mild (1-3) Dyspnea: Mild (1-3) Anorexia: None Sleep: Sleeps poorly (pain intereferred with sleep last night; as well as frequent voiding) Constipation: Yes, Opoid induced, Unmanaged Performance Status: Patient has been receiving physical therapy, requested they back off given he is having pain with weightbearing. Will clarify with orthopedist any limitations or further concerns. He has been going down for at least 1-2 meals a day, can manage his own ADLs but has to pace itself related to his fatigue and breathlessness. - Palliative Care Discussion: Daughter and patient regarding goals of care, patient and his records has a POLST form from Dr. Nogueira, that has him as a DNR and limited additional interventions. His POLST from [facility] with Dr. Gonsales had full code. Concern is not reflective of patient's expressed goals. We did spend time reviewing patient's goals which are to focus on quality of life and trying to regain some independence. He is at do not attempt resuscitation/allow natural as well as selective treatment will weigh benefits and burdens of decisions as they come up. He would accept antibiotics and he would actually consider tube feedings depending on the goals. His daughter Saranya Verdugo [phone] is hi s DPOA. Patient is quite frail, now concerned regarding findings of CT scan and implications regarding his underlying CLL diagnosis.Daughter is trying to help him manage, recognizes and is concerned about further decline. Patient did express if he were confused, were not aware of his surroundings, or unable to return back to independent living would not want his suffering or life extended. Results - Lab Results Lab results reviewed: Yes Impression and Recommendations - Palliative Care Impression: This is a frail 88-year-old gentleman with multiple comorbidities, still continues with acute right hip pain, no further signs or symptoms of GI bleeding, recently discharged from [facility]. Palliative care providing support for coordination of care, and advanced care planning. Recommendations/Counseling Done: 1. Acute right hip pain. Patient does report oxycodone does help some, encouraged to take more regularly, but to limit weightbearing as well as PT until able to confirm with orthopedist no further work up needed, did not want an appointment if could give answer after looking at recent scans. Daughter back next Thursday, will see if can accommodate her schedule for appointment. 2. Constipation. This is opioid induced. I will go ahead and start MiraLAX one half capful daily, hold for loose stools.Reviewed with both patient and daughter, prescription left for [facility]. 3. 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 Patient continues with lower extremity edema, right greater than left. Currently on furosemide 40 mg daily. He does have some crackles in his left lower lobe today, but denies any feelings of dyspnea. Patient weight is increasing to 144, but patient has been adding Ensure and trying to gain weight. He reports his appetite has been good at this point in time we will continue to watch, not concerned, edema certainly could still be residual from IV fluids from acute hospitalization. 4. Generalized weakness. Patient continues with physical therapy, he does have him significant fatigue. He is going down to meals, he remains quite frail. Does try to maintain his independence as much as possible. 5. Advanced care planning. Did update and we do POLST to reflect goals of care which include do not attempt resuscitation and selective treatments. Copy provided to [facility], they keep the original, they will post new copy in his room and copy for [place] M provided. Counseling provided regarding goals and decision making the future, Saranya is his decision maker was an opportunity discussed what is most important to him and priorities. 6. CLL. Follow-up with oncology regarding abnormal CT scan, with splenomegaly and new findings of retroperitoneal note lymph node. They will try and fit him in with oncology, his primary oncologist is leaving. Patient reports he is "feeling fine" for such a "sic fellow." 7. GI bleed. Patient has had no further signs or symptoms of GI bleed, patient is not orthostatic. Will coordinate follow-up blood draw with pending laila ointments. Addendum 03/02. Spoke with orthopedist office, they will want to see him. They have made an appointment on Thursday, daughter is aware. Will arrange at that point in time to have labs. Still pending oncology appointment for follow-up. Time Spent: 60 minutes with greater than 50% of this done in counseling regarding pain and symptom management, management of constipation, pending follow-up with oncology, counseling regarding goals of care completion of the POLST and anticipatory guidance provided
== END 2019-03-01 10:31 | disposition home or self-care (01) ==
LOC: PC 10:30
PROVIDERS: ATTEND Nurse Practitioner Adult Health
DX: Z51.5 Encounter for palliative care (principal); M25.551 Pain in right hip; K59.03 Drug induced constipation; T40.2X5A Adverse effect of other opioids, initial encounter; E11.22 Type 2 diabetes mellitus with diabetic chronic kidney disease; I13.0 Hypertensive heart and chronic kidney disease with heart failure and stage 1 through stage 4 chronic kidney disease, or unspecified chronic kidney disease; N18.3 Chronic kidney disease, stage 3 (moderate); I50.42 Chronic combined systolic (congestive) and diastolic (congestive) heart failure; C91.10 Chronic lymphocytic leukemia of B-cell type not having achieved remission; R16.1 Splenomegaly, not elsewhere classified; M85.80 Other specified disorders of bone density and structure, unspecified site; M47.816 Spondylosis without myelopathy or radiculopathy, lumbar region; N40.1 Benign prostatic hyperplasia with lower urinary tract symptoms; R35.0 Frequency of micturition; F32.9 Major depressive disorder, single episode, unspecified; F41.9 Anxiety disorder, unspecified; Z79.899 Other long term (current) drug therapy; Z66 Do not resuscitate; Z63.4 Disappearance and death of family member; Z87.19 Personal history of other diseases of the digestive system

== ENCOUNTER 2019-03-08 08:00 | Outpatient (CLI) | payer MEDICARE, OTHER ==
[2019-03-08 15:04] LABS: BASOPHILS # (AUTO) 0.1 10^3/uL (0.0-0.1); BASOPHILS % (AUTO) 0.6 %; EOSINOPHILS # (AUTO) 0.1 10^3/uL (0.0-0.7); EOSINOPHILS % (AUTO) 0.5 %; HGB - HEMOGLOBIN 9.9 g/dL (14.0-18.0); LYMPHOCYTES % (AUTO) 71.4 %; MEAN CORPUSCULAR HEMOGLOBIN 31.8 pg (27.0-31.0); MEAN CORPUSCULAR HGB CONC 32.2 g/dL (32.0-36.0); MEAN CORPUSCULAR VOLUME 98.6 fL (80.0-94.0); MEAN PLATELET VOLUME 8.2 fL (7.4-11.4); MONOCYTES # (AUTO) 0.5 10^3/uL (0.0-1.0); MONOCYTES % (AUTO) 4.4 %; NEUTROPHILS # (AUTO) 2.6 10^3/uL (1.5-6.6); NEUTROPHILS % (AUTO) 23.1 %; PLT - PLATELET COUNT 95 10^3/uL (130-450); RED BLOOD COUNT 3.12 10^6/uL (4.70-6.10); RED CELL DISTRIBUTION WIDTH 14.8 % (12.0-15.0); WHITE BLOOD COUNT 11.2 x10^3/uL (4.8-10.8)
[2019-03-08 15:13] LABS: ALBUMIN 3.8 g/dL (3.2-5.5); ALBUMIN/GLOBULIN RATIO 1.3 (1.0-2.2); BILIRUBIN,TOTAL 1.2 mg/dL (0.2-1.0); CALCIUM 8.7 mg/dL (8.5-10.3); CREATININE 1.6 mg/dL (0.6-1.2); TOTAL PROTEIN 6.8 g/dL (6.7-8.2)
[2019-03-08 16:50] LABS: PLATELET ESTIMATE, MANUAL DECREASED (<130,000) (NORMAL); PLATELET MORPHOLOGY NORMAL APPEARANCE (NORMAL)
== END 2019-03-08 23:59 | disposition home or self-care (01) ==
LOC: LAB 08:00
PROVIDERS: ATTEND Nurse Practitioner Adult Health
DX: I50.9 Heart failure, unspecified (principal); C91.90 Lymphoid leukemia, unspecified not having achieved remission
CPT/HCPCS: 36415; 80053; 83615; 85025

== ENCOUNTER 2019-03-30 12:56 | Outpatient (CLI) | payer MEDICARE, OTHER ==
--- NOTE | 2019-03-30 16:13 | CONSULTATION NOTE ---
Palliative Care Follow Up - Referral Referring Provider: Dr. 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 Patient was also recently hospitalized in February for a GI bleed, and work-up found new splenomegaly with retroperitoneal lymph nodes measuring up to 4.3 x 4.0 cm. He has seen oncology which states this is consistent with his diagnosis. He also has worsening anemia and has recently received iron transfusion, at this point in time is to wait and see if they are going to do further treatment for his disease. Patient's main complaint is been his right hip pain, orthopedics deferred pain to oncologic symptoms, oncology feels most likely orthopedic symptoms. Patient finally feeling some improvement. Pain is worse with weightbearing, increased activity. It is centralized in his right hip radiating to his right femur. He has been using oxycodone 1-2 tabs a day with good relief. He has been trying to increase his activity, working with physical therapy, and attempting to gain weight and muscle mass. Patient's appetite is been good, he continues with grief symptoms with the recent loss of his 64 years, she was in hospice. His daughter visits weekly, He feels like he is settling in, he has chronic lower extremity edema, and no increase in his shortness of breath or CHF symptoms. Social History - Living Situation Living arrangement: Assisted living Living Situation: Alone Support System: Patient has been a resident at [facility] since late December, he is meeting some people, but still remains somewhat isolated. 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 He worked in the industry for several decades after this, has a great sense of community. His daughter Saranya comes weekly to assist him, and his daughter Amber lives over by [facility] also comes to provide support on intermittent basis. Medications/Allergies - Medications Home Medications: Ambulatory Orders Medication Instructions Recorded Confirmed Albuterol Sulfate [Proair Hfa 2 puffs INH Q4H PRN #1 inhaler 01/12/17 04/01/19 Inhaler] Furosemide [Lasix] 40 mg PO DAILY 08/25/18 04/01/19 Simvastatin 20 mg PO QPM 09/08/18 04/01/19 Tamsulosin [Flomax] 0.4 mg PO QPM 12/07/18 04/01/19 ALPRAZolam [Alprazolam] 0.25 mg PO QPM PRN 12/22/18 04/01/19 Loperamide [Imodium] 2 mg PO Q4HR PRN MDD nte 8 tabs 12/22/18 04/01/19 Acetaminophen [Tylenol Extra 1,000 mg PO BID 02/24/19 04/01/19 Strength] Allopurinol 100 mg PO DAILY 02/24/19 04/01/19 Ferrous Gluconate [Iron] 240 mg PO DAILYWM 02/24/19 04/01/19 Potassium Chloride [K-Dur] 20 meq PO 0800 02/24/19 04/01/19 Pantoprazole [Protonix] 40 mg PO DAILY #15 tablet 02/25/19 04/01/19 oxyCODONE [Roxicodone] 5 mg PO Q4HR PRN #20 tablet 02/25/19 04/01/19 Polyethylene Glycol 3350 [Miralax] 8.5 mg PO DAILY MDD hold for loose 03/01/19 04/01/19 stools - Allergies Allergies/Adverse Reactions: Allergies Allergy/AdvReac Type Severity Reaction Status Date / Time azithromycin Allergy Intermediate Itching Verified 02/24/19 11:51 trazodone AdvReac Unknown Verified 02/24/19 11:51 Review of Systems - Constitutional Constitutional: reports: Fatigue, Weight gain (151.5 goal is 160). denies: Fever, Chills - Eyes Eyes: reports: Vision loss - Ears, Nose & Throat Ears, Nose & Throat: reports: Hearing loss, Hearing aids, Postnasal drainage, Dry mouth - Cardiovascular Cardiovascular: reports: Irregular heart rate, Edema (chronic LE wears MARIELLA hose), Decr. exercise tolerance - Respiratory Respiratory: denies: Cough, SOB at rest - Gastrointestinal Gastrointestinal: reports: Good appetite. denies: Constipation, Rectal bleeding, Nausea, Reflux/heartburn - Genitourinary Genitourinary: reports: Frequency - Musculoskeletal Musculoskeletal: reports: Muscle aches (right hip), Stiffness, Muscle weakness, Assistive devices (uses walker) - Integumentary Integumentary: reports: Dryness - Neurological Neurological: reports: General weakness, Memory problems (mild STM) - Psychiatric Psychiatric: reports: Depression. denies: Anxiety - Hematologic/Lymphatic Hematologic/Lymphatic: reports: Anemia (recent iron infusion) - All Other Systems All Other Systems: reports: Reviewed and negative Physical Exam - Vital Signs Temperature: 97.3 C Pulse Rate: 63 Respiratory Rate: 18 O2 Saturation: 96 (ra @ rest) Blood Pressure: 112/62 - Physical Exam General Appearance: positive: No acute distress, Alert Eyes Bilateral: positive: Normal inspection ENT: positive: No signs of dehydration Neck: positive: No JVD, Trachea midline. negative: Lymphadenopathy (R), Lymphadenopathy (L) Cardiovascular: positive: Irregular Respiratory: positive: No respiratory distress, Diminished in bases. negative: Wheezes, Rales, Rhonchi Abdomen: positive: Non-tender, Soft Skin: positive: Pallor, Dryness, Other (scattered keratosis) Extremities: positive: Pedal edema (1-2+ patient's baseline) Neurologic/Psychiatric: positive: Oriented x3, Mood/affect nml, Other (tearful with talking of /new "normal") Palliative Care - POLST Patient has POLST: Yes POLST Status: DNR, Selective Treatment Pain: Pain improved, Location (right hip and femur; worse with weight bearing/ambulation; relieved with rest/sitting; using apap 1000 mg BID; oxycodone 1-3 tabs daily-not needed any this am; usually pain worse on awakening) Tiredness/Fatigue: Moderate (4-6) Drowsiness/Sedation: Mild (1-3) (takes several naps through day) Nausea: None Depression: Mild (1-3) Anxiety: None Dyspnea: Mild (1-3) (with activity) Anorexia: None Sleep: Sleeps well (up to void) Constipation: Intermittent constipation (uses miralax with relief) Feelings of wellbeing/Perceived Quality of Life: Fair, Acceptable, Improved Performance Status: Patient able to ambulate independently with walker, is in progressive physical therapy program. He is trying to increase his activity during the day with more frequent walks to improve his endurance. He does need assistance with lower extremity dressing secondary to support hose. He is able to toilet and bathe independently. He is going down for meals. He does go out on Tuesdays with his daughter and 2 medical appointments. - Palliative Care Discussion: Patient is with advanced age and somewhat frail, is somewhat pragmatic in his approach to his current situation. He is settling in, much discussion was spent on "new normal" in the grieving process around his . Is appropriately tearful and expressing feelings of loss and grief. Patient feels his current quality of life is acceptable, is hoping to continue to improve both his symptoms as well as improve his strength. Patient does have a POLST in place as DNA R/selective treatments. He does feel well supported by his family, and is hoping to remain stable medically, as it has been a tough year. Results - Lab Results Lab results reviewed: Yes Impression and Recommendations - Palliative Care Impression: This is a frail 88-year-old gentleman with multiple core mobilities, with improved acute right hip pain, no further signs or symptoms of GI bleeding, has had follow-up with oncology. Patient continues to improve, with decreased pain, gaining weight and strength, and settling in at assisted living. Palliative care to continue provide support on intermittent basis, and available for any acute decline. Recommendations/Counseling Done: 1. Right hip pain. Patient continues with right hip pain, has finally improved over the last few days. Is finding oxycodone managing currently, is appropriately using, baseline acetaminophen 1000 mg twice daily is managing most of the pain. He continues to work with PT, will continue to monitor and follow-up with orthopedist if indicated. 2. Constipation. Currently controlled, with decreased use of oxycodone has not needed daily. Agreed to leave on schedule, so staff is offering it. Patient using it appropriately. 3. Combined systolic/diastolic heart failure NYHA III. Patient does continue with lower extremity edema, appears chronic in nature. Currently on furosemide 40 mg daily. Patient without any increased symptoms of dyspnea or crackles today. Weight is continued to increase, but this is purposeful for patient, as he is trying to gain weight. His goal is 160. His appetite is been good. 4. Generalized weakness. Patient does have intermittent fatigue that limits his activity, he is going down to meals, he is trying to increase his walking and hopes to gain some muscle mass. 5. CLL/SLL. He has received iron transfusion, has follow-up with oncology 04/11. Patient is not anxious to go into any kind of acute treatment, is hoping can continue with surveillance. 6. Grief reaction. Patient appropriately expressing feelings of sadness, patient does not present with persistent depression. Counseling provided regarding normalizing feelings of grief and loss. 7. Advanced care planning. Patient does have POLST in place with DNA R/DNI and selective treatments. Patient remains quite pragmatic, is hoping for increased quality and quantity of time, and continues to weigh benefits and burdens as medical decisions come up. Palliative care providing support and anticipatory guidance. Time Spent: 45 minutes was given 50% of this done in counseling regarding grief and loss, pain and symptom management, coordination of care with facility staff. Left message with update to his daughter, plan to see and May, does have follow-up with oncology and PCP next month
== END 2019-03-30 12:57 | disposition home or self-care (01) ==
LOC: PC 12:56
PROVIDERS: ATTEND Nurse Practitioner Adult Health
DX: Z51.5 Encounter for palliative care (principal); M25.551 Pain in right hip; F43.20 Adjustment disorder, unspecified; Z66 Do not resuscitate; K59.00 Constipation, unspecified; R53.1 Weakness; C91.10 Chronic lymphocytic leukemia of B-cell type not having achieved remission; I48.2 Chronic atrial fibrillation; I13.0 Hypertensive heart and chronic kidney disease with heart failure and stage 1 through stage 4 chronic kidney disease, or unspecified chronic kidney disease; E11.22 Type 2 diabetes mellitus with diabetic chronic kidney disease; I50.40 Unspecified combined systolic (congestive) and diastolic (congestive) heart failure; N18.3 Chronic kidney disease, stage 3 (moderate); R16.1 Splenomegaly, not elsewhere classified; Z79.51 Long term (current) use of inhaled steroids; Z79.891 Long term (current) use of opiate analgesic; H91.90 Unspecified hearing loss, unspecified ear; H54.7 Unspecified visual loss; R35.0 Frequency of micturition; F32.9 Major depressive disorder, single episode, unspecified

== ENCOUNTER 2019-04-27 13:10 | Outpatient (CLI) | payer MEDICARE, OTHER ==
--- NOTE | 2019-04-27 17:29 | CONSULTATION NOTE ---
Palliative Care Follow Up - Referral Referring Provider: Dr Rickie Rangel Time of Visit: Thu04/27/2019. 13:10 - 13:45 Referral setting: Assisted living ([facility]) Referral Reason: Lower extremity edema - Information Sources Records reviewed: RN notes reviewed, Previous records reviewed History/Review of Systems obtained from: Patient, Nursing Exam limitations: No limitations - History of Present Illness Update Brief HPI Update: Frail 89-year-old man with multiple comorbidities including CHF with chronic edema and past h/o hip and pelvic fracture. He has been living at [facility] since December and was recently in February. 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 Patient has had h/o of R hip pain, and today patient reports that pain is being taken care of, he takes two Tylenol BID routine with one oxycodone and it "does the trick." Most days he takes oxycodone at least once, mostly twice days, occasionally 3-4 times. He hasn't taken any pain medications today. Patient's main concern today is his chronic LE edema, he has been gaining weight, most recent weight 162.5 lbs on 04/26/19, with increased pedal edema. R lung base is diminished with crackles; L lung sounds clear. He would like to increase diuretics. Today a new PT team is scheduled to assess him and start a program. He is concerned about his arms losing muscle tone, asked if there was any way to reverse that. Counselled to have sufficient protein in his diet, and perform simple resistance exercises with a small weight (book or other small relatively heavy object) throughout day, while watching TV etc. Social History - Living Situation Living arrangement: Assisted living Living Situation: With caregiver(s) Support System: Patient moved into [facility] late December 2018, after February 04. 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 He has a good support system from his two daughters: Saranya lives in [place] and visits weekly; Amber lives in [place], [place] and assists intermittently. Medications/Allergies - Medications Home Medications: Ambulatory Orders Medication Instructions Recorded Confirmed Albuterol Sulfate [Proair Hfa 2 puffs INH Q4H PRN #1 inhaler 01/12/17 04/28/19 Inhaler] Simvastatin 20 mg PO QPM 09/08/18 04/28/19 Tamsulosin [Flomax] 0.4 mg PO QPM 12/07/18 04/28/19 ALPRAZolam [Alprazolam] 0.25 mg PO QPM PRN 12/22/18 04/28/19 Loperamide [Imodium] 2 mg PO Q4HR PRN MDD nte 8 tabs 12/22/18 04/28/19 Acetaminophen [Tylenol Extra 1,000 mg PO BID 02/24/19 04/28/19 Strength] Allopurinol 100 mg PO DAILY 02/24/19 04/28/19 Ferrous Gluconate [Iron] 240 mg PO DAILYWM 02/24/19 04/28/19 Potassium Chloride [K-Dur] 20 meq PO 0800 02/24/19 04/28/19 Pantoprazole [Protonix] 40 mg PO DAILY #15 tablet 02/25/19 04/28/19 oxyCODONE [Roxicodone] 5 mg PO Q4HR PRN #20 tablet 02/25/19 04/28/19 Polyethylene Glycol 3350 [Miralax] 17 mg PO DAILY MDD hold for loose 03/01/19 04/28/19 stools Acetaminophen 1,000 mg PO PRN MDD NTE 3000mg in 04/28/19 24 hours Robitussin [place] [id number] 5 ml PO Q4H PRN 04/28/19 04/28/19 Torsemide 20 mg PO DAILY 04/28/19 04/28/19 Torsemide 30 mg PO DAILY MDD For 3 days 04/28/19 04/28/19 only. Hold the 20mg - Allergies Allergies/Adverse Reactions: Allergies Allergy/AdvReac Type Severity Reaction Status Date / Time azithromycin Allergy Intermediate Itching Verified 04/11/19 14:30 trazodone AdvReac Unknown Verified 04/11/19 14:30 Review of Systems - Constitutional Constitutional: reports: Fatigue, Weight gain (162.5 lbs on 04/26. Goal is 160 lbs.). denies: Fever, Chills - Eyes Eyes: reports: Vision loss - Ears, Nose & Throat Ears, Nose & Throat: reports: Hearing loss, Hearing aids - Cardiovascular Cardiovascular: reports: Irregular heart rate, Edema (Chronic, wearing new pair compression stockings up to thighs), Decr. exercise tolerance - Respiratory Respiratory: reports: SOB with exertion. denies: Cough, SOB at rest - Gastrointestinal Gastrointestinal: reports: Good appetite. denies: Constipation, Diarrhea, Change in bowel habits - Genitourinary Genitourinary: denies: Dysuria, Incontinence - Musculoskeletal Musculoskeletal: reports: Muscle weakness (concerned about upper extremity deconditioning), Assistive devices (walker) - Integumentary Integumentary: reports: Pigment changes (backs of hands) - Neurological Neurological: reports: General weakness, Memory problems (mild short-term memory deficits) - Psychiatric Psychiatric: reports: Depression (tearful; still adjusting to loss of ) - Hematologic/Lymphatic Hematologic/Lymphatic: reports: Anemia (recent iron infusion) - All Other Systems All Other Systems: reports: Reviewed and negative Physical Exam - Vital Signs Temperature: 96.4 F Pulse Rate: 75 O2 Saturation: 94 (room air) Blood Pressure: 130/71 (wrist cuff) - Physical Exam General Appearance: positive: No acute distress, Alert Eyes Bilateral: positive: Normal inspection ENT: positive: No signs of dehydration Neck: positive: Trachea midline Cardiovascular: positive: Irregular Respiratory: positive: Chest non-tender, No respiratory distress, Diminished in bases (in R base only, L lung clear), Rales (mild, in R base). negative: Wheezes, Rhonchi Abdomen: positive: Non-tender, Soft Skin: positive: Pallor, Dryness Neurologic/Psychiatric: positive: Oriented x3, Mood/affect nml, Other (gently tearful when speaking of loss of his two months ago) Palliative Care - POLST Patient has POLST: Yes POLST Status: DNR, Selective Treatment Pain: Comment (Current pain regimen "does the trick") Tiredness/Fatigue: Moderate (4-6) Drowsiness/Sedation: Mild (1-3) Depression: Mild (1-3) Anxiety: None Dyspnea: Mild (1-3) (with exertion) Anorexia: None Sleep: Sleeps well Constipation: Managed Performance Status: ambulatory with walker starting new Physical Therapy program performs own ADLs, toilets and baths independently eats in dining room - Palliative Care Discussion: Patient states that he is well treated at [facility], feels that he is settling in and has nothing negative to report, he finds the staff attentive and consistently trying to help him. Speaking of his brings tears to his eyes. He is grateful for his daughters in his life and his daughter Saranya's weekly visits are an immense source of support for him, as well as having daughter Amber's visits when she comes from [place]. Impression and Recommendations - Palliative Care Impression: Frail 89-year-old man with multiple comorbidities including CHF with chronic edema that is increasing and h/o hip and pelvic fracture. He has been living at [facility] since December and was recently in February, is trying to get used to the "new normal." Recommendations/Counseling Done: Right hip pain: Improved on current regimen. He says he takes 2 Tylenol with one oxycodone and it "does the trick." He often uses oxycodone at least twice daily, with a few days of no opioid use, and some days of 3 doses, including one day he used it 4 times. In general he thinks it's being controlled. The new PT group at [facility] arrived today to admit him, so he will be restarting sessions soon. Constipation: Controlled with routine Miralax 17g dailly. Combined systolic/diastolic heart failure NYHA III. His chronic LE edema has increased, he is up to 162.5 lbs, whilst his goal is 160 lbs. His PCP recently switched him from furosemide to torsemide 20mg daily. He is scheduled for a blood draw on 05/03 to check kidney function. Discussed his symptoms, including SOA and his R lung with diminished air movement and mild crackles. Patient would like a trial increase of torsemide, we agreed to a small dose increase of torsemide to 30mg QD for 3 days and will monitor edema, SOA. Patient has difficulty finding a way to elevate his legs throughout the day, he doesn't have a recliner, and lying on the bed is difficult. We discussed having daughter Saranya provide a low footstool. Provider spoke to Saranya afterward on the phone. He's resisted elevating LEs in the past, but she will definitely bring one if he is agreeable to the idea. Grief reaction: Patient does become tearful when speaking of the recent loss of his . His grief reaction appears appropriate. Provided empathetic presence and listening, and normalizing of his feelings of sadness and loss. Advance care planning: POLST is DNR and selective treatment. Palliative care will continue to provide support and monitoring. Time Spent: 35 minutes were spent with more than 50% of the time spent in counseling, education, and coordination of care with facility staff and with daughter.
== END 2019-04-27 13:11 | disposition home or self-care (01) ==
LOC: PC 13:10
PROVIDERS: ATTEND Nurse Practitioner
DX: Z51.5 Encounter for palliative care (principal); I13.0 Hypertensive heart and chronic kidney disease with heart failure and stage 1 through stage 4 chronic kidney disease, or unspecified chronic kidney disease; I50.42 Chronic combined systolic (congestive) and diastolic (congestive) heart failure; I50.810 Right heart failure, unspecified; E11.22 Type 2 diabetes mellitus with diabetic chronic kidney disease; N18.3 Chronic kidney disease, stage 3 (moderate); I27.20 Pulmonary hypertension, unspecified; I48.2 Chronic atrial fibrillation; C91.10 Chronic lymphocytic leukemia of B-cell type not having achieved remission; M62.81 Muscle weakness (generalized); K59.00 Constipation, unspecified; M25.551 Pain in right hip; F43.20 Adjustment disorder, unspecified; D64.9 Anemia, unspecified; Z79.891 Long term (current) use of opiate analgesic; Z79.899 Other long term (current) drug therapy; Z63.4 Disappearance and death of family member; Z66 Do not resuscitate

== ENCOUNTER 2019-05-03 13:02 | Outpatient (CLI) | payer MEDICARE, OTHER ==
[2019-05-03 13:28] LABS: BASOPHILS % (AUTO) 0.2 %; EOSINOPHILS # (AUTO) 0.1 10^3/uL (0.0-0.7); EOSINOPHILS % (AUTO) 0.4 %; HGB - HEMOGLOBIN 10.6 g/dL (14.0-18.0); LYMPHOCYTES # (AUTO) 10.1 10^3/uL (1.5-3.5); LYMPHOCYTES % (AUTO) 76.6 %; MEAN CORPUSCULAR HEMOGLOBIN 32.3 pg (27.0-31.0); MEAN CORPUSCULAR HGB CONC 31.5 g/dL (32.0-36.0); MEAN CORPUSCULAR VOLUME 102.4 fL (80.0-94.0); MEAN PLATELET VOLUME 10.9 fL (7.4-11.4); MONOCYTES # (AUTO) 0.9 10^3/uL (0.0-1.0); MONOCYTES % (AUTO) 6.5 %; NEUTROPHILS # (AUTO) 2.1 10^3/uL (1.5-6.6); PLT - PLATELET COUNT 71 10^3/uL (130-450); RED BLOOD COUNT 3.28 10^6/uL (4.70-6.10); RED CELL DISTRIBUTION WIDTH 17.8 % (12.0-15.0); WHITE BLOOD COUNT 13.2 x10^3/uL (4.8-10.8)
[2019-05-03 13:38] LABS: CALCIUM 8.9 mg/dL (8.5-10.3); CREATININE 1.7 mg/dL (0.6-1.2)
[2019-05-03 13:46] LABS: HB2 TOTAL 11.2 g/dL; HEMOGLOBIN A1C 0.52 g/dL; HEMOGLOBIN A1C % 6.4 % (4.6-6.2)
[2019-05-03 14:09] LABS: THYROID STIMULATING HORMONE 2.3 uIU/mL (0.34-5.60)
[2019-05-03 14:10] LABS: FREE T4 (FREE THYROXINE) 1.29 ng/dL (0.58-1.64)
[2019-05-03 14:12] LABS: PLATELET ESTIMATE, MANUAL DECREASED (<130,000) (NORMAL); PLATELET MORPHOLOGY NORMAL APPEARANCE (NORMAL)
== END 2019-05-03 13:03 | disposition home or self-care (01) ==
LOC: LAB 13:02
PROVIDERS: ATTEND Family Medicine
DX: I12.9 Hypertensive chronic kidney disease with stage 1 through stage 4 chronic kidney disease, or unspecified chronic kidney disease (principal); N18.3 Chronic kidney disease, stage 3 (moderate); E11.29 Type 2 diabetes mellitus with other diabetic kidney complication; I50.9 Heart failure, unspecified; R60.9 Edema, unspecified; R63.5 Abnormal weight gain; I95.2 Hypotension due to drugs
CPT/HCPCS: 36415; 80048; 83036; 83880; 84439; 84443; 84481; 85025

== ENCOUNTER 2019-05-05 | Outpatient (CLI) | payer MEDICARE, OTHER | END 2019-05-05 14:35 | disposition critical access hospital (66) | CPT/HCPCS: A0425; A0427 ==

== ENCOUNTER 2019-05-05 14:49 | Emergency (ER) | payer MEDICARE, OTHER ==
--- NOTE | 2019-05-05 15:01 | ED Physician Documentation ---
History of Present Illness - Stated complaint Stated Complaint: FALL - History obtained from History obtained from: Patient (This is an 89-year-old gentleman with history of CLL with resultant anemia and thrombocytopenia.. He came to the emergency department by EMS today because just prior to arrival he noticed in the shower that there was a large painless bruise that spanned from the left flank to the left lower abdomen. There was no trauma. It is not painful.) Review of Systems Ten Systems: 10 systems reviewed and negative Constitutional: denies: Fever, Chills Eyes: reports: Reviewed and negative Respiratory: denies: Dyspnea, Cough GI: denies: Abdominal Pain, Nausea, Vomiting, Constipation, Diarrhea, Hematemesis, Bloody / black stool PD PAST MEDICAL HISTORY - Past Medical History Cardiovascular: Congestive heart failure, Hypertension, High cholesterol, Atrial fibrillation Respiratory: COPD, Pneumonia Neuro: TIA Endocrine/Autoimmune: Type 2 diabetes GI: None : Benign prostate hypertrophy, Renal insuffiency HEENT: Chronic vision loss Psych: None Musculoskeletal: Gout, Other (fx humerus/pelvis) Derm: None - Past Surgical History Past Surgical History: Yes General: Cholecystectomy, Appendectomy Ortho: Hip replacement HEENT: Cataracts Derm: Skin cancer surgery - Present Medications Home Medications: Ambulatory Orders Medication Instructions Recorded Confirmed RX: Albuterol Sulfate [Proair Hfa 2 puffs INH Q4H PRN #1 inhaler 01/12/1704/05 Inhaler] RX: Simvastatin 20 mg PO QPM 09/08/18 04/28/19 RX: Tamsulosin [Flomax] 0.4 mg PO QPM 12/07/18 04/28/19 RX: ALPRAZolam [Alprazolam] 0.25 mg PO QPM PRN 12/22/18 04/28/19 RX: Loperamide [Imodium] 2 mg PO Q4HR PRN MDD nte 8 tabs 12/22/18 04/28/19 RX: Acetaminophen [Tylenol Extra 1,000 mg PO BID 02/24/19 04/28/19 Strength] RX: Allopurinol 100 mg PO DAILY 02/24/19 04/28/19 RX: Ferrous Gluconate [Iron] 240 mg PO DAILYWM 02/24/19 04/28/19 RX: Potassium Chloride [K-Dur] 20 meq PO 0800 02/24/19 04/28/19 Pantoprazole [Protonix] 40 mg PO DAILY #15 tablet 02/25/19 04/28/19 RX: oxyCODONE [Roxicodone] 5 mg PO Q4HR PRN #20 tablet 02/25/19 04/28/19 Polyethylene Glycol 3350 [Miralax] 17 mg PO DAILY MDD hold for loose 03/01/19 04/28/19 stools RX: Acetaminophen 1,000 mg PO PRN MDD NTE 3000mg in 04/28/19 24 hours RX: Torsemide 20 mg PO DAILY 04/28/19 04/28/19 RX: Torsemide 30 mg PO DAILY MDD For 3 days 04/28/19 04/28/19 only. Hold the 20mg Robitussin Togo [id number] 5 ml PO Q4H PRN 04/28/19 04/28/19 - Allergies Allergies/Adverse Reactions: Allergies Allergy/AdvReac Type Severity Reaction Status Date / Time azithromycin Allergy Intermediate Itching Verified 05/05/19 14:55 trazodone AdvReac Unknown Verified 05/05/19 14:55 - Social History Does the pt smoke?: No Smoking Status: Former smoker Does the pt drink ETOH?: No Does the pt have substance abuse?: No - Family History Family history: reports: Non contributory - Immunizations Immunizations are current?: Yes Immunizations: TDAP >10years/unknown - POLST Patient has POLST: Yes POLST Status: DNR PD ED PE NORMAL - Vitals Vital signs reviewed: Yes - General General: Alert and oriented X 3, No acute distress - HEENT HEENT: Other (Some scabbed lesions on the left side of the nose and face that is most consistent with skin cancer, he will follow-up with a assisted living care manager for this.) - Neck Neck: Supple, no meningeal sign, No bony TTP - Cardiac Cardiac: RRR, No murmur - Respiratory Respiratory: No respiratory distress, Clear bilaterally - Abdomen Abdomen: Soft, Non tender, Other (Old cholecystectomy, scar, open. There is an extensive ecchymosis running from the left flank down into the left lower quadrant and pelvic area.) - Back Back: No CVA TTP, No spinal TTP - Derm Derm: Normal color, Warm and dry - Extremities Extremities: Other (Moderate bilateral pitting pedal edema, wearing MARIELLA hose) - Neuro Neuro: Alert and oriented X 3, Normal speech Eye Opening: Spontaneous Motor: Obeys Commands Verbal: Oriented GCS Score: 15 - Psych Psych: Normal mood, Normal affect Results - Vitals Vitals: Vital Signs - 24 hr 05/05/19 05/05/19 14:55 16:30 Temperature 36.6 C Heart Rate 79 72 Respiratory 17 20 Rate Blood Pressure 123/59 L 117/65 O2 Saturation 96 97 Oxygen O2 Source [] walking 88-91% O2 Source Room air - Labs Labs: Laboratory Tests 05/05/19 05/05/19 05/05/19 15:11 15:11 15:11 WBC 10.6 RBC 3.17 L Hgb 10.3 L Hct 32.4 L MCV 102.2 H MCH 32.5 H MCHC 31.8 L RDW 17.9 H Plt Count 68 L MPV 10.9 Neut # (Auto) Not Reportable Lymph # (Auto) Not Reportable Mason # (Auto) Not Reportable Eos # (Auto) Not Reportable Baso # (Auto) Not Reportable Absolute Nucleated RBC Not Reportable Total Counted 100 Band Neuts % (Manual) 0 Reactive Lymphs % (Man) 3 Abnorm Lymph % (Manual) 0 Nucleated RBC % Not Reportable Neutrophils # (Manual) 1.4 L Lymphocytes # (Manual) 8.7 H Monocytes # (Manual) 0.3 Eosinophils # (Manual) 0.2 Basophils # (Manual) 0.0 Differential Comment MANUAL DIFFERENTIAL Platelet Estimate DECREASED (<130,000) Platelet Morphology NORMAL APPEARANCE RBC Morph Micro Appear 1+ MACROCYTOSIS PT 16.2 H INR 1.4 H Sodium 141 Potassium 4.5 Chloride 108 Carbon Dioxide 20 L Anion Gap 13.0 BUN 52 H Creatinine 1.8 H Estimated GFR (MDRD) 36 L Glucose 129 H Calcium 8.6 Total Bilirubin 2.2 H AST 14 ALT < 10 L Alkaline Phosphatase 84 Total Protein 6.4 L Albumin 3.7 Globulin 2.7 Albumin/Globulin Ratio 1.4 Lipase 28 Blood Type Antibody Screen 05/05/19 15:11 WBC RBC Hgb Hct MCV MCH MCHC RDW Plt Count MPV Neut # (Auto) Lymph # (Auto) Mason # (Auto) Eos # (Auto) Baso # (Auto) Absolute Nucleated RBC Total Counted Band Neuts % (Manual) Reactive Lymphs % (Man) Abnorm Lymph % (Manual) Nucleated RBC % Neutrophils # (Manual) Lymphocytes # (Manual) Monocytes # (Manual) Eosinophils # (Manual) Basophils # (Manual) Differential Comment Platelet Estimate Platelet Morphology RBC Morph Micro Appear PT INR Sodium Potassium Chloride Carbon Dioxide Anion Gap BUN Creatinine Estimated GFR (MDRD) Glucose Calcium Total Bilirubin AST ALT Alkaline Phosphatase Total Protein Albumin Globulin Albumin/Globulin Ratio Lipase Blood Type AB NEGATIVE Antibody Screen NEGATIVE - Rads (name of study) CT A/P Radiology: EMP read contemporaneously (See verbose results, briefly he has evidence of fluid overload with mesenteric edema, ascites, splenic nodules that could be neoplastic, hepatic vein fistula, pleural effusion, small left inguinal hernia, and healing fractures of the pelvis. There is no distinct hematoma or source of bleeding in the abdomen or abdominal wall.) PD MEDICAL DECISION MAKING - ED course ED course: This is an 89-year-old gentleman with CLL, thrombocytopenia, recent pelvic fractures, recent GI bleed, type 2 diabetes who presents with abdominal wall bruising which is new and atraumatic concerning for internal bleeding. His hemoglobin is higher than it has been recently and the CT shows no source of this, there is no active bleed or hematoma. That said the splenic lesion and other findings were discussed with the patient, he wants to pursue a conservative treatment plan without plans for biopsy or specific tissue diagnosis at this time because he is not interested in further treatment for potential neoplasm. He is fluid overloaded, and I recommended extra dose of Lasix but he wants to wait until the morning to do that which is not unreasonable. Departure - Departure Disposition: 01 Home, Self Care Clinical Impression: T2DM (type 2 diabetes mellitus), Congestive heart failure, Chronic lymphocytic leukemia, Pleural effusion, Splenic lesion, Superficial bruising of abdominal wall Condition: Good Record reviewed to determine appropriate education?: Yes Instructions: ED CHF General Comments: As discussed, I recommend an extra dose of Lasix tomorrow morning for apparent fluid overload. You do have 2 lesions in your spleen that could be cancerous, you can discuss with your doctor whether you want further work-up on this or whether you want to continue a conservative course without specific diagnosis. Return for new or worsening symptoms anytime. Discharge Date/Time: 05/05/19 18:28
[2019-05-05] MEDS ORDERED: IOVERSOL 320 100 ML VIAL IVP ONE ×2 (15:18→16:27)
[2019-05-05 15:23] LABS: BASOPHILS % (AUTO) 0.2 %; EOSINOPHILS % (AUTO) 0.5 %; HGB - HEMOGLOBIN 10.3 g/dL (14.0-18.0); LYMPHOCYTES % (AUTO) 70.9 %; MEAN CORPUSCULAR HEMOGLOBIN 32.5 pg (27.0-31.0); MEAN CORPUSCULAR HGB CONC 31.8 g/dL (32.0-36.0); MEAN CORPUSCULAR VOLUME 102.2 fL (80.0-94.0); MEAN PLATELET VOLUME 10.9 fL (7.4-11.4); MONOCYTES % (AUTO) 8.9 %; NEUTROPHILS % (AUTO) 19.2 %; PLT - PLATELET COUNT 68 10^3/uL (130-450); RED BLOOD COUNT 3.17 10^6/uL (4.70-6.10); RED CELL DISTRIBUTION WIDTH 17.9 % (12.0-15.0); WHITE BLOOD COUNT 10.6 x10^3/uL (4.8-10.8)
[2019-05-05 15:28] LABS: INR 1.4 (0.8-1.2); PT - PROTHROMBIN TIME 16.2 secs (9.9-12.6)
[2019-05-05 15:32] LABS: ABNORMAL LYMPHS % (MANUAL) 0 %; BAND NEUTROPHILS % (MANUAL) 0 %
[2019-05-05 15:34] LABS: ALBUMIN 3.7 g/dL (3.2-5.5); ALBUMIN/GLOBULIN RATIO 1.4 (1.0-2.2); ALKALINE PHOSPHATASE 84 IU/L (42-121); ALT ALANINE AMINOTRANSFERASE < 10 IU/L (10-60); AST ASPARTATE AMINOTRANSFERASE 14 IU/L (10-42); BILIRUBIN,TOTAL 2.2 mg/dL (0.2-1.0); BUN - BLOOD UREA NITROGEN 52 mg/dL (6-20); CALCIUM 8.6 mg/dL (8.5-10.3); CARBON DIOXIDE - CO2 20 mmol/L (21-32); CHLORIDE 108 mmol/L (101-111); CREATININE 1.8 mg/dL (0.6-1.2); GFR - MDRD 36 (>89); GLUCOSE 129 mg/dL (70-100); LIPASE 28 U/L (22-51); SODIUM 141 mmol/L (135-145); TOTAL PROTEIN 6.4 g/dL (6.7-8.2)
[2019-05-05 15:46] LABS: EOSINOPHILS # (MANUAL) 0.2 10^3/uL (0-0.7); LYMPHOCYTES # (MANUAL) 8.7 10^3/uL (1.5-3.5); LYMPHOCYTES % (MANUAL) 79 %; MONOCYTES # (MANUAL) 0.3 10^3/uL (0.0-1.0)
[2019-05-05 15:47] LABS: DIFFERENTIAL COMMENT MANUAL DIFFERENTIAL; PLATELET ESTIMATE, MANUAL DECREASED (<130,000) (NORMAL); PLATELET MORPHOLOGY NORMAL APPEARANCE (NORMAL)
[2019-05-05 16:31] VITALS: BP 117/65
--- NOTE | 2019-05-05 16:46 | CT Report ---
Reason: IV only, abd wall bleeding Procedure Date: 05/05/2019 Accession Number: [id number] / [id number] Procedure: CT - Abdomen/Pelvis W CPT Code: FULL RESULT: EXAM: CT ABDOMEN AND PELVIS EXAM DATE: 05/05/2019 04:20 PM. CLINICAL HISTORY: IV only, abd wall bleeding. COMPARISONS: PELVIS W/O 02/24/2019 5:41 PM ABD/PEL 03/26/2008 12:05 PM. TECHNIQUE: Routine helical CT imaging was performed through the abdomen and pelvis. IV contrast: OPTI 320 80ML. Enteric contrast: No. Reconstructions: Coronal and sagittal. In accordance with CT protocol optimization, one or more of the following dose reduction techniques were utilized for this exam: automated exposure control, adjustment of mA and/or KV based on patient size, or use of iterative reconstructive technique. FINDINGS: Lung Bases: Large right pleural effusion, similar to 2008. Moderate volume loss and consolidation consistent with atelectasis in the base of the right lower lobe. Minimal atelectasis in the right middle lobe. Liver: Normal in size and contour. Enhancement is slightly heterogeneous throughout. 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 No mass is identified. Gallbladder/Bile Ducts: Gallbladder is surgically absent. No ductal dilatation. Spleen: Mild splenomegaly, new since 2007 although probably decreased from the CT pelvis 02/24/2019. Enhancement is mildly heterogeneous. There are scattered hypodense foci/nodules within the spleen with the largest posterior inferiorly measuring 3.6 cm and medially in the mid spleen measuring 2.0 cm, greater in density than expected for cysts. Pancreas: Normal. Adrenal Glands: Normal. Kidneys: Normal. No masses or hydronephrosis. Peritoneal Cavity/Bowel: Unopacified stomach and small bowel are nondistended. The appendix is normal. There is a small amount of formed stool in the colon. There is mild descending and moderate sigmoid colon diverticulosis. There is no focal pericolonic fat stranding. There is minimal abdominal ascites. There is ill-defined soft tissue density in the retroperitoneum in the lower abdomen and throughout the pelvis which may reflect edema given that there is also moderate generalized mesenteric edema. No distinct enlarged lymph nodes are identified. No ophelia hematoma is identified. Pelvic Organs: Moderate prostatomegaly. Normal sized bladder. The left anterior corner of the urinary bladder slightly extends into the left inguinal canal, as before. Seminal vesicles are unremarkable. Vasculature: Moderate aortoiliac atherosclerotic calcification without abnormal dilation. Mesenteric, splenic, and portal veins are unremarkable except for the apparent small right intrahepatic portosystemic shunt noted above. Bones: Minimal diffuse idiopathic skeletal hyperostosis in the lower thoracic spine. Mild to moderate multilevel lumbar degenerative disk disease. Bilateral femoral neck screws, as before. Right acetabular, greater trochanteric right femur, and right ischiopubic ramus fractures now healed with mild to moderate posttraumatic deformity. Other: Moderate to marked generalized body wall edema greatest at the right flank. No well-defined hematoma is identified. Small left inguinal hernia containing fat and the left anterior corner of the bladder. IMPRESSION: 1. Moderate to marked body wall edema greatest at the right flank without distinct hematoma. 2. There is also extensive mesenteric edema. Increased soft tissue density throughout the lower retroperitoneum and pelvis may represent edema, as no distinct lymphadenopathy is identified. 3. Minimal ascites. 4. Mild splenomegaly. Hypodense splenic nodules including 3.6 cm and 2.0 cm nodules which do not appear to represent simple cysts which could be neoplastic. 5. 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 6. Large right pleural effusion could be related to volume overload or CHF, as before. Moderate right lower lobe atelectasis. 7. Moderate prostatomegaly. 8. Small left inguinal hernia containing fat and the corner of the urinary bladder, as before. 9. Bilateral femoral neck screws. Healed fractures of the right acetabulum, right ischiopubic ramus, and right femoral greater trochanter. RADIA
== END 2019-05-05 18:28 | disposition home or self-care (01) ==
LOC: ED 14:49
DX: I11.0 Hypertensive heart disease with heart failure (principal); I50.9 Heart failure, unspecified; R23.3 Spontaneous ecchymoses; E11.9 Type 2 diabetes mellitus without complications; C91.10 Chronic lymphocytic leukemia of B-cell type not having achieved remission; D64.9 Anemia, unspecified; D69.6 Thrombocytopenia, unspecified; D73.89 Other diseases of spleen; R16.1 Splenomegaly, not elsewhere classified; J90 Pleural effusion, not elsewhere classified; K40.90 Unilateral inguinal hernia, without obstruction or gangrene, not specified as recurrent; Z85.828 Personal history of other malignant neoplasm of skin; Z87.891 Personal history of nicotine dependence; Z66 Do not resuscitate
CPT/HCPCS: 36415; 74177; 80053; 83690; 85025; 85610; 86850; 86900; 86901; 99284; Q9967

== ENCOUNTER 2019-05-11 11:10 | Outpatient (CLI) | payer MEDICARE, OTHER ==
--- NOTE | 2019-05-11 15:39 | CONSULTATION NOTE ---
Palliative Care Follow Up - Referral Referring Provider: Dr Rickie Rangel Time of Visit: Thu05/11/2019. 11:10 - 11:30 Referral setting: Assisted living ([facility]) Referral Reason: Bilateral lower extremity edema - Information Sources Records reviewed: RN notes reviewed History/Review of Systems obtained from: Patient, Nursing Exam limitations: No limitations - History of Present Illness Update Brief HPI Update: Frail 89-year-old man with multiple comorbidities including CHF with chronic edema and past h/o hip and pelvic fracture. He has been living at [facility] since December and was recently in February. 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 On 05/05/19 patient went to ED for an abdominal wall bruising which is new and atraumatic, concerning for internal bleeding. His Hemoglobin is more elevated than it had been recently and CT shows no source of this, there was no active bleed or hematoma. ED discussed splenic lesion and other findings with the patient. He chose to pursue a conservative treatment plan and declined biopsy o r tissue diagnosis at this time, since he is not interested in further treatment for potential neoplasm. His weight has continued to increase, on 05/08 it was 162.5 lbs. On 05/09 Dr Ordonez ordered an increase of torsemide to 40mg daily x 7 days. Potassium is to remain at 20meq/day. This new dosing started yesterday, 05/10. Weights have been 164.4 lbs and 164.8 lbs on 05/10 and 05/11 respectively. Lower extremity pitting edema is 3+. Lower extremities are red, with no ulcers or skin compromise. Patient has SOA with exertion; denies SOA at rest. He tires quicly just walking so he spends most of time in his room. He reports sleeping poorly, never has been "a big sleeper." Bed is uncomfortable, with slats for a base. He will speak to his younger daughter, Saranya, about getting a replacement. Patient reports the bruising on his L side abdomen is fading, though around the back of his flank it's still quite bruised. He denies pain, pruritis. Social History - Living Situation Living arrangement: Assisted living ([facility]) Living Situation: With caregiver(s) Support System: Patient moved into [facility] late December 2018, after February 04. 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 He has a good support system from his two daughters: Saranya lives in [place] and visits weekly; Amber lives in [place], [place] and assists intermittently. Medications/Allergies - Medications Home Medications: Ambulatory Orders Medication Instructions Recorded Confirmed Albuterol Sulfate [Proair Hfa 2 puffs INH Q4H PRN #1 inhaler 01/12/17 05/11/19 Inhaler] Simvastatin 20 mg PO QPM 09/08/18 05/11/19 Tamsulosin [Flomax] 0.4 mg PO QPM 12/07/18 05/11/19 ALPRAZolam [Alprazolam] 0.25 mg PO QPM PRN 12/22/18 05/11/19 Loperamide [Imodium] 2 mg PO Q4HR PRN MDD nte 8 tabs 12/22/18 05/11/19 Acetaminophen [Tylenol Extra 1,000 mg PO BID 02/24/19 05/11/19 Strength] Allopurinol 100 mg PO DAILY 02/24/19 05/11/19 Ferrous Gluconate [Iron] 240 mg PO DAILYWM 02/24/19 05/11/19 Potassium Chloride [K-Dur] 20 meq PO 0800 02/24/19 05/11/19 Pantoprazole [Protonix] 40 mg PO DAILY #15 tablet 02/25/19 05/11/19 oxyCODONE [Roxicodone] 5 mg PO Q4HR PRN #20 tablet 02/25/19 05/11/19 Polyethylene Glycol 3350 [Miralax] 17 mg PO DAILY MDD hold for loose 03/01/19 05/11/19 stools Acetaminophen 1,000 mg PO PRN MDD NTE 3000mg in 04/28/19 24 hours Robitussin Togo [id number]/5ml 5 ml PO Q4H PRN 04/28/19 05/11/19 Torsemide 20 mg PO DAILY MDD Resume after 04/28/19 05/11/19 40mg x 7 days Torsemide 40 mg PO DAILY MDD For 7 days 04/28/19 05/11/19 only. Hold the 20mg - Allergies Allergies/Adverse Reactions: Allergies Allergy/AdvReac Type Severity Reaction Status Date / Time azithromycin Allergy Intermediate Itching Verified 05/05/19 14:55 trazodone AdvReac Unknown Verified 05/05/19 14:55 Review of Systems - Constitutional Constitutional: reports: Fatigue, Poor appetite, Weight gain (164.8 lbs 05/11/19. It's increased from mid 150s to low 160s.) - Eyes Eyes: reports: Vision loss - Ears, Nose & Throat Ears, Nose & Throat: reports: Hearing loss, Hearing aids - Cardiovascular Cardiovascular: reports: Edema (chronic, not wearing compression stockings today), Exertional dyspnea, Decr. exercise tolerance, Other - Respiratory Respiratory: reports: SOB with exertion. denies: SOB at rest - Gastrointestinal Gastrointestinal: reports: Poor appetite, Early satiety. denies: Constipation - Genitourinary Genitourinary: denies: Dysuria, Incontinence - Musculoskeletal Musculoskeletal: reports: Stiffness, Joint pain (hip pain, referred down to knee and calf), Other (upper extremity deconditioning) - Integumentary Integumentary: reports: Other (Left abdominal wall bruising, etiology unknown) - Neurological Neurological: reports: General weakness, Memory problems (mild short-term memory deficits) - Psychiatric Psychiatric: reports: Depression (mild-moderate, related to grief and recent loss of ) - Endocrine Endocrine: reports: Diabetes type 2 - Hematologic/Lymphatic Hematologic/Lymphatic: reports: Anemia (CLL/SLL) - All Other Systems All Other Systems: reports: Reviewed and negative Physical Exam - Vital Signs Temperature: 96.4 F Pulse Rate: 71 O2 Saturation: 96 (room air) Blood Pressure: 114/62 (wrist cuff) - Physical Exam General Appearance: positive: No acute distress, Alert Eyes Bilateral: positive: Normal inspection ENT: positive: No signs of dehydration Neck: positive: Trachea midline Cardiovascular: positive: No murmur, Irregular Respiratory: positive: Chest non-tender, No respiratory distress, Diminished in bases (in Right side lung base only). negative: Wheezes, Rhonchi Abdomen: positive: Non-tender, Soft Skin: positive: Pallor, Dryness, Bruising (acute onset L abdominal wall bruising around to Left back, bruising is resolving per patient), Other (scab on L side of nose) Extremities: positive: Pedal edema (3+ pitting) Neurologic/Psychiatric: positive: Oriented x3, Mood/affect nml Palliative Care - POLST Patient has POLST: Yes POLST Status: DNR, Selective Treatment Pain: Pain improved, Location (R hip pain, refers to knee and calf), Comment (one oxycodone with two Tylenol works well) Tiredness/Fatigue: Moderate (4-6) Drowsiness/Sedation: Mild (1-3) Nausea: None Depression: Mild (1-3) Anxiety: None Dyspnea: Moderate (4-6), Comment (with exertion) Anorexia: Mild (1-3) Sleep: Sleeps poorly (chronic. bed is uncomfortable) Constipation: No Performance Status: ambulatory with walker, but SOA with exertion starting new Physical Therapy program performs own ADLs, toilets and baths independently eats in dining room - Palliative Care Discussion: Patient spoke a little about his background as a [place] navy fighter pilot over 30 years. We talked about the movie [employer] Gun, and whether it was accurate. It's in the news recently because of a remake due out next year. Patient chuckled about a saying they had: attack pilots fight wars, fighter pilots make movies. The patient was an attack navy fighter pilot (ie, bombing). Impression and Recommendations - Palliative Care Impression: Frail 89-year-old man with multiple comorbidities including CHF with chronic edema that is increasing and h/o hip and pelvic fracture. On 05/05/19 patient went to ED for an abdominal wall bruising which is new and atraumatic, concerning for internal bleeding. He had hemoglobin more elevated than it had been recently, with no apparent source, and no active bleed or hematoma. After discussion with ED physican, patient declined further workup, he is not interested in further treatment for potential neoplasm. He is gaining weight, has increasing edema. Diuretic was temporarily increased for a week. Palliative Care will monitor. Recommendations/Counseling Done: Combined systolic/diastolic heart failure NYHA III. Edema persists, weight is increasing, diminished breath sounds R lung base. Dr Ordonez ordered torsemide increased to 40mg x 7 days, and afterwards decrease back to 20mg daily. Keep potassium at 20meq daily. Today is the second dose of 40 mg torsemide, no change in edema or weight yet, will continue to monitor. Patient doesn't elevate his legs throughout the day. He might ask his daughter Saranya to bring a footstool in. She says they've gone over this in the past, he doesn't like to elevate his legs, but she's happy to bring a footstool if he wants one. Left abdominal wall bruising: Acute onset, etiology unknown, diagnostics showed no apparent source. ED physician discussed findings with the patient. He does not want any further workup or diagnostics, he would not be interested in undergoing treatment for any potential neoplasm. It's painless and not bothering him; patient reports that it's starting to fade. Right hip pain: Improved with 2 Tylenol with one oxycodone. He is starting PT again. Constipation: Controlled with routine Miralax 17g dailly. Insomnia: Patient says it's chronic, he finds his bed uncomfortable. Discussed having louisa Beaver help him get a new bed or base, he will follow up with her. Poor appetite: He is eating less. Patient reports food doesn't taste good. He does use salt. Discussed strategies for maintaining weight: eating smaller, more frequent portions, some snacks later in the evening but not close to bedtime, adding powdered milk for calories without increasing quantity. Advance care planning: POLST is DNR and selective treatment. Palliative care will continue to provide support and monitoring. Time Spent: 20 minutes were spent with more than 50% of the time spent in counseling and education.
== END 2019-05-11 11:11 | disposition home or self-care (01) ==
LOC: PC 11:10
PROVIDERS: ATTEND Nurse Practitioner
DX: Z51.5 Encounter for palliative care (principal); R60.0 Localized edema; R06.02 Shortness of breath; R63.5 Abnormal weight gain; I50.42 Chronic combined systolic (congestive) and diastolic (congestive) heart failure; E11.22 Type 2 diabetes mellitus with diabetic chronic kidney disease; N18.3 Chronic kidney disease, stage 3 (moderate); M25.551 Pain in right hip; G47.00 Insomnia, unspecified; R23.8 Other skin changes; R63.0 Anorexia; I48.2 Chronic atrial fibrillation; K59.00 Constipation, unspecified; C91.10 Chronic lymphocytic leukemia of B-cell type not having achieved remission; Z79.899 Other long term (current) drug therapy; Z79.891 Long term (current) use of opiate analgesic; Z66 Do not resuscitate; Z87.19 Personal history of other diseases of the digestive system; Z87.39 Personal history of other diseases of the musculoskeletal system and connective tissue

== ENCOUNTER 2019-05-17 13:27 | Outpatient (CLI) | payer MEDICARE, OTHER ==
[2019-05-17 19:37] LABS: CALCIUM 8.7 mg/dL (8.5-10.3); CREATININE 1.7 mg/dL (0.6-1.2)
== END 2019-05-17 23:59 | disposition home or self-care (01) ==
LOC: LAB.N 13:27
PROVIDERS: ATTEND Nurse Practitioner Adult Health
DX: I50.40 Unspecified combined systolic (congestive) and diastolic (congestive) heart failure (principal)
CPT/HCPCS: 36415; 80048

== ENCOUNTER 2019-05-19 15:43 | Outpatient (CLI) | payer MEDICARE, OTHER ==
--- NOTE | 2019-05-19 16:22 | CONSULTATION NOTE ---
Palliative Care Follow Up - Referral Referring Provider: Dr. 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 Patient most recently was in the ED 05/05/2019 for abdominal wall bruising with no trauma, on CT of abdomen Continues to show a large right pleural effusion as well as extensive mesenteric edema, increased soft tissue density through lower retroperitoneum hypodense splenic nodules including 2.6 cm and 2.0 nodules which were suggested could be neoplastic. Patient's left-sided hematoma for which she originally was sent to the ED for his continue to fade. He has not had any further spontaneous bruising, other than a few scattered ecchymosis on his arms. Patient has had symptoms of ongoing lower extremity edema. He has been trialed on gentle diuresis, originally with 30 mg of torsemide for 3 days, and most recently 40 mg of torsemide completed on 05/17. He had lost about 2 pounds with the increase in torsemide but has regained that back to baseline of 165. Patient does have decreased breath sounds in the right lower lobe, no crackles, his breathlessness continues but is not in distress. His lower extremity edema does sit at about 3-4+ up to above the knees. He is starting to have small water blisters on his left lower extremity. A check of his kidney function unfortunately shows he continues to be compromised, But his GFR has been sitting in the high 30s, 813 it was 38. He has been a low of 36 on 05/05 up to a high of 57 01/13 this last 8 months.Patient does have improvement with elevation of his legs, he was unable to tolerate the thigh MARIELLA hose. He does find the knee-high ones uncomfortable as well as they cut into the back of his leg. His appetite has diminished over the last several weeks, he does have more temporal and upper extremity wasting, is not reflected in his weight as his weight is more reflective of his fluid status. Given patient's underlying known retroperitoneal lymphadenopathy and spleenomegly consistent with his disease CLL/SLL, this most likely The swelling represents a combination of lymphedema and heart failure. Patient reports he "feels good", his goals include minimal testing or intervention. Does have significant short-term memory problems, but is able to participate in conversation vertically now he is got new hearing aids. He also complains of not being mostly well, restlessness and anxiety. He does have low- dose alprazolam available, he forgets to ask for it. It has been very effective for him in the past, will schedule and he can decline if not wanted, in agreement with this strategy. Social History - Living Situation Living arrangement: Assisted living Living Situation: Alone Support System: His jean paul daughter comes from [place] Thursday for support, his daughter from [place] is coming next week as he has multiple appointments. He feels well cared for and supported and somewhat overwhelmed with all the support from [facility]. They are manages medications, helping with bathing and dressing and checking on him frequently Medications/Allergies - Medications Home Medications: Ambulatory Orders Medication Instructions Recorded Confirmed Albuterol Sulfate [Proair Hfa 2 puffs INH Q4H PRN #1 inhaler 01/12/17 05/19/19 Inhaler] Simvastatin 20 mg PO QPM 09/08/18 05/19/19 Tamsulosin [Flomax] 0.4 mg PO QPM 12/07/18 05/19/19 ALPRAZolam [Alprazolam] 0.25 mg PO QPM 12/22/18 05/19/19 Loperamide [Imodium] 2 mg PO Q4HR PRN MDD nte 8 tabs 12/22/18 05/19/19 Acetaminophen [Tylenol Extra 1,000 mg PO BID 02/24/19 05/19/19 Strength] Allopurinol 100 mg PO DAILY 02/24/19 05/19/19 Ferrous Gluconate [Iron] 240 mg PO DAILYWM 02/24/19 05/19/19 Potassium Chloride [K-Dur] 20 meq PO 0800 02/24/19 05/19/19 Pantoprazole [Protonix] 40 mg PO DAILY #15 tablet 02/25/19 05/19/19 oxyCODONE [Roxicodone] 5 mg PO Q4HR PRN #20 tablet 02/25/19 05/19/19 Polyethylene Glycol 3350 [Miralax] 17 mg PO DAILY MDD hold for loose 03/01/19 05/19/19 stools Acetaminophen 1,000 mg PO Q4HR PRN MDD NTE 04/28/19 05/19/19 3000mg in 24 hours Robitussin Togo [id number]/5ml 5 ml PO Q4H PRN 04/28/19 05/19/19 Torsemide 30 mg PO DAILY 04/28/19 05/19/19 - Allergies Allergies/Adverse Reactions: Allergies Allergy/AdvReac Type Severity Reaction Status Date / Time azithromycin Allergy Intermediate Itching Verified 05/05/19 14:55 trazodone AdvReac Unknown Verified 05/05/19 14:55 Review of Systems - Constitutional Constitutional: reports: Fatigue, Weakness, Poor appetite, Weight gain, Other (temporal and UE wasting right AC 22 cm; wt 165 up 1.8 pounds from yesterday). denies: Fever, Chills - Ears, Nose & Throat Ears, Nose & Throat: reports: Hearing loss, Hearing aids (new have helped with communication) - Cardiovascular Cardiovascular: reports: Irregular heart rate, Edema (worsening LE), Exertional dyspnea, Decr. exercise tolerance. denies: Chest pain - Respiratory Respiratory: reports: SOB with exertion. denies: Cough, SOB at rest - Gastrointestinal Gastrointestinal: reports: Poor appetite, Early satiety, Other (taste changes). denies: Constipation, Nausea - Genitourinary Genitourinary: reports: Frequency. denies: Incontinence - Musculoskeletal Musculoskeletal: reports: Stiffness, Muscle weakness, Assistive devices (using walker) - Integumentary Integumentary: reports: Dryness, Other (bandaid on left hand for reported skin tear) - Neurological Neurological: reports: General weakness, Memory problems (STM) - Psychiatric Psychiatric: reports: Depression, Anxiety (at night) - Endocrine Endocrine: reports: Diabetes type 2 - Hematologic/Lymphatic Hematologic/Lymphatic: reports: Anemia (daughter felt iron transfusion helped last time; seeing oncology Thursday), Bruising - All Other Systems All Other Systems: reports: Reviewed and negative Physical Exam - Vital Signs Temperature: 96.4 C Pulse Rate: 77 Respiratory Rate: 20 O2 Saturation: 92 (ra @ rest) Blood Pressure: 112/64 - Physical Exam General Appearance: positive: No acute distress Eyes Bilateral: positive: Normal inspection ENT: positive: No signs of dehydration Neck: positive: No JVD, Trachea midline Cardiovascular: positive: Irregular Respiratory: positive: Other (decreased RLL;). negative: Wheezes, Rales, Rhonchi Abdomen: positive: Non-tender, Nml bowel sounds, Distended Skin: positive: Pallor, Dryness, Bruising Extremities: positive: Pedal edema (3-4+ up to mid thigh; c/o discomfort; small water blister forming on LLE; does NOT have Mariella hose on because painful to go on and off and having shower today) Neurologic/Psychiatric: positive: Mood/affect nml, Disoriented to time, Weakness Palliative Care - POLST Patient has POLST: Yes POLST Status: DNR, Selective Treatment Pain: Location (Pain in pelvic area and hip have improved, reports pain today in his right [place] area, worsened by the increased lower extremity edema. He is using oxycodone 1-2 times a day, as well as his scheduled acetaminophen thousand milligrams twice daily and occasional extra dose not to exceed 3000 mg) Tiredness/Fatigue: Severe (7-10) Drowsiness/Sedation: Mild (1-3) Nausea: None Depression: Mild (1-3) Anxiety: Mild (1-3) Dyspnea: Mild (1-3) (Does not perceive he is dyspneic, though does have increased respiratory rate with any conversation or activity.) Anorexia: Moderate (4-6) Sleep: Sleeps poorly Constipation: Intermittent constipation (He does have MiraLAX scheduled, as has had constipation in the past. At this point in time he is been refusing it, reports bowels are moving on a daily basis, given his memory he would like to have it continue to be offered.) Feelings of wellbeing/Perceived Quality of Life: Good, Acceptable, Worsening Performance Status: Patient is somewhat sedentary, does walk down with his walker to meals. He has initiated physical therapy again. His goal is just remain independent. He does receive bathing assistance. Is able to dress though it does take him a bit of time, but does need help with his MARIELLA hose. I would put hip PPS of 70% - Palliative Care Discussion: Patient does understand he is 89 years old, he understands there is been many things that they have looked at and he is not interested in further work-up. His goal is just to take a day at a time, stay as independent as possible and continue to focus on quality of life issues. He very much expresses feelings of grief and loss regarding his , having difficulty finding a new normal, and sometimes finds all the support particularly from multiple staff members overwhelming. He feels like he is doing fairly well, does not have any worries or concerns, feels well supported by his family. Results - Lab Results Lab results reviewed: Yes Impression and Recommendations - Palliative Care Impression: This is a frail 89-year-old gentleman with multiple comorbidities including combined systolic diastolic heart failure with exacerbated lower extremity e baldo, offers a significant challenge with his increased lower extremity edema and weight with compromise kidney status. Patient also with known underlying CLL/SLL with concern for splenomegaly and retroperitoneal lymphadenopathy. Patient's goals are to focus on quality of life, minimal intervention weighing benefits and burdens moving forward, and continue with palliative care support given his frail and precarious status. Recommendations/Counseling Done: 1. Combined systolic/diastolic heart failure NYHA III. Lower extremity edema is most likely multifactorial including an element of lymphedema. Patient did respond with a couple of pounds of weight loss and some decrease in his discomfort from his edema with his torsemide at 40 mg for one week finishing Thursday, unfortunately today he is back to 165, given his long-standing and worsening chronic kidney failure will resume torsemide at 30 mg, with the plan for close management of labs and weights over the next 2 weeks. This was discussed both with the patient and his daughter, but in agreement to try other measures to improve comfort and lower extremity edema as well. Recommended recliner with foot elevation, currently sits dependent with feet down. Recommended use of lower extremity compression, will follow up on ordering Velcro compression socks that do not have to be pulled on and will increase comfort. Will have Cristin RIDLEY measure and give information to daughter for ordering. Counseling provided to patient regarding the role of elevation, compression the need to have the stockings been on first thing in the morning, and limitations given his underlying comorbidities. 2. Insomnia. Patient has long-term been on alprazolam 0.25 mg at bedtime, we had reordered, but left it as needed. Patient with a short-term memory issues, has forgotten to ask for it or that it was available. We discussed the strategy similar to his bowel meds, to have them off for it and he can could decline if needed. He also presents with anxiety and nighttime, feeling somewhat overwhelmed and with some restless leg syndrome. 3. Anorexia. I suspect this is multifactorial, he does have some abdominal di stention, most likely related to his splenomegaly. He also has taste changes most likely related to his kidney failure, and ongoing fatigue. Counseling provided regarding strategies of small frequent feedings, more snacks. Patient does go down for all 3 meals, but does not initiate other intake both related to memory and energy. 4. Constipation. This is currently controlled, has needed to use the MiraLAX only minimally, reports regular soft bowel movement daily. 5. CLL/SLL. Patient is scheduled to see the oncologist, encouraged both daughter and patient to further explore latest CT of the abdomen. Daughter's perception is that his energy did improve after iron transfusion, patient does not remember this. Patient does continue to have ongoing functional and cognitive decline. 6. Advanced care planning. Goals of care remain to focus on quality of life issues, patient would like minimal interventions other than things that might make him feel better or continue to keep him independent. Patient and daughters continue to weigh benefits and burdens of interventions in the context of these goals as they arise. Patient is quite frail, palliative care to continue to follow quite closely and support of primary care provider. He does have an appointment in July with Dr. Costa. We will continue to coordinate meeting care needs. 7. Dry skin. Patient does easily have skin tears, bruising, multifactorial in origin. Will have staff after bathing provide more moisturizing, and recommend other products to decrease drying. Due to see the compression molding machine tender next week, he was a red head with multiple skin lesions, often needing to have intervention. Time Spent: 65 minutes with getting 50% of this done in counseling regarding symptom management, management of CHF, follow-up and coordination of care with liz Beaver and clinical staff. Patient was provided anticipatory guidance. Plan patient to see oncologist next week, will continue monitor weights on a daily basis, depending on labs on Thursday, will reorder for the next 1 to 2 weeks and follow-up with palliative care after.
== END 2019-05-19 15:44 | disposition home or self-care (01) ==
LOC: PC 15:43
PROVIDERS: ATTEND Nurse Practitioner Adult Health
DX: Z51.5 Encounter for palliative care (principal); I50.40 Unspecified combined systolic (congestive) and diastolic (congestive) heart failure; E11.22 Type 2 diabetes mellitus with diabetic chronic kidney disease; N18.3 Chronic kidney disease, stage 3 (moderate); G47.00 Insomnia, unspecified; R63.0 Anorexia; K59.00 Constipation, unspecified; C91.10 Chronic lymphocytic leukemia of B-cell type not having achieved remission; R23.8 Other skin changes; Z79.899 Other long term (current) drug therapy; Z79.891 Long term (current) use of opiate analgesic; Z66 Do not resuscitate

== ENCOUNTER 2019-05-24 13:30 | Outpatient (CLI) | payer MEDICARE, OTHER ==
--- NOTE | 2019-05-24 15:31 | CONSULTATION NOTE ---
Palliative Care Follow Up - Referral Referring Provider: Dr. Rangel Time of Visit: [id number] Referral setting: [facility] Referral Reason: Left foot pain - Information Sources Records reviewed: Previous records reviewed History/Review of Systems obtained from: Patient Exam limitations: Clinical condition (patient with short term memory issues) - History of Present Illness Update Brief HPI Update: Please see visit 05/19 for more extensive HPI. Patient is seen for urgent visit. Have been notified by [facility], patient complaining of increased left foot pain. Patient is scheduled to have iron transfusion, had seen oncologist yesterday. Patient reports pain started on Thursday, has been intermittent but now persistent. Patient has had increased trouble with lower extremity edema. Reports pain is worse with weightbearing, only tender at rest, and very uncomfortable with putting on and off stockings. Patient has used oxycodone as the pain is been that severe. Patient denies fever or chills, change in appetite, or any recent trauma. Patient does have a history of gout. On exam, patient does have lower extremity edema, though it is improved from my visit last week, there is noes swelling are heat in his great toe joint or other joints, on examination his foot is warm and tender to touch. He does have some darker discoloration on the left upper portion of his foot on lateral side. Is very tender to palpation, there is no open areas, though on examination between his toes he does have cracks and poor hygiene. Patient does get assistance from [facility], but his feet of been swollen and he has been wearing support hose suspect maceration is as a result of this. There is no open areas or drainage to culture, but given patient's poor health, with multiple comorbidities, and immunosuppression will go ahead and treat. Patient is in agreement. Social History - Living Situation Living arrangement: At home, Assisted living Support System: And is here with his daughter from [place], she is here as there is been multiple appointments. Including dermatology yesterday. As well as the oncologist. At that point in time he was recommended to get an iron transfusion, with possible Procrit injections in the future. Medications/Allergies - Medications Home Medications: Ambulatory Orders Medication Instructions Recorded Confirmed Albuterol Sulfate [Proair Hfa 2 puffs INH Q4H PRN #1 inhaler 01/12/17 05/23/19 Inhaler] Simvastatin 20 mg PO QPM 09/08/18 05/23/19 Tamsulosin [Flomax] 0.4 mg PO QPM 12/07/18 05/23/19 ALPRAZolam [Alprazolam] 0.25 mg PO QPM 12/22/18 05/23/19 Loperamide [Imodium] 2 mg PO Q4HR PRN MDD nte 8 tabs 12/22/18 05/23/19 Acetaminophen [Tylenol Extra 1,000 mg PO BID 02/24/19 05/23/19 Strength] Allopurinol 100 mg PO DAILY 02/24/19 05/23/19 Ferrous Gluconate [Iron] 240 mg PO DAILYWM 02/24/19 05/23/19 Potassium Chloride [K-Dur] 20 meq PO 0800 02/24/19 05/23/19 Pantoprazole [Protonix] 40 mg PO DAILY #15 tablet 02/25/19 05/23/19 oxyCODONE [Roxicodone] 5 mg PO Q4HR PRN #20 tablet 02/25/19 05/23/19 Polyethylene Glycol 3350 [Miralax] 17 mg PO DAILY MDD hold for loose 03/01/19 05/23/19 stools Acetaminophen 1,000 mg PO Q4HR PRN MDD NTE 04/28/19 05/23/19 3000mg in 24 hours Robitussin Togo [id number]/5ml 5 ml PO Q4H PRN 04/28/19 05/23/19 Torsemide 30 mg PO DAILY 04/28/19 05/23/19 - Allergies Allergies/Adverse Reactions: Allergies Allergy/AdvReac Type Severity Reaction Status Date / Time azithromycin Allergy Intermediate Itching Verified 05/23/19 13:59 trazodone AdvReac Unknown Verified 05/23/19 13:59 Review of Systems - Constitutional Constitutional: reports: Fatigue. denies: Fever, Chills - Cardiovascular Cardiovascular: reports: Edema, Exertional dyspnea, Decr. exercise tolerance. denies: Chest pain - Respiratory Respiratory: reports: SOB with exertion. denies: SOB at rest - Musculoskeletal Musculoskeletal: reports: Assistive devices (uses walker) - Integumentary Integumentary: reports: Other (dermatology yesterday with multiple lesions addressed and removed; many drsgs; draining area on end of nose) - Neurological Neurological: reports: General weakness, Memory problems - Psychiatric Psychiatric: reports: Depression, Anxiety - Endocrine Endocrine: reports: Diabetes type 2 - Hematologic/Lymphatic Hematologic/Lymphatic: reports: Anemia - All Other Systems All Other Systems: reports: Other (limited exam) Physical Exam - Vital Signs Temperature: 36.5 C Pulse Rate: 81 Respiratory Rate: 16 Blood Pressure: 127/66 - Physical Exam General Appearance: positive: Alert, Mild distress Eyes Bilateral: positive: Normal inspection ENT: positive: No signs of dehydration Neck: positive: No JVD, Trachea midline Respiratory: positive: No respiratory distress Skin: positive: Other (see hPI) Extremities: positive: Pedal edema (continues 3+; today left foot with increase swelling compared to right) Neurologic/Psychiatric: positive: Oriented x3, Mood/affect nml, Weakness Palliative Care - POLST Patient has POLST: Yes POLST Status: DNR, Selective Treatment Pain: Pain worsening, Location (No acute pain on left foot. Has used oxycodone with acetaminophen with some improvement, but no resolution. Patient's baseline pain of lower extremity and right hip pain is improved.) Tiredness/Fatigue: Moderate (4-6) (reports tired from multiple appointments yesterday, and now is in the again today. Is feeling quite fatigued) Results - Lab Results Lab results reviewed: Yes Impression and Recommendations - Palliative Care Impression: This is a 89-year-old gentleman with multiple comorbidities including systolic/diastolic heart failure NYHA class III, CLL/SLL with splenomegaly, retroperitoneal lymph nodes, chronic atrial fib with RVR, chronic kidney disease stage III, and now presents acutely with left lower extremity cellulitis in his foot. Recommendations/Counseling Done: 1. Cellulitis of his left foot. Patient does present with acute signs of infection, as high risk for sequela of further progression. Patient's creatinine clearance is between 28 and 31, will go ahead and treat with Keflex 500 mg every 8 hours for 10 days. Call to [facility] and spoke with Alyssa RIDLEY, regarding hygiene of patient's feet, instructed to clean and dry with change of stockings and bathing. Instructed both patient and caregivers if worsening, or systemic symptoms, needs to go to ED.Given patient's multiple lesions removed by dermatology, this also will provide coverage. His nose is draining from procedure/burning yesterday. 2. Lower extremity edema. Patient's edema does seem somewhat improved, his legs are somewhat softer. Daughter has ordered Velcro wraps for compression, should help with pain and also compliance. We will go ahead and order BMP for next Thursday given patient's continued poor kidney function, does appear to be tolerating without any symptoms of hypotension slight bump in his torsemide. Time Spent: 15 minutes with greater than 50% of this done in counseling regarding signs and symptoms to further obtain evaluation, coordination of care with oncology and [facility].
== END 2019-05-24 13:31 | disposition home or self-care (01) ==
LOC: PC 13:30
PROVIDERS: ATTEND Nurse Practitioner Adult Health
DX: Z51.5 Encounter for palliative care (principal); L03.116 Cellulitis of left lower limb; R60.0 Localized edema; N18.3 Chronic kidney disease, stage 3 (moderate); R53.83 Other fatigue; Z79.899 Other long term (current) drug therapy; Z79.891 Long term (current) use of opiate analgesic; Z66 Do not resuscitate
CPT/HCPCS: 99213

== ENCOUNTER 2019-05-28 18:51 | Outpatient (CLI) | payer MEDICARE, OTHER | END 2019-05-28 18:52 | disposition critical access hospital (66) | LOC: EMS 18:51 | PROVIDERS: ATTEND Surgery | DX: S01.81XA Laceration without foreign body of other part of head, initial encounter (principal); W01.10XA Fall on same level from slipping, tripping and stumbling with subsequent striking against unspecified object, initial encounter; Y92.091 Bathroom in other non-institutional residence as the place of occurrence of the external cause | CPT/HCPCS: A0425; A0429 ==

== ENCOUNTER 2019-05-28 19:05 | Emergency (ER) | payer MEDICARE, OTHER ==
[2019-05-28 19:50] LABS: BILIRUBIN,URINE NEGATIVE (NEGATIVE); GLUCOSE, URINE (UA) NEGATIVE (NEGATIVE); KETONES,URINE (UA) NEGATIVE (NEGATIVE); LEUKOCYTE ESTERASE, URINE NEGATIVE (NEGATIVE); NITRITE,URINE NEGATIVE (NEGATIVE); OCCULT BLOOD,URINE NEGATIVE (NEGATIVE); PROTEIN,URINE NEGATIVE (NEGATIVE); UROBILINOGEN,URINE 0.2 (NORMAL) E.U./dL (NORMAL)
[2019-05-28 19:54] LABS: CLARITY,URINE CLEAR (CLEAR)
--- NOTE | 2019-05-28 21:11 | XRAY Report ---
Reason: pain afer GLF Procedure Date: 05/28/2019 Accession Number: [id number] / [id number] Procedure: XR - Hip w/Pelvis 2-3V RT CPT Code: FULL RESULT: EXAM: RIGHT HIP RADIOGRAPHY EXAM DATE: 05/28/2019 08:33 PM. CLINICAL HISTORY: Pain afer GLF. COMPARISON: HIP W/PELVIS 2-3V RT 02/24/2019 1:58 PM. TECHNIQUE: 2 views. FINDINGS: Bones: Bilateral femoral neck hardware. No acute displaced fracture or malalignment. Joints: Normal. No dislocation. The hip joint space is preserved. Soft Tissues: Normal. No soft tissue swelling. IMPRESSION: No acute displaced fracture or malalignment. RADIA
[2019-05-28] MEDS ORDERED: oxyCODONE 5 MG TABLET PO STA (21:28)
[2019-05-28] MEDS ORDERED: ACETAMINOPHEN 325 MG TABLET PO STA (21:28)
[2019-05-28] MEDS ORDERED: BUFFERED LIDOCAINE 10 ML SYRINGE SUBQ STA (21:28)
[2019-05-28] MEDS ORDERED: LIDOCAINE JELLY 2% 5 ML TUBE TOP STA (21:28)
--- NOTE | 2019-05-28 21:34 | ED Physician Documentation ---
PD HPI Fall - Stated complaint Stated Complaint: GLF, HEAD LAC, SKIN TEARS - Chief complaint Chief Complaint: Trauma Hd/Nk - History obtained from History obtained from: Patient, EMS - History of Present Illness Mechanism of injury: Slipped Fall distance: Standing position Where injury occurred: Home Timing - onset: Today Injury(ies) location: Head, Right Upper Extremity, Left Uppper Extremity, Left Lower Extremity Quality of pain: Pain Associated symptoms: No: LOC, AMS, Amnesia Symptoms improve with: Rest Worsens with: Movement, Palpation Contributing factors: No: Anticoagulated, Intoxicated Similar symptoms before: Diagnosis (fall) Recently seen: Clinic - Additional information Additional information: 89-year-old male resident of assisted living has had a fall in his bathroom when he was backing up from the commode his walker tripped him up and he fell into the bathtub. He complains of some pain to the top of his head and especially to the right hip and has some skin tears to both arms. The patient has a history of CLL and anemia with thrombocytopenia and he is recently been given iron. The patient feels that he will be able to get up and take care of himself. Review of Systems Constitutional: denies: Fever Eyes: denies: Decreased vision Ears: denies: Ear pain Nose: denies: Congestion Throat: denies: Sore throat Cardiac: denies: Chest pain / pressure Respiratory: reports: Dyspnea GI: denies: Vomiting : denies: Dysuria Skin: reports: Laceration (s) Musculoskeletal: reports: Extremity pain, Pain with weight bearing. denies: Neck pain Neurologic: denies: Focal weakness, Numbness, Difficulty speaking PD PAST MEDICAL HISTORY - Past Medical History Cardiovascular: Congestive heart failure, Hypertension, High cholesterol, Atrial fibrillation Respiratory: COPD, Pneumonia Neuro: TIA Endocrine/Autoimmune: Type 2 diabetes GI: None : Benign prostate hypertrophy, Renal insuffiency HEENT: Chronic vision loss Psych: None Musculoskeletal: Gout, Other Derm: None - Past Surgical History Past Surgical History: Yes General: Cholecystectomy, Appendectomy Ortho: Hip replacement HEENT: Cataracts Derm: Skin cancer surgery - Present Medications Home Medications: Ambulatory Orders Medication Instructions Recorded Confirmed Albuterol Sulfate [Proair Hfa 2 puffs INH Q4H PRN #1 inhaler 01/12/17 05/23/19 Inhaler] Simvastatin 20 mg PO QPM 09/08/18 05/23/19 Tamsulosin [Flomax] 0.4 mg PO QPM 12/07/18 05/23/19 ALPRAZolam [Alprazolam] 0.25 mg PO QPM 12/22/18 05/23/19 Loperamide [Imodium] 2 mg PO Q4HR PRN MDD nte 8 tabs 12/22/18 05/23/19 Acetaminophen [Tylenol Extra 1,000 mg PO BID 02/24/19 05/23/19 Strength] Allopurinol 100 mg PO DAILY 02/24/19 05/23/19 Ferrous Gluconate [Iron] 240 mg PO DAILYWM 02/24/19 05/23/19 Potassium Chloride [K-Dur] 20 meq PO 0800 02/24/19 05/23/19 Pantoprazole [Protonix] 40 mg PO DAILY #15 tablet 02/25/19 05/23/19 oxyCODONE [Roxicodone] 5 mg PO Q4HR PRN #20 tablet 02/25/19 05/23/19 Polyethylene Glycol 3350 [Miralax] 17 mg PO DAILY MDD hold for loose 03/01/19 05/23/19 stools Acetaminophen 1,000 mg PO Q4HR PRN MDD NTE 04/28/19 05/23/19 3000mg in 24 hours Robitussin Togo [id number] 5 ml PO Q4H PRN 04/28/19 05/23/19 Torsemide 30 mg PO DAILY 04/28/19 05/23/19 - Allergies Allergies/Adverse Reactions: Allergies Allergy/AdvReac Type Severity Reaction Status Date / Time azithromycin Allergy Intermediate Itching Verified 05/23/19 13:59 trazodone AdvReac Unknown Verified 05/23/19 13:59 - Social History Does the pt smoke?: No Smoking Status: Never smoker Does the pt drink ETOH?: No Does the pt have substance abuse?: No - Immunizations Immunizations are current?: Yes Immunizations: TDAP >10years/unknown - POLST Patient has POLST: Yes POLST Status: DNR PD ED PE NORMAL - Vitals Vital signs reviewed: Yes (normal ) - General General: Alert and oriented X 3, No acute distress, Other (89 y/o male appears aged with blood to the top of his head and to both forearms.) - HEENT HEENT: PERRL, EOMI, Other (There is a skin tear to the vertex without involve ment of deeper structures.) - Neck Neck: Supple, no meningeal sign, No bony TTP - Cardiac Cardiac: No murmur, Other (irregular ) - Respiratory Respiratory: No respiratory distress, Clear bilaterally - Abdomen Abdomen: Soft, Non tender, Other (There does appear to be a mass in the right adbomen. Non-tender) - Back Back: No CVA TTP, No spinal TTP - Derm Derm: Other (The skin is dry and he has multiple bandaids from recent visit to the manager loan) - Extremities Extremities: Other (There is bilateral edema and he is wearing MARIELLA hose, There is tenderness to the right hip over the trochanter with a small bruise. There is good ROM but with pain. Distal n/v is intact. There are skin tears to the right and left forearm. The right has 2 tears about 2.5cm each and the left has one tear about 2.5cm.. ) - Neuro Neuro: Alert and oriented X 3, mortgage assistant 2-12 intact, No motor deficit, No sensory deficit, Normal speech Eye Opening: Spontaneous Motor: Obeys Commands Verbal: Oriented GCS Score: 15 - Psych Psych: Normal mood, Normal affect Results - Vitals Vitals: Vital Signs - 24 hr 05/28/19 05/28/19 19:07 23:55 Temperature 36.4 C L Heart Rate 87 69 Respiratory 18 16 Rate Blood Pressure 120/62 114/49 L O2 Saturation 97 92 Oxygen O2 Source [With Activity] walking 88-91% O2 Source Room air - Labs Labs: Laboratory Tests 05/28/19 19:40 Urine Color YELLOW Urine Clarity CLEAR Urine pH 5.0 Ur Specific Jackson 1.010 Urine Protein NEGATIVE Urine Glucose (UA) NEGATIVE Urine Ketones NEGATIVE Urine Occult Blood NEGATIVE Urine Nitrite NEGATIVE Urine Bilirubin NEGATIVE Urine Urobilinogen 0.2 (NORMAL) Ur Leukocyte Esterase NEGATIVE Ur Microscopic Review NOT INDICATED Urine Culture Comments NOT INDICATED Procedures - Laceration (location) head Length in cm: 2 Wound type: Curved, Flap, Superficial, Clean Wound Preparation: Hibiclens, Irrigated copiously NS, Wound explored, To the base Skin layer closure: Dermabond Other: Patient tolerated well, No complications, Neurovascular intact, Tetanus UTD Complexity: Simple L forearm Length in cm: 2.5 Wound type: Curved, Flap, Superficial, Clean Neurovascular status: Sensory intact, Motor intact, Vascular intact Anesthesia: Lidocaine 2% (jelly) Wound Preparation: Hibiclens, Irrigated copiously NS, Wound explored, To the base Skin layer closure: Steri strips Other: Patient tolerated well, No complications, Neurovascular intact, Dressing applied, Tetanus UTD Complexity: Simple right forearm Length in cm: 5 (2 flaps) Wound type: Curved, Flap, Clean Neurovascular status: Sensory intact, Motor intact, Vascular intact Anesthesia: Lidocaine 1%, Lidocaine 2% (jelly), With bicarb Wound Preparation: Hibiclens, Irrigated copiously NS, Wound explored, To the base Skin layer closure: Steri strips Other: Patient tolerated well, No complications, Neurovascular intact, Dressing applied, Tetanus UTD Complexity: Simple PD MEDICAL DECISION MAKING - ED course Complexity details: reviewed old records, reviewed results, re-evaluated patient, considered differential, d/w patient ED course: 89-year old male with a history of CLL L and anemia thrombocytopenia is on palliative care and he is in resident of [facility]. He has had a fall into the bathtub injuring his right hip and he does not have evidence of fracture on plain film x-ray. He does have pins in both hips and the patient is old. 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 He has wounds to the top of his head and to both forearms with superficial skin tears. X-rays are obtained and the patient is administered oxycodone and Tylenol has some good relief of his pain. His wounds are eventually tended to with Steri-Strips and Dermabond and he tolerates this well. Departure - Departure Disposition: 01 Home, Self Care Clinical Impression: Skin tear Contusion of right hip Qualifiers: Encounter type: initial encounter Qualified Code(s): S70.01XA - Contusion of right hip, initial encounter Skin tear of forearm without complication Qualifiers: Encounter type: initial encounter Laterality: unspecified laterality Qualified Code(s): S51.819A - Laceration without foreign body of unspecified forearm, initial encounter Condition: Stable Instructions: ED Laceration Ext Sutr Stap Tape, ED Contusion Hip Follow-Up: [facility] [Provider Group]
[2019-05-29 02:26] VITALS: BP 120/60
== END 2019-05-29 02:25 | disposition home or self-care (01) ==
LOC: ED 19:05
DX: S01.01XA Laceration without foreign body of scalp, initial encounter (principal); S51.812A Laceration without foreign body of left forearm, initial encounter; S51.811A Laceration without foreign body of right forearm, initial encounter; S70.01XA Contusion of right hip, initial encounter; W01.198A Fall on same level from slipping, tripping and stumbling with subsequent striking against other object, initial encounter; Y93.01 Activity, walking, marching and hiking; Y92.091 Bathroom in other non-institutional residence as the place of occurrence of the external cause; R19.00 Intra-abdominal and pelvic swelling, mass and lump, unspecified site; D64.9 Anemia, unspecified; D69.6 Thrombocytopenia, unspecified; I10 Essential (primary) hypertension; E11.9 Type 2 diabetes mellitus without complications; Z85.6 Personal history of leukemia; Z86.73 Personal history of transient ischemic attack (TIA), and cerebral infarction without residual deficits; Z96.643 Presence of artificial hip joint, bilateral; Z66 Do not resuscitate
CPT/HCPCS: 12011; 73502; 81003; 99282; 99284; A9270; J3490; 81001; 87086

== ENCOUNTER 2019-05-31 10:00 | Outpatient (CLI) | payer MEDICARE, OTHER ==
[2019-05-31 11:55] LABS: BASOPHILS % (AUTO) 0.1 %; EOSINOPHILS % (AUTO) 0.3 %; HGB - HEMOGLOBIN 8.7 g/dL (14.0-18.0); LYMPHOCYTES % (AUTO) 73.6 %; MEAN CORPUSCULAR HEMOGLOBIN 32.3 pg (27.0-31.0); MEAN CORPUSCULAR HGB CONC 30.9 g/dL (32.0-36.0); MEAN CORPUSCULAR VOLUME 104.8 fL (80.0-94.0); MEAN PLATELET VOLUME 11.7 fL (7.4-11.4); MONOCYTES % (AUTO) 3.3 %; NEUTROPHILS % (AUTO) 22.6 %; PLT - PLATELET COUNT 60 10^3/uL (130-450); RED BLOOD COUNT 2.69 10^6/uL (4.70-6.10); RED CELL DISTRIBUTION WIDTH 18.7 % (12.0-15.0); WHITE BLOOD COUNT 14.4 x10^3/uL (4.8-10.8)
[2019-05-31 12:11] LABS: ALBUMIN 3.7 g/dL (3.2-5.5); ALBUMIN/GLOBULIN RATIO 1.5 (1.0-2.2); CALCIUM 8.9 mg/dL (8.5-10.3); TOTAL PROTEIN 6.1 g/dL (6.7-8.2)
[2019-05-31 12:38] LABS: ABNORMAL LYMPHS % (MANUAL) 0 %; BAND NEUTROPHILS % (MANUAL) 0 %
[2019-05-31 12:49] LABS: LYMPHOCYTES # (MANUAL) 10.8 10^3/uL (1.5-3.5); LYMPHOCYTES % (MANUAL) 75 %; MONOCYTES # (MANUAL) 0.9 10^3/uL (0.0-1.0)
[2019-05-31 12:51] LABS: DIFFERENTIAL COMMENT MANUAL DIFFERENTIAL; PLATELET ESTIMATE, MANUAL DECREASED (<130,000) (NORMAL); PLATELET MORPHOLOGY NORMAL APPEARANCE (NORMAL)
== END 2019-05-31 23:59 | disposition home or self-care (01) ==
LOC: LAB.R 10:00
PROVIDERS: ATTEND Nurse Practitioner Adult Health
DX: I50.20 Unspecified systolic (congestive) heart failure (principal); D64.9 Anemia, unspecified; Z79.899 Other long term (current) drug therapy; R06.02 Shortness of breath
CPT/HCPCS: 80053; 83880; 85025

== ENCOUNTER 2019-06-01 13:15 | Outpatient (CLI) | payer MEDICARE, OTHER ==
--- NOTE | 2019-06-01 20:39 | CONSULTATION NOTE ---
Palliative Care Follow Up - Referral Referring Provider: Dr. 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 Chronic atrial fib with rapid ventricular response, chronic kidney disease stage III, diabetes type 2, history of right hip fracture and repair and history of pelvic fracture. Patient has had increasing lower extremity edema and weight, today presents with 4+ edema weeping in his left lower extremity, up to his sacrum. Patient had had an acute fall on 05/28 where he sustained a head laceration and skin tears on his upper extremities. Have been trying to balance his kidney function with his heart failure, with little improvement over the last couple weeks. Patient has continued to have functional decline, did develop cellulitis in his left lower foot last week, and is currently on cephalexin with improvement. He presents with high symptom burden of exacerbated right femur pain, severe fatigue, dyspnea on exertion and sometimes at rest, needing increased assistance at assisted living facility, and continues with multiple skin issues. Patient despite all this, reports "he is doing good". Both the facility and family are concerned, and do recognize patient presents with ongoing decline and needing i ncreased assistance and monitoring. Palliative care here today to define goals of care, given in the context he is declining both functionally, some cognitive decline, and worsening overall health status. Patient is quite exhausted with all the interactions with the healthcare system, his goals of always been not to "overdo". Counseling provided regarding transitioning to hospice, with ability to meet his goals in his current setting, no further emergency room/hospital visits, and focus on comfort. With patient's functional decline, we also discussed without increased assistance to the hospice team, would need to most likely pursue higher level of care. Both patient and daughter do not want patient to return to SNF. Social History - Living Situation Living arrangement: Assisted living Support System: Patient is very hard of hearing, but mostly cognitively intact though is having increased episodes of confusion and occasional disorientation. His daughter Saranya comes every Thursday to oversee his care, as well his his daughter Amber comes in stays from [place] to assist with appointments and support. Facility staff are doing frequent checks, now are providing assistance with transfers, dressing, and bathing. Patient has received support for physical therapy, though patient's functional status remains poor and he is mostly wheelchair- bound at this point. Medications/Allergies - Medications Home Medications: Ambulatory Orders Medication Instructions Recorded Confirmed Albuterol Sulfate [Proair Hfa 2 puffs INH Q4H PRN #1 inhaler 01/12/17 06/02/19 Inhaler] Simvastatin 20 mg PO QPM 09/08/18 06/02/19 Tamsulosin [Flomax] 0.4 mg PO QPM 12/07/18 06/02/19 ALPRAZolam [Alprazolam] 0.25 mg PO QPM 12/22/18 06/02/19 Loperamide [Imodium] 2 mg PO Q4HR PRN MDD nte 8 tabs 12/22/18 06/02/19 Acetaminophen [Tylenol Extra 1,000 mg PO BID 02/24/19 06/02/19 Strength] Allopurinol 100 mg PO DAILY 02/24/19 06/02/19 Ferrous Gluconate [Iron] 240 mg PO DAILYWM 02/24/19 06/02/19 Potassium Chloride [K-Dur] 20 meq PO BID 02/24/19 06/02/19 Pantoprazole [Protonix] 40 mg PO DAILY #15 tablet 02/25/19 06/02/19 oxyCODONE [Roxicodone] 5 mg PO Q4HR PRN #20 tablet 02/25/19 06/02/19 Polyethylene Glycol 3350 [Miralax] 17 mg PO DAILY MDD hold for loose 03/01/19 06/02/19 stools Acetaminophen 1,000 mg PO Q4HR PRN MDD NTE 04/28/19 06/02/19 3000mg in 24 hours Robitussin Togo [id number]/5ml 5 ml PO Q4H PRN 04/28/19 06/02/19 Torsemide 60 mg PO DAILY 04/28/19 06/02/19 Cephalexin [Keflex] 500 mg PO TID 06/02/19 06/02/19 - Allergies Allergies/Adverse Reactions: Allergies Allergy/AdvReac Type Severity Reaction Status Date / Time azithromycin Allergy Intermediate Itching Verified 05/23/19 13:59 trazodone AdvReac Unknown Verified 05/23/19 13:59 Review of Systems - Constitutional Constitutional: reports: Fatigue, Weakness, Poor appetite, Weight gain. denies: Fever, Chills - Eyes Eyes: reports: Vision loss - Ears, Nose & Throat Ears, Nose & Throat: reports: Hearing loss, Hearing aids - Cardiovascular Cardiovascular: reports: Irregular heart rate, Edema (worsening; patient minimizes), Exertional dyspnea, Decr. exercise tolerance - Respiratory Respiratory: reports: SOB at rest (with conversation; denies distress), SOB with exertion - Gastrointestinal Gastrointestinal: reports: Poor appetite, Early satiety. denies: Constipation, Diarrhea, Nausea - Genitourinary Genitourinary: reports: Urgency - Musculoskeletal Musculoskeletal: reports: Stiffness, Limited range of motion, Muscle weakness, Transfer issues (currently wheelchair bound; decline with fall-had been able to walk short distances with walker) - Integumentary Integumentary: reports: Pruritis, Lesions, Dryness, Other (weeping LLE) - Neurological Neurological: reports: General weakness, Memory problems (mild) - Psychiatric Psychiatric: reports: Other (grief with loss of /health changes). denies: Depression, Anxiety - Hematologic/Lymphatic Hematologic/Lymphatic: reports: Anemia, Bruising, Recurrent infections (recent cellulitis LLE) - All Other Systems All Other Systems: reports: Reviewed and negative Physical Exam - Vital Signs Temperature: 96.4 C Pulse Rate: 88 Respiratory Rate: 20 O2 Saturation: 96 (ra @ rest) Blood Pressure: 132/77 - Physical Exam General Appearance: positive: Alert, Mild distress Eyes Bilateral: positive: No scleral icterus ENT: negative: Pharyngeal erythema, Oral lesions Neck: positive: Trachea midline Cardiovascular: positive: Irregular Respiratory: positive: Diminished throughout, Rales (fine inspiratory crackles in bases) Abdomen: positive: Soft, Nml bowel sounds Skin: positive: Pallor, Dryness, Bruising, Pruritis, Other (small area of weeping left lateral Lower extremity; area of cellulits on left foot dull red and fading; not hot to touch; several areas "burned" by chief solution architect hands/head healing; bruising from fall) Extremities: positive: Pedal edema (edema LE extending up into thigh and sacral area;) Neurologic/Psychiatric: positive: Oriented x3, Mood/affect nml, Weakness, Flat affect Palliative Care - POLST Patient has POLST: Yes POLST Status: DNR, Selective Treatment Pain: Pain worsening, Location (right femur area; had improved now exacerbated with fall; worse with weight bearing; relieved with oxycodone 5 mg using about 2-3 times a day;), Severity (moderate/achy) Tiredness/Fatigue: Severe (7-10) Drowsiness/Sedation: Mild (1-3) Nausea: None Depression: Mild (1-3) Anxiety: Mild (1-3) Dyspnea: Moderate (4-6) Anorexia: Moderate (4-6) (patient with temporal wasting and UE thinner; had gained with improved appetite but over last 2-3 weeks decreased intake; taste changes) Sleep: Variable sleep pattern (was doing better with schedule alprazalom (his baseline for years) now with increased discomfort of fall/legs difficult again) Constipation: Intermittent constipation (staff offering mirlax as he forgets to ask; has been going regularly-went today) Feelings of wellbeing/Perceived Quality of Life: Fair, Acceptable, Worsening Performance Status: Patient needing assistance for transfers, increasing lower extremity weakness and difficulty managing with edematous legs. Patient has now had a fall, he reports "he tripped", he does need assistance from sitting to standing. He had been ambulating short distances with his walker, now they are rolling him in his wheelchair to meals. - Palliative Care Discussion: Discussion with patient regarding concern for his ongoing decline, his multiple comorbidities and impact on his declining health, his goals to minimize medical interventions and interactions and wanting to stay in his current setting. Patient had an experience with hospice with his , we discussed this is a different experience as she was eminently transitioning and with a brain tumor, we discussed hospice can support people in this more chronic slow decline with the focus on quality of life, the most likely expect ongoing deterioration patient most likely has weeks to months, not like his who had days to weeks. Patient has long-term relationship with Dr. Ordonez, with his physician previously so feels comfortable in the handoff from palliative care to hospice. Spoke with daughter Saranya, regarding concern for changes in patient's status, she is in agreement with hospice admit. We did discuss in the context of stressors and patient's cognitive changes, she would be present for the hospice visit. She is familiar with hospice and hospice services and is quite willing and accepting of support from the hospice team. She feels this is congruent with her goals, though continues to allow patient to participate and provide direction for his care. Spoke with Yas at [facility], they are concerned regarding his ongoing decline, frequent ED visits now, falls, and ability to meet his care needs without goals clarified and hospice support. They feel they can continue to provide given the goals have been defined, and hospice will be starting tomorrow. Results - Lab Results Lab results reviewed: Yes Impression and Recommendations - Palliative Care Impression: This is a frail 89-year-old gentleman with multiple comorbities including exacerbated acute combined systolic diastolic heart failure, ongoing compromised kidney status, recent fall with exacerbation of right hip pain/contusion sustained. Patient continues with weight gain, increased lower extremity edema, functional decline and slight cognitive decline. Patient's goals are to continue to focus on quality of life, given ongoing deterioration of status, palliative care recommending hospice transition. Recommendations/Counseling Done: 1. Acute on chronic combined systolic diastolic heart failure NYHA III. Lower extremity edema is most likely multifactorial, including element of lymphedema with his retroperitoneal nodes. Patient diuresed with a goal of gentle diuresis secondary to poor kidney function, with out improvement. Patient presents with 4+ edema up to his thighs, fine inspiratory crackles, and some left lower extremity weeping. Follow-up with PCP Dr. Costa, and transition to hospice follow-up with Dr. Ordonez, will go ahead and increase torsemide to 60 mg for 5 days, with hospice oversight and monitor ongoing plan. Patient's support hose, which are Velcro and more comfortable, are coming tomorrow. Patient is been unable to elevate his legs, is getting a lift chair tomorrow as well, this should assist with compliance regarding this. Patient remains quite frail and poorly responsive to diureses. 2. Cellulitis left lower foot. This does appear to be resolving, he is almost completed his course of antibiotics, and has tolerated well without diarrhea or nausea. 3. CLL/SLL. Patient recently received iron transfusion, did not feel any improvement in energy or fatigue. Patient with a significant splenomegaly, retroperitoneal nodes wanting no further work-up at this point in time. 4. Acute on chronic pain. Patient with contusion on his right hip from recent fall, reports pain is managed with oxycodone 5 mg he is using 2-3 and 24 hours, with good relief. Also scheduled acetaminophen 1000 mg twice daily. 5. Generalized weakness. Patient requiring increased assistance for transfers, dressing, and ADLs. Patient may benefit from [employer] to summon assistance more easily, at this point in time he has to use the speaker phone on the wall. He does have an emergency cord in the bathroom if needed. Patient declines hospital bed, reports he likes to lay across rise, and the bed would be too narrow and limiting. Patient will have a more appropriate recliner, this may help with positioning and transfers. Outpatient physical therapy, notified through [facility] pending admit. Hospice to continue evaluate if would benefit from OT support in future. 6. Multiple skin tears and trauma wounds. The on examination has right and upper extremity skin tears, scabbing from [place] from dermatology. At this point no signs or symptoms of infection in any of the sites. Skin remains quite papery thin, and easy to chair. 7. Advanced care planning. Counseling provided regarding recommendation for transition to hospice, is congruent with goals of care to focus on quality of life increased support in his current setting, as well as no further ED/hospitalizations. Patient continues to report "I feel good" though does admit to things becoming more difficult, he reports he is not afraid of dying, but does not perceive this in the near future. We discussed the patient plateaued for extended period time or improved, can be discharged back to palliative care if appropriate, but in the meantime if patient continues to decline can meet his goals to stay comfortable and in his current setting. Handoff report given to hospice medical staff services manager, as well as follow-up with primary doctor down there in agreement with recommendation for hospice referral Time Spent: 75 minutes with greater than 50% of this done in counseling regarding goals of care, symptom management, coordination of care with daughter, primary care clinical staff and hospice medical staff services manager. Also provide anticipatory guidance for daughter and clinical staff.
== END 2019-06-01 13:16 | disposition home or self-care (01) ==
LOC: PC 13:15
PROVIDERS: ATTEND Nurse Practitioner Adult Health
DX: Z51.5 Encounter for palliative care (principal); I13.0 Hypertensive heart and chronic kidney disease with heart failure and stage 1 through stage 4 chronic kidney disease, or unspecified chronic kidney disease; N18.3 Chronic kidney disease, stage 3 (moderate); E11.22 Type 2 diabetes mellitus with diabetic chronic kidney disease; I50.43 Acute on chronic combined systolic (congestive) and diastolic (congestive) heart failure; L03.116 Cellulitis of left lower limb; C91.10 Chronic lymphocytic leukemia of B-cell type not having achieved remission; G89.29 Other chronic pain; R53.83 Other fatigue; R06.00 Dyspnea, unspecified; H91.90 Unspecified hearing loss, unspecified ear; Z79.51 Long term (current) use of inhaled steroids; Z66 Do not resuscitate; Z79.891 Long term (current) use of opiate analgesic